=== PATIENT | female | born 1965 | race Caucasian/White ===

== ENCOUNTER 2018-11-26 12:45 | Emergency (ER) | payer OTHER, SELFPAY ==
[2018-11-26 12:46] VITALS: BP 151/81; PULSE 86; RESP 16; TEMP 36.6; O2SAT 98; BMI 43.4
--- NOTE | 2018-11-26 13:05 | ED.VISSUMM ---
- ER Visit Summary Date of Service: 11/26/18 Chief Complaint: Left breast redness and discomfort History of Present Illness: The patient is a 53 F history of prior left breast CA with a lumpectomy and underwent radiation and chemo 4 years ago. She is done well. The last 2 days she has had redness and pain in her left breast. Last 2 days since resolved. Not have a thermometer temperature. She denies chills. She denies nausea, vomiting or diarrhea. She is never had cellulitis or an abscess in the left breast before. Her recently was hospitalized for cellulitis. Physical Examination: Middle-aged female. No acute distress. Vital signs are stable afebrile. Initial blood pressure 151/81. Temperature 98 degrees orally. HEENT exam unremarkable. Neck nontender. Lungs bilateral. Heart regular rhythm no murmur rate about 85. Left breast has a prior lumpectomy healed scar. Both in the medial superior aspect of the left breast. The breast is red warm tender and minimally swollen consistent with cellulitis. She also has some tender enlarged left axillary lymphadenopathy. I do not pay or see any obvious abscess. Currently there is no discharge, drainage or pus. Right breast is unremarkable. Abdomen is soft and nontender. She is moving all 4 extremities. Calves are nontender without edema. Neurologically she is awake alert with no focal motor deficits. Test Results: CBC shows white count of 4. Hemoglobin 14. No bands. Electrolytes unremarkable normal creatinine and gap. Emergency Department Course and Treatment: Patient has an obvious left breast cellulitis. She will be treated with IV Ancef and p.o. Bactrim. She has a reported penicillin allergy. Repeat exam at 1340 1 PM patient is doing well. She and her are comfortable with her being discharged home with outpatient therapy. She knows to return if worse. Treatment Plan: Keflex 4 times a day for 10 days. Bactrim twice a day for 10 days. Tylenol Motrin for pain. Return if feeling worse. Follow-up with your doctor this week. Disposition: Discharge Impression: Acute left breast cellulitis History of prior breast CA with lumpectomy This note was generated with [employer] software. It may contain incorrect words, spelling, and punctuation that were not noted in review of the chart prior to signing ED Disposition - Plan for ED Patient: Disposition: Home or Assisted Living Instructions: Cellulitis Prescriptions: Smz/Tmp Ds [Bactrim Ds] 1 tab PO BID #20 tab Prescription Printed Cephalexin [Keflex] 500 mg PO Q6 #40 cap Prescription Printed Referrals: Palmer Wells MD [Primary Care Provider] - 3-5 Days Additional Instructions: Motrin for pain and fever. Bactrim 1 pill twice a day. Keflex 1 pill 4 times a day both for 10 days. Return if you are feeling worse continued fever, chills or spreading of the infection. Call and follow-up with your doctor in the next 3 to 5 days.
--- NOTE | 2018-11-26 13:17 | ED.DEP ---
ED Disposition - Plan for ED Patient: Disposition: Home or Assisted Living Instructions: Cellulitis Prescriptions: Smz/Tmp Ds [Bactrim Ds] 1 tab PO BID #20 tab Prescription Printed Cephalexin [Keflex] 500 mg PO Q6 #40 cap Prescription Printed Referrals: Palmer Wells MD [Primary Care Provider] - 3-5 Days Additional Instructions: Motrin for pain and fever. Bactrim 1 pill twice a day. Keflex 1 pill 4 times a day both for 10 days. Return if you are feeling worse continued fever, chills or spreading of the infection. Call and follow-up with your doctor in the next 3 to 5 days.
[2018-11-26 13:23] LABS: Absolute Lymphocyte Count 1.46 X10^3/uL (0.83-4.51); Basophil# 0.02 X10^3/uL; Basophil% 0.4 % (0-1); Eosinophil# 0.05 X10^3/uL; Hematocrit 46.3 % (37-47); Hemoglobin 14.9 g/dL (12.0-15.0); Lymphocyte # 1.46 X10^3/ul (4.0); Lymphocyte % 29.7 % (19-41); Mean Corp Hgb Conc 32.2 g/dL (32-36); Mean Corpuscular Hgb 30.1 pg (27.0-32.0); Mean Corpuscular Volume 93.5 fL (81-99); Mean Platelet Vol. 11.4 fl (6.2-12.0); Monocyte# 0.33 X10^3/uL; Monocyte% 6.7 % (0-10); NRBC Flagged by Analyzer 0 % (0-5); Neutrophil # 3.04 X10^3/uL (2.7-7.7); Platelet Count 186 K/mm3 (150-450); RBC Distribution Width CV 12.4 % (11.6-14.6); RBC Distribution Width SD 42.7 fl (35.1-43.9); Red Blood Count 4.95 M/mm3 (4.2-5.4); White Blood Count 4.9 K/mm3 (4.4-11.0)
[2018-11-26] MEDS: Cefazolin 1 GM/50 ML BAG IV (13:24)
[2018-11-26] MEDS: Smz/Tmp Ds Tablet 1 TABLET PO (13:30)
[2018-11-26 13:36] LABS: Anion Gap 6 (5-15); BUN 11 mg/dL (7-18); BUN/Creat Ratio 13.1 RATIO (10-20); Calcium,Total 8.8 mg/dL (8.5-10.1); Chloride 107 mmol/L (98-107); Creatinine, Serum 0.84 mg/dL (0.55-1.02); EST Glomerular Filtration Rate 75 mL/min (>60); Est Glom Filt Rate - Afr Amer 91 mL/min (>60); Estimated Creatinine Clearance 70.84 ml/min; Glucose 152 mg/dL (74-106); Potassium 3.4 mmol/L (3.5-5.1); Sodium Level 141 mmol/L (136-145)
== END 2018-11-26 14:34 | disposition home or self-care (01) ==
PROVIDERS: Emergency Provider Emergency Medicine; Family Provider Family Medicine; PCP Family Medicine
DX: N61.0 Mastitis without abscess (principal); Z72.0 Tobacco use; Z88.0 Allergy status to penicillin; Z85.3 Personal history of malignant neoplasm of breast; Z92.21 Personal history of antineoplastic chemotherapy; Z92.3 Personal history of irradiation
CPT/HCPCS: 80048; 85025; 96365; 99284; J7040; A4216

== ENCOUNTER → 2019-12-13 17:23 | Outpatient (CLI) | payer OTHER, SELFPAY | PROVIDERS: PCP Family Medicine; Referring Provider Nurse Practitioner Family; Visit Provider Nurse Practitioner Family | DX: Z20.828 Contact with and (suspected) exposure to other viral communicable diseases (principal); R11.0 Nausea; R19.7 Diarrhea, unspecified | CPT/HCPCS: 87635; C9803; U0003 ==

== ENCOUNTER 2020-05-02 12:43 | Day surgery (SDC) | payer OTHER, SELFPAY ==
--- NOTE | 2020-04-30 15:51 | EKG12_ITS ---
Test Reason : PREOP Blood Pressure : / mmHG Vent. Rate : 082 BPM Atrial Rate : 082 BPM P-R Int : 140 ms QRS Dur : 092 ms QT Int : 396 ms P-R-T Axes : 025 -07 040 degrees QTc Int : 462 ms Normal sinus rhythm Normal ECG Confirmed by NEERU GARCIAS, SARIKA ([id number]), field map editor ROHAN SINGLETON ([id number]) on 05/01/2020 12:40:45 PM Referred By: Nolberto Mcpherson Confirmed By:SARIKA SIDDIQI MD
--- NOTE | 2020-04-30 16:05 | RAD_ITS ---
STUDY: X-RAY CHEST REASON FOR EXAM: Female, 55 years old. PREOP TECHNIQUE: PA and lateral views of the chest. COMPARISON: Comparison is made with prior study 11/19/2016. FINDINGS: The lungs are clear and expanded. There is no demonstrated pleural abnormality. Normal size heart. Normal mediastinum and roes. Normal visualized pulmonary arteries. Normal visualized aortic arch and descending thoracic aorta. There are mild degenerative changes of the visualized thoracic spine. Normal visualized ribs, clavicles, and shoulders. There is no demonstrated abnormality of the visualized soft tissue structures of the upper abdomen. RAD/Chest PA and Lateral IMPRESSION: No acute abnormality is seen. Electronically Signed: Rich Corbett MD at 11:24 EDT , Service support ,
[2020-04-30 17:23] LABS: Hematocrit 44.7 % (37-47); Hemoglobin 14.3 g/dL (12.0-15.0); Mean Corpuscular Hgb 29.7 pg (27.0-32.0); Mean Corpuscular Volume 92.7 fL (81-99); Mean Platelet Vol. 12.3 fl (6.2-12.0); Platelet Count 270 K/mm3 (150-450); RBC Distribution Width CV 12.3 % (11.6-14.6); RBC Distribution Width SD 42.5 fl (35.1-43.9); Red Blood Count 4.82 M/mm3 (4.2-5.4); White Blood Count 7.9 K/mm3 (4.4-11.0)
[2020-05-02] VITALS (9 sets, daily range): BP systolic 112–153; BP diastolic 62–81; PULSE 18–72; RESP 16–18; TEMP 36–37.1; O2SAT 92–100; BMI 41.8
[2020-05-02] MEDS: Lactated Ringers 1,000 ML 100 ML IV ×3 (13:35→17:40)
--- NOTE | 2020-05-02 15:15 | GALL_PTH ---
PATIENT: ERASMO EGAN [place] [facility] [id number] AGE/SX: 55/F ROOM: RE05/02/[address]: Dr. Nolberto Mcpherson MD : 1965 BED: DIS: 05/02/2020 SPEC #: [id number] RECD: 05/05/20 07:29 STATUS: SYLWIA RIBERAHaylee #: [id number] DANIEL: 05/02/20 15:[address]: Nolberto Mcpherson DEPT: SURGICAL PATHOLOGY RECD BY: Birdie Sanchez ENTERED: 05/05/20 07:58 SP TYPE: ARELIS SHIELDS DR: Dr. Palmer Wells MD Tissues: Gallbladder, NOS Procedures: Surgery Specimen Level IV HEADER OPERATION: Laparoscopic cholecystectomy PRE-OP DIAGNOSIS: Epigastric abdominal pain, cholelithiasis TISSUE SUBMITTED: Gallbladder MICROSCOPIC DIAGNOSIS Gallbladder, cholecystectomy: Chronic cholecystitis, cholelithiasis and focal cholesterolosis. Focal dysplastic changes. SJ:geeta 05/07/2020 COMMENT Case has been reviewed in consultation with Dr. Greenberg who concurs with the above diagnosis. IDC:AM MICROSCOPIC DESCRIPTION Slides are reviewed. GROSS DESCRIPTION Received is one container labeled with the patient's name and designated gallbladder. The specimen consists of a gallbladder measuring 5.5 x 4 x 3 cm. The external surface is smooth and glistening. Focally, it is granular, hemorrhagic and contains cautery artifact. The lumen of the gallbladder contains yellow-green mucoid bile and one crystalline green calculus measuring 2.5 cm in greatest dimension. The mucosa is bile-stained and without any mass lesions. The gallbladder wall averages 0.2 cm in thickness and is free of mass lesions. All Around Gear Machine Operator sections of the gallbladder and the cystic duct at margin of resection are submitted in one cassette. / AM:geeta 05/05/20 More sections are submitted in three more cassettes, 2-4. Cassette 2 contains the section close to the cystic duct area. / SJ:geeta 05/06/20 TC:3 [facility]: [id number] ADDENDUM ADDENDUM ADDENDUM ADDENDUM 05/14/2020 11:05 ADDENDUM 05/14/2020 11:05 ADDENDUM 05/14/2020 11:05 ADDENDUM 05/14/2020 11:05 ADDENDUM 05/14/2020 11:05 Cystic duct margin is negative for dysplastic changes. This case is discussed with Dr. Liza Borjas from Dr. Mcpherson's office on 05/14/2020.
[2020-05-02] MEDS: Bupivacaine Mpf 0.5% 30 ML VIAL (15:17)
--- NOTE | 2020-05-02 15:53 | PCM.OPRPT ---
Problem List (1) Calculus of gallbladder Status: Acute Qualifiers: Cholecystitis presence: with cholecystitis Cholecystitis acuity: chronic Biliary obstruction: without biliary obstruction Qualified Code(s): K80.10 - Calculus of gallbladder with chronic cholecystitis without obstruction (2) Epigastric pain Status: Acute Report of Operation Date of Procedure: 05/02/20 Pre-Operative Diagnosis: 1. Calculus of the gallbladder. 2. Epigastric pain Post-Operative Diagnosis: Same Surgery/Procedure Performed:: Laparoscopic cholecystectomy Type of Anesthesia:: General Anesthesiologist: Josh Trent Specimen's removed: Gallbladder Estimated Blood Loss (mL): < 25 cc Fluids Replaced: 500 cc LR Description of Procedure: Patient was brought into the operating room. Placed in the supine position. Under excellent general trach intubation the abdomen was sterilely prepped and draped in usual fashion. Local was injected infraumbilically. Dissection was carried down to the fascia. The fascia grasped with a [place]. Varies needle was placed inside the abdomen. The abdomen was insufflated to 15 torr. A 10/12 trocar was placed without difficulty. The patient was placed in the head up and rotated to the left position. Subxiphoid #5 trochars placed, inferior to this another #5 trocar was placed, laterally a #5 trocar was placed. All these under direct visualization without injury to underlying structures. Fundus of the gallbladder was grasped retracted in a cephalad direction. I dissected out the cystic duct placed hemoclips proximally and distally and ligated the duct I dissected out the cystic artery placed hemoclips proximally and distally and ligated the artery. The posterior branch of the cystic artery placed a Hemoclip on this as well. Deliver the gallbladder from the gallbladder bed had some spillage of bile but no spillage of stones. Placed a specimen in a specimen bag delivered through the umbilical port without difficulty. Reinflated the abdomen use electrocautery on the liver bed achieve good hemostasis. Remove the trochars under direct visualization good mistakes was noted. Closed the fascia the umbilical port with a [id number] stitch of 0 Vicryl. Skin incisions were closed with subcuticular stitches of 4-0 Monocryl. Steri-Strips were applied sterile dressings were applied and the patient tolerated the procedure well. - Admit VTE Documentation VTE Present on Admission: No VTE Mechan Device Prophylaxis: SCD's VTE Pharm Prophylaxis ordered?: No Reason prophylaxis not ordered:: Treatment Not Indicated [id number]: [id number] Laparoscopic cholecystectomy
--- NOTE | 2020-05-02 16:03 | PCM.DC.GB ---
Discharge Diet: Light diet - advance as tolerated Discharge Activity: May Not Drive - for 2-3 days or while taking narcotic pain medications., - - Do not drive, work heavy equipment or sign legal documents for 24 hours. May shower in (days): 1 - with the bandage in place. Additional Activity Instructions:: Pain medication may cause nausea. You should typically eat light foods as you take your pain medications. Pain medication may also cause constipation. If this is a problem for you, please discuss with your doctor. Call your doctor if your incision/area has: Continuous Slow Oozing, Sudden Increased Bleeding, Increased Pain/ Swelling, Increased Redness, Foul Smelling Discharge Call your doctor if you observe: Fever of 101 or Higher Suture Line Care: Avoid Pulling/Pushing, Avoid Pinching/Bending Additional Dressing/Incision Instructions:: Leave operative bandaids on for 2 days. When you remove dressing, leave Steri-Strips on until your follow-up appointment, or until the Steri-Strips fall off on their own. Allergies/Adverse Reactions: Allergies Penicillins [PCN] Allergy (Verified 05/02/20 13:11) Other Medications to take at Discharge Albuterol Inhaler [Ventolin Hfa (SP)] 2 puff INHALATION Q6H PRN PRN 05/30/15 Cholecalciferol (Vitamin D3) [Vitamin D3] 500 mcg PO DAILY 04/30/20 Oxycodone HCl/Acetaminophen [Percocet 5/325] 1 - 2 tablet PO Q4H PRN PRN 5 Days #30 tablet 05/02/20 The following prescriptions were given: Oxycodone HCl/Acetaminophen [Percocet 5/325] 1 - 2 tablet PO Q4H PRN PRN 5 Days #30 tablet PRN Reason: Pain Transmission Status: Sent to [id number] Primary Care Physician: Palmer Wells MD [Primary Care Provider] - Test Results: Test results from this visit will be discussed in further detail at your follow-up appointment, if applicable. Please Follow Up With: Liza Borjas PA-C When: 7 days after your surgery.
== END 2020-05-02 18:29 | disposition home or self-care (01) ==
LOC: SDC 12:43 → AC 12:44
PROVIDERS: Anesthesiology; PCP Family Medicine; Referring Provider Surgery; Visit Provider Surgery
PROC: (CPT 47562; principal; 2020-05-02 14:55)
DX: K80.10 Calculus of gallbladder with chronic cholecystitis without obstruction (principal); Z20.822 Contact with and (suspected) exposure to COVID-19; E04.1 Nontoxic single thyroid nodule; E66.9 Obesity, unspecified; F17.210 Nicotine dependence, cigarettes, uncomplicated; Z78.0 Asymptomatic menopausal state
CPT/HCPCS: 47562; 36415; 71046; 85027; 87426; 88304; 88305; 93005; C9803; J7120; J2405

== ENCOUNTER → 2020-05-27 | Outpatient (CLI) | payer OTHER, SELFPAY ==
[2020-05-02 13:12] VITALS: BMI 41.8
--- NOTE | 2020-05-26 08:40 | ASPS_PTH ---
PATIENT: ERASMO EGAN LOC: [facility] U#:[id number] AGE/SX: 55/F ROOM: RE05/27/[address]: Dr. Nolberto Mcpherson MD : 1965 BED: DIS: 05/27/2020 SPEC #: [id number] RECD: 05/27/20 11:48 STATUS: SYLWIA REHaylee #: [id number] DANIEL: 05/26/20 08:[address]: Nolberto Mcpherson DEPT: CYTOLOGY RECD BY: Birdie Sanchez ENTERED: 05/27/20 13:04 SP TYPE: ASPIRATION OTHR DR: Dr. Palmer Wells MD Tissues: A - Thyroid gland, NOS B - Thyroid gland, NOS Procedures: Special Stain Group II Cytology Other HEADER OPERATION: Ultrasound-guided fine needle aspiration left thyroid x2 PRE-OP DIAGNOSIS: Thyroid nodules TISSUE SUBMITTED: A - Left inferior thyroid FNA slides x12, B - Left middle FNA slides x12 DIAGNOSIS CYTOLOGY A. Fine needle aspiration, left inferior thyroid nodule (smears): Adequate for evaluation. Benign, consistent with follicular/colloid nodule. B. Fine needle aspiration, left middle thyroid nodule (smears): Adequate for evaluation. Rare follicular cell atypia of uncertain significance. See comment. AM:geeta 05/28/2020 COMMENT B. The majority of the specimen consists of cluster-shaped sheets of benign follicular cells. Clinical correlation is suggested. CYTOLOGY STUDY Slides are reviewed. CYTOLOGY GROSS A - Received are 12 smears labeled with the patient's name and designated per the requisition as left inferior thyroid. Submitted for staining. B - Received are 12 smears labeled with the patient's name and designated per the requisition as left middle thyroid. Submitted for staining. / geeta 05/27/2020 TC:? CPT: 65627 x2
== END | disposition home or self-care (01) ==
LOC: LABSPEC 12:19
PROVIDERS: PCP Family Medicine; Referring Provider Surgery; Visit Provider Surgery
DX: E04.2 Nontoxic multinodular goiter (principal)
CPT/HCPCS: 88161; 88313

== ENCOUNTER 2020-06-06 11:33 | Day surgery (SDC) | payer OTHER, SELFPAY ==
[2020-05-02 13:12] VITALS: BMI 41.8
--- NOTE | 2020-06-06 | THYROID_PTH ---
PATIENT: ERASMO EGAN LOC: [facility] – [place] U#:[id number] AGE/SX: 55/F ROOM: RE06/06/[address]: Dr. Nolberto Mcpherson MD : 1965 BED: DIS: 06/06/2020 SPEC #: [id number] RECD: 06/06/20 15:12 STATUS: SYLWIA DION #: [id number] DANIEL: 06/06/20 00:[address]: Nolberto Mcpherson DEPT: SURGICAL PATHOLOGY RECD BY: Rosangela Hemphill ENTERED: 06/06/20 15:32 SP TYPE: THYROID OTHR DR: Dr. Palmer Wells MD Tissues: Thyroid gland, NOS Procedures: Frozen Section (charge) Frozen Section Add'l ([facility]) Surgery Specimen Level V HEADER OPERATION: Thyroid lobectomy PRE-OP DIAGNOSIS: Multinodular goiter TISSUE SUBMITTED: Left thyroid lobe, frozen section FROZEN SECTION DIAGNOSIS Left thyroid lobe, lobectomy: Cellular follicular lesion. Multinodular goiter. SJ:geeta 06/06/2020 MICROSCOPIC DIAGNOSIS Left thyroid lobe, lobectomy: Multinodular goiter with adenomatoid nodules. See comment. SJ:geeta 06/09/2020 COMMENT Please make reference to previous specimen ([id number]) fine needle aspiration, left inferior thyroid nodule with diagnosis of benign, consistent with follicular/colloid nodule and fine needle aspiration, left middle thyroid nodule with diagnosis of rare follicular cell atypia of uncertain significance. MICROSCOPIC DESCRIPTION Slides are reviewed. GROSS DESCRIPTION Received fresh for frozen section diagnosis labeled with the patient's name is a specimen designated left thyroid lobe. The specimen consists of a thyroid lobectomy specimen weighing 13.1 gm and measuring 4.5 x 4 x 2 cm. No external parathyroid tissue is identified. The specimen is inked as follows: anterior - blue, posterior - black and isthmic margin - yellow. Serial sections reveal a nodule measuring 2 cm in greatest dimension in the middle to lower portion of the lobe. Multiple smaller nodules are also noted. Two sections are submitted for frozen section diagnosis. Credentialing Assistant sections are submitted in nine cassettes as follows: 1 - frozen section, largest nodule, 2 - frozen section, one smaller nodule, 3-9 - rest of the specimen (3 containing most superior portion and 9 containing most inferior portion. / BHAKTI:geeta 06/06/20 TC:5 CPT: 08653, 98842, 31454
[2020-06-06 12:10] VITALS: BP 141/86; PULSE 76; RESP 18; TEMP 36.4; O2SAT 99; BMI 41.7
[2020-06-06] MEDS: BUPIVACAINE LIPOSOME/PF 20 ML VIAL OPERA.SITE (14:29)
--- NOTE | 2020-06-06 14:37 | OP.PCM_ITS ---
Problem List (1) Multinodular goiter Status: Acute Report of Operation Date of Procedure: 06/06/20 Pre-Operative Diagnosis: Multinodular goiter Post-Operative Diagnosis: Same Surgery/Procedure Performed:: Left-sided thyroid lobectomy Type of Anesthesia:: General Anesthesiologist: Agustin Ngo Specimen's removed: Left thyroid Estimated Blood Loss (mL): <25 cc Description of Procedure: Patient was brought into the operating room. Placed in the supine position. Under excellent general endotracheal intubation towel roll was placed underneath the shoulder blades and neck was extended sterilely prepped and draped in usual fashion. Cervical incision was made. Dissection was carried down subplatysmal flaps were created with use electrocautery. Gelpi retractor was placed inside the wound midline strap muscles were opened with electrocautery and continued with harmonic dissector I dissected the strap muscles off of the left thyroid gland using harmonic dissector for good pneumostasis I went to the superior pole vessels took this down with harmonic dissector placed 1 medium vascular clip in the superior pole. Came down took the middle thyroidal vein down with harmonic dissector and finally took the inferior thyroid vessels down with a harmonic dissector I rotated the gland from lateral to medial standpoint using the harmonic dissector for good pneumostasis I clearly identified both the superior and inferior parathyroid glands. I stayed away from the recurrent laryngeal n erve. I finally took the gland off of Chaz's ligaments with the harmonic dissector and continued going across the trachea and transected it on the left side of the thyroid gland. I sent it to pathology for frozen section which came back there is no signs of papillary thyroid cancer. Fluffy Surgicel and FloSeal was placed inside the wound to have good pneumostasis. Exparel was injected throughout the entire wound. Strap muscles were brought together with 2-0 Vicryl subplatysmal flaps were brought together with 3-0 Vicryl in a running 4-0 Monocryl in the skin Dermabond was applied sterile dressings were applied and the patient tolerated the procedure well. Pathology report on the frozen section came back as a cellular follicular lesion essentially consistent with the preoperative fine-needle aspiration. Nothing was done to the right side. - Admit VTE Documentation VTE Present on Admission: No VTE Mechan Device Prophylaxis: SCD's VTE Pharm Prophylaxis ordered?: No Reason prophylaxis not ordered:: Treatment Not Indicated
[2020-06-06 14:45] VITALS: BP 129/76; BP 141/86; PULSE 80; RESP 16; TEMP 36.1; O2SAT 93
--- NOTE | 2020-06-06 15:40 | DCINST_ITS ---
Discharge Diet: Light diet - advance as tolerated - If you have questions about your diet instructions, please talk to your doctor. Discharge Activity: May Not Drive - for 1 week or while taking narcotic pain medicine. May shower in (days): 1 Lifting Restrictions: 10 pounds Call your doctor if your incision/area has: Continuous Slow Oozing, Sudden Increased Bleeding, Increased Pain/ Swelling, Increased Redness, Foul Smelling Discharge Call your doctor if you observe: Fever of 101 or Higher Suture Line Care: Avoid Pulling/Pushing, Avoid Pinching/Bending Additional Dressing/Incision Instructions:: Change or remove dressing in 4 days. Leave steri-strips in place for 1 week. Allergies/Adverse Reactions: Allergies Penicillins [PCN] Allergy (Verified 06/06/20 12:15) Other Medications to take at Discharge Albuterol Inhaler [Ventolin Hfa (SP)] 2 puff INHALATION Q6H PRN PRN 05/30/15 Cholecalciferol (Vitamin D3) [Vitamin D3] 500 mcg PO DAILY 04/30/20 Oxycodone HCl/Acetaminophen [Percocet 5/325] 1 - 2 tablet PO Q4H PRN PRN 5 Days #30 tablet 06/06/20 The following prescriptions were given: Oxycodone HCl/Acetaminophen [Percocet 5/325] 1 - 2 tablet PO Q4H PRN PRN 5 Days #30 tablet PRN Reason: Pain Transmission Status: Received by [id number] Primary Care Physician: Palmer Wells MD [Primary Care Provider] - Test Results: Test results from this visit will be discussed in further detail at your follow- up appointment, if applicable. Please Follow Up With: Nolberto Mcpherson MD When: Call to make an appointment to be seen in about 10 days.
[2020-06-06 16:00] VITALS: BP 129/77; BP 141/86; PULSE 69; RESP 18; O2SAT 91
[2020-06-06 16:15] VITALS: BP 132/80; BP 141/86; PULSE 71; RESP 18; O2SAT 92
[2020-06-06 16:23] VITALS: BP 130/81; BP 141/86; PULSE 69; RESP 18; TEMP 36.6; O2SAT 92
[2020-06-06 17:08] VITALS: BP 137/75; BP 141/86; PULSE 66; RESP 18; TEMP 36.2; O2SAT 96
== END 2020-06-06 17:15 | disposition home or self-care (01) ==
LOC: SDC 11:34 → AC 11:34
PROVIDERS: PCP Family Medicine; Referring Provider Surgery; Visit Provider Surgery
PROC: (CPT 60220; principal; 2020-06-06 13:50)
DX: E04.2 Nontoxic multinodular goiter (principal); Z20.822 Contact with and (suspected) exposure to COVID-19; J45.909 Unspecified asthma, uncomplicated; F17.210 Nicotine dependence, cigarettes, uncomplicated; Z78.0 Asymptomatic menopausal state; Z85.41 Personal history of malignant neoplasm of cervix uteri; Z85.3 Personal history of malignant neoplasm of breast
CPT/HCPCS: 00320; 60220; 87426; 88307; 88331; 88332; C9803; J7120

== ENCOUNTER 2021-05-13 11:15 | Emergency (ER) | payer OTHER, SELFPAY ==
[2021-05-13 11:16] VITALS: BP 171/84; PULSE 89; RESP 20; TEMP 36.4; O2SAT 97; BMI 40.8
--- NOTE | 2021-05-13 11:22 | EKG12_ITS ---
Test Reason : CP Blood Pressure : / mmHG Vent. Rate : 078 BPM Atrial Rate : 078 BPM P-R Int : 150 ms QRS Dur : 094 ms QT Int : 390 ms P-R-T Axes : 009 -09 057 degrees QTc Int : 444 ms Normal sinus rhythm Normal ECG Confirmed by ANDRÉS GARCIAS, BERNADINE ([id number]), video tape editor ROHAN SINGLETON ([id number]) on 05/15/2021 2:12:49 PM Referred By: THELMA Confirmed By:KIKO BOWEN MD
[2021-05-13 11:28] VITALS: O2SAT 97
--- NOTE | 2021-05-13 11:30 | RAD_ITS ---
STUDY: X-RAY CHEST REASON FOR EXAM: Female, 56 years old. Chest pain TECHNIQUE: Single AP portable view of the chest. COMPARISON: Comparison is made with prior study of 04/30/2020. FINDINGS: EKG electrodes are seen. The lungs are clear and expanded. There is no demonstrated pleural abnormality. Normal size heart. Normal mediastinum and rose. Normal visualized pulmonary arteries. Normal visualized aortic arch and descending thoracic aorta. There are mild degenerative changes of the visualized thoracic spine. Normal visualized ribs, clavicles, and shoulders. There is no demonstrated abnormality of the visualized soft tissue structures of the upper abdomen. RAD/Chest 1 View (Portable) IMPRESSION: Normal x-ray examination of the chest. Electronically Signed: Rich Corbett MD at 12:10 EDT ,
--- NOTE | 2021-05-13 11:31 | EDS_ITS ---
HPI History of Present Illness Chief Complaint: Chest Pain Detail of Chief Complaint: Numbness across her chest and down her left arm. 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 Is not treated for any cardiac history nor is she on any blood pressure medications. States her blood pressures been up today and she has noticed numbness across her chest and down her left arm. Denies any shor tness of breath. No nausea. No diaphoresis. No recent exertional chest pain or exertional dyspnea. Prior Similar Symptoms: No Recent Illness/Hospitalization: No CVD Risk Factors: Negative for Hypertension, Diabetes and Hypercholesterolemia PE Risk Factors: Negative for Recent Travel/Surgery, Recent Immobilization, Prior DVT or PE, Cancer and OCP + Smoking + >/=35 TAD Risk Factors: Negative for Marfan's Syndrome PFSH PFSH Home Medications lisinopril 10 mg PO DAILY 30 Days #30 tab 05/13/21 [Rx Last Taken Unknown] Allergy/AdvReac Type Severity Reaction Status Date / Time Penicillins [PCN] Allergy Other Verified 05/13/21 11:17 Social History Smoking Status: Current every day smoker tobacco type: cigarettes ROS ROS ED ROS Narrative Denies recent illness. Review of Systems ROS Unobtainable: Denies due to encephalopathy Constitutional Constitutional ED: Denies fever(s) ENT ENT ED: Denies ear pain Cardiovascular Cardiovascular: Reports as per HPI; Denies chest pain, palpitations or racing heartbeat Respiratory/Chest Respiratory/Chest: Denies dyspnea Gastrointestinal Gastrointestinal: Denies abdominal pain Genitourinary Genitourinary ED: Denies dysuria Musculoskeletal Musculoskeletal: Denies myalgias Integumentary Denies rash Neurologic Neurologic: Denies headache(s) Psychiatric Psychiatric: Denies depression Endocrine Endocrinology: Denies polyuria Hematologic/Lymphatic Hematologic/Lymphatic: Denies easy bruising Allergic/Immunologic Allergic/Immunologic ED: Denies urticaria EXAM Physical Exam Narrative Exam Narrative: Well-appearing middle-aged female. Initial blood pressure 171/84. No acute distress. H EENT exam unremarkable. Neck nontender. Lungs clear to auscultation bilaterally. Heart regular rate and rhythm no murmur rate about 80. Chest wall nontender. Abdomen soft nontender. Obese. Moving all 4 extremities. Calves nontender without edema or cords. Equal symmetrical radial pulses. Back exam unremarkable. Neurologically she is awake alert with no focal motor deficits. Const Vital Signs: 05/13/21 11:16 05/13/21 11:18 05/13/21 11:28 Temperature 97.6 F L Temperature Source Temporal Pulse Rate 89 Respiratory Rate 20 H Respiratory Effort Normal Non-Labored Blood Pressure 171/84 H Blood Pressure Mean 113 Pulse Ox 97 97 Oxygen Delivery Method Room Air Room Air 05/13/21 11:56 05/13/21 13:06 Temperature Temperature Source Pulse Rate 73 60 Respiratory Rate 17 Respiratory Effort Blood Pressure 161/77 H 169/88 H Blood Pressure Mean 105 115 Pulse Ox 98 Oxygen Delivery Method Room Air Positive well nourished, well developed and obese; Negative for cachectic, contractures or unkempt General Appearance ED: well developed, NAD and other; Negative for unkempt, cachectic, contractures or pallor Nutritional Appearance: obese; Negative for cachectic HEENT Reports moist mucous membranes normocephalic and atraumatic; Negative for trauma or tenderness Eyes PERRL and EOMs intact bilaterally Neck no lymphadenopathy, supple and no JVD General: Negative for tenderness Chest Wall inspection of chest normal and palpation of chest normal Chest: Negative for tenderness Resp normal respiratory effort and clear to auscultation bilaterally Effort and Inspection: respiratory distress Auscultation: Negative for rales, rhonchi or wheezes Cardio regular rate, regular rhythm, S1 normal heart sound, S2 normal heart sound and no murmurs Rate: Negative for tachycardic GI normal to inspection, nondistended, normoactive bowel sounds, soft to palpation, non-tender, non-distended and no masses Back/Spine no CVA tenderness and no thoracic nor lumbar tenderness General Back: Negative for CVA tenderness Cervical Spine: Negative for cervical spine tenderness Extremity normal to inspection General Extremety ED: Negative for edema, pulses abnormal or tenderness General Extremity: Negative for edema or pulses abnormal Neuro oriented x3 Sensorium / Orientation: awake, alert, oriented to person, oriented to place and oriented to time Motor Exam: strength 5/5 throughout Psych mental status grossly normal Appearance: Negative for unkempt Attitude: No agitated Mood & Affect: Negative for depressed or tearful Skin no rashes or lesions noted and no wounds General Skin Exam: Negative for jaundice or pallor MDM MDM MDM Narrative Medical decision making narrative: Patient with elevated blood pressure with chest and arm numbness. Denies any chest pain. She will undergo cardiac work- up. Repeat exam patient is doing well at 2 PM. Blood pressure is improving. She will be discharged home. Blood pressure is currently 118/58. She will be started on lisinopril 10 mg a day. Follow-up with her primary care physician. Lab Data Attestation: I reviewed the patient's lab results. Lab results narrative: CBC normal white count 7. H&H 14 and 45. Electrolytes unremarkable gap at 2 normal BUN and creatinine. Glucose 97. Troponin less than 3. Chest x-ray normal. Normal cardiac silhouette mediastinum. Interpreted by myself and the radiologist. CT of the chest is read the radiologist and reviewed by me shows no acute abnormality. No dissection. Repeat troponin is normal at 8. Labs: Laboratory Results - last 24 hr 05/13/21 05/13/21 05/13/21 11:25 11:25 13:38 WBC 7.2 RBC 4.86 Hgb 14.9 Hct 45.8 MCV 94.2 MCH 30.7 MCHC 32.5 RDW Std Deviation 43.1 RDW Coeff of Julito 12.4 Plt Count 272 MPV 11.5 Immature Gran % (Auto) 0.300 Neut % (Auto) 65.5 Lymph % (Auto) 26.0 Barnes % (Auto) 6.1 Eos % (Auto) 1.7 Baso % (Auto) 0.4 Absolute Neuts (auto) 4.7 Absolute Lymphs (auto) 1.87 Nucleated RBC % 0 Sodium 138 Potassium 3.9 Chloride 107 Carbon Dioxide 29.0 Anion Gap 2 L BUN 18 Creatinine 0.96 Estim Creat Clear Calc 64.44 Est GFR (MDRD) Af Amer 77 Est GFR (MDRD) Non-Af 63 BUN/Creatinine Ratio 18.7 Glucose 97 Calcium 9.1 Troponin I High Sens < 3 L 8 Radiography Chest X-Ray - ED: 1 View, Read by ED Physician, Heart, Lungs, Mediastinum, Bony Structures and No Acute Disease Diagnostic Testing: Clinical Impression(s) from Imaging Studies Chest X-Ray 05/13/21 11:30 IMPRESSION: Normal x-ray examination of the chest. Electronically Signed: Rich Corbett MD at 12:10 EDT , Chest CTA 05/13/21 12:31 IMPRESSION: Normal CTA chest examination, without a demonstrated pulmonary embolism or arterial dissection. Electronically Signed: Rich Corbett MD at 13:30 EDT , Chest x-ray, portable, single view interpreted by myself and radiologist shows no acute abnormality. Normal mediastinum and cardiac silhouette. Rhythm Strip Rhythm Strip: Sinus Rhythm Rate: 78 Ectopy: None EKG Initial EKG: Attestation: I personally reviewed and interpreted this EKG as follows: Interpretation: Sinus Rhythm and No Acute Injury Pattern Comments: Normal sinus rhythm rate of 78 no acute signs of IN nor ischemia. Discharge Plan Triage Chief Complaint: Chest Pain ED Provider: Hernan Clayton Dx/Rx/DC Orders Clinical Impression: Hypertension, History of breast cancer in female Instructions: ED High Blood Pressure Hypertension Prescriptions: New lisinopril 10 mg tablet 10 mg PO DAILY 30 Days Qty: 30 RF: 0 Primary Care Provider: Palmer Wells Referrals: Palmer Wells MD [Primary Care Provider] - 1 Week Activity Restrictions/Additional Instructions: Your test today were unremarkable. Your blood pressure responded well to the blood pressure medication we gave you. You will be started on a blood pressure medication called lisinopril. You will take it once a day. 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 Log your blood pressures twice daily. Follow-up with your doctor in a week and see how your blood pressures are running when she been started on the medication. Hold the medication if your blood pressure is 120 or below. Disposition Disposition: Home, Self Care
[2021-05-13 11:32] LABS: Absolute Lymphocyte Count 1.87 X10^3/uL (0.83-4.51); Absolute Neutrophil Count 4.7 X10^3/uL (2.0-7.7); Basophil# 0.03 X10^3/uL; Basophil% 0.4 % (0-1); Eosinophil# 0.12 X10^3/uL; Eosinophils% 1.7 % (0-5); Hematocrit 45.8 % (37-47); Hemoglobin 14.9 g/dL (12.0-15.0); Lymphocyte # 1.87 X10^3/ul (0.83-4.51); Mean Corp Hgb Conc 32.5 g/dL (32-36); Mean Corpuscular Hgb 30.7 pg (27.0-32.0); Mean Corpuscular Volume 94.2 fL (81-99); Mean Platelet Vol. 11.5 fl (6.2-12.0); Monocyte# 0.44 X10^3/uL; Monocyte% 6.1 % (0-10); NRBC Flagged by Analyzer 0 % (0-5); Neutrophil # 4.71 X10^3/uL (2.7-7.7); Neutrophil % 65.5 % (47-70); Platelet Count 272 K/mm3 (150-450); RBC Distribution Width CV 12.4 % (11.6-14.6); RBC Distribution Width SD 43.1 fl (35.1-43.9); Red Blood Count 4.86 M/mm3 (4.2-5.4); White Blood Count 7.2 K/mm3 (4.4-11.0)
[2021-05-13 11:49] LABS: Anion Gap 2 (5-15); BUN 18 mg/dL (7-18); BUN/Creat Ratio 18.7 RATIO (10-20); Calcium,Total 9.1 mg/dL (8.5-10.1); Chloride 107 mmol/L (98-107); Creatinine, Serum 0.96 mg/dL (0.55-1.02); EST Glomerular Filtration Rate 63 mL/min (>60); Est Glom Filt Rate - Afr Amer 77 mL/min (>60); Estimated Creatinine Clearance 64.44 ml/min; Glucose 97 mg/dL (74-106); Potassium 3.9 mmol/L (3.5-5.1); Sodium Level 138 mmol/L (136-145); Troponin-I HS < 3 pg/mL (3.0-54.0)
[2021-05-13 11:56] VITALS: BP 161/77; PULSE 73
--- NOTE | 2021-05-13 12:31 | CT_ITS ---
STUDY: CTA CHEST REASON FOR EXAM: Female, 56 years old. Chest pain between the scapula. History of breast cancer. aortic dissection RADIATION DOSAGE (If Supplied By Facility): CTDIvol = ( 20.97 ) mGy, DLP = ( 523.92 ) mGycm TECHNIQUE: The examination was performed with the intravenous administration of IV 100mL Isovue-370. Post-processing of the angiographic images was performed, with multiplanar reformation and 3D reconstruction. Individualized dose optimization techniques were used for this CT. COMPARISON: None. FINDINGS: Normal enhancement of the main pulmonary artery and right and left pulmonary arteries. Normal enhancement of the bilateral peripheral pulmonary arteries. There is no demonstrated pulmonary embolism. Normal thoracic aorta and visualized great vessels. There is no demonstrated aortic dissection. Normal heart and pericardium. Normal mediastinum. Normal hilar regions. Normal visualized trachea and bronchi. The lungs are well expanded. Normal pulmonary parenchyma. Normal pleura. Normal chest wall structures. Normal osseous structures. Normal visualized upper abdomen. CT/CTA Chest W/WO Contrast IMPRESSION: Normal CTA chest examination, without a demonstrated pulmonary embolism or arterial dissection. Electronically Signed: Rich Corbett MD at 13:30 EDT ,
[2021-05-13] MEDS: Metoprolol Tartrate 5 MG/5 ML Vial IV (12:34)
[2021-05-13 13:06] VITALS: BP 169/88; PULSE 60; RESP 17; O2SAT 98
[2021-05-13 14:03] LABS: Troponin-I HS 8 pg/mL (3.0-54.0)
[2021-05-13 14:19] VITALS: BP 118/98; PULSE 65; RESP 17; O2SAT 97
== END 2021-05-13 14:20 | disposition home or self-care (01) ==
PROVIDERS: Emergency Provider Emergency Medicine; PCP Family Medicine; Visit Provider Emergency Medicine
DX: I10 Essential (primary) hypertension (principal); R20.0 Anesthesia of skin; F17.210 Nicotine dependence, cigarettes, uncomplicated; Z85.3 Personal history of malignant neoplasm of breast
CPT/HCPCS: 71045; 71275; 80048; 84484; 85025; 93005; 96374; 99284; Q9967; A4216

== ENCOUNTER → 2021-06-29 | Outpatient (CLI) | payer OTHER, SELFPAY ==
--- NOTE | 2021-06-29 14:26 | STRESSREP ---
Stress Test Report Exercise stress test. 56-year-old lady with a history of chest pain. Resting EKG demonstrates normal sinus rhythm with a rate of 75 bpm normal intervals are noted. The patient exercised according to the regular [place] protocol for a total duration of 3 minutes. The maximum heart rate attained was 137 bpm which was 84% of max impact at heart rate the maximum workload was 4.6 metabolic equivalents. At rest there were no ST or T wave changes noted to suggest abnormal flow reserve. At peak exercise no ST changes were noted to suggest ischemia. The test was terminated due to dyspnea. The peak blood pressure was 184/78 mmHg. No arrhythmias were noted. Conclusion: Exercise stress test with no EKG criteria for ischemia at a low workload. The above may affect sensitivity for detection of ischemia.
== END | disposition home or self-care (01) ==
LOC: CVS 12:16
PROVIDERS: PCP Family Medicine; Visit Provider Family Medicine
DX: R07.89 Other chest pain (principal); I10 Essential (primary) hypertension
CPT/HCPCS: 93017

== ENCOUNTER 2024-07-19 10:57 | Observation (INO) | payer OTHER, SELFPAY ==
--- NOTE | 2024-07-11 20:27 | PAT.ANE_ITS ---
Pre-Assessment Diagnosis/Proposed Procedure Planned Operative Procedure(s): POSTERIOR REPAIR BILAT SSLF WITH DERMIS CYSTO BILAT URETERAL CATHETERIZATION Anesthesia History Anesthesia History - capacity management specialist: Anesthesia History - capacity management specialist Hx Hospitalization No 07/05/24 10:24 Any Problems With Anesthesia No 07/05/24 10:24 Cholinesterase deficiency No 07/05/24 10:24 You/Your Family Experience No 07/05/24 10:24 fever (hyperthermia) with Relationship Recent Exposure to Contagious No 06/06/20 12:10 Disease Does patient have nerve No 07/05/24 10:24 stimulator Patient instructed to have device shut off --Does patient have Pacemaker or ICD? When Was Last Pacemaker Check QUESTION #4 FULL TEXT: You/Your Family Experience fever (hyperthermia) with Anesthesia Last Oral Intake Last Oral intake: Last Oral Intake NPO since Meds taken in AM with sips of water? Meds patient instructed to take am of surgery PONV PONV - capacity management specialist: PONV - capacity management specialist Female Yes 07/05/24 10:24 HX of Motion Sickness No 07/05/24 10:24 HX of N/V After Surgery No 07/05/24 10:24 Non-Smoker No 07/05/24 10:24 Duration of Surgery greater Yes 07/05/24 10:24 than 60 minutes Number of Risk Factors 2 07/05/24 10:24 PONV Score Moderate Risk 07/05/24 10:24 Height & Weight Height & Weight: Anesthesia: Height & Weight Height 5 ft 8 in 05/13/21 11:16 Respiratory Assessment Respiratory Assessment - capacity management specialist: Respiratory Tract Infection Hx - capacity management specialist Hx Respiratory Tract Infection No 07/05/24 10:24 STOP Sleep Apnea STOP Sleep Apnea - capacity management specialist: STOP Sleep Apnea - capacity management specialist Hx Hypertension Yes: CONTROLLED WITH MEDS 07/05/24 10:24 Hx Sleep Apnea No 07/05/24 10:24 CPAP No 06/06/20 14:45 BIPAP Do you snore loudly (louder No 07/05/24 10:24 than talking or can be heard Do you often feel tired/ No 07/05/24 10:24 fatigued/ sleepy during daytime? Has anyone observed you stop No 07/05/24 10:24 breathing during sleep? STOP Results Negative 07/05/24 10:24 QUESTION #5 FULL TEXT : Do you snore loudly (louder than talking or can be heard through closed doors)? Tobacco Use History Tobacco Use History - capacity management specialist: Tobacco Use History - capacity management specialist Tobacco Use Smoking Status Current every day smoker 07/05/24 10:24 Hx Tobacco Use Yes 07/05/24 10:24 Years Smoking Packs Smoked per Day Smoking Cessation Date was within the last 15 years Hx Smoking Cessation Date Hx Smoking Cessation No 07/05/24 10:24 Counseling Hematologic Medial History Hematologic Hx - capacity management specialist: Hematologic Medical Hx - private watchman Hx of Blood Transfusion No 07/05/24 10:24 Hx of Transfusion in last 3 No 07/05/24 10:24 Months Date of Last Transfusion (if within last 3 months) Ever experience any problems No 07/05/24 10:24 with transfusion(s)? Specify any problems Hx of Preganancy in last 3 No 07/05/24 10:24 Months Nurse Filling Out Transfusion DSCHRIBER 07/05/24 10:24 & Questions: Date: 07/05/24 07/05/24 10:24 Time: 10:07/05/24 10:24 Patient unable to answer at this time (ie. confused, unrespo /Reproduction History /Reproductive History - capacity management specialist: /Reproductive Hx- capacity management specialist Hx Now No 07/05/24 10:24 Gestational Age (in weeks): EDC: Hx Hx Para Hx Section SAB PFSH Medical History (Updated 07/05/24 @ 10:31 by Leanne Claire) Wears glasses Wears dentures Post-menopausal Cancer Arthritis Restless legs Gastric reflux Bronchitis Smoker History of stress test Hypertension Home Medications ?Medication ?Instructions ?Recorded ?Last Taken ?Type lisinopril 10 mg tablet 10 mg PO DAILY 30 days #30 t abs 05/13/21 Unknown Rx albuterol sulfate 90 mcg/actuation 2 puff inhalation Q 6H PRN PRN 07/05/24 Unknown History aerosol inhaler wheezing ergocalciferol (vitamin D2) 1,250 1,250 mcg PO QWEEK 0 07/05/24 Unknown History mcg (50,000 unit) capsule famotidine 20 mg tablet 20 mg PO QHS 07/05/24 Unknow n History losartan 25 mg tablet 25 mg PO DAILY 07/05/24 Unkn own History losartan 50 mg tablet 50 mg PO DAILY 07/05/24 Unkn own History topiramate 25 mg tablet 25 mg PO BID 07/05/24 Unknow n History Allergy/AdvReac Type Severity Reaction Status Date / Time Penicillins (PCN) Allergy Other Verified 07/05/24 10:21 Surgical History (Updated 07/05/24 @ 10:31 by Leanne Claire) Hx laparoscopic cholecystectomy History of partial mastectomy Hx of thyroidectomy Social History Smoking Status: Current every day smoker tobacco type: cigarettes Audit: Pertinent Findings Pertinent Findings EKG Perinent findings: July 10, 2024. Normal sinus rhythm. Stress test pertinent findings: June 29, 2021. Exercise stress test with no EKG criteria for ischemia at a low workload. Recommendation Anesthesia Recommendation Anesthesia recommendation: OPTIMIZED for anesthesia
[2024-07-19] VITALS (16 sets, daily range): BP systolic 101–120; BP diastolic 54–74; PULSE 57–75; RESP 16–94; TEMP 36.3–37.1; O2SAT 69–100; BMI 36.4
--- OUTSIDE RECORDS SUMMARY | 2024-07-19 06:08 | XMS RPT_ITS | CCD ---
Author Organization [facility] Care Team Providers Care Psychopaedic Nurse Name Role Phone Palmer Mckinnon MD Primary Care Provider [phone] Kg GARCIAS MD, Daesung Unavailable Dr. Palmer Mckinnon Primary Care Provider Dr. Palmer Mckinnon Other Provider Dr. Magdy Comer Attending Provider Palmer Mckinnon MD Primary Care Provider [phone] Kg GARCIAS MD, Daesung Unavailable Palmer Mckinnon MD Primary Care Provider Palmer Mckinnon MD Primary Care Provider [phone] Kg GARCIAS MD, Daesung Unavailable Christopher MANUFACTURING PLANT CONTROLLER.Becky CARRILLO Unavailable PALMER MCKINNON Primary Care Unavailable FÉLIX DUKES Attending Unavailable FÉLIX DUKES Admitting Unavailable Kg GARCIAS, Lissa Unavailable Palmer Mckinnon MD Primary Care Provider Haagen MANUFA[employer]URING PLANT CONTROLLER.Ariela CARRILLO Unavailable Suppan MANUFACTURING PLANT CONTROLLER.DUCK BILL OPERATOR, Juanita A Unavailable [phone] TRINA MITCHELL Attending Unavailable SELF Referring Unavailable PALMER MCKINNON Primary Care Unavailable ARIELA TALBERT Referring Unavailable PALMER MCKINNON Primary Care Unavailable ARIELA TALBERT Attending Unavailable PALMER MCKINNON Primary Care Unavailable ARIELA TALBERT Referring Unavailable PALMER MCKINNON Primary Care Unavailable BETH SALES Attending Unavailable ARIELA TALBERT Referring Unavailable PALMER MCKINNON Primary Care Unavailable BECKY WHITE Referring Unavailable PALMER MCKINNON Primary Care Unavailable ARIELA TALBERT Attending Unavailable PALMER MCKINNON Primary Care Unavailable BECKY WHITE Attending Unavailable BECKY WHITE Referring Unavailable PALMER MCKINNON Primary Care Unavailable TRINA MITCHELL Attending Unavailable ARIELA TALBERT Referring Unavailable PALMER MCKINNON Primary Care Unavailable TRINA MITCHELL Referring Unavailable PALMER MCKINNON Primary Care Unavailable PALMER BLANCHARD Admitting Unavailable PALMER MCKINNON MD Referring Unavailable PALMER MCKINNON MD Consulting Unavailable PALMER BLANCHARD Attending Unavailable PALMER BLANCHARD Primary Care Unavailable PROVIDER, UNKNOWN Consulting Unavailable LUDA HAMMOND Attending Unavailable LUDA HAMMOND Primary Care Unavailable LUDA HAMMOND Admitting Unavailable PALMER MCKINNON MD Consulting Unavailable PROVIDER, UNKNOWN Consulting Unavailable Palmer Mckinnon Primary Care Unavailable Luda Hammond Referring Unavailable Luda Hammond Attending Unavailable Allergies Allergy Classification Reported Allergen(s) Allergy Type Date of Onset Reaction(s) Facility (20 sources) Penicillins; Translations: [PENICILLINS] Allergy to substance 3 Rash [facility] (20 sources) Lisinopril; Translations: [LISINOPRIL] Drug Allergy 2 Cough [facility] Work Phone: (1 source) Penicillin Drug Allergy [facility] (1 source) 01/03/18 (+) MRSA SCREEN; Translations: [01/03/18 (+) MRSA SCREEN] Propensity to adverse reactions (disorder) [facility] (1 source) 01/03/18 (+) MRSA WOUND; Translations: [01/03/18 (+) MRSA WOUND] Propensity to adverse reactions (disorder) [facility] Medications Current Medications Medication Drug Class(es) Dates Sig (Normalized) Sig (Original) acetaminophen 325 mg oral capsule (20 sources) acetaminophen 32 5 mg cap Take 650 mg by mouth as needed. Active Comment on above: Take 650 mg by mouth as needed. [id number] 200 actuat albuterol 0.09 mg/actuat metered dose inhaler (20 sources) beta2-Adrenergic Agonist Start: 10-31-2023 take 2 puff(s) by inhalation every six hours as needed for wheezing albuterol HFA (PROVENTIL HFA, VENTOLIN HFA) 90 mcg/actuation inhaler Indications: Wheeze Inhale 2 Puffs as instructed every 6 hours as needed for wheezing/shortness of breath. 1 Each 1 10/31/2023 Active Start: 10-08-2021 End: 06-08-2023 take 2 puff(s) by inhalation every six hours as needed for wheezing albuterol HFA (PROVENTIL HFA, VENTOLIN HFA) 90 mcg/actuation inhaler Inhale 2 Puffs as instructed every 6 hours as needed for wheezing/shortness of breath. 1 Each 0 05/12/2022 06/08/2023 Discontinued Start: 11-11-2020 End: 10-08-2021 take 2 puff(s) by inhalation every four hours as needed albuterol HFA (PROVENTIL HFA, VENTOLIN HFA) 90 mcg/actuation inhaler Inhale 2 Puffs as instructed every 4 hours as needed. 8.5 g 11/11/2020 10/08/2021 Discontinued Start: 03-27-2019 End: 10-08-2021 take 2 puff(s) by inhalation every four hours as needed albuterol HFA (PROAIR HFA) 90 mcg/actuation inhaler Inhale 2 Puffs as instructed every 4 hours as needed. 1 Inhaler 03/27/2019 10/08/2021 Discontinued Start: 11-18-2016 End: 11-11-2021 albuterol (PROVENTIL) 5 mg/m L nebu Indications: Wheezing Inhale 0.5 mL as instructed one time only for 1 dose. 1 DOSE NOW - BACK OFFICE. PLACE 0.5 ML PER DROPPER AND 2.5 ML OF NORMAL SALINE INTO RESERVOIR. 1 mL 11/18/2016 10/08/2021 Discontinued Comment on above: Inhale 0.5 mL as ins tructed one time only for 1 dose. 1 DOSE NOW - BACK OFFICE. PLACE 0.5 ML PER DROPPER AND 2.5 ML OF NORMAL SALINE INTO RESERVOIR. Inhale 2 Puffs as in structed every 4 hours as needed. Inhale 2 Puffs as in structed every 6 hours as needed for wheezing/shortness of breath. azithromycin 250 mg oral tablet (2 sources) Macrolide Antimicrobial Start: End: 04-03-2 023 take 2 tablets by mouth once daily, then take 1 tablet by mouth once daily azithromycin (ZITHROMAX) 250 mg tablet Take 2 tablets by mouth once daily for 1 day, THEN 1 tablet once daily for 4 days. 6 tablet 0 05/12/2022 05/17/2022 Active Comment on above: Take 2 tablets by mo uth once daily for 1 day, THEN 1 tablet once daily for 4 days. ergocalciferol 1.25 mg oral capsule (20 sources) Provitamin D2 Compound Start: 024 End: 025 take 1 capsule by mouth every week ergocalciferol 50,000 unit capsule (VITAMIN D2, DRISDOL) Indications: Vitamin D deficiency Take one capsule po weekly. 12 capsule 3 04/30/2024 Active Start: 11-14-2019 End: 01-13-2022 take 1 capsule by mouth every week ergocalciferol 50,000 unit capsule (VITAMIN D2, DRISDOL) Indications: Vitamin D deficiency Take one capsule po weekly. 12 capsule 3 11/14/2019 05/26/2021 Discontinued Comment on above: Take one capsule po weekly. famotidine 20 mg oral tablet (20 sources) Histamine-2 Receptor Antagonist Start: 03-16-2023 End: 03-15-2024 take 1 tablet by mouth once daily at bedtime famotidine (PEPCID) 20 mg tablet Indications: Gastritis and duodenitis Take 1 tablet by mouth daily at bedtime. 30 tablet 11 03/16/2023 03/15/2024 Active Start: 01-13-2022 End: 01-13-2023 take 1 tablet by mouth once daily at bedtime famotidine (PEPCID) 20 mg tablet Indications: Gastritis and duodenitis Take 1 tablet by mouth daily at bedtime. 30 tablet 11 01/13/2022 01/13/2023 Active Comment on above: Take 1 tablet by lucas th daily at bedtime. ibuprofen 600 mg oral tablet (20 sources) Nonsteroidal Anti-inflammatory Drug Start: 01-13-20 take 1 tablet by mouth every six hours as needed for pain ibuprofen (MOTRIN) 600 mg tablet Indications: Referred otalgia of left ear Take 1 tablet by mouth every 6 hours as needed for pain. 30 tablet 01/12/2021 Active Comment on above: Take 1 tablet by lucas th every 6 hours as needed for pain. Inhalational Spacing Device (1 source) Start: 10-09-19 End: 10-09-19 Inhalational Spacing Device 1 Device one time only for 1 dose. 1 Each 0 10/08/2021 10/08/2021 Active Comment on above: 1 Device one time on ly for 1 dose. iv contrast (will be provided with radiology test) (1 source) Start: 04-07-19 End: 04-08-19 iv contrast (will be provided with radiology test) Indications: Parotid mass MRI Face Inject, intravenously, once for 1 dose. No IV access, insert saline lock prior to the beginning of sedation, infusion, injection of imaging exam. Discontinue saline lock post exam. If Pt. has a central line or IVAD, may access for administration according to line specific nursing protocol. Once exam is complete flush line and de-access according to line specific nursing protocol in the MR contrast administration guidelines link. 1 Each 0 04/07/2022 04/08/2022 Active Comment on above: MRI Face Inject, int ravenously, once for 1 dose. No IV access, insert saline lock prior to the beginning of sedation, infusion, injection of imaging exam. Discontinue saline lock post exam. If Pt. has a central line or IVAD, may access for administration according to line specific nursing protocol. Once exam is complete flush line and de-access according to line specific nursing protocol in the MR contrast administration guidelines link. losartan potassium 50 mg oral tablet (20 sources) Angiotensin 2 Receptor Ana Start: 03-16-19 End: 05-01-19 take 1 tablet by mouth once daily losartan (COZAAR) 25 mg tablet Indications: Primary hypertension Take 1 tablet by mouth once daily. Take with 50 mg for total daily dose of 75 mg daily. 90 tablet 2 04/30/2024 Active Start: 03-16-2023 End: 04-30-2024 take 1 tablet by mouth once daily losartan (COZAAR) 50 mg tablet Indications: Primary hypertension Take 1 tablet by mouth once daily. Take w/ 25 mg for total daily dose of 75 mg. 90 tablet 2 04/30/2024 Active Start: 08-16-2022 take 1 tablet by lucas th once daily losartan (COZAAR) 50 mg tablet Indications: Primary hypertension Take 1 tablet by mouth once daily. 30 tablet 5 08/16/2022 Active Start: 07-22-2021 End: 01-12-2023 take 1 tablet by mouth once daily losartan (COZAAR) 25 mg tablet Indications: Primary hypertension Take 1 tablet by mouth once daily. 30 tablet 2 07/22/2021 01/13/2022 Discontinued Comment on above: Take 1 tablet by lucas th once daily. Take 1 tablet by lucas th once daily. Take w/ 25 mg for total daily dose of 75 mg. Take 1 tablet by lucas th once daily. Take with 50 mg for total daily dose of 75 mg daily. 24 hr metFORMIN hydrochloride 500 mg extended release oral tablet (7 sources) Biguanide Start: 5 End: 5 take 40-44.9 tablets by mouth twice daily metFORMIN ER (GLUCOPHAGE XR) 500 mg 24 hr tablet Indications: Metabolic syndrome , Class 3 severe obesity with serious comorbidity and body mass index (BMI) of 40.0 to 44.9 in adult, unspecified obesity type Take 1 tablet by mouth two times a day. 180 tablet 1 03/13/2024 06/15/2024 Discontinued (Patient chooses alternative therapy) predniSONE 20 mg oral tablet (2 sources) Start: 3 End: 3 take 2 tablets by mouth once daily predniSONE (DELTASONE) 20 mg tablet Indications: Warthin's tumor Take 2 tablets by mouth once daily for 5 days. 10 tablet 0 08/16/2022 08/21/2022 Active Start: 10-08-2021 End: 10-13-2021 take 2 tablets by mouth once daily predniSONE (DELTASONE) 20 mg tablet Take 2 tablets by mouth once daily for 5 days. 10 tablet 0 10/08/2021 10/13/2021 Active Comment on above: Take 2 tablets by mo ut once daily for 5 days. topiramate 25 mg oral tablet (10 sources) Start: 4 End: 5 take 40-44.9 tablets by mouth twice daily topiramate (TOPAMAX) 25 mg tablet Indications: Primary hypertension , Low HDL (under 40) , Gastroesophageal reflux disease, unspecified whether esophagitis present , Persistent circadian rhythm sleep disorder, shift work type , Class 3 severe obesity with serious comorbidity and body mass index (BMI) of 40.0 to 44.9 in adult, unspecified obesity type Take 1 tablet by mouth two times a day. Patient should start on May 08, 2024. 180 tablet 1 05/08/2024 11/04/2024 Active Completed/Discontinued Medications Medication Drug Class(es) Dates Sig (Normalized) Sig (Original) acetaminophen 325 mg / oxyCODONE hydrochloride 5 mg oral tablet (5 sources) Opioid Agonist Start: 06-06-2020 End: 06-11-2020 take 1 tablet by mouth every four hours as needed Oxycodone-Acetamino phen Discontinued 1 - 2 TABLET PO EVERY 4 HOURS NEEDED 13 07June 06, 2020 2:39pm June 11, 2020 12:03am Start: 05-02-2020 End: 05-07-2020 take 1 tablet by mouth every four hours as needed Oxycodone-Acetaminophen Discontinued 1 - 2 TABLET PO EVERY 4 HOURS NEEDED 13 07May 02, 2020 4:02pm May 07, 2020 12:03am Start: 05-02-2020 End: 12-08-2020 take 1 tablet by mouth every six hours as needed oxyCODONE-acetaminophen (PERCOCET) 5-325 mg tablet Take 1 tablet by mouth every 6 hours as needed for Pain. 05/02/2020 12/08/2020 Discontinued benzonatate 100 mg oral capsule (14 sources) Non-narcotic Antitussive Start: 11-11-2020 End: 01-13-2022 take 1 capsule by mouth every eight hours as needed benzonatate (TESSALON PERLES) 100 mg capsule Take 1 capsule by mouth three times daily as needed for cough. 20 capsule 11/11/2020 01/13/2022 Discontinued (Other) Comment on above: Take 1 capsule by [facility] three times daily as needed for cough. cyclobenzaprine hydrochloride 10 mg oral tablet (14 sources) Muscle Relaxant Start: 01-12-2021 End: 01-13-2022 take 1 tablet by mouth at bedtime as needed for muscle spasms cyclobenzaprine (FLEXERIL) 10 mg tablet Indications: Referred otalgia of left ear Take 1 tablet by mouth at bedtime as needed for muscle spasm. 30 tablet 01/12/2021 01/13/2022 Discontinued (Other) Comment on above: Take 1 tablet by lucas at bedtime as needed for muscle spasm. fluticasone propionate 0.05 mg/actuat metered dose nasal spray (14 sources) Corticosteroid Start: 11-11-2020 End: 01-13-2022 take 2 spray(s) by mouth once daily fluticasone (FLONASE) 50 mcg/actuation nasal spray Use 2 Sprays in each nostril once daily. Rinse mouth after use. 1 Each 11/11/2020 01/13/2022 Discontinued (Other) Comment on above: Use 2 Sprays in each nostril once daily. Rinse mouth after use. hydroCHLOROthiazide 12.5 mg oral capsule (2 sources) Thiazide Diuretic Start: 07-15-2021 End: 07-22-2021 take 1 capsule by mouth once daily hydroCHLOROthiazide (HYDRODIURIL, ESIDRIX) 12.5 mg capsule Indications: Primary hypertension Take 1 capsule by mouth once daily. 30 capsule 12 07/15/2021 07/22/2021 Discontinued (Other) Comment on above: Take 1 capsule by [facility] once daily. lisinopril 20 mg oral tablet (6 sources) Angiotensin Converting Enzyme Inhibitor Start: 05-18-2021 End: 11-14-2021 take 1 tablet by mouth once daily lisinopril (ZESTRIL, PRINIVIL) 20 mg tablet Indications: Primary hypertension Take 1 tablet by mouth once daily. 30 tablet 5 05/18/2021 07/15/2021 Discontinued Start: 05-13-2021 take 10 mg by mouth once daily Lisinopril Active 10 MG PO DAILY May 13, 2021 2:11pm Comment on above: Take 1 tablet by [facility] once daily. Problems Active Problems Problem Classification Problem Date Documented Date Episodic/Chronic Anal and rectal conditions (1 source) Disorder of rectum 05-14-2024 Episodic Biliary tract disease (2 sources) Gallstone; Translations: [Calculus of gallbladder without cholecystitis without obstruction] Episodic Cancer of breast (20 sources) Infiltrating duct carcinoma of breast; Translations: [Malignant neoplasm of unspecified site of left female breast] Onset: 06-25-2015 Chronic Cancer of breast (9 sources) History of malignant neoplasm of breast; Translations: [Personal history of malignant neoplasm of breast] Onset: 06-08-2024 Episodic Diabetes mellitus without complication (2 sources) Prediabetes; Translations: [Prediabetes] Onset: 04-30-2024 04-30-2024 Episodic Esophageal disorders (12 sources) Gastroesophageal reflux disease; Translations: [Gastro-esophageal reflux disease without esophagitis] Onset: 11-11-2023 11-10-2023 Chronic Essential hypertension (20 sources) Hypertensive disorder; Translations: [Essential (primary) hypertension] Onset: 01-13-2022 Chronic Fluid and electrolyte disorders (2 sources) Hypokalemia; Translations: [Hypokalemia] Onset: 04-30-2024 03-16-2024 Episodic Headache; including migraine (1 source) Headache; Translations: [Headache, unspecified headache type] Episodic Nonspecific chest pain (1 source) Chest pain; Translations: [Chest pain, unspecified] Episodic Nutritional deficiencies (20 sources) Vitamin D deficiency; Translations: [Vitamin D deficiency, unspecified] Onset: 01-13-2022 Chronic Other aftercare (1 source) Encounter for follow-up examination after completed treatment for malignant neoplasm; Translations: [Encounter for follow-up surveillance of breast cancer] Onset: 06-15-2024 Episodic Other endocrine disorders (9 sources) Hyperinsulinism; Translations: [Other hypoglycemia] Onset: 11-11-2023 11-11-2023 Chronic Other lower respiratory disease (4 sources) Cough; Translations: [Cough] Episodic Other lower respiratory disease (1 source) Wheezing; Translations: [Wheezing] 10-31-2023 Episodic Other lower respiratory disease (1 source) Cough; Translations: [Acute cough] 10-08-2021 Episodic Other nervous system disorders (11 sources) Circadian rhythm sleep disorder of shift work type; Translations: [Circadian rhythm sleep disorder, shift work type] Onset: 11-11-2023 11-10-2023 Chronic Other nervous system disorders (1 source) Circadian rhythm sleep disorder, shift work type; Translations: [Persistent circadian rhythm sleep disorder, shift work type] Onset: 11-11-2023 Chronic Other nutritional; endocrine; and metabolic disorders (20 sources) Body mass index 40+ - severely obese; Translations: [Morbid (severe) obesity due to excess calories] 06-21-2017 Chronic Other nutritional; endocrine; and metabolic disorders (13 sources) Severe obesity; Translations: [Morbid (severe) obesity due to excess calories] 10-31-2023 Chronic Other nutritional; endocrine; and metabolic disorders (11 sources) Cholesterol level - finding; Translations: [Lipoprotein deficiency] Onset: 11-11-2023 11-09-2023 Chronic Other nutritional; endocrine; and metabolic disorders (9 sources) Metabolic syndrome X; Translations: [Metabolic syndrome] Onset: 03-13-2024 03-12-2024 Chronic Other nutritional; endocrine; and metabolic disorders (1 source) Metabolic syndrome; Translations: [Metabolic syndrome] Onset: 03-13-2024 Chronic Other nutritional; endocrine; and metabolic disorders (1 source) Lipoprotein deficiency; Translations: [Low HDL (under 40)] Onset: 11-11-2023 Chronic Other nutritional; endocrine; and metabolic disorders (2 sources) Morbid (severe) obesity due to excess calories; Translations: [Class 3 severe obesity with serious comorbidity and body mass index (BMI) of 40.0 to 44.9 in adult, unspecified obesity type (HCC)] Onset: 10-31-2023 Chronic Other nutritional; endocrine; and metabolic disorders (2 sources) Body mass index (BMI) 40.0-44.9, adult; Translations: [Class 3 severe obesity with serious comorbidity and body mass index (BMI) of 40.0 to 44.9 in adult, unspecified obesity type (HCC)] Onset: 10-31-2023 Chronic Other screening for suspected conditions (not mental disorders or infectious disease) (10 sources) Patient encounter status; Translations: [Encounter for screening mammogram for malignant neoplasm of breast] Onset: 06-08-2024 Episodic Pneumonia (except that caused by tuberculosis or sexually transmitted disease) (1 source) Infective pneumonia; Translations: [Pneumonia, unspecified organism] Episodic Prolapse of female genital organs (10 sources) Prolapse of female genital organs; Translations: [Female genital prolapse, unspecified] Onset: 04-30-2024 04-30-2024 Chronic Residual codes; unclassified (1 source) Other specified personal risk factors, not elsewhere classified; Translations: [Other specified personal history presenting hazards to health] Episodic Residual codes; unclassified (1 source) Tobacco user; Translations: [Tobacco use] 10-31-2023 Episodic Spondylosis; intervertebral disc disorders; other back problems (20 sources) Backache; Translations: [Dorsalgia, unspecified] 08-13-2013 Episodic Thyroid disorders (2 sources) Multinodular goiter; Translations: [Nontoxic multinodular goiter] Chronic Unclassified (1 source) Class 3 severe obesity with serious comorbidity and body mass index (BMI) of 40.0 to 44.9 in adult, unspecified obesity type (HCC); Translations: [Class 3 severe obesity with serious comorbidity and body mass index (BMI) of 40.0 to 44.9 in adult, unspecified obesity type (HCC)] Onset: 11-11-2023 Past or Other Problems Problem Classification Problem Date Documented Da te Episodic/Chronic Abdominal pain (16 sources) Epigastric pain; Translations: [Epigastric pain] Onset: 04-22-2020 Resolved: 04-22-2020 04-22-2020 Episodic Diseases of mouth; excluding dental (5 sources) Mass of parotid gland; Translations: [Other diseases of salivary glands] Onset: 06-24-2022 Episodic Gastritis and duodenitis (20 sources) Gastroduodenitis; Translations: [Gastroduodenitis, unspecified, without bleeding] Onset: 09-17-2013 09-17-2013 Episodic Immunizations and screening for infectious disease (1 source) Encounter for immunization; Translations: [Encounter for immunization] Onset: 10-31-2023 Episodic Other and unspecified benign neoplasm (20 sources) Hyperplastic polyp of large intestine; Translations: [Polyp of colon] Onset: 09-17-2013 09-17-2013 Episodic Other and unspecified benign neoplasm (20 sources) Adenolymphoma; 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, unspecified] Onset: 07-16-2022 Episodic Other ear and sense organ disorders (20 sources) Otalgia, left ear; Translations: [Otalgia, unspecified] Onset: 07-16-2022 Episodic Other lower respiratory disease (1 source) Wheezing; Translations: [Wheeze] Onset: 10-31-2023 Episodic Residual codes; unclassified (1 source) Tobacco use; Translations: [Tobacco abuse] Onset: 10-31-2023 Episodic Unclassified (1 source) Patient encounter status 06-15-2024 Results Test Name Value Interpretation Reference Range Facility /Alia 07-11-2024 /[facility] Medical Records Department [address] [place] [address] PAT - Anesthesia 07/11/242026 MR#: [id number] Acct: [id number] Name: CARRIE TAVERAS Rep #: [id number] : 1965 59 From: Josh Trent MD PCP: Dr. Palmer Mckinnon MD [place] [facility] [place]: C [place] [facility]Assessment Diagnosis/Proposed Procedure Planned Operative Procedure(s): POSTERIOR REPAIR BILAT SSLF WITH DERMIS CYSTO BILAT URETERAL CATHETERIZATION Anesthesia History Anesthesia History - hospice manager: Anesthesia History - hospice manager Hx Hospitalization No 07/05/24 10:24 Any Problems With Anesthesia No 07/05/24 10:24 Cholinesterase deficiency No 07/05/24 10:24 You/Your Family Experience No 07/05/24 10:24 fever (hyperthermia) with Relationship Recent Exposure to Contagious No 06/06/20 12:10 Disease Does patient have nerve No 07/05/24 10:24 stimulator Patient instructed to have device shut off --Does patient have Pacemaker or ICD? When Was Last Pacemaker Check QUESTION #4 FULL TEXT: You/Your Family Experience fever (hyperthermia) with Anesthesia Last Oral Intake Last Oral intake: Last Oral Intake NPO since Meds taken in AM with sips of water? Meds patient instructed to take am of surgery PONV PONV - hospice manager: PONV - hospice manager Female Yes 07/05/24 10:24 HX of Motion Sickness No 07/05/24 10:24 HX of N/V After Surgery No 07/05/24 10:24 Non-Smoker No 07/05/24 10:24 Duration of Surgery greater Yes 07/05/24 10:24 than 60 minutes Number of Risk Factors 2 07/05/24 10:24 PONV Score Moderate Risk 07/05/24 10:24 Height Weight Height Weight: Anesthesia: Height Weight Height 5 ft 8 in 05/13/21 11:16 Respiratory Assessment Respiratory Assessment - hospice manager: Respiratory Tract Infection Hx - hospice manager Hx Respiratory Tract Infection No 07/05/24 10:24 STOP Sleep Apnea STOP Sleep Apnea - hospice manager: STOP Sleep Apnea - hospice manager Hx Hypertension Yes: CONTROLLED WITH MEDS 07/05/24 10:24 Hx Sleep Apnea No 07/05/24 10:24 CPAP No 06/06/20 14:45 BIPAP Do you snore loudly (louder No 07/05/24 10:24 than talking or can be heard Do you often feel tired/ No 07/05/24 10:24 fatigued/ sleepy during daytime? Has anyone observed you stop No 07/05/24 10:24 breathing during sleep? STOP Results Negative 07/05/24 10:24 QUESTION #5 FULL TEXT : Do you snore loudly (louder than talking or can be heard through closed doors)? Tobacco Use History Tobacco Use History - hospice manager: Tobacco Use History - hospice manager Tobacco Use Smoking Status Current every day smoker 07/05/24 10:24 Hx Tobacco Use Yes 07/05/24 10:24 Years Smoking Packs Smoked per Day Smoking Cessation Date was within the last 15 years Hx Smoking Cessation Date Hx Smoking Cessation No 07/05/24 10:24 Counseling Hematologic Medial History Hematologic Hx - hospice manager: Hematologic Medical Hx - retail service representative Hx of Blood Transfusion No 07/05/24 10:24 Hx of Transfusion in last 3 No 07/05/24 10:24 Months Date of Last Transfusion (if within last 3 months) Ever experience any problems No 07/05/24 10:24 with transfusion(s)? Specify any problems Hx of Preganancy in last 3 No 07/05/24 10:24 Months Nurse Filling Out Transfusion DSCHRIBER 07/05/24 10:24 Questions: Date: 07/05/24 07/05/24 10:24 Time: 10:25 07/05/24 10:24 Patient unable to answer at this time (ie. confused, unrespo /Reproduction History /Reproductive History - hospice manager: /Reproductive Hx- hospice manager Hx Now No 07/05/24 10:24 Gestational Age (in weeks): EDC: Hx Hx Para Hx Section SAB PFSH Medical History (Updated 07/05/24 @ 10:31 by Leanne Claire) Wears glasses Wears dentures Post-menopausal Cancer Arthritis Restless legs Gastric reflux Bronchitis Smoker History of stress test Hypertension Home Medications ???Medication ???Instructions ???Recorded ???Last Taken ???Type lisinopril 10 mg tablet 10 mg PO DAILY 30 days #30 tabs Unknown Rx albuterol sulfate 90 mcg/actuation 2 puff inhalation Q6H PRN PRN Unknown History aerosol inhaler wheezing ergocalciferol (vitamin D2) 1,250 1,250 mcg PO QWEEK 07/05/24 Unkno wn History mcg (50,000 unit) capsule famotidine 20 mg tablet 20 mg PO QHS 07/05/24 Unknown Hist ory losartan 25 mg tablet 25 mg PO DAILY 07/05/24 Unknown Hi story losartan 50 mg tablet 50 mg PO DAILY 07/05/24 Unknown Hi story topiramate 25 mg tablet 25 mg PO BID 06/15 (more content not included)... Normal [facility] CBC + DIFFon 07-10-2024 Baso # 0.02 x10EE3/UL Normal 0.00 - 0.10 [facility] Comment on above: Performed By: #### 2 24737 #### [facility],[address] [place] [address] 76614 Basophils/100 WBC (Bld) 0.4 % Normal 0.0 - 2.0 [facility] Comment on above: Performed By: #### 2 04158 #### [facility],[address] [place] [address] 07811 CBC + DIFF Normal [facility] Comment on above: Result Comment: CBC- COMPLETE BLOOD COUNT Performed By: #### 2 25114 #### [facility],[address] [place] [address] 86440 EO # 0.13 x10EE3/UL Normal 0.00 - 0.50 [facility] Comment on above: Performed By: #### 2 23396 #### [facility],[address] [place] [address] 32546 Eosinophils/100 WBC (Bld) 2.1 % Normal 0.0 - 7.0 [facility] Comment on above: Performed By: #### 2 05753 #### [facility],[address] [place] [address] 97016 Erythrocyte distribution width (RBC) [Ratio] 12.5 % Normal 12.0 - 15.6 [facility] Comment on above: Performed By: #### 2 97521 #### [facility],[address] [place] [address] 48419 Hematocrit (Bld) [Volume fraction] 41.8 % Normal 34.0 - 46.0 [facility] Comment on above: Performed By: #### 2 32300 #### [facility],[address] [place], [place] [id number] Hemoglobin (Bld) [Mass/Vol] 14.5 g/dL Normal 12.0 - 16.0 [facility] Comment on above: Performed By: #### 2 30711 #### [facility],[address] [place] [address] Lymph # 1.72 x10EE3/UL Normal 0.80 - 2.80 [facility] Comment on above: Performed By: #### 2 25595 #### [facility],[address] [place] [address] Lymphocytes/100 WBC (Bld) 28.4 % Normal 20.0 - 45.0 [facility] Comment on above: Performed By: #### 2 23631 #### [facility],[address] [place], [place] [id number] MANUAL DIFF N/A Normal [facility] Comment on above: Performed By: #### 2 08538 #### [facility],[address] [place], [place] [id number] MCH (RBC) [Entitic mass] 32 pg Normal 27 - 33 [facility] Comment on above: Performed By: #### 2 79276 #### [facility],[address] [place], [place] [id number] MCHC 35 X10 3 Normal 32 - 36 [facility] Comment on above: Performed By: #### 2 54791 #### [facility],[address] [place] [address] 25585 MCV (RBC) [Entitic vol] 92 fL Normal 80 - 99 [facility] Comment on above: Performed By: #### 2 70816 #### [facility],[address] [place] [address] 64381 Alfalfa # 0.40 x10EE3/UL Normal 0.20 - 1.00 [facility] Comment on above: Performed By: #### 2 02637 #### [facility],[address] [place] [address] 31301 MONOS % 6.7 % Normal 0.0 - 10.0 [facility] Comment on above: Performed By: #### 2 84054 #### [facility],[address] [place] [address] 24253 Morphology Mynor (Bld) [Interp] N/A Normal [facility] Comment on above: Performed By: #### 2 93601 #### [facility],[address] [place] [address] 50876 Neut # 3.79 x10EE3/UL Normal 1.50 - 7.10 [facility] Comment on above: Performed By: #### 2 19691 #### [facility],[address] [place] [address] 80285 Neutrophils/100 WBC (Bld) 62.5 % Normal 46.0 - 76.0 [facility] Comment on above: Performed By: #### 2 09364 #### [facility],[address] [place] [address] 44306 PLATELET 238 x10EE3/UL Normal 150 - 450 [facility] Comment on above: Performed By: #### 2 20728 #### [facility],[address] [place] [address] 67002 Platelet mean volume (Bld) [Entitic vol] 10.2 fL Normal 6.6 - 10.[address] [facility] Comment on above: Result Comment: AUTO MATED DIFFERENTIAL Performed By: #### 2 36240 #### [facility],[address] [place] [address] 55538 RBC 4.54 x 10EE6/UL Normal 4.10 - 5.30 [facility] Comment on above: Performed By: #### 2 38095 #### [facility],[address] [place] [address] 54236 WBC 6.1 x 10EE3/UL Normal 4.5 - 10.8 [facility] Comment on above: Performed By: #### 2 46673 #### [facility],[address] [place] [address] 85707 CNOVSPon 06-15-2024 CNOVSP Visit (SP) Office (HEMAWS) CALEBHERMINIOCARRIE Resendiz ([id number]) 1965 F T Date Time Provider Department 06/15/24 9:00 AM BECKY WHITE During your visit today, we recorded the following information about you: Temperature Pulse Blood pressure Weight 98.5 degrees 64/minute 119/79 103.4 kg Becky White APRN.DUCK BILL OPERATOR 06/15/2024 9:16 AM Signed Chief Complaint Patient presents with: Established Patient HPI: Carrie Taveras is a 59 year old female who presents here today for follow up breast cancer. Per Dr. Quarles's previous note: H/o (post-menopausal; cervix cancer, s/p radical hysterectomy 2003) who was found to have an abnormality of the left breast on screening mammogram. She underwent an ultrasound-guided core needle biopsy on 05/13/2015. The pathology demonstrated invasive ductal carcinoma, nuclear grade 3. Estrogen receptors were quantified at greater than 95%, strong. Progesterone receptors 0%. HER-2/ngoc 2+. Nonamplified by FISH testing. The patient socially underwent a left breast lumpectomy and sentinel lymph node biopsy on 06/03/2015. The final pathology demonstrated a 7 mm invasive carcinoma single focus. Histologic grade was 3. Margins were negative. Closest margin was anteriorly 1.5 cm. Lymphovascular invasion was not identified. A total of 6 lymph nodes were retrieved. All were negative for disease. Oncotype Dx-Recurrence score 41 (28% risk). Previous therapy:TC/Neulasta First cycle 07/24/15. Last cycle 09/25/15. Radiation: DATES OF TREATMENT: 10/28/15 to 12/10/15. Began arimidex after radiation. Stopped arimidex due to leg pain/aches. Started femara. Pt. stopped femara due to ankle swelling. Once she stopped the femara the ankle swelling resolved. She re-started femara and ankle swelling returned-so she stopped it again. Then started aromasin. Stopped aromasin d/t leg pain and started tamoxifen June 2017. Stopped tamoxifen 2018 d/t leg aches. S/p lap. castillo on 05/02/[address] Mcpherson and S/p L thyroidectomy on 06/06/[address] Mcpherson. Pt. had MRI face done 05/05/22-ordered by PCP. Impression: IMPRESSION: Well-circumscribed mildly enhancing left parotid lesion which is nonspecific but may represent a small lymph node or intraventricular parotid neoplasm such as pleomorphic adenoma or Jone's tumor. No new concerns today. Pt. having surgery in July for rectocele. Appetite:Good, I've been seeing Trina. Wt. down 20# over past year. 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 Resp:denies cough or sob Cardiac:denies chest pain/palpitations GI:denies abd pain, n/v, moving bowels regularly-while on stool softeners :denies dysuria/hematuria Extrem:denies pain Endo:denies hot flashes Neuro:tingling to feet-resolved Skin:denies rashes/lesions Heme:denies bleeding The ROS is otherwise negative. Past medical history, appointments, medications, allergies reviewed. No changes. EXAM: BP 119/79 Pulse 64 Temp 36.9 ?C (98.5 ?F) (Temporal) Wt 103.4 kg (227 lb 15.3 oz) SpO2 98% BMI 40.06 kg/m? APPEARANCE Well appearing, alert, in no acute distress, well-hydrated, well nourished. HEART RRR with normal S1 and S2, no murmurs LUNG clear to auscultation BREAST FEMALE no mass/nodule b/l, L scar to inner/radiation changes LYMPH NODES No cervical lymphadenopathy, No supraclavicular lymphadenopathy, and No axillary lymphadenopathy. ABDOMEN bowel sounds normoactive, soft, non-tender EXTREMITIES No edema NEURO Awake, alert and oriented x 3, Normal gait, and No involuntary motions. SKIN Skin color, texture, turgor normal, no suspicious rashes or lesions RADIOLOGY: Mammogram 06/08/24: IMPRESSION: There is no mammographic evidence of malignancy. Routine screening mammogram is recommended. Annual mammogram will be due in 1 year. BI-RADS Category 2: Benign ASSESSMENT/PLAN: 1. Encounter for follow-up surveillance of breast cancer - ICD9: V67.9, V10.3, ICD10: Z08, Z85.3 (primary diagnosis) pT1b (7 mm; grade 3; no LVI) pN0(sln) MX ER positive, UT negative, HER2 non-amplified invasive ductal carcinoma the left breast. - No concerning findings on exam. - Pt. will be 9 years out from radiation 2024. - Pt. did not tolerate AI's/tamoxifen. Declined further therapy. - Reviewed mammogram with pt. - Follow up with ENT/PCP/BELL RINGER. - Mammogram due in one year. - Follow up after above. - Pt. aware to call office with any questions/concerns. The patient indicates understanding of these issues and agrees with the plan. All documentation from previous visit of 06/08/23-Dr. Quarles/myself was copied and pasted, documentation has been reviewed and edited as necessary for today's visit. Becky White APRN.DUCK BILL OPERATOR Referring Provider: BECKY WHITE [[id number]] Allergies As of Date: 06/15/2024 Noted Allergy Reaction LISINOPRI (more content not included)... Normal [facility] GERARDONon 06-13-2024 GERARDON Telephone (OBGYWM) CARRIE TAVERAS ([id number]) 1965 F CHT Date Time Provider Department 06/13/24 TRINA MITCHELL During your visit today, we recorded the following information about you: Beth Jimenez RN 06/13/2024 8:38 AM Signed Received records from Dr. Hammond's office. Please review. Scan on 06/13/2024 8:20 AM by Provider, External, RY: Miscellaneous Clinical Documents Allergies As of Date: 06/13/2024 Noted Allergy Reaction LISINOPRIL 07/15/2021 3 - Cough PENICILLINS 07/05/2012 2 - Rash Date Reviewed: 05/14/2024 Reviewed by: Osman Kiran MA - Fully Assessed Reason for Visit: Received Outside Medical Records [[id number]] Prescriptions as of 06/19/2024 - ergocalciferol 50,000 unit capsule (VITAMIN D2, DRISDOL) Take one capsule po weekly. - losartan (COZAAR) 25 mg tablet Take 1 tablet by mouth once daily. Take with 50 mg for total daily dose of 75 mg daily. - losartan (COZAAR) 50 mg tablet Take 1 tablet by mouth once daily. Take w/ 25 mg for total daily dose of 75 mg. - topiramate (TOPAMAX) 25 mg tablet Take 1 tablet by mouth two times a day. Patient should start on May 08, 2024. - albuterol HFA (PROVENTIL HFA, VENTOLIN HFA) 90 mcg/actuation inhaler Inhale 2 Puffs as instructed every 6 hours as needed for wheezing/shortness of breath. - ibuprofen (MOTRIN) 600 mg tablet Take 1 tablet by mouth every 6 hours as needed for pain. - acetaminophen 325 mg cap Take 650 mg by mouth as needed. 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] 07/16/2022 Left ear pain [H92.02] 07/16/2022 Persistent circadian rhythm sleep disorder, 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 Gastroesophageal reflux disease [K21.9] 11/11/2023 Low HDL (under 40) [E78.6] 11/11/2023 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 Patient is asymptomatic in both breasts. The patient has the following personal history of breast cancer: breast cancer in the left breast. COMPARISON STUDIES: The present examination has been compared to prior imaging studies dated 06/08/2019 (mammogram), 05/15/2020 (mammogram), 05/15/2021 (mammogram), 05/18/2021 (mammogram), 05/20/2022 (mammogram) and 06/01/2023 (mammogram). MAMMOGRAM TECHNIQUE: The study was acquired using full field digital technology and interpreted from soft copy. Digital Breast Tomosynthesis (DBT) images were obtained and used to assist in the interpretation of this examination. MAMMOGRAM FINDINGS: The breasts are almost entirely fatty. There are stable post-operative and post-radiation changes in the left breast. There are no significant interval changes. No suspicious masses, calcifications or other abnormalities are seen in either breast. IMPRESSION: There is no mammographic evidence of malignancy. Routine screening mammogram is recommended. Annual mammogram will be due in 1 year. BI-RADS Category 2: Benign RISK: Due to the reported patient's history, the patient's estimated lifetime risk of developing breast cancer cannot be assessed at this time. We encourage all patients to talk with their providers about their risk assessment, further recommendations for managing breast health, and appropriate supplemental screening options if the patient has dense breast tissue. Interpreting Radiologist: Curtis Germain M.D. Electronically signed on: 06/11/2024 Bed And Breakfast Cook: ATILIO Transcribe Date/Time: Jun 08 2024 8:05A Dictated by: CURTIS GERMAIN MD This examination was interpreted and the report reviewed and electronically signed by: CURTIS GERMAIN MD on Jun 11 2024 5:26PM EST [id number] Normal [facility] CNOVon 05-14-2024 CNOV Office Visit (OBGYWM ) CARRIE TAVERAS ([id number]) 1965 F T Date Time Provider Department 05/14/24 8:40 AM BETH SALES During your visit today, we recorded the following information about you: Blood pressure Weight 126/78 103 kg Beth Sales MD 05/14/2024 8:58 AM Signed Carrie Resendiz Nitin is a 59 year old female who presents for problem visit bulge for quite some time . HPI: Feels a bulge when wiping. Starting to cause pain. No bleeding. Does heavy lifting at work. No urinary symptoms. Does have issues with constipation. Hysterectomy 20 years ago for abnormal pap. Normal paps since. Discussed options for treatment and she would like to have surgical repair. 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 Obesity Tobacco abuse PAST SURGICAL HISTORY Procedure Laterality Date APPENDECTOMY COLONOSCOPY AND POLYPECTOMY 09/04/2013 hyperplastic polyp, repeat due 2023 EGD 09/04/2013 Duodenal reactive gastric foveolar metaplasia, repeat due 2016 EGD 04/22/2020 EGD TRANSORAL BIOPSY SINGLE/MULTIPLE 10/05/2016 gastritis, esophagitis HYSTERECTOMY HX 06/25/2003 EMMY/BSO-carcinoma insitu L'SCOPE CHOLECYSTECTOMY 05/02/2020 MASTECTOMY,PARTIAL, WITH AXILLARY LYMPHADENECTOMY 06/03/2015 Mastectomy, Partial, with Axillary Lymphadenectomy TOTAL THYROID LOBECTOMY UNI W/WO ISTHMUSECTOMY Left 06/06/2020 Dr Mcpherson VAGINAL HYSTERECTOMY FAMILY HISTORY Problem Relation Age of Onset Diabetes Mother Hypertension Mother Heart Failure Mother Obesity Mother Diabetes Father Hypertension Father Heart Father Pig valve, CHF No Known Problems Brother Social History Tobacco Use Smoking status: Every Day Current packs/day: 1.50 Average packs/day: 1.5 packs/day for 40.0 years (60.0 ttl pk-yrs) Types: Cigarettes Smokeless tobacco: Never Vaping Use Vaping status: Never Used Substance Use Topics Alcohol use: Yes Alcohol/week: 2.0 standard drinks of alcohol Types: 2 Glasses of Wine (5oz) per week Comment: Occasional Drug use: No Current Outpatient Medications Medication Sig ergocalciferol 50,000 unit capsule (VITAMIN D2, DRISDOL) Take one capsule po weekly. losartan (COZAAR) 25 mg tablet Take 1 tablet by mouth once daily. Take with 50 mg for total daily dose of 75 mg daily. losartan (COZAAR) 50 mg tablet Take 1 tablet by mouth once daily. Take w/ 25 mg for total daily dose of 75 mg. metFORMIN ER (GLUCOPHAGE XR) 500 mg 24 hr tablet Take 1 tablet by mouth two times a day. topiramate (TOPAMAX) 25 mg tablet Take 1 tablet by mouth two times a day. Patient should start on May 08, 2024. albuterol HFA (PROVENTIL HFA, VENTOLIN HFA) 90 mcg/actuation inhaler Inhale 2 Puffs as instructed every 6 hours as needed for wheezing/shortness of breath. ibuprofen (MOTRIN) 600 mg tablet Take 1 tablet by mouth every 6 hours as needed for pain. acetaminophen 325 mg cap Take 650 mg by mouth as needed. No current facility-administered medications for this visit. Allergies As of Date: 05/14/2024 Allergen Noted Reaction LISINOPRIL 07/15/2021 Cough PENICILLINS 07/05/2012 Rash Fully Assessed 05/14/2024 REVIEW OF SYSTEMS Abdomen: No bloating, early satiety, indigestion, or increased flatulence. No abdominal pain, nausea, vomiting, diarrhea Bladder: No dysuria, gross hematuria, urinary frequency, urinary urgency, or incontinence. Breast: No breast lumps, nipple d/c, overlying skin changes, redness or skin retraction. Expanded ROS: N/A Allergies and current medication updated:Yes SENSITIVE EXAM: The sensitive examination was discussed with the Patient or Patient's Authorized Knot Tier. As applicable, any other physician, advance practice provider, medical student, or other health professional student that will be observing or involved in the sensitive examination for educational or training purposes was discussed with the Patient or Authorized Knot Tier. The Patient or Authorized Knot Tier has agreed to proceed with the sensitive examination. (Sensitive examination includes inspection and/or palpation of the breasts, pelvis, prostate and anorectal regions). EXAM: BP 126/78 Wt 227 lb (103.0kg) GENERAL: pleasant, female in no apparent distress HEENT: Normocephalic, atraumatic, mucus membranes moist, and no lesions NECK: full range (more content not included)... Normal [facility] Basic metabolic 2000 panelon 04-30-2024 Anion gap [Moles/Vol] 8 mmol/L Normal 8-15 [facility] Comment on above: Order Comment: Speci men Type: BLOOD SPECIMENOrdering Facility: [facility] Address: [address] [place] [address] Performed By: #### 2 4321-2 ####[facility] LABCLIA [id number] [id number], [place] [address] [place] Calcium [Mass/Vol] 10.2 mg/dL Normal 8.5-10.2 [facility] Comment on above: Order Comment: Speci men Type: BLOOD SPECIMENOrdering Facility: [facility] Address: [address] [place] [address] Performed By: #### 2 4321-2 ####[facility] LABCLIA [id number] [place] [address] [place] Chloride [Moles/Vol] 106 mmol/L Normal 98-107 [facility] Comment on above: Order Comment: Speci men Type: BLOOD SPECIMENOrdering Facility: [facility] Address: [address] [place] [address] Performed By: #### 2 4321-2 ####[facility] LABCLIA [id number] [place] [address] [place] CO2 [Moles/Vol] 26 mmol/L Normal 22-30 [facility] Comment on above: Order Comment: Speci men Type: BLOOD SPECIMENOrdering Facility: [facility] Address: [address] [place] [address] Performed By: #### 2 4321-2 ####[facility] LABCLIA [id number] [place] [address] [place] Creatinine [Mass/Vol] 0.85 mg/dL Normal 0.58-0.96 [facility] Comment on above: Order Comment: Speci men Type: BLOOD SPECIMENOrdering Facility: [facility] Address: [address] [place] [address] Performed By: #### 2 4321-2 ####[facility] LABCLIA [id number] [place] [id number] [place] Creatinine and Glomerular filtration rate.predicted panel (S/P/Bld) 78 mL/min/1.73m??? Normal >=60 [facility] Comment on above: Order Comment: Speci men Type: BLOOD SPECIMENOrdering Facility: [facility] Address: [address] [place] [address] Result Comment: Jessica mated Glomerular Filtration Rate (eGFR) is calculated using the 2020 CKD-EPI creatinine equation. This equation utilizes serum creatinine, sex, and age as parameters. The creatinine assay has traceable calibration to isotope dilution-mass spectrometry. Refer to KDIGO guidelines for clinical interpretation. In patients with unstable renal function, e.g. those with acute kidney injury, the eGFR may not accurately reflect actual GFR. Performed By: #### 2 4321-2 ####[facility] LABCLIA [id number] [place] [address] [place] Glucose [Mass/Vol] 96 mg/dL Normal 74-99 [facility] Comment on above: Order Comment: Speci men Type: BLOOD SPECIMENOrdering Facility: [facility] Address: [address] [place] [address] Result Comment: The [place] [employer] (ADA) provides guidance for cutoff values for fasting glucose and random glucose. The ADA defines fasting as no caloric intake for at least 8 hours. Fasting plasma glucose results between 100 to 125 mg/dL indicate increased risk for diabetes (prediabetes). Fasting plasma glucose results greater than or equal to 126 mg/dL meet the criteria for diagnosis of diabetes. In the absence of unequivocal hyperglycemia, results should be confirmed by repeat testing. In a patient with classic symptoms of hyperglycemia or hyperglycemic crisis, random plasma glucose results greater than or equal to 200 mg/dL meet the criteria for diagnosis of diabetes. Reference: Standards of Medical Care in Diabetes 2016, [place] [employer]. Diabetes Care. 2016.39(Suppl 1). Performed By: #### 2 4321-2 ####[facility] LABCLIA [id number] [place] [address] [place] Potassium [Moles/Vol] 4.0 mmol/L Normal 3.7-5.1 [facility] Comment on above: Order Comment: Speci men Type: BLOOD SPECIMENOrdering Facility: [facility] [facility] Address: [address] [place] [address] Performed By: #### 2 4321-2 ####[facility] LABCLIA [id number] [place] [address] [place] Sodium [Moles/Vol] 140 mmol/L Normal 136-144 [facility] Comment on above: Order Comment: Speci men Type: BLOOD SPECIMENOrdering Facility: [facility] Address: [address] [place] [address] Performed By: #### 2 4321-2 ####[facility] LABCLIA [id number] [place] [address] [place] Urea nitrogen [Mass/Vol] 22 mg/dL High 7-21 [facility] Comment on above: Order Comment: Speci men Type: BLOOD SPECIMENOrdering Facility: [facility] Address: [address] [place] [address] Performed By: #### 2 4321-2 ####[facility] LABIA [id number] [place] [id number] [place] CNOVon 04-30-2024 [facility] CARRIE TAVERAS ([id number]) 1965 F T Date Time Provider Department 04/30/24 9:00 AM [facility] During your visit today, we recorded the following information about you: Pulse Respiration Blood pressure Weight 82/minute 16/minute 138/82 103 kg Ariela Talbert APRN.DUCK BILL OPERATOR 04/30/2024 7:40 PM Signed This is a 59 year old female who presents today with: Patient presents with: 6 Month Exam HISTORY OF PRESENT ILLNESS: Carrie Taveras is a 59 year old female. Patient presents with: 6 Month Exam HTN: Patient is compliant with meds Yes Monitors bp at home: Sometimes. Denies side effects: Yes. Chest pain: No. Dyspnea: No. Edema: No. Palpitations: No. Syncope: No. Headache: No. Dizziness: No. Prediabetes: Pt is not taking metformin Never started taking metformin Labs 02/2024 showed minimally low K+ of 3.6 Has been taking K+ vitamins OTC Has concerns for vaginal prolapse Says that she feels that things are dropping Is interested in scheduling an appointment with women's health REVIEW OF SYSTEMS GENERAL: No weight loss, malaise or fevers/chills HEENT: Negative for frequent or significant headaches, No changes in hearing or vision. NECK: Negative for lumps, goiter, pain and significant neck swelling RESPIRATORY: Negative for cough, hemoptysis, wheezing, dyspnea or shortness of breath CARDIOVASCULAR: Negative for chest pain, leg swelling, orthopnea, or palpitations GI: No nausea, vomiting, or diarrhea/constipation. No hematochezia/melena. No heartburn or reflux symptoms. : No history of dysuria, frequency or incontinence. MUSCULOSKELETAL: Negative for joint pain or swelling. 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 Obesity Tobacco abuse PAST SURGICAL HISTORY Procedure Laterality Date APPENDECTOMY COLONOSCOPY AND POLYPECTOMY 09/04/2013 hyperplastic polyp, repeat due 2023 EGD 09/04/2013 Duodenal reactive gastric foveolar metaplasia, repeat due 2016 EGD 04/22/2020 EGD TRANSORAL BIOPSY SINGLE/MULTIPLE 10/05/2016 gastritis, esophagitis HYSTERECTOMY HX 06/25/2003 EMMY/BSO-carcinoma insitu L'SCOPE CHOLECYSTECTOMY 05/02/2020 MASTECTOMY,PARTIAL, WITH AXILLARY LYMPHADENECTOMY 06/03/2015 Mastectomy, Partial, with Axillary Lymphadenectomy TOTAL THYROID LOBECTOMY UNI W/WO ISTHMUSECTOMY Left 06/06/2020 Dr Mcpherson VAGINAL HYSTERECTOMY ALLERGIES Lisinopril and Penicillins MEDICATIONS Current Outpatient Medications Medication Sig metFORMIN ER (GLUCOPHAGE XR) 500 mg 24 hr tablet Take 1 tablet by mouth two times a day. [START ON 05/08/2024] topiramate (TOPAMAX) 25 mg tablet Take 1 tablet by mouth two times a day. Patient should start on May 08, 2024. losartan (COZAAR) 25 mg tablet Take 1 tablet by mouth once daily. Take with 50 mg for total daily dose of 75 mg daily. losartan (COZAAR) 50 mg tablet Take 1 tablet by mouth once daily. Take w/ 25 mg for total daily dose of 75 mg. albuterol HFA (PROVENTIL HFA, VENTOLIN HFA) 90 mcg/actuation inhaler Inhale 2 Puffs as instructed every 6 hours as needed for wheezing/shortness of breath. ergocalciferol 50,000 unit capsule (VITAMIN D2, DRISDOL) Take one capsule po weekly. ibuprofen (MOTRIN) 600 mg tablet Take 1 tablet by mouth every 6 hours as needed for pain. acetaminophen 325 mg cap Take 650 mg by mouth as needed. No current facility-administered medications for this visit. FAMILY HISTORY Problem Relation Age of Onset Diabetes Mother Hypertension Mother Heart Failure Mother Obesity Mother Diabetes Father Hypertension Father Heart Father Pig valve, CHF No Known Problems Brother Social History Tobacco Use Smoking status: Every Day Current packs/day: 1.50 Average packs/day: 1.5 packs/day for 40.0 years (60.0 ttl pk-yrs) Types: Cigarettes Smokeless tobacco: Never Vaping Use Vaping status: Never Used Substance Use Topics Alcohol use: Yes Alcohol/week: 2.0 standard drinks of alcohol Types: 2 Glasses of Wine (5oz) per week Comment: Occasional Drug use: No EXAM: BP 138/82 Pulse 82 Resp 16 Wt 103 kg (227 lb) SpO2 97% BMI 39.89 kg/m? PHYSICAL EXAM: General Appearance: Well appearing, alert, in no acute distress, well-hydrated, well nourished.. Skin: Skin color, texture, turgor normal, no suspicious rashes or lesions. Head: Normocephalic, no masses, lesions, tenderness or abnormalities. Eyes: (more content not included)... Normal [facility] [place] 03-16-2024 [facility] Telephone ([facility]) CARRIE TAVERAS ([id number]) 1965 F T Date Time Provider Department 03/16/24 ARIELA TALBERT During your visit today, we recorded the following information about you: Ariela Talbert APRN.DUCK BILL OPERATOR 03/16/2024 5:19 PM Signed Can please let patient know that I received her labs. Everything looks within normal/stable. Her potassium was just minimally low. Please increase potassium-rich foods in the diet (ie. bananas, cantaloupe, beans, sweet potato, potato, spinach, orange juice). Recheck the lab in a 1-2 weeks. The order is in. Ariela Talbert APRN.Jazzy Whitney MA 03/19/2024 10:32 AM Signed Letter mailed to pt home of results. Jazzy Anguiano MA Allergies As of Date: 03/16/2024 Noted Allergy Reaction LISINOPRIL 07/15/2021 3 - Cough PENICILLINS 07/05/2012 2 - Rash Date Reviewed: 03/13/2024 Reviewed by: Rosalind Valerio MA - Fully Assessed Reason for Visit: Results [95] Primary Visit Diagnosis:Hypokalemia [E87.6] Order(s):BASIC METABOLIC PANEL [SQBMP] Order #: [id number] FUTURE Prescriptions as of 03/19/2024 - metFORMIN ER (GLUCOPHAGE XR) 500 mg 24 hr tablet Take 1 tablet by mouth two times a day. - topiramate (TOPAMAX) 25 mg tablet Take 1 tablet by mouth two times a day. Patient should start on May 08, 2024. - losartan (COZAAR) 25 mg tablet Take 1 tablet by mouth once daily. Take with 50 mg for total daily dose of 75 mg daily. - losartan (COZAAR) 50 mg tablet Take 1 tablet by mouth once daily. Take w/ 25 mg for total daily dose of 75 mg. - albuterol HFA (PROVENTIL HFA, VENTOLIN HFA) 90 mcg/actuation inhaler Inhale 2 Puffs as instructed every 6 hours as needed for wheezing/shortness of breath. - ergocalciferol 50,000 unit capsule (VITAMIN D2, DRISDOL) Take one capsule po weekly. - ibuprofen (MOTRIN) 600 mg tablet Take 1 tablet by mouth every 6 hours as needed for pain. - acetaminophen 325 mg cap Take 650 mg by mouth as needed. 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] 07/16/2022 Left ear pain [H92.02] 07/16/2022 Persistent circadian rhythm sleep disorder, 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 Gastroesophageal reflux disease [K21.9] 11/11/2023 Low HDL (under 40) [E78.6] 11/11/2023 Hyperinsulinemia [E16.1] 11/11/2023 Metabolic syndrome [E88.810] 03/13/2024 Letter Text Encounter Status:Closed by JAZZY ANGUIANO on 03/19/24 Normal [facility] 25(OH)D3 [facility] 2024 25-hydroxyvitamin D3 [Mass/Vol] 56.3 ng/mL Normal 31.0-80.0 [facility] Comment on above: Order Comment: Speci men Type: BLOOD SPECIMENOrdering Facility: [facility] Address: [address] [place] [address] Performed By: #### 1 989-3 ####[facility] LABCLIA [id number] [facility] [id number], [place] [address] [place] CBC W Auto Differential pane l (Bld)on 03-13-2024 Basophils (Bld) [#/Vol] 0.04 10*3/uL Normal <0.11 [facility] Comment on above: Order Comment: Speci men Type: BLOOD SPECIMENOrdering Facility: [facility] Address: [address] [place] [address] Performed By: #### 5 7021-8 ####[facility]WIDLIA [id number] [place] [address] [place] Basophils/100 WBC (Bld) 0.4 % Normal [facility] Comment on above: Order Comment: Speci men Type: BLOOD SPECIMENOrdering Facility: [facility] Address: [address] [place] [address] Performed By: #### 5 7021-8 ####[facility] [id number] [place] [address] [place] Differential cell count method Nom (Bld) Auto Normal [facility] Comment on above: Order Comment: Speci men Type: BLOOD SPECIMENOrdering Facility: [facility] Address: [address] [place] [address] Performed By: #### 5 7021-8 ####[facility] ERA [id number] [place] [address] [place] Eosinophils (Bld) [#/Vol] 0.11 10*3/uL Normal <0.46 [facility] Comment on above: Order Comment: Speci men Type: BLOOD SPECIMENOrdering Facility: [facility] Address: [address] [place] [address] Performed By: #### 5 7021-8 ####[facility] MEMORIALLIA [id number] [place] [address] [place] Eosinophils/100 WBC (Bld) 1.2 % Normal [facility] Comment on above: Order Comment: Speci men Type: BLOOD SPECIMENOrdering Facility: [facility] Address: [address] [place] [address] Performed By: #### 5 7021-8 ####[facility] BALA [id number] [place] [address] [place] Erythrocyte distribution width (RBC) [Ratio] 12.4 % Normal 11.5-15.0 [facility] Comment on above: Order Comment: Speci men Type: BLOOD SPECIMENOrdering Facility: [facility] Address: [address] [place] [address] Performed By: #### 5 7021-8 ####[facility] H[facility]PITALNCADE [id number] [place] [address] [place] Hematocrit (Bld) [Volume fraction] 45.8 % Normal 36.0-46.0 [facility] Comment on above: Order Comment: Speci men Type: BLOOD SPECIMENOrdering Facility: [facility] Address: [address] [place] [address] Performed By: #### 5 7021-8 ####[facility] HOSPITALLAVERNADE [id number] [place] [address] [place] Hemoglobin (Bld) [Mass/Vol] 14.8 g/dL Normal 11.5-15.5 [facility] Comment on above: Order Comment: Speci men Type: BLOOD SPECIMENOrdering Facility: [facility] Address: [address] [place] [address] Performed By: #### 5 7021-8 ####[facility] HOSPITALLAVERNLIA [id number] [place] [address] [place] Immature granulocytes (Bld) [#/Vol] 0.04 10*3/uL Normal <0.10 [facility] Comment on above: Order Comment: Speci men Type: BLOOD SPECIMENOrdering Facility: [facility] Address: [address] [place] [address] Performed By: #### 5 7021-8 ####[facility] MEMORIALLIA [id number] [place] [address] [place] Immature granulocytes/100 WBC (Bld) 0.4 % Normal [facility] Comment on above: Order Comment: Speci men Type: BLOOD SPECIMENOrdering Facility: [facility] Address: [address] [place] [address] Performed By: #### 5 7021-8 ####[facility] [id number] [place] [address] [place] Lymphocytes (Bld) [#/Vol] 2.00 10*3/uL Normal 1.00-4.00 [facility] Comment on above: Order Comment: Speci men Type: BLOOD SPECIMENOrdering Facility: [facility] Address: [address] [place] [address] Performed By: #### 5 7021-8 ####[facility] [id number] [place] [address] [place] Lymphocytes/100 WBC (Bld) 21.1 % Normal [facility] Comment on above: Order Comment: Speci men Type: BLOOD SPECIMENOrdering Facility: [facility] Address: [address] [place] [address] Performed By: #### 5 7021-8 ####[facility] [id number] [place] [address] [place] MCH (RBC) [Entitic mass] 30.1 pg Normal 26.0-34.0 [facility] Comment on above: Order Comment: Speci men Type: BLOOD SPECIMENOrdering Facility: [facility] Address: [address] [place] [address] Performed By: #### 5 7021-8 ####[facility]PITALNCUN[facility] [id number] [place] [address] [place] MCHC (RBC) [Mass/Vol] 32.3 g/dL Normal 30.5-36.0 [facility] Comment on above: Order Comment: Speci men Type: BLOOD SPECIMENOrdering Facility: [facility] Address: [address] [place] [address] Performed By: #### 5 7021-8 ####[facility] HOSPITALNCA [id number] [place] [address] [place] MCV (RBC) [Entitic vol] 93.3 fL Normal 80.0-100.0 [facility] Comment on above: Order Comment: Speci men Type: BLOOD SPECIMENOrdering Facility: [facility] Address: [address] [place] [address] Performed By: #### 5 7021-8 ####[facility]ITALNCUN[facility] [id number] [place] [address] [place] Monocytes (Bld) [#/Vol] 0.49 10*3/uL Normal <0.87 [facility] Comment on above: Order Comment: Speci men Type: BLOOD SPECIMENOrdering Facility: [facility] Address: [address] [place] [address] Performed By: #### 5 7021-8 ####[facility] [id number] [place] [address] [place] Monocytes/100 WBC (Bld) 5.2 % Normal [facility] Comment on above: Order Comment: Speci men Type: BLOOD SPECIMENOrdering Facility: [facility] Address: [address] [place] [address] Performed By: #### 5 7021-8 ####[facility] ERA [id number] [place] [address] [place] Neutrophils (Bld) [#/Vol] 6.78 10*3/uL Normal 1.45-7.50 [facility] Comment on above: Order Comment: Speci men Type: BLOOD SPECIMENOrdering Facility: [facility] Address: [address] [place] [address] Performed By: #### 5 7021-8 ####[facility] HOSPITALELIANE [id number] [place] [address] [place] Neutrophils/100 WBC (Bld) 71.7 % Normal [facility] Comment on above: Order Comment: Speci men Type: BLOOD SPECIMENOrdering Facility: [facility] Address: [address] [place] [address] Performed By: #### 5 7021-8 ####[facility]ITALNCUN[facility] [id number] [place] [address] [place] Nucleated RBC (Bld) [#/Vol] 10*3/uL Normal <0.01 [facility] Comment on above: Order Comment: Speci men Type: BLOOD SPECIMENOrdering Facility: [facility] Address: [address] [place] [address] Performed By: #### 5 7021-8 ####[facility] [id number] [place] [address] [place] Nucleated RBC/100 WBC (Bld) [Ratio] 0.0 /100 WBC Normal [facility] Comment on above: Order Comment: Speci men Type: BLOOD SPECIMENOrdering Facility: [facility] Address: [address] [place] [address] Performed By: #### 5 7021-8 ####[facility] MEMORIALLIA [id number] [place] [address] [place] Platelet mean volume (Bld) [Entitic vol] 11.9 fL Normal 9.0-12.7 [facility] Comment on above: Order Comment: Speci men Type: BLOOD SPECIMENOrdering Facility: [facility] Address: [address] [place] [address] Performed By: #### 5 7021-8 ####[facility] RIVERWNCLIA [id number] [place] [address] [place] Platelets (Bld) [#/Vol] 255 10*3/uL Normal 150-400 [facility] Comment on above: Order Comment: Speci men Type: BLOOD SPECIMENOrdering Facility: [facility] Address: [address] [place] [address] Performed By: #### 5 7021-8 ####[facility] HOSPITALNCLIA [id number] [place] [address] [place] RBC (Bld) [#/Vol] 4.91 10*6/uL Normal 3.90-5.20 [facility] Comment on above: Order Comment: Speci men Type: BLOOD SPECIMENOrdering Facility: [facility] Address: [address] [place] [address] Performed By: #### 5 7021-8 ####[facility] HOSPITALNCLIA [id number] [place] [address] [place] WBC (Bld) [#/Vol] 9.46 10*3/uL Normal 3.70-11.00 [facility] Comment on above: Order Comment: Speci men Type: BLOOD SPECIMENOrdering Facility: [facility] Address: [address] [place] [address] Performed By: #### 5 7021-8 ####[facility] H[facility]PITALNCLIA [id number] [place] [address] [place] CNOVon 03-13-2024 CNOV Office Visit (OBGYWM ) CARRIE TAVERAS ([id number]) 1965 F CHT Date Time Provider Department 03/13/24 7:30 AM TRINA MITCHELL During your visit today, we recorded the following information about you: Pulse Blood pressure Weight 78/minute 136/80 105.7 kg Trina Mitchell APRN.DUCK BILL OPERATOR 03/13/2024 9:22 AM Signed 7Some documentation from previous visit of 11/10/2023 was copied and pasted, documentation has been reviewed and edited as necessary for today's visit. Patient Summary: Carrie is a 58 year old Female who presents for follow-up evaluation of obesity/weight management to treat and prevent related co-morbidities. In our previous visits we have discussed lifestyle intervention including a nutrition recommendations and physical activity optimization. Her last office visit was 4 months ago. Assessment/plan from last visit: - Topiramate 25 mg tablet twice a day Interval History PT specifies the following items as new or significant updates since the last appointment: Sleeping better Less hungry, eating smaller portions of usual foods Has added some protein shakes, unsure of which one Weight loss since last vist: 12 lb Date: Weight: BMI: Medications: 03/13/2024 233 lb 40.95 Metformin ER 500 mg WC 45 in 11/10/2023 245 lb 43.06 topiramate 25 mg WC: 49.0 in, [place]: 15.25 in 5% weight loss = 233 lbs, 10% weight loss = 220 lbs Anti-obesity medications: Topiramate. 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 Does not pack other foods. Grazes at work - PB crackers with Mt Dew/Pepsi, chips, banana 0600 - OJ or chocolate milk Days off from work - Sleeps at night 2200-06. Grazes on apple, chips, PBJ, Yoplait yogurt, watermelon, OJ, chocolate milk, Pepsi Fluids: Pepsi 2 cans in 24 hours and water Alcohol every other WE if camping - wine coolers Bedtime - see below Quality of diet: 24hr recall suggests unhealthy diet. Characterization of diet:Unstructured, excessive cravings, evening snacking, increased consumption of sugar sweetened beverages, and skip meals. 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 Sometimes a PBJ if there is no food available that she likes. Grazes at work - PB crackers with Mt Dew/Pepsi, chips, banana (no change) 0600 - OJ or hot chocolate Days off from work - Sleeps at night 2200-06. Grazes on apple, chips, PBJ, Yoplait yogurt, watermelon, OJ, chocolate milk, Pepsi (no change) Fluids: Pepsi 2 cans in 24 hours and increased water intake Alcohol none due to no camping Current Barriers: grazing/irregular meal patterns and inadequate sleep duration Exercise: none but is active at work Regular exercise: no Strength/resistance exercise:no Barriers to regular exercise? no Work-related activity:Active. Gym Membership: no Activity Tracker: no average steps per day N/A Stress: stable Stress:yes , Cause:Work, Financial, and Personal Sleep: increased Duration: 4-5 hours at a time for total of 6-7 hours. MIGUELINA NO ; CPAP NO Home at 06. Sleeps from 0615-11 and 2/3 pm - 6 pm Works [id number] 5 nights a week. Has worked nights for past 12 years. CrCl cannot be calculated (Patient's most recent lab result is older than the maximum 180 days allowed.). PAST MEDICAL HISTORY Diagnosis Date Abnormal mammogram Back pain Breast cancer (HCC) left breast Cervical cancer (HCC) 2003 GINA III, s/p hysterectomy, no chemo/radiation Cholelithiasis with chronic cholecystitis 05/02/2020 Hyperinsulinemia 11/11/2023 Obesity Tobacco abuse Current Outpatient Medications Medication Sig Dispense Refill topiramate (TOPAMAX) 25 mg tablet Take 1 tablet by mouth two times a day. 180 tablet 1 losartan (COZAAR) 25 mg tablet Take 1 tablet by mouth once daily. Take with 50 mg for total daily dose of 75 mg daily. 90 tablet 2 losartan (COZAAR) 50 mg tablet Take 1 tablet by mouth once daily. Take w/ 25 mg for total daily dose of 75 mg. 90 tablet 2 albuterol HFA (PROVENTIL HFA, VENTOLIN HFA) 90 mcg/actuation inhaler Inhale 2 Puffs as instructed every 6 hours as needed for wheezing/shortness of breath. 1 Each 1 ergocalciferol 50,000 unit capsule (VITAMIN (more content not included)... Normal [facility] Comprehensive metabolic 2000 panelon 03-13-2024 Albumin [Mass/Vol] 4.3 g/dL Normal 3.9-4.9 [facility] Comment on above: Order Comment: Speci men Type: BLOOD SPECIMENOrdering Facility: [facility] Address: [address] [place] [address] Performed By: #### 2 4323-8 ####[facility] [id number] [place] [address] [place] ALP [Catalytic activity/Vol] 94 U/L Normal 34-123 [facility] Comment on above: Order Comment: Speci men Type: BLOOD SPECIMENOrdering Facility: [facility] Address: [address] [place] [address] Performed By: #### 2 4323-8 ####[facility] [id number] [place] [address] [place] ALT [Catalytic activity/Vol] 16 U/L Normal 7-38 [facility] Comment on above: Order Comment: Speci men Type: BLOOD SPECIMENOrdering Facility: [facility] Address: [address] [place] [address] Performed By: #### 2 4323-8 ####[facility] [id number] [place] [address] [place] Anion gap [Moles/Vol] 10 mmol/L Normal 8-15 [facility] Comment on above: Order Comment: Speci men Type: BLOOD SPECIMENOrdering Facility: [facility] Address: [address] [place] [address] Performed By: #### 2 4323-8 ####[facility] HOSPITALNCLIA [id number] [place] [address] [place] AST [Catalytic activity/Vol] 14 U/L Normal 13-35 [facility] Comment on above: Order Comment: Speci men Type: BLOOD SPECIMENOrdering Facility: [facility] Address: [address] [place] [address] Performed By: #### 2 4323-8 ####[facility]ITAL[facility]CLIA [id number] [place] [address] [place] Bilirubin [Mass/Vol] 0.3 mg/dL Normal 0.2-1.3 [facility] Comment on above: Order Comment: Speci men Type: BLOOD SPECIMENOrdering Facility: [facility] Address: [address] [place] [address] Performed By: #### 2 4323-8 ####[facility]ITALNCLIA [id number] [place] [address] [place] Calcium [Mass/Vol] 9.7 mg/dL Normal 8.5-10.2 [facility] Comment on above: Order Comment: Speci men Type: BLOOD SPECIMENOrdering Facility: [facility] Address: [address] [place] [address] Performed By: #### 2 4323-8 ####[facility]ITALNCLIA [id number] [place] [address] [place] Chloride [Moles/Vol] 107 mmol/L Normal 98-107 [facility] Comment on above: Order Comment: Speci men Type: BLOOD SPECIMENOrdering Facility: [facility] Address: [address] [place] [address] Performed By: #### 2 4323-8 ####[facility] [id number] [place] [address] [place] CO2 [Moles/Vol] 24 mmol/L Normal 22-30 [facility] Comment on above: Order Comment: Speci men Type: BLOOD SPECIMENOrdering Facility: [facility] Address: [address] [place] [address] Performed By: #### 2 4323-8 ####[facility] [id number] [address] [place] Creatinine [Mass/Vol] 0.82 mg/dL Normal 0.58-0.96 [facility] Comment on above: Order Comment: Speci men Type: BLOOD SPECIMENOrdering Facility: [facility] Address: [address] [place] [address] Performed By: #### 2 4323-8 ####[facility]ITALNCLIA [id number] [address] Creatinine and Glomerular filtration rate.predicted panel (S/P/Bld) 82 mL/min/1.73m??? Normal >=60 [facility] Comment on above: Order Comment: Speci men Type: BLOOD SPECIMENOrdering Facility: [facility] Address: [address] [place] [address] Result Comment: Jessica mated Glomerular Filtration Rate (eGFR) is calculated using the 2020 CKD-EPI creatinine equation. This equation utilizes serum creatinine, sex, and age as parameters. The creatinine assay has traceable calibration to isotope dilution-mass spectrometry. Refer to KDIGO guidelines for clinical interpretation. In patients with unstable renal function, e.g. those with acute kidney injury, the eGFR may not accurately reflect actual GFR. Performed By: #### 2 4323-8 ####[facility] [id number] [place] [address] [place] Glucose [Mass/Vol] 122 mg/dL High 74-99 [facility] Comment on above: Order Comment: Speci men Type: BLOOD SPECIMENOrdering Facility: [facility] Address: [address] [place] [address] Result Comment: The [place] Diabetes Association (ADA) provides guidance for cutoff values for fasting glucose and random glucose. The ADA defines fasting as no caloric intake for at least 8 hours. Fasting plasma glucose results between 100 to 125 mg/dL indicate increased risk for diabetes (prediabetes). Fasting plasma glucose results greater than or equal to 126 mg/dL meet the criteria for diagnosis of diabetes. In the absence of unequivocal hyperglycemia, results should be confirmed by repeat testing. In a patient with classic symptoms of hyperglycemia or hyperglycemic crisis, random plasma glucose results greater than or equal to 200 mg/dL meet the criteria for diagnosis of diabetes. Reference: Standards of Medical Care in Diabetes 2016, [place] Diabetes Association. Diabetes Care. 2016.39(Suppl 1). Performed By: #### 2 4323-8 ####[facility]WIDLIA [id number] [place] [address] [place] Potassium [Moles/Vol] 3.6 mmol/L Low 3.7-5.1 [facility] Comment on above: Order Comment: Speci men Type: BLOOD SPECIMENOrdering Facility: [facility] Address: [address] [place] [address] Performed By: #### 2 4323-8 ####[facility]WNCL[facility] [id number] [place] [address] [place] Protein [Mass/Vol] 7.4 g/dL Normal 6.3-8.0 [facility] Comment on above: Order Comment: Speci men Type: BLOOD SPECIMENOrdering Facility: [facility] Address: [address] [place] [address] Performed By: #### 2 4323-8 ####[facility]ITALNCLIA [id number] [place] [address] [place] Sodium [Moles/Vol] 141 mmol/L Normal 136-144 [facility] Comment on above: Order Comment: Speci men Type: BLOOD SPECIMENOrdering Facility: [facility] Address: [address] [place] [address] Performed By: #### 2 4323-8 ####[facility] [id number] [place] [address] [place] Urea nitrogen [Mass/Vol] 18 mg/dL Normal 7-21 [facility] Comment on above: Order Comment: Speci men Type: BLOOD SPECIMENOrdering Facility: [facility] Address: [address] [place] [address] Performed By: #### 2 4323-8 ####[facility] [id number] [place] [address] [place] Lipid 1996 panelon 5 Cholesterol [Mass/Vol] 144 mg/dL Normal <200 [facility] Comment on above: Order Comment: Speci men Type: BLOOD SPECIMENOrdering Facility: [facility] Address: [address] [place] [address] Result Comment: <200 mg/dL, Desirable 200-239 mg/dL, Borderline high >239 mg/dL, High Performed By: #### 2 4331-1 ####[facility] LABCLIA [id number] [address] STATES OF [facility] [id number] [place] [address] [place] Cholesterol in HDL [Mass/Vol] 42 mg/dL Normal >39 [facility] Comment on above: Order Comment: Speci men Type: BLOOD SPECIMENOrdering Facility: [facility] Address: [address] [place] [address] Result Comment: 40-5 9 mg/dL, Acceptable >59 mg/dL, High: Negative risk factor for coronary heart disease <40 mg/dL, Low: Positive risk factor for coronary heart disease Performed By: #### 2 4331-1 ####[facility] LABCLIA [id number] [address] [id number] [address] STATES [facility] Cholesterol in LDL [Mass/Vol] 84 mg/dL Normal <100 [facility] Comment on above: Order Comment: Speci men Type: BLOOD SPECIMENOrdering Facility: [facility] Address: [address] [place] [address] Result Comment: <100 mg/dL, Optimal 100-129 mg/dL, Near optimal/above optimal 130-159 mg/dL, Borderline high 160-189 mg/dL, High >189 mg/dL, Very high Secondary prevention optimal LDL Cholesterol levels are recommended to be < 70 mg/dL Performed By: #### 2 4331-1 ####[facility] LABCLIA [id number] [id number] [place] [address] STATES [facility] Cholesterol in LDL/Cholesterol in HDL [Mass ratio] 2.00 {ratio} Normal <2.54 [facility] Comment on above: Order Comment: Anai men Type: BLOOD SPECIMENOrdering Facility: [facility] Address: [address] [place] [address] Result Comment: Javy ag: 1. National Cholesterol Education Program ATP III Guideline At-A-Glance Quick Desk Reference: National Heart, Lung, and Blood Jackson. National Institutes of Health. 2001: NIH Publication No. 01-3305. 2. An International Atherosclerosis Society position paper: global recommendations for the management of dyslipidemia: executive summary, Atherosclerosis. 2014: 232(2):410-413. Performed By: #### 2 4331-1 ####[facility] LABCLIA [id number] [place] AVENUEDESK [id number] [place] [address] [id number] [place] [address] [place] Cholesterol in VLDL [Mass/Vol] 18 mg/dL Normal <30 [facility] Comment on above: Order Comment: Speci men Type: BLOOD SPECIMENOrdering Facility: [facility] Address: [address] [place] [address] Performed By: #### 2 4331-1 ####[facility] LABCLIA [id number] [address] [id number] [place] [address] [place] Cholesterol non HDL [Mass/Vol] 102 mg/dL Normal <130 [facility] Comment on above: Order Comment: Speci men Type: BLOOD SPECIMENOrdering Facility: [facility] Address: [address] [place] [address] Result Comment: <130 mg/dL, Optimal 130-159 mg/dL, Near optimal/above optimal 160-189 mg/dL, Borderline high 190-219 mg/dL, High >219 mg/dL, Very high Secondary prevention optimal non HDL Cholesterol levels are recommended to be <100 mg/dL Performed By: #### 2 4331-1 ####[facility] LABCLIA [id number] [address] [id number] [address] [place] Cholesterol.total/Ch olesterol in HDL [Mass ratio] 3.43 {ratio} Normal <5.10 [facility] Comment on above: Order Comment: Speci men Type: BLOOD SPECIMENOrdering Facility: [facility] Address: [address] [place] [address] Performed By: #### 2 4331-1 ####[facility] LABCLIA [id number] [address] [id number] [place] [address] [place] FASTING TIME 12 hrs Normal [facility] Comment on above: Order Comment: Speci men Type: BLOOD SPECIMENOrdering Facility: [facility] Address: [address] [place] [address] Performed By: #### 2 4331-1 ####[facility] LABCLIA [id number] [address] [id number] [place] [address] [place] Triglyceride [Mass/Vol] 90 mg/dL Normal <150 [facility] Comment on above: Order Comment: Speci men Type: BLOOD SPECIMENOrdering Facility: [facility] Address: [address] [place] [address] Result Comment: <150 mg/dL, Normal 150-199 mg/dL, Borderline high 200-499 mg/dL, High >499 mg/dL, Very high Performed By: #### 2 4331-1 ####[facility] LABCLIA [id number] [address] [id number] [place] [address] [place] CNOVon 11-10-2023 CNOV Office Visit ([facility] ) CARRIE TAVERAS ([id number]) 1965 F T Date Time Provider Department 11/10/23 8:00 AM TRINA MITCHELL During your visit today, we recorded the following information about you: Pulse Blood pressure Weight Height 81/minute 136/84 111.1 kg 1.607 m Trina Mitchell APRN.CNP 11/11/2023 9:36 PM Signed Patient Summary: Carrie Taveras is a 58 year old female with obesity who presents for an initial evaluation of overweight/obesity to treat and prevent co-morbidities and is interested in combination of behavioral and pharmacological. Motivation for seeking treatment for the disease of overweight/obesity :More comfortable Goal weight: 180 lb felt good at this weight Lowest recall weight: 150 lb Highest non- recall weight: 280 lb Patient identified barriers to weight loss: She drinks to much pepsi and she doesn't have the best eating pattern. Weight History: She reports a family history of obesity and early adulthood weight gain. She states her weight gain is related to the following factors, including weight retention , onset of menopause, consumption of unhealthy foods, not enough exercise and inadequate sleep duration, shift work Difficulty losing weight? She weighted 279 lb and is down to 245lb and now she has not been able to lose anymore. Her this past year and she has not been eating. History of weight loss with regain? Yes - Last Wt 11/10/23 : 111.1 kg (245 lb) 5% weight loss = 233 lbs, 10% weight loss = 220 lbs WEIGHT GRAPH: Diet/Nutrition overview: Awake - 11 am - sometimes eats PBJ sandwich/toast if hungry or apple 1 am at work - whatever kitchen has for meal - meat and sides but does not always eat it and there are no other options. Does not pack other foods. Grazes at work - PB crackers with Mt Dew/Pepsi, chips, banana 0600 - OJ or chocolate milk Days off from work - Sleeps at night 2200-06. Grazes on apple, chips, PBJ, Yoplait yogurt, watermelon, OJ, chocolate milk, Pepsi Fluids: Pepsi 2 cans in 24 hours and water Alcohol every other WE if camping - wine coolers Bedtime - see below Quality of diet: 24hr recall suggests unhealthy diet. Characterization of diet:Unstructured, excessive cravings, evening snacking, increased consumption of sugar sweetened beverages, and skip meals. 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 MIGUELINA NO ; CPAP NO Home at 06. Sleeps from 0615-11 and 2/3 pm - 6 pm Works [id number] 5 nights a week and sometimes works 12 hr shift . Has worked nights for past 12 years. Stress Stress:yes , Cause:Work, Financial, and Personal Obesity Related Comorbidities: Prior Weight Loss Surgery:No PAST MEDICAL HISTORY Diagnosis Date Abnormal mammogram Back pain Cervical cancer (HCC) 2003 GINA III, s/p hysterectomy, no chemo/radiation Cholelithiasis with chronic cholecystitis 05/02/2020 Obesity Tobacco abuse PAST SURGICAL HISTORY Procedure Laterality Date APPENDECTOMY COLONOSCOPY AND POLYPECTOMY 09/04/2013 hyperplastic polyp, repeat due 2023 EGD 09/04/2013 Duodenal reactive gastric foveolar metaplasia, repeat due 2016 EGD 04/22/2020 EGD TRANSORAL BIOPSY SINGLE/MULTIPLE 10/05/2016 gastritis, esophagitis HYSTERECTOMY HX 06/25/2003 EMMY/BSO-carcinoma insitu L'SCOPE CHOLECYSTECTOMY 05/02/2020 MASTECTOMY,PARTIAL, WITH AXILLARY LYMPHADENECTOMY 06/03/2015 Mastectomy, Partial, with Axillary Lymphadenectomy TOTAL THYROID LOBECTOMY UNI W/WO ISTHMUSECTOMY Left 06/06/2020 Dr Mcpherson VAGINAL HYSTERECTOMY FAMILY HISTORY Problem Relation Age of Onset Diabetes Mother Hypertension Mother Heart Failure Mother Obesity Mother Diabetes Father Hypertension Father Heart Father Pig valve, CHF No Known Problems Brother Social History Tobacco Use Smoking status: Every Day Current packs/day: 1.50 Average packs/day: 1.5 packs/day for 40.0 years (60.0 ttl pk-yrs) Types: Cigarettes Smokeless tobacco: Never Vaping Use Vaping status: Never Used Substance Use Topics Alcohol use: Yes Alcohol/week: 2.0 standard drinks of alcohol Types: 2 Glasses of Wine (5oz) per week Comment: Occasional Drug use: No AOM Medications: none Weight Promoting Medications: none Diet/weight loss History: Past weight loss attempts? anti-obesity medications Phentermine( lost 50 lbs). - 3 years ago, she doesn't remember the dr who prescribed the medication. Not through the [facility] Exercise: Regular exercise: no Strength/resistance exercise:no Barriers to regular exercise? no Work-related activity:Active. [employer] Members[employer] (more content not included)... Normal [facility] HbA1c (Bld)on 11-10-2023 Average glucose Estimated from glycated hemoglobin (Bld) [Mass/Vol] 111 mg/dL [facility] Comment on above: eAG: (Estimated aver age glucose) is a calculated value from HgbA1c and is in store representative of the average blood glucose level in the last 2-3 month period. HbA1c (Bld) [Mass fraction] 5.5 % 4.3 - 5.6 % [facility] Comment on above: [place] Diabetes As sociation guidelines indicate that patients with HgbA1c in the range 5.7-6.4% are at increased risk for development of diabetes, and intervention by lifestyle modification may be beneficial. HgbA1c greater or equal to 6.5% is considered diagnostic of diabetes. [facility] Average glucose Estimated from glycated hemoglobin (Bld) [Mass/Vol] 111 mg/dL Normal [facility] Comment on above: Order Comment: Anay calixto Type: BLOOD SPECIMENOrdering Facility: [facility] Address: [address] [place] [address] Result Comment: eAG: (Estimated average glucose) is a calculated value from HgbA1c and is in store representative of the average blood glucose level in the last 2-3 month period. Performed By: #### 5 5454-3 ####[facility] LABCLIA [id number] [place] [address] [place] HbA1c (Bld) [Mass fraction] 5.5 % Normal 4.3-5.6 [facility] Comment on above: Order Comment: Anay [facility] Type: BLOOD SPECIMENOrdering Facility: [facility] Address: [address] [place] [address] Result Comment: [place] Diabetes Association guidelines indicate that patients with HgbA1c in the range 5.7-6.4% are at increased risk for development of diabetes, and intervention by lifestyle modification may be beneficial. HgbA1c greater or equal to 6.5% is considered diagnostic of diabetes. Performed By: #### 5 5454-3 ####[facility] LABCLIA [id number] [place] [id number] [place] INSULIN ASSAY BLOODon 2023 Insulin Qn 25.5 u[IU]/mL High 3.0 - 25.0 mU/L [facility] Insulin Qnon 11-10-2023 Interpretation and review of laboratory results Abnormal [facility] Insulin SerPl-aCncon 024 Insulin Qn 25.5 u[IU]/mL High 3.0-25.0 [facility] Comment on above: Order Comment: Speci men Type: BLOOD SPECIMENOrdering Facility: [facility] Address: [address] [place] [address] Performed By: #### 2 0448-7 ####[facility] LABCLIA [id number] [place] [id number] [place] CNOVon 10-31-2023 CNOV Office Visit ([facility] ) CARRIE TAVERAS ([id number]) 1965 F T Date Time Provider Department 10/31/23 9:40 AM [facility] your visit today, we recorded the following information about you: Pulse Respiration Blood pressure Weight 80/minute 16/minute 124/82 110.7 kg Ariela Talbert APRN.DUCK BILL OPERATOR 10/31/2023 12:42 PM Signed This is a 58 year old female who presents today with: Patient presents with: Recheck: 6 month follow up HISTORY OF PRESENT ILLNESS: Carrie Taveras is a 58 year old female. Patient presents with: Recheck: 6 month follow up Pt presents today for 6 month follow-up. HTN: Patient is compliant with meds Yes Monitors bp at home: Yes. 142/82 yesterday. Denies side effects: No. Chest pain: No. Dyspnea: No. Edema: No. Palpitations: No. Syncope: No. Headache: No. Dizziness: No. Obesity: She is interested in weight loss medication. Agreeable to referral to women's health. Tobacco abuse. Requests refill of albuterol for occ wheeze. Discussed lung ca screening. Would like pneumonia and flu vaccines. PAST MEDICAL HISTORY: PAST MEDICAL HISTORY Diagnosis Date Abnormal mammogram Back pain Cervical cancer (HCC) 2003 GINA III, s/p hysterectomy, no chemo/radiation Cholelithiasis with chronic cholecystitis 05/02/2020 Obesity Tobacco abuse PAST SURGICAL HISTORY Procedure Laterality Date APPENDECTOMY COLONOSCOPY AND POLYPECTOMY 09/04/2013 hyperplastic polyp, repeat due 2023 EGD 09/04/2013 Duodenal reactive gastric foveolar metaplasia, repeat due 2016 EGD 04/22/2020 EGD TRANSORAL BIOPSY SINGLE/MULTIPLE 10/05/2016 gastritis, esophagitis HYSTERECTOMY HX 06/25/2003 EMMY/BSO-carcinoma insitu L'SCOPE CHOLECYSTECTOMY 05/02/2020 MASTECTOMY,PARTIAL, WITH AXILLARY LYMPHADENECTOMY 06/03/2015 Mastectomy, Partial, with Axillary Lymphadenectomy TOTAL THYROID LOBECTOMY UNI W/WO ISTHMUSECTOMY Left 06/06/2020 Dr Mcpherson VAGINAL HYSTERECTOMY ALLERGIES Lisinopril and Penicillins MEDICATIONS Current Outpatient Medications Medication Sig losartan (COZAAR) 50 mg tablet Take 1 tablet by mouth once daily. Take w/ 25 mg for total daily dose of 75 mg. ergocalciferol 50,000 unit capsule (VITAMIN D2, DRISDOL) Take one capsule po weekly. famotidine (PEPCID) 20 mg tablet Take 1 tablet by mouth daily at bedtime. losartan (COZAAR) 25 mg tablet Take 1 tablet by mouth once daily. Take with 50 mg for total daily dose of 75 mg daily. ibuprofen (MOTRIN) 600 mg tablet Take 1 tablet by mouth every 6 hours as needed for pain. acetaminophen 325 mg cap Take 650 mg by mouth as needed. No current facility-administered medications for this visit. FAMILY HISTORY Problem Relation Age of Onset Diabetes Mother Hypertension Mother Heart Failure Mother Diabetes Father Hypertension Father Heart Father Pig valve, CHF No Known Problems Brother Social History Tobacco Use Smoking status: Every Day Current packs/day: 1.50 Average packs/day: 1.5 packs/day for 40.0 years (60.0 ttl pk-yrs) Types: Cigarettes Smokeless tobacco: Never Vaping Use Vaping status: Never Used Substance Use Topics Alcohol use: Yes Alcohol/week: 2.0 standard drinks of alcohol Types: 2 Glasses of Wine (5oz) per week Comment: Occasional Drug use: No EXAM: BP 124/82 Pulse 80 Resp 16 Wt 110.7 kg (244 lb) SpO2 95% BMI 41.88 kg/m? PHYSICAL EXAM: General Appearance: Well appearing, alert, in no acute distress, well-hydrated, well nourished.. Skin: Skin color, texture, turgor normal, no suspicious rashes or lesions. Head: Normocephalic, no masses, lesions, tenderness or abnormalities. Eyes: Anicteric sclera. Extraocular movements are intact. . Neck: Supple, no adenopathy; thyroid symmetric, normal size, no bruits. Lungs: Lungs clear to auscultation. No wheezing, rhonchi, rales.. Heart: RRR without murmur, gallop, or rubs. No ectopy. Extremities: No deformities, edema, skin discoloration, clubbing or cyanosis. Good capillary refill. . Neurologic: Gait normal. ASSESSMENT/PLAN: 1. Primary hypertension - ICD9: 401.9, ICD10: I10 (primary diagnosis) - Controlled - Continue current medications - Recommend home blood pressure monitoring, to bring results to next visit - Encouraged sodium restriction, DASH or Mediterranean diet - Recommend regular aerobic exercise - LOSARTAN 25 MG TABLET - LOSARTAN 50 MG TABLET 2. Wheeze - ICD9: 786.07, ICD10: R06.2 Refill: - ALBUTEROL SULFATE HFA 90 MCG/ACTUATION AEROSOL INHALER 3. Class 3 severe obesity with body mass index (BMI) of 40.0 to 44.9 in adult, unspecified obesity type, unspecified whether serious comorbidity present (HCC) - ICD9: 278.01, V85.41, ICD10: E66.01, Z68.41 - CONSULT TO [facility] WEIGHT MANAGEMENT PROGRAM 4. Encounter for immunization - ICD9: V03.89, ICD10: Z23 - PNEUMOCOCCAL VACCINE, 20 VALENT (PREVN (more content not included)... Normal [facility] FLOW CYTOMETRY LYMPHOMA WORK UP AT [facility] ([facility])on 06-24-2022 FLOW CYTOMETRY ORDER STATUS See Results in chart under F case ID Normal [facility] Comment on above: Order Comment: Speci men Type: TISSUE SPECIMEN [facility] Address: [address] [place] [address] Performed By: #### F CLYMPHRFLX, FCLYMPH #### [facility] CLIA [id number] [place] FLOW CYTOMETRY LYMPHOMA WORK UP AT [facility] ([facility]) REFLEXon 06-24-2022 CASE REPORT Normal [facility] Comment on above: Order Comment: Speci men Type: TISSUE SPECIMEN [facility] Address: [address] [place] [address] Result Comment: Flow Cytometry Case: [id number] Authorizing Provider: Félix Dukes MD Collected: 06/24/2022 10:41 AM Ordering Location: [facility] Radiology Received: 06/25/2022 10:15 AM Pathologist: Shahrzad Chapa MD, PhD Specimen: PAROTID BIOPSY LEFT Performed By: #### F CLYMPHRFLX, JOYLYMPH #### [facility] CLIA [id number] [facility] [address] DIAGNOSIS COMMENT Normal [facility] Comment on above: Order Comment: Speci men Type: TISSUE SPECIMEN [facility] Address: [address] [place] [address] Result Comment: This test was developed and its performance characteristics determined by [facility]'s [facility] ([facility]). It has not been cleared or approved by the FDA. [facility] is regulated under CLIA as qualified to perform high-complexity testing. This test is used for clinical purposes. It should not be regarded as investigational or for research. Performed By: #### F CLYMPHRFLX, FCLYMPH #### [facility] CLIA [id number] OF [place] FINAL PERFORMING LAB Normal [facility] Comment on above: Order Comment: Speci men Type: TISSUE SPECIMEN Ordering Facility: [facility] Address: [address] [place] [address] Result Comment: Diag nostic interpretation performed at [facility], [address] [place] [address] CLIA# [id number] Vp Cardiovascular: Jareth Gillespie M.D. Performed By: #### F CLYMPHRFLX, FCLYMPH #### [facility] CLIA [id number] [address] [place] [address] STATES [place] FLOW CYTOMETRY RESULTS Normal [facility] Comment on above: Order Comment: Speci men Type: TISSUE SPECIMEN Ordering Facility: [facility] Address: [address] [place] [address] Result Comment: Spec imen type: Parotid biopsy Morphology comments: See surgical pathology report [id number] Viability: 89% Results: % total events Lymphocyte gate: 51 High FSC gate: 3 A limited flow cytometric analysis was performed on the parotid biposy due to low cell yield. Antibodies to CD5, CD10, CD19, CD20, CD23, CD45, CD123, CD200, and kappa and lambda light chains were used. This shows that 51% of total events have the CD45 and side scatter properties of lymphocytes. The lymphocytes are composed of T-cells (71%) and polytypic B-cells (29%). Performed By: #### F CLYMPHRFLX, FCLYMPH #### [facility] CLIA [id number] [address] [place] [address] [place] GROSS DESCRIPTION Normal [facility] Comment on above: Order Comment: Speci men Type: TISSUE SPECIMEN Ordering Facility: [facility] Address: [address] [place], [place] [id number] Result Comment: A. P AROTID BIOPSY LEFT RECEIVED A FEW SPECS OF TISSUE IN RPMI Performed By: #### F CLYMPHRFLX, FCLYMPH #### [facility] CLIA [id number] [address] [place] [address] [place] INTERPRETATION Normal [facility] Comment on above: Order Comment: Speci men Type: TISSUE SPECIMEN Ordering Facility: [facility] Address: [address] [place], [place] [id number] Result Comment: Ther e is no immunophenotypic evidence of involvement by a B-cell lymphoma. The limited antibody panel is insufficient to adequately evaluate for T-cell clonality or aberrant marker expression. Correlation with the clinical and histopathologic findings is suggested for final diagnosis. ABO 06/25/2022 Performed By: #### F CLYMPHRFLX, FCLYMPH #### [facility] CLIA [id number] [address] [place] [address] SURGICAL PATHOLOGYon 023 CASE REPORT Normal [facility] Comment on above: Order Comment: Speci men Type: TISSUE SPECIMEN Ordering Facility: [facility] Address: [address] [place] [address] Result Comment: Surg ical Pathology Report Case: [id number] Authorizing Provider: Félix Dukes MD Collected: 06/24/2022 10:41 AM Ordering Location: [facility] Radiology Received: 06/24/2022 10:59 AM Pathologist: Emerita Siegle MD Specimen: PAROTID BIOPSY LEFT Performed By: #### S #### [facility] CLIA [id number] [address] [place] [address] CLINICAL HISTORY Incidental note of Left Parotid Nodule. On US appearance suggests possible Lymphoma Normal [facility] Comment on above: Order Comment: Speci men Type: TISSUE SPECIMEN Ordering Facility: [facility] Address: [address] [place], [place] [id number] Performed By: #### S #### [facility] CLIA [id number] [address] [place] [address] FINAL DIAGNOSIS Normal [facility] Comment on above: Order Comment: Speci men Type: TISSUE SPECIMEN Ordering Facility: [facility] Address: [address] [place], [place] [id number] Result Comment: Paro tid, left, biopsy - Warthin tumor. Performed By: #### S #### [facility] CLIA [id number] [address] [place] [address] OF [facility] FINAL PERFORMING LAB Normal [facility] Comment on above: Order Comment: Speci men Type: TISSUE SPECIMEN Ordering Facility: [facility] Address: [address] [place] [address] Result Comment: Diag nostic interpretation performed at [facility], [address] [place] [address] CLIA# [id number] Vp Cardiovascular: Jareth Gillespie M.D. Performed By: #### S #### [facility] CLIA [id number] [address] [place] [address] GROSS DESCRIPTION Normal [facility] Comment on above: Order Comment: Speci men Type: TISSUE SPECIMEN Ordering Facility: [facility] Address: [address] [place] [address] Result Comment: A. P AROTID BIOPSY LEFT Received in RPMI are multiple fragments of cylindrical tissue aggregating to 0.5 x 0.2 x 0.1 cm, rocha-red and of a soft consistency. A portion of the specimen is submitted for flow cytometry. The remainder is submitted in formalin in one cassette. EJL June 24, 2022 1:47 PM Gross examination performed at [facility], [address] [place] [address] Performed By: #### S #### [facility] CLIA [id number] [address] [place] [address] [place] US BIOPSY SALIVARY GLANDon 0 06-24-2022 US BIOPSY SALIVARY GLAND * * *Final Report* * * DATE OF EXAM: Jun 24 2022 11:02AM MDAshish 2050 - US BIOPSY SALIVARY GLAND / PROCEDURE REASON: New Patient * * * * Physician Interpretation * * * * HISTORY: Parotid mass Left parotid mass. Need image guided biopsy TECHNIQUE: Pre-procedure Sign-in: Safety Checklist Performed: Yes. The team confirmed the correct patient, correct site, site marking, correct procedure, and correct position. Timeout Time: 1000 Sign-out: Communication performed: Yes. 5 mL 2% lidocaine was used for local anesthesia. COMPARISON: 05/05/2022 MRI RESULT: On ultrasound scanning an echolucent solid sharply defined nodule within the left parotid gland measuring 1.5 x 1.2 x 0.8 cm is noted and is thought to correspond with the area of concern on the MRI. This area was biopsied with 3 needle passes of an 18-gauge spring-loaded device under direct real-time ultrasound guidance. Permanent ultrasound images were recorded documenting needle position within the lesion. IMPRESSION: Ultrasound-guided left parotid gland nodule biopsy. Bed [facility] Transcribe Date/Time: Jun 24 2022 1:52P Dictated by : FÉLIX DUKES MD This examination was interpreted and the report reviewed and electronically signed by: FÉLIX DUKES MD on Jun 24 2022 1:54PM EST [id number] [facility] 06-10-2022 [facility] Telephone ([place]) CARRIE TAVERAS ([id number]) 1965 F CHT Date Time Provider Department 06/10/22 CAMACHO DOWNS ([facility]) [place] During your visit today, we recorded the following information about you: Camacho Downs 06/10/2022 9:50 AM Signed Left VM for pt to get her scheduled for biopsy of parotid mass. Gave my direct number for her to call back, . Allergies As of Date: 06/10/2022 Noted Allergy Reaction LISINOPRIL 07/15/2021 3 - Cough PENICILLINS 07/05/2012 2 - Rash Date Reviewed: 06/09/2022 Reviewed by: Christy Ambriz - Fully Assessed Reason for Visit: Scheduling [3921] Cmt: Biopsy Prescriptions as of 12/31/2022 - losartan (COZAAR) 50 mg tablet Take 1 tablet by mouth once daily. - albuterol HFA (PROVENTIL HFA, VENTOLIN HFA) 90 mcg/actuation inhaler Inhale 2 Puffs as instructed every 6 hours as needed for wheezing/shortness of breath. - ergocalciferol 50,000 unit capsule (VITAMIN D2, DRISDOL) Take one capsule po weekly. - famotidine (PEPCID) 20 mg tablet Take 1 tablet by mouth daily at bedtime. - ibuprofen (MOTRIN) 600 mg tablet Take 1 tablet by mouth every 6 hours as needed for pain. - acetaminophen 325 mg cap Take 650 mg by mouth as needed. Problem List As Of Date 06/10/2022 Noted Resolved Obesity, Class III, BMI 40-49.9 (morbid obesity* Back pain [M54.9] Hyperplastic colon polyp [K63.5] 09/17/2013 Gastritis and duodenitis [K29.90] 09/17/2013 Breast cancer of upper-outer quadrant of left f*06/25/2015 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) *05/24/2016 Malignant neoplasm of upper-outer quadrant of l*08/24/2016 Abdominal pain, epigastric [R10.13] 04/22/2020 04/22/2020 Primary hypertension [I10] 01/13/2022 Vitamin D deficiency [E55.9] 01/13/2022 Encounter Status:Closed by CAMACHO DOWNS on 12/31/22 [facility] SCREENINGon 05-20-2022 [facility] MRI FACE WO/W IVCONon 2022 [facility] XR CHEST 2V FRONTAL/LATon [facility] XR Chest PA and Lateralon IMPRESSION: Stable chest. No acute cardiopulmonary process. Bed And Breakfast Cook: P[facility] Transcribe Date/Time: Oct 08 2021 11:32A Dictated by : PHOENIX UGARTE MD This examination was interpreted and the report reviewed and electronically signed by: PHOENIX UGARTE MD on Oct 08 2021 11:33AM [facility] DIVISION OF RADIOLOGY * * *Final Report* * * DATE OF EXAM: Oct 08 2021 11:28AM WOX 5291 - XR CHEST 2V FRONTAL/LAT / PROCEDURE REASON: Acute cough * * * * Physician Interpretation * * * * EXAMINATION: CHEST RADIOGRAPH (2 VIEW FRONTAL & LATERAL) CLINICAL HISTORY: Acute cough MQ: XC2_6 EXAM DATE/TIME: 10/08/2021 11:28 AM COMPARISON: Comparison is made to prior chest radiograph dated 11 November 2020 RESULT: Lines, tubes, and devices: None. Lungs and pleura: There is no focal consolidation or acute pleural process/fluid. There is no vascular redistribution to suggest pulmonary edema. Cardiomediastinal silhouette: The cardiac, mediastinal and hilar shadows are unchanged and remain within normal limits. Bones/soft tissues: The bony structures are intact with mild degenerative change. No bony destructive process noted. DIVISION OF RADIOLOGY Provider, Benita Workman - 10/08/2021 * * *Final Report* * * DATE OF EXAM: Oct 08 2021 11:28AM WOX 5291 - XR CHEST 2V FRONTAL/LAT / PROCEDURE REASON: Acute cough * * * * Physician Interpretation * * * * EXAMINATION: CHEST RADIOGRAPH (2 VIEW FRONTAL & LATERAL) CLINICAL HISTORY: Acute cough MQ: XC2_6 EXAM DATE/TIME: 10/08/2021 11:28 AM COMPARISON: Comparison is made to prior chest radiograph dated 11 November 2020 RESULT: Lines, tubes, and devices: None. Lungs and pleura: There is no focal consolidation or acute pleural process/fluid. There is no vascular redistribution to suggest pulmonary edema. Cardiomediastinal silhouette: The cardiac, mediastinal and hilar shadows are unchanged and remain within normal limits. Bones/soft tissues: The bony structures are intact with mild degenerative change. No bony destructive process noted. IMPRESSION IMPRESSION: Stable chest. No acute cardiopulmonary process. Bed And Breakfast Cook: PSC[facility] Transcribe Date/Time: Oct 08 2021 11:32A Dictated by : PHOENIX UGARTE MD This examination was interpreted and the report reviewed and electronically signed by: PHOENIX UGARTE MD on Oct 08 2021 11:33AM EST [facility] Radiology Study observation (narrative) [facility] XR Chest PA and LateralOrder ed By: Ccf Provider on 10-08-2021 [facility] JULISA SCREENINGon 05-18-2021 [facility] JULISA SCREENINGon 05-15-2021 [facility] Absolute lymphocyte counton 05-13-2021 Lymphocytes Auto (Unsp spec) [#/Vol] 1.87 10*3/uL 0.83-4.51 [facility] Work Phone: Basophil percentageon 2021 Basophils/100 WBC (Bld) 0.4 % 0-1 [facility] Work Phone: Chloride [Moles/Vol] 107 mmol/L 98-107 [facility] Work Phone: Eosinophils/100 WBC (Bld) 1.7 % 0-5 [facility] Work Phone: Glucose [Mass/Vol] 97 mg/dL 74-106 [facility] Work Phone: Neutrophils (Bld) [#/Vol] 4.7 10*3/uL 2.0-7.7 [facility] Work Phone: Neutrophils/100 WBC (Bld) 65.5 % 47-70 [facility] Work Phone: Potassium [Moles/Vol] 3.9 mmol/L 3.5-5.1 [facility] Work Phone: Sodium [Moles/Vol] 138 mmol/L 136-145 [facility] Work Phone: WBC (Bld) [#/Vol] 7.2 10*3/uL 4.4-11.0 [facility] Work Phone: Blood erythrocytes count (nu mber/volume)on 05-13-2021 RBC (Bld) [#/Vol] 4.86 10*6/uL 4.2-5.4 [facility] Work Phone: Blood hemoglobin measurement (mass/volume)on 05-13-2021 Hemoglobin (Bld) [Mass/Vol] 14.9 g/dL 12.0-15.0 [facility] Work Phone: Blood lymphocytes/100 leukoc yteson 05-13-2021 Lymphocytes/100 WBC (Bld) 26.0 % 19-41 [facility] Work Phone: Blood monocytes/100 leukocyt eson 05-13-2021 Monocytes/100 WBC (Bld) 6.1 % 0-10 [facility] Work Phone: Blood platelet mean volumeon 05-13-2021 Platelet mean volume (Bld) [Entitic vol] 11.5 fL 6.2-12.0 [facility] Work Phone: Determination of erythrocyte mean corpuscular volume (MCV)on 05-13-2021 MCV (RBC) [Entitic vol] 94.2 fL 81-99 [facility] Work Phone: Hematocrit Auto (Bld) [Volum e fraction]on 05-13-2021 Hematocrit (Bld) [Volume fraction] 45.8 % 37-47 [facility] Work Phone: Laboratory - Chemistry and C hemistry - challengeon 05-13-2021 CO2 [Moles/Vol] 29.0 mmol/L 21.0-32.0 [facility] Work Phone: Urea nitrogen/Creatinine [Mass ratio] 18.7 mg/mg 10-20 [facility] Work Phone: Laboratory - Hematology and Cell countson 05-13-2021 Erythrocyte distribution width (RBC) [Entitic vol] 43.1 fL 35.1-43.9 [facility] Work Phone: Erythrocyte distribution width (RBC) [Ratio] 12.4 % 11.6-14.6 [facility] Work Phone: Immature granulocytes/100 WBC (Bld) 0.300 % 0.0-0.9 [facility] Work Phone: Comment on above: IG% - Immature Granu locytes (promyelocytes, myelocytes and metamyelocytes) > 1% indicates that a LEFT SHIFT is Present. MCH (RBC) [Entitic mass] 30.7 pg 27.0-32.0 [facility] Work Phone: Nucleated RBC/100 WBC (Bld) [Ratio] 0 % 0-5 [facility] Work Phone: MCHC Auto (RBC) [Mass/Vol]on 05-13-2021 MCHC (RBC) [Mass/Vol] 32.5 g/dL 32-36 [facility] Work Phone: No Panel Informationon 05-13 Troponin I High Sensitivity 8 pg/mL 3.0-54.0 [facility] Work Phone: Comment on above: Please Note: New [place] t Units and Gender Specific Reference Ranges. For more information see Policy Stat Procedure [place] High Sensitivity Troponin (TNIH) and attachments. Estimated Creatinine Clearance Calc 64.44 ml/min [facility] Work Phone: Estimated GFR (MDRD) Amer 77 mL/min >60 [facility] Work Phone: Comment on above: GFR Calc Estimated GFR (MDRD) Non-Af Amer 63 mL/min >60 [facility] Work Phone: Comment on above: Non- GFR Calc Platelets bldon 05-13-2021 Platelets (Bld) [#/Vol] 272 10*3/uL 150-450 [facility] Work Phone: Serum or plasma calcium sophia urement (mass/volume)on 05-13-2021 Calcium [Mass/Vol] 9.1 mg/dL 8.5-10.1 [facility] Work Phone: Serum or plasma creatinine m easurement (mass/volume)on 05-13-2021 Creatinine [Mass/Vol] 0.96 mg/dL 0.55-1.02 [facility] Work Phone: Comment on above: The validity of the calculated GFR & GFRAA in patients over 70 years has not been determined. Clinical correlation is essential. Serum or plasma urea nitroge n measurement (mass/volume)on 05-13-2021 Urea nitrogen [Mass/Vol] 18 mg/dL 7-18 [facility] Work Phone: Thin prep Papanicolaou smear with manual screeningon 05-13-2021 Thin prep Papanicolaou smear with manual screening 2 5-15 [facility] Work Phone: XR Chest PA and Lateralon IMPRESSION: No acute radiographic abnormality. Bed And Breakfast Cook: CAM Transcribe Date/Time: Nov 11 2020 1:16P Dictated by : SHAHANA WHEELER MD This examination was interpreted and the report reviewed and electronically signed by: SHAHANA WHEELER MD on Nov 11 2020 1:16PM [facility] DIVISION OF RADIOLOGY * * *Final Report* * * DATE OF EXAM: Nov 11 2020 1:13PM WOX 5291 - XR CHEST 2V FRONTAL/LAT / PROCEDURE REASON: Cough * * * * Physician Interpretation * * * * EXAMINATION: CHEST RADIOGRAPH (2 VIEW FRONTAL & LATERAL) CLINICAL HISTORY: Cough MQ: XC2_6 EXAM DATE/TIME: 11/11/2020 1:13 PM COMPARISON: Chest x-ray on 07/28/2017. RESULT: Lines, tubes, and devices: None. Lungs and pleura: No consolidation. No lung mass. No pleural effusion. No pneumothorax. Cardiomediastinal silhouette: Normal cardiomediastinal silhouette. Bones and soft tissues: The spine shows degenerative changes. DIVISION OF RADIOLOGY Provider, [facility] - 11/11/2020 * * *Final Report* * * DATE OF EXAM: Nov 11 2020 1:13PM WOX 5291 - XR CHEST 2V FRONTAL/LAT / PROCEDURE REASON: Cough * * * * Physician Interpretation * * * * EXAMINATION: CHEST RADIOGRAPH (2 VIEW FRONTAL & LATERAL) CLINICAL HISTORY: Cough MQ: XC2_6 EXAM DATE/TIME: 11/11/2020 1:13 PM COMPARISON: Chest x-ray on 07/28/2017. RESULT: Lines, tubes, and devices: None. Lungs and pleura: No consolidation. No lung mass. No pleural effusion. No pneumothorax. Cardiomediastinal silhouette: Normal cardiomediastinal silhouette. Bones and soft tissues: The spine shows degenerative changes. IMPRESSION IMPRESSION: No acute radiographic abnormality. Bed And Breakfast Cook: CAM Transcribe Date/Time: Nov 11 2020 1:16P Dictated by : SHAHANA WHEELER MD This examination was interpreted and the report reviewed and electronically signed by: SHAHANA WHEELER MD on Nov 11 2020 1:16PM EST [facility] Radiology Study observation (narrative) [facility] XR Chest PA and LateralOrder ed By: Ccf Provider on 11-11-2020 [facility] Vital Signs Date Time Vital Sign Value Performing Clinician Facility 06-15-2024 08:54-0400 Body mass index (BMI) [Ratio] 40.06 kg/m2 Becky White [employer]ING [employer] OPERATOR Work Phone: [facility] 06-15-2024 08:54-0400 Body temperature 98.49 [degF] Becky White [employer]UFA[employer]ING [employer] CONTRO[employer]ER.[employer] BILL OPERATOR Work Phone: [facility] 06-15-2024 08:54-0400 Body weight 103.4 kg Becky White MANUFA[employer]URING [employer]ANT CONTROLLER.DUCK BILL OPERATOR Work Phone: [facility] 06-15-2024 08:54-0400 Diastolic blood pressure 79 mm[Hg] Becky White [employer]UFA[employer]URING [employer]ANT CONTRO[employer]ER.DUCK BILL OPERATOR Work Phone: [facility] 06-15-2024 08:54-0400 Heart rate 64 /min Becky White [employer]UFA[employer]ING [employer]ANT CONTRO[employer]ER.DUCK BILL OPERATOR Work Phone: [facility] 06-15-2024 08:54-0400 SaO2% (BldA) [Mass fraction] 98 % Becky White [employer]UFA[employer]ING [employer]ANT CONTRO[employer]ER.DUCK BILL OPERATOR Work Phone: [facility] 06-15-2024 08:54-0400 Systolic blood pressure 119 mm[Hg] Becky White [employer]UFA[employer]URING [employer] CONTRO[employer]ER.DUCK BILL OPERATOR Work Phone: [facility] 05-14-2024 08:36-0400 Body mass index (BMI) [Ratio] 39.89 kg/m2 Beth Sales MD Work Phone: [facility] 05-14-2024 08:36-0400 Body weight 102.97 kg Beth Sales MD Work Phone: [facility] 05-14-2024 08:36-0400 Diastolic blood pressure 78 mm[Hg] Beth Sales MD Work Phone: [facility] 05-14-2024 08:36-0400 Systolic blood pressure 126 mm[Hg] Beth Sales MD Work Phone: [facility] 04-30-2024 09:01-0400 Body mass index (BMI) [Ratio] 39.89 kg/m2 Ariela Talbert APRN.DUCK BILL OPERATOR Work Phone: [facility] 04-30-2024 09:01-0400 Body weight 102.97 kg Ariela Talbert APRN.DUCK BILL OPERATOR Work Phone: [facility] 04-30-2024 09:01-0400 Diastolic blood pressure 82 mm[Hg] Ariela Talbert APRN.DUCK BILL OPERATOR Work Phone: [facility] 04-30-2024 09:01-0400 Heart rate 82 /min Ariela Talbert APRN.DUCK BILL OPERATOR Work Phone: [facility] 04-30-2024 09:01-0400 Respiratory rate 16 /min Ariela Talbert APRN.DUCK BILL OPERATOR Work Phone: [facility] 04-30-2024 09:01-0400 SaO2% (BldA) [Mass fraction] 97 % Ariela Talbert APRN.DUCK BILL OPERATOR Work Phone: [facility] 04-30-2024 09:01-0400 Systolic blood pressure 138 mm[Hg] Ariela Talbert APRN.DUCK BILL OPERATOR Work Phone: [facility] 03-13-2024 07:28-0500 Body mass index (BMI) [Ratio] 40.95 kg/m2 Trina Mitchell APRN.DUCK BILL OPERATOR Work Phone: [facility] 03-13-2024 07:28-0500 Body weight 105.69 kg Trina Mitchell APRN.DUCK BILL OPERATOR Work Phone: [facility] 03-13-2024 07:28-0500 Diastolic blood pressure 80 mm[Hg] Trina Mitchell APRN.DUCK BILL OPERATOR Work Phone: [facility] 03-13-2024 07:28-0500 Heart rate 78 /min Trina Mitchell APRN.DUCK BILL OPERATOR Work Phone: [facility] 03-13-2024 07:28-0500 SaO2% (BldA) [Mass fraction] 97 % Trina Mitchell APRN.DUCK BILL OPERATOR Work Phone: [facility] 03-13-2024 07:28-0500 Systolic blood pressure 136 mm[Hg] Trina Mitchell APRN.DUCK BILL OPERATOR Work Phone: [facility] 11-10-2023 07:43-0400 Body height 160.7 cm Trina Mitchell APRN.DUCK BILL OPERATOR Work Phone: [facility] 11-10-2023 07:43-0400 Body mass index (BMI) [Ratio] 43.06 kg/m2 Trina Mitchell APRN.DUCK BILL OPERATOR Work Phone: [facility] 11-10-2023 07:43-0400 Body weight 111.13 kg Trina Mitchell APRN.DUCK BILL OPERATOR Work Phone: [facility] 11-10-2023 07:43-0400 Diastolic blood pressure 84 mm[Hg] Trina Mitchell APRN.DUCK BILL OPERATOR Work Phone: [facility] 11-10-2023 07:43-0400 Heart rate 81 /min Trina Mitchell APRN.DUCK BILL OPERATOR Work Phone: [facility] 11-10-2023 07:43-0400 SaO2% (BldA) [Mass fraction] 98 % Trina Mitchell APRN.DUCK BILL OPERATOR Work Phone: [facility] 11-10-2023 07:43-0400 Systolic blood pressure 136 mm[Hg] Trina Mitchell APRN.DUCK BILL OPERATOR Work Phone: [facility] 10-31-2023 09:51-0400 Body mass index (BMI) [Ratio] 41.88 kg/m2 Ariela Talbert APRN.DUCK BILL OPERATOR Work Phone: [facility] 10-31-2023 09:51-0400 Body weight 110.68 kg Ariela Talbert APRN.DUCK BILL OPERATOR Work Phone: [facility] 10-31-2023 09:51-0400 Diastolic blood pressure 82 mm[Hg] Ariela Haagen MANUFACTURING PLANT CONTROLLER.DUCK BILL OPERATOR Work Phone: [facility] 10-31-2023 09:51-0400 Heart rate 80 /min Ariela Haagen MANUFACTURING [employer]ANT CONTROLLER.DUCK BILL OPERATOR Work Phone: [facility] 10-31-2023 09:51-0400 Respiratory rate 16 /min Ariela Xiaoagen MANUFA[employer]URING PLANT CONTROLLER.DUCK BILL OPERATOR Work Phone: [facility] 10-31-2023 09:51-0400 SaO2% (BldA) [Mass fraction] 95 % Ariela Xiaoagen MANUFACTURING PLANT CONTROLLER.DUCK BILL OPERATOR Work Phone: [facility] 10-31-2023 09:51-0400 Systolic blood pressure 124 mm[Hg] Ariela Haagen MANUFACTURING PLANT CONTROLLER.DUCK BILL OPERATOR Work Phone: [facility] 06-08-2023 11:32-0400 Body mass index (BMI) [Ratio] 42.4 kg/m2 Becky White MANUFACTURING PLANT CONTROLLER.DUCK BILL OPERATOR Work Phone: [facility] 06-08-2023 11:32-0400 Body temperature 98.2 [degF] Becky White MANUFACTURING PLANT CONTROLLER.DUCK BILL OPERATOR Work Phone: [facility] 06-08-2023 11:32-0400 Body weight 112.04 kg Becky White MANUFACTURING PLANT CONTROLLER.DUCK BILL OPERATOR Work Phone: [facility] 06-08-2023 11:32-0400 Diastolic blood pressure 86 mm[Hg] Becky White MANUFACTURING PLANT CONTROLLER.DUCK BILL OPERATOR Work Phone: [facility] 06-08-2023 11:32-0400 Heart rate 81 /min Becky White MANUFACTURING PLANT CONTROLLER.DUCK BILL OPERATOR Work Phone: [facility] 06-08-2023 11:32-0400 SaO2% (BldA) [Mass fraction] 98 % Becky White MANUFACTURING PLANT CONTROLLER.DUCK BILL OPERATOR Work Phone: [facility] 06-08-2023 11:32-0400 Systolic blood pressure 136 mm[Hg] Rye White MANUFACTURING PLANT CONTROLLER.DUCK BILL OPERATOR Work Phone: [facility] 04-29-2023 09:03-0400 Diastolic blood pressure 81 mm[Hg] Ariela Haagen MANUFACTURING PLANT CONTROLLER.DUCK BILL OPERATOR Work Phone: [facility] 04-29-2023 09:03-0400 Heart rate 82 /min Ariela Haagen MANUFACTURING PLANT CONTROLLER.DUCK BILL OPERATOR Work Phone: [facility] 04-29-2023 09:03-0400 Systolic blood pressure 126 mm[Hg] Ariela Haagen MANUFACTURING PLANT CONTROLLER.DUCK BILL OPERATOR Work Phone: [facility] 04-29-2023 08:53-0400 Body weight 112.95 kg Ariela Haagen MANUFACTURING PLANT CONTROLLER.DUCK BILL OPERATOR Work Phone: [facility] 04-29-2023 08:53-0400 Respiratory rate 16 /min Ariela Haagen MANUFACTURING PLANT CONTROLLER.DUCK BILL OPERATOR Work Phone: [facility] 04-29-2023 08:53-0400 SaO2% (BldA) [Mass fraction] 94 % Ariela Haagen MANUFACTURING PLANT CONTROLLER.DUCK BILL OPERATOR Work Phone: [facility] 08-16-2022 15:24-0400 Diastolic blood pressure 80 mm[Hg] Ariela Haagen MANUFACTURING PLANT CONTROLLER.DUCK BILL OPERATOR Work Phone: [facility] 08-16-2022 15:24-0400 Heart rate 67 /min Ariela Haagen MANUFACTURING PLANT CONTROLLER.DUCK BILL OPERATOR Work Phone: [facility] 08-16-2022 15:24-0400 Respiratory rate 16 /min Ariela Haagen MANUFACTURING PLANT CONTROLLER.DUCK BILL OPERATOR Work Phone: [facility] 08-16-2022 15:24-0400 SaO2% (BldA) [Mass fraction] 95 % Ariela Haagen MANUFACTURING PLANT CONTROLLER.DUCK BILL OPERATOR Work Phone: [facility] 08-16-2022 15:24-0400 Systolic blood pressure 164 mm[Hg] Ariela Haagen MANUFACTURING PLANT CONTROLLER.DUCK BILL OPERATOR Work Phone: [facility] 07-16-2022 10:04-0400 Body weight 123.38 kg Palmer Mckinnon MD Work Phone: [facility] 07-16-2022 10:04-0400 Diastolic blood pressure 78 mm[Hg] Palmer Mckinnon MD Work Phone: [facility] 07-16-2022 10:04-0400 Heart rate 68 /min Palmer Mckinnon MD Work Phone: [facility] 07-16-2022 10:04-0400 SaO2% (BldA) [Mass fraction] 95 % Palmer Mckinnon MD Work Phone: [facility] 07-16-2022 10:04-0400 Systolic blood pressure 150 mm[Hg] Palmer Mckinnon MD Work Phone: [facility] 05-26-2022 09:46-0400 Body height 162.6 cm Rye White MANUFACTURING PLANT CONTROLLER.DUCK BILL OPERATOR Work Phone: [facility] 05-26-2022 09:46-0400 Body temperature 98.01 [degF] Rye White MANUFACTURING PLANT CONTROLLER.DUCK BILL OPERATOR Work Phone: [facility] 05-26-2022 09:46-0400 Body weight 124.74 kg Rye White MANUFACTURING PLANT CONTROLLER.DUCK BILL OPERATOR Work Phone: [facility] 05-26-2022 09:46-0400 Diastolic blood pressure 81 mm[Hg] Becky White MANUFACTURING PLANT CONTROLLER.DUCK BILL OPERATOR Work Phone: [facility] 05-26-2022 09:46-0400 Heart rate 67 /min Rye White MANUFACTURING PLANT CONTROLLER.DUCK BILL OPERATOR Work Phone: [facility] 05-26-2022 09:46-0400 Systolic blood pressure 144 mm[Hg] Rye White MANUFACTURING PLANT CONTROLLER.DUCK BILL OPERATOR Work Phone: [facility] 05-12-2022 07:15-0400 Body temperature 98.91 [degF] Lizette Foley MANUFACTURING PLANT CONTROLLER.DUCK BILL OPERATOR Work Phone: [facility] 05-12-2022 07:15-0400 Body weight 121.56 kg Lizette Foley MANUFACTURING PLANT CONTROLLER.DUCK BILL OPERATOR Work Phone: [facility] 05-12-2022 07:15-0400 Diastolic blood pressure 72 mm[Hg] Lizette Foley MANUFACTURING PLANT CONTROLLER.DUCK BILL OPERATOR Work Phone: [facility] 05-12-2022 07:15-0400 Heart rate 102 /min Lizette Foley MANUFACTURING PLANT CONTROLLER.DUCK BILL OPERATOR Work Phone: [facility] 05-12-2022 07:15-0400 Respiratory rate 16 /min Lizette Foley MANUFACTURING PLANT CONTROLLER.DUCK BILL OPERATOR Work Phone: [facility] 05-12-2022 07:15-0400 SaO2% (BldA) [Mass fraction] 94 % Lizette Foley MANUFACTURING PLANT CONTROLLER.DUCK BILL OPERATOR Work Phone: [facility] 05-12-2022 07:15-0400 Systolic blood pressure 124 mm[Hg] Lizette Foley MANUFACTURING PLANT CONTROLLER.DUCK BILL OPERATOR Work Phone: [facility] 04-07-2022 08:58-0500 Body height 162.6 cm Palmer Mckinnon MD Work Phone: [facility] 04-07-2022 08:58-0500 Body weight 126.01 kg Palmer Mckinnon MD Work Phone: [facility] 04-07-2022 08:58-0500 Diastolic blood pressure 96 mm[Hg] Palmer Mckinnon MD Work Phone: [facility] 04-07-2022 08:58-0500 Heart rate 86 /min Palmer Mckinnon MD Work Phone: [facility] 04-07-2022 08:58-0500 SaO2% (BldA) [Mass fraction] 98 % Palmer Mckinnon MD Work Phone: [facility] 04-07-2022 08:58-0500 Systolic blood pressure 158 mm[Hg] Palmer Mckinnon MD Work Phone: [facility] 01-13-2022 13:34-0500 Body height 162.6 cm Palmer Mckinnon MD Work Phone: [facility] 01-13-2022 13:34-0500 Body weight 127.01 kg Palmer Mckinnon MD Work Phone: [facility] 01-13-2022 13:34-0500 Diastolic blood pressure 82 mm[Hg] Palmer Mckinnon MD Work Phone: [facility] 01-13-2022 13:34-0500 Heart rate 87 /min Palmer Mckinnon MD Work Phone: [facility] 01-13-2022 13:34-0500 SaO2% (BldA) [Mass fraction] 96 % Palmer Mckinnon MD Work Phone: [facility] 01-13-2022 13:34-0500 Systolic blood pressure 138 mm[Hg] Palmer Mckinnon MD Work Phone: [facility] 10-08-2021 10:47-0400 Body temperature 98.8 [degF] Joann Hu APRN.DUCK BILL OPERATOR Work Phone: [facility] 10-08-2021 10:47-0400 Body weight 123.38 kg Joann Hu APRN.DUCK BILL OPERATOR Work Phone: [facility] 10-08-2021 10:47-0400 Diastolic blood pressure 74 mm[Hg] Joann Hu APRN.DUCK BILL OPERATOR Work Phone: [facility] 10-08-2021 10:47-0400 Heart rate 89 /min Joann Hu APRN.DUCK BILL OPERATOR Work Phone: [facility] 10-08-2021 10:47-0400 Respiratory rate 18 /min Joann Hu APRN.DUCK BILL OPERATOR Work Phone: [facility] 10-08-2021 10:47-0400 SaO2% (BldA) [Mass fraction] 96 % Joann Hu APRN.DUCK BILL OPERATOR Work Phone: [facility] 10-08-2021 10:47-0400 Systolic blood pressure 134 mm[Hg] Joann Hu APRN.DUCK BILL OPERATOR Work Phone: [facility] 08-14-2021 09:39-0400 Diastolic blood pressure 79 mm[Hg] Mi Nurse Work Phone: [facility] 08-14-2021 09:39-0400 Heart rate 85 /min Mi Nurse Work Phone: [facility] 07-01-2022 09:39-0400 Systolic blood pressure 134 mm[Hg] Mi Nurse Work Phone: [facility] 07-15-2021 13:57-0400 Diastolic blood pressure 82 mm[Hg] Palmer Mckinnon MD Work Phone: [facility] 07-15-2021 13:57-0400 Systolic blood pressure 140 mm[Hg] Palmer Mckinnon MD Work Phone: [facility] 07-15-2021 13:31-0400 Body weight 123.38 kg Palmer Mckinnon MD Work Phone: [facility] 07-15-2021 13:31-0400 Heart rate 68 /min Palmer Mckinnon MD Work Phone: [facility] 05-26-2021 08:42-0400 Body height 163 cm Becky White MANUFACTURING PLANT CONTROLLER.DUCK BILL OPERATOR Work Phone: [facility] 05-26-2021 08:42-0400 Body temperature 98.8 [degF] Becky White MANUFACTURING PLANT CONTROLLER.DUCK BILL OPERATOR Work Phone: [facility] 05-26-2021 08:42-0400 Body weight 122.02 kg Becky White MANUFACTURING PLANT CONTROLLER.DUCK BILL OPERATOR Work Phone: [facility] 05-26-2021 08:42-0400 Diastolic blood pressure 75 mm[Hg] Becky White MANUFACTURING PLANT CONTROLLER.DUCK BILL OPERATOR Work Phone: [facility] 05-26-2021 08:42-0400 Heart rate 72 /min Becky White MANUFACTURING PLANT CONTROLLER.DUCK BILL OPERATOR Work Phone: [facility] 05-26-2021 08:42-0400 SaO2% (BldA) [Mass fraction] 96 % Becky White MANUFACTURING PLANT CONTROLLER.DUCK BILL OPERATOR Work Phone: [facility] 05-26-2021 08:42-0400 Systolic blood pressure 120 mm[Hg] Becky White MANUFACTURING PLANT CONTROLLER.DUCK BILL OPERATOR Work Phone: [facility] 05-13-2021 14:19-0400 Diastolic blood pressure 98 mm[Hg] [facility] Work Phone: 05-13-2021 14:19-0400 Heart rate 65 /min [facility] Work Phone: 05-13-2021 14:19-0400 Respiratory rate 17 /min [facility] Work Phone: 05-13-2021 14:19-0400 SaO2% (BldA) [Mass fraction] 97 % [facility] Work Phone: 05-13-2021 14:19-0400 Systolic blood pressure 118 mm[Hg] [facility] Work Phone: 05-13-2021 11:16-0400 Body height 172.72 cm [facility] Work Phone: 05-13-2021 11:16-0400 Body mass index (BMI) [Ratio] 40.8 kg/m2 [facility] Work Phone: 05-13-2021 11:16-0400 Body temperature 97.6 [degF] [facility] Work Phone: 05-13-2021 11:16-0400 Body weight 121.7 kg [facility] Work Phone: Encounters Encounter Date Encounter Type Care Provider Facility Start: 07-19-2024 ambulatory [facility] Facility:[facility] Start: 07-18-2024 Encounter for other preprocedural examination Luda Hammond [facility] Start: 07-10-2024 End: 07-10-2024 ambulatory LUDA HAMMOND [facility] Start: 06-15-2024 End: 06-15-2024 Follow-up encounter Becky White APRN.DUCK BILL OPERATOR Work Phone: Hematology/Oncology Comment on above: Encounter for follow -up surveillance of breast cancer (Primary Dx); Encounter for screening mammogram for high-risk patient Start: 06-15-2024 End: 06-15-2024 Patient encounter procedure Becky White APRN.CNP Work Phone: Hematology/Oncology Start: 06-15-2024 End: 06-15-2024 ambulatory [facility] Facility:[facility] Start: 06-13-2024 End: 06-19-2024 Telephone encounter Trina Mitchell APRN.CNP Work Phone: OB/Gynecology Comment on above: Received Outside [facility] Records Start: 06-12-2024 End: 06-12-2024 Follow-up encounter Becky White APRN.CNP Work Phone: Hematology/Oncology Start: 06-08-2024 ambulatory [facility] Facilit y:[facility] Start: 05-14-2024 End: 05-14-2024 ambulatory BETH SALES Facility:[facility] Start: 05-14-2024 End: 05-14-2024 Office outpatient visit 15 minutes Beth Sales MD Work Phone: OB/Gynecology Comment on above: Rectocele (Primary D x); Female genital prolapse, unspecified type Start: 04-30-2024 End: 2024 Follow-up encounter Ariela Talbert APRN.CNP Work Phone: [facility] [place] Comment on above: Results Start: 04-30-2024 End: 04-30-2024 [facility] Start: 04-30-2024 End: 04-30-2024 Office outpatient visit 25 minutes Ariela Talbert APRN.CNP Work Phone: [facility] [place] Comment on above: Primary hypertension (Primary Dx); Vitamin D deficiency; Female genital prolapse, unspecified type; Prediabetes Start: 04-30-2024 End: 04-30-2024 [facility] Facility:[facility] Start: 03-16-2024 End: 03-19-2024 Telephone encounter Ariela Talbert APRN.CNP Work Phone: [facility] [place] Comment on above: Results Start: 03-13-2024 End: 03-13-2024 ambulatory [facility] Facility:[facility] Start: 03-13-2024 End: 03-13-2024 Patient encounter procedure Trina Mitchell APRN.CNP Work Phone: OB/Gynecology Comment on above: Primary hypertension (Primary Dx); Metabolic syndrome; Low HDL (under 40); Gastroesophageal reflux disease, unspecified whether esophagitis present; Vitamin D deficiency; Persistent circadian rhythm sleep disorder, shift work type; Class 3 severe obesity with serious comorbidity and body mass index (BMI) of 40.0 to 44.9 in adult, unspecified obesity type (HCC) Start: 11-10-2023 End: 11-10-2023 ambulatory TRINA MITCHELL Facility:[facility] Start: 11-10-2023 End: 11-10-2023 Patient encounter procedure Trina Mitchell APRN.DUCK BILL OPERATOR Work Phone: OB/Gynecology Comment on above: Primary hypertension (Primary Dx); Low HDL (under 40); Gastroesophageal reflux disease, unspecified whether esophagitis present; Vitamin D deficiency; Persistent circadian rhythm sleep disorder, shift work type; Encounter for screening for diabetes mellitus; Class 3 severe obesity with serious comorbidity and body mass index (BMI) of 40.0 to 44.9 in adult, unspecified obesity type (HCC) Start: 11-07-2023 End: 11-07-2023 ambulatory Trina Mitchell APRN.CNP Work Phone: OB/Gynecology Start: 11-07-2023 End: 11-07-2023 E-mail encounter from caregiver Trina Mitchell APRN.CNP Work Phone: OB/Gynecology Start: 10-31-2023 End: 10-31-2023 Office outpatient visit 25 minutes Ariela Talbert APRN.DUCK BILL OPERATOR Work Phone: [facility] Comment on above: Primary hypertension (Primary Dx); Wheeze; Class 3 severe obesity with body mass index (BMI) of 40.0 to 44.9 in adult, unspecified obesity type, unspecified whether serious comorbidity present (HCC); Encounter for immunization; Tobacco abuse; Vitamin D deficiency Start: 10-31-2023 End: 10-31-2023 ambulatory ARIELA TALBERT Facility:[facility] Start: 08-31-2023 End: 08-31-2023 Emergency department patient visit PALMER BLANCHARD [facility] Start: 06-08-2023 End: 06-08-2023 ambulatory Becky White APRN.CNP Work Phone: Hematology/Oncology Comment on above: Personal history of malignant neoplasm of breast (Primary Dx); Encounter for screening mammogram for high-risk patient Start: 06-08-2023 End: 06-08-2023 Patient encounter procedure Becky White APRN.GERARDO Work Phone: Hematology/Oncology Start: 06-02-2023 Documentation procedure Mammog deward Coordinator [facility] Start: 06-02-2023 Letter encounter Mammography Coordinator [facility] Department Start: 06-02-2023 Telephone encounter Becky oh APRN.GERARDO Work Phone: Hematology/Oncology Start: 06-01-2023 End: 06-01-2023 Subsequent hospital visit by physician Screen Mammo [facility] Mammogram Comment on above: Personal history of malignant neoplasm of breast [Z85.3] Start: 04-29-2023 End: 04-29-2023 Office outpatient visit 15 minutes Ariela Talbert APRN.CNP Work Phone: [facility] [place] Comment on above: Primary hypertension (Primary Dx) Start: 08-16-2022 End: 08-16-2022 Patient encounter procedure Ariela Talbert APRN.GERARDO Work Phone: [facility] [place] Comment on above: Warthin's tumor (Emilia nesha Dx); Primary hypertension Start: 07-19-2022 Telephone encounter Palmer Mckinnon MD Work Phone: [facility] [place] Comment on above: Results Start: 07-16-2022 End: 07-16-2022 Patient encounter procedure Palmer Mckinnon MD Work Phone: [facility] [place] Comment on above: Left ear pain (Prima ry Dx); Primary hypertension; Malignant neoplasm of upper-outer quadrant of left breast in female, estrogen receptor positive (HCC); Vitamin D deficiency; Obesity, Class III, BMI 40-49.9 (morbid obesity) (HCC); Warthin's tumor; Gastritis and duodenitis; 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) Start: 06-25-2022 Telephone encounter Elvira Manrique MD Work Phone: Otolaryngology Comment on above: Results Start: 06-24-2022 End: 06-24-2022 ambulatory PALMER MCKINNON Facility:[facility] Start: 06-09-2022 Telephone encounter Elvira Manrique MD Work Phone: Radiology Comment on above: Biopsy Request Start: 06-09-2022 End: 06-09-2022 Patient encounter procedure Elvira Manrique MD Work Phone: Otolaryngology Comment on above: Parotid mass Start: 05-26-2022 End: 05-26-2022 ambulatory Becky White MANUFACTURING PLANT CONTROLLER.DUCK BILL OPERATOR Work Phone: Hematology/Oncology Comment on above: Personal history of malignant neoplasm of breast (Primary Dx); Encounter for screening mammogram for high-risk patient Start: 05-26-2022 End: 05-26-2022 Patient encounter procedure Becky White MANUFACTURING PLANT CONTROLLER.DUCK BILL OPERATOR Work Phone: [facility] Start: 05-24-2022 Telephone encounter Becky oh MANUFACTURING PLANT CONTROLLER.DUCK BILL OPERATOR Work Phone: Hematology/Oncology Comment on above: Results Start: 05-20-2022 End: 05-20-2022 Subsequent hospital visit by [facility] Comment on above: Invasive ductal carc inoma of left breast (HCC) [C50.912] Start: 05-13-2022 Telephone encounter Danielle Simon MANUFACTURING PLANT CONTROLLER.DUCK BILL OPERATOR Work Phone: [facility] Comment on above: Results Start: 05-12-2022 End: 05-12-2022 Patient encounter procedure Lizette Berrios MANUFACTURING PLANT CONTROLLER.DUCK BILL OPERATOR Work Phone: [facility] Comment on above: Pneumonia of both mohan ngs due to infectious organism, unspecified part of lung (Primary Dx); Acute cough Start: 05-05-2022 Telephone encounter Palmer Mckinnon MD Work Phone: [facility] [place] Comment on above: Results (MRI) Start: 05-05-2022 End: 05-05-2022 Subsequent hospital visit by physician Mri Radio [facility] (I-Stat/1.5t) Work Phone: Radiology Comment on above: Parotid mass [K11.8] Start: 04-07-2022 End: 04-07-2022 Patient encounter procedure Palmer Mckinnon MD Work Phone: [facility] [place] Comment on above: Parotid mass (Primar y Dx); Primary hypertension; Headache, unspecified headache type Start: 03-23-2022 ambulatory Palmer Mckinnon MD Work Phone: [facility] [place] Comment on above: Hypertension; Headac he Start: 03-11-2022 Telephone encounter Becky oh APRN.DUCK BILL OPERATOR Work Phone: Hematology/Oncology Comment on above: Appointment Start: 01-13-2022 End: 01-13-2022 Patient encounter procedure Palmer Mckinnon MD Work Phone: [facility] [place] Comment on above: Primary hypertension (Primary Dx); Vitamin D deficiency; Malignant neoplasm of upper-outer quadrant of left breast in female, estrogen receptor positive (HCC); Gastritis and duodenitis; History of thyroidectomy Start: 10-08-2021 Telephone encounter Palmer Mckinnon MD Work Phone: [facility] Comment on above: Results Start: 10-08-2021 End: 10-08-2021 Subsequent hospital visit by physician Mini [facility] [place] Work Phone: Radiology Comment on above: Acute cough [R05.1] Start: 10-08-2021 End: 10-08-2021 Patient encounter procedure Joann Hu APRN.DUCK BILL OPERATOR Work Phone: [facility] Comment on above: Acute cough (Primary Dx); At increased risk of exposure to COVID-19 virus Start: 08-14-2021 Telephone encounter Palmer Mckinnon MD Work Phone: [facility] [place] Comment on above: Blood Pressure Check Start: 08-14-2021 End: 08-14-2021 Nursing evaluation of patient and report Mi Nurse Work Phone: Family [facility] [place] Comment on above: Primary hypertension (Primary Dx) Start: 07-22-2021 Telephone encounter Palmer Mckinnon MD Work Phone: [facility] Comment on above: Patient Update Start: 07-15-2021 End: 07-15-2021 Patient encounter procedure Palmer Mckinnon MD Work Phone: [facility] Comment on above: Primary hypertension (Primary Dx); Chest pain, unspecified type; Cough Start: 06-29-2021 Non-patient / Non-visit Dr. Josiah Mckinnon Work Phone: [facility] Start: 06-29-2021 End: 06-29-[address] Palmer Mckinnon Work Phone: [facility] Start: 06-09-2021 Telephone encounter Palmer Mckinnon MD Work Phone: [facility] Comment on above: Orders Start: 05-26-2021 End: 05-26-2021 ambulatory Becky White APRN.CNP Work Phone: Hematology/Oncology Comment on above: Invasive ductal carc inoma of left breast (HCC) (Primary Dx); Vitamin D deficiency; Encounter for screening mammogram for high-risk patient Start: 05-26-2021 End: 05-26-2021 Patient encounter procedure Becky White APRN.CNP Work Phone: [facility] Start: 05-18-2021 End: 05-18-2021 Subsequent hospital visit by physician Screen [facility] Mammogram Comment on above: Invasive ductal carc inoma of left breast (HCC) [C50.912] Start: 05-15-2021 Documentation procedure Mammog edward Coordinator [facility] Start: 05-15-2021 Letter encounter Mammography Coordinator [facility] Department Start: 05-15-2021 End: 05-15-2021 Subsequent hospital visit by physician Screen Mammo [facility] Mammogram Comment on above: Invasive ductal carc inoma of left breast (HCC) [C50.912] Start: 05-13-2021 ambulatory Palmer Mckinnon MD Work Phone: [facility] Comment on above: Blood Pressure Start: 05-13-2021 End: 05-13-2021 Emergency department patient visit [facility] Start: 11-11-2020 End: 11-11-2020 Subsequent hospital visit by physician Xr [facility] Work Phone: Radiology Comment on above: Cough [R05] Procedures Date Procedure Procedure Detail Performing Clinician Start: 03-13-2024 Lipid 1995 panel - Serum or Plasma Ariela Talbert MANUFACTURING PLANT CONTROLLER.DUCK BILL OPERATOR Work Phone: Start: 04-27-2023 Lipid 1996 panel - Serum or Plasma Ariela Talbert MANUFACTURING PLANT CONTROLLER.DUCK BILL OPERATOR Work Phone: Start: 07-16-2022 Lipid 1996 panel - Serum or Plasma Mri (I-Stat/1.5t) Work Phone: Start: 05-20-2022 End: 05-20-2022 Mammography Becky White MANUFACTURING PLANT CONTROLLER.DUCK BILL OPERATOR Work Phone: Start: 05-05-2022 Mri orbit face & neck w/o & w/contrast matrl Palmer Mckinnon MD Work Phone: Start: 10-08-2021 Radiologic exam chest 2 views Joann Hu MANUFACTURING PLANT CONTROLLER.DUCK BILL OPERATOR Work Phone: Start: 05-26-2021 Adult depression screening assessment Becky White APRN.DUCK BILL OPERATOR Work Phone: Start: 05-18-2021 End: 05-18-2021 Mammography Becky White MANUFACTURING PLANT CONTROLLER.DUCK BILL OPERATOR Work Phone: Start: 05-15-2021 End: 05-15-2021 Screening mammography bi 2-view breast inc cad Becky White MANUFACTURING PLANT CONTROLLER.DUCK BILL OPERATOR Work Phone: Start: 05-13-2021 CT angiography of chest with contrast Start: 05-13-2021 Plain chest X-ray Start: 12-08-2020 Adult depression screening assessment Screen [facility] Start: 11-11-2020 Radiologic exam chest 2 views Sandro Martinez MANUFACTURING PLANT CONTROLLER.DUCK BILL OPERATOR Work Phone: Start: 09-04-2013 Colonoscopy Screen [facility] History of thyroidectomy History of thyro idectomy Palmer Mckinnon MD Work Phone: Plan of Treatment Date Care Activity Detail Author Start: 03-13-2029 Lipid panel Lipid Screening [facility] Start: 04-26-2028 Lipid panel Lipid Screening [facility] Start: 07-17-2027 Lipid 1996 panel - Serum or Plasma Lipid Screening [facility] Start: 07-17-2027 LIPID SCREEN LIPID SCREEN [facility] Start: 2027 Diabetes Screening Diabetes Screenin g [facility] Start: 03-13-2027 Diabetes Screening Diabetes Screenin g [facility] Start: 11-09-2026 Diabetes Screening Diabetes Screenin g [facility] Start: 08-14-2026 LIPID SCREEN LIPID SCREEN [facility] Start: 04-26-2026 Diabetes Screening Diabetes Screenms g [facility] Start: 07-16-2025 DIABETES SCREEN DIABETES SCREEN [facility] Start: 07-16-2025 Diabetes Screening Diabetes Screenms g [facility] Start: 06-17-2025 End: 06-17-2025 ambulatory Hematology/Oncology Comment on above: 1 YR OV* 1 YR OV/MAMM 06/10* Start: 06-15-2025 BP Controlled (<130/80) BP Controlle d (<130/80) [facility] Start: 06-10-2025 End: 06-10-2025 Patient encounter procedure 06/10/2025 8:10 AM EDT Appointment Mammogram [address] [place], [place] [id number] MAMMO W PATIENCE Mammogram Comment on above: MAMMO W PATIENCE Start: 06-08-2025 Screening for malign ant neoplasm of breast Mammogram Screening [facility] Start: 05-14-2025 BP Controlled (<130/80) BP Controlle d (<130/80) [facility] Start: 04-30-2025 Annual PCP Team Auto Service Mechanic stephon Disease Visit Annual PCP Team Chronic Disease Visit [facility] Start: 11-19-2024 HPV TESTING HPV TESTING [facility] Start: 11-19-2024 LIPID SCREEN LIPID SCREEN [facility] Start: 11-19-2024 PAP TESTING PAP TESTING [facility] Start: 11-19-2024 Screening for malign ant neoplasm of cervix [facility] Start: 10-31-2024 End: 10-31-2024 Patient encounter procedure 10/31/2024 8:00 AM EDT Office Visit [facility] [place] [address] [place] [address] Ariela Talbert, DAKSHA.DUCK BILL OPERATOR [address] [place], [place] [address] 6 month follow up [facility] [place] Comment on above: 6 month follow up Start: 10-30-2024 Annual PCP Team Auto Service Mechanic stephon Disease Visit Annual PCP Team Chronic Disease Visit [facility] Start: 10-30-2024 BP Controlled (<130/80) BP Controlle d (<130/80) [facility] Start: 10-30-2024 Covid-19 Vaccine () Covid-19 Vaccine () [facility] Comment on above: Postponed from 10/15 (Declined at this time) Start: 10-30-2024 Covid-19 Vaccine () Covid-19 Vaccine () [facility] Comment on above: Postponed from 10/15 (Declined at this time) Start: 08-20-2024 End: 08-20-2024 Patient encounter procedure 08/20/2024 2:00 PM EDT Office Visit Urogynecology [address] [place] [address] Trina Titus MD [address] [place] [address] Female genital prolapse, unspecified type [N81.9] Urogynecology Comment on above: Female genital prola pse, unspecified type [N81.9] Start: 08-14-2024 DIABETES SCREEN DIABETES SCREEN [facility] Start: 06-15-2024 End: 06-15-2024 ambulatory 06/15/2024 9:00 AM EDT Visit (SP) Office Hematology/Oncology [address] [place], [place] [id number] Becky White, DAKSHA.DUCK BILL OPERATOR [address] [place], [place] [id number] 1YR ov* Hematology/Oncology Comment on above: 1YR ov* Start: 06-13-2024 End: 06-13-2024 Patient encounter procedure 06/13/2024 7:30 AM EDT Office Visit OB/Gynecology [address] [place] [address] Trina Mitchell APRN.DUCK BILL OPERATOR [address] [place] [address] wt mgt f/up OB/Gynecology Comment on above: wt mgt f/up Start: 06-08-2024 End: 06-08-2024 Patient encounter procedure 06/08/2024 8:10 AM EDT Appointment Mammogram [address] [place] [address] Personal history of malignant neoplasm of breast [Z85.3] Mammogram Comment on above: Personal history of malignant neoplasm of breast [Z85.3] Start: 05-31-2024 Screening for malign ant neoplasm of breast Mammogram Screening [facility] Start: 05-14-2024 End: 05-14-2024 Patient encounter procedure 05/14/2024 8:40 AM EDT Office Visit OB/Gynecology [address] [place] [address] Beth Sales MD [address] [place] [address] Female genital prolapse, unspecified type [N81.9] OB/Gynecology Comment on above: Female genital prola pse, unspecified type [N81.9] Start: 04-30-2024 End: 04-30-2024 Patient encounter procedure [facility] [place] Comment on above: 6 month follow up Start: 04-28-2024 Annual PCP Team Auto Service Mechanic stephon Disease Visit Annual PCP Team Chronic Disease Visit [facility] Start: 04-01-2024 End: 10-30-2024 25-hydroxyvitamin D3 [Mass/volume] in Serum or Plasma VITAMIN D 25 HYDROXY Lab Routine Vitamin D deficiency Expected: 04/01/2024, Expires: 10/30/2024 [facility] Comment on above: Expected: 04/01/2024 , Expires: 10/30/2024 Start: 04-01-2024 End: 10-30-2024 CBC W Auto Differential panel - Blood COMPLETE BLOOD COUNT AND DIFFERENTIAL Lab Routine Primary hypertension Expected: 04/01/2024, Expires: 10/30/2024 [facility] Work Phone: Comment on above: Expected: 04/01/2024 , Expires: 10/30/2024 Start: 04-01-2024 End: 10-30-2024 Comprehensive metabolic 2000 panel - Serum or Plasma COMPREHENSIVE METABOLIC PANEL Lab Routine Primary hypertension Expected: 04/01/2024, Expires: 10/30/2024 [facility] Comment on above: Expected: 04/01/2024 , Expires: 10/30/2024 Start: 04-01-2024 End: 10-30-2024 Lipid 1996 panel - Serum or Plasma LIPID PANEL BASIC Lab Routine Primary hypertension Expected: 04/01/2024, Expires: 10/30/2024 [facility] Comment on above: Expected: 04/01/2024 , Expires: 10/30/2024 Start: 03-16-2024 End: 06-15-2024 Basic metabolic 2000 panel - Serum or Plasma BASIC METABOLIC PANEL Lab Routine Hypokalemia Expected: 03/16/2024, Expires: 06/15/2024 [facility] Work Phone: Comment on above: Expected: 03/16/2024 , Expires: 06/15/2024 Start: 03-16-2024 Covid-19 Vaccine () Covid-19 Vaccine () [facility] Comment on above: Postponed from 10/15 (Declined at this time) Start: 03-13-2024 End: 03-13-2024 Patient encounter procedure 03/13/2024 7:30 AM EST Office Visit OB/Gynecology [address] [place], [place] [id number] Trina Mitchell APRN.DUCK BILL OPERATOR [address] [place], [place] [address] wt mgmt f/up OB/Gynecology Comment on above: wt mgmt f/up Start: 02-14-2024 Behavioral Health Screening Behavioral Health Screening [facility] Comment on above: Postponed from 02/14 (Declined at this time) Start: 02-14-2024 Depression Assessment Depression Ass essment [facility] Comment on above: Postponed from 02/14 (Declined at this time) Start: 11-10-2023 End: 11-10-2023 Patient encounter procedure OB/Gynecology Comment on above: Class 3 severe obesi ty with body mass index (BMI) of 40.0 to 44.9 in adult, unspecified obesity type, unspecified whether serious comorbidity present (HCC) [E66.01, Z68.41] Start: 10-31-2023 End: 10-31-2023 Patient encounter procedure 10/31/2023 9:40 AM EDT Office Visit [facility] [place] [address] [place], [place] [phone] Ariela Talbert APRN.DUCK BILL OPERATOR [address] [place] [address] 6 month follow up [facility] [place] Comment on above: 6 month follow up Start: 09-16-2023 Annual PCP Team Auto Service Mechanic stephon Disease Visit Annual PCP Team Chronic Disease Visit [facility] Start: 09-05-2023 Colonoscopy COLONOSCOPY [facility] Start: 09-05-2023 COLORECTAL CANCER SCREENING COLORECTAL CANCER SCREENING [facility] Start: 09-05-2023 Screening for malign ant neoplasm of colon [facility] Start: 08-17-2023 ANNUAL PCP TEAM NETWORK SOLUTIONS ARCHITECT STEPHON DISEASE VISIT ANNUAL PCP TEAM CHRONIC DISEASE VISIT [facility] Start: 07-17-2023 ANNUAL PCP TEAM NETWORK SOLUTIONS ARCHITECT TSEPHON DISEASE VISIT ANNUAL PCP TEAM CHRONIC DISEASE VISIT [facility] Start: 07-17-2023 COVID-19 VACCINE (4 - Booster for Pfizer series) COVID-19 VACCINE (4 - Booster for Pfizer series) [facility] Comment on above: Postponed from 04/02 (Declined at this time) Start: 07-17-2023 Influenza vaccination LUNG CANCER SC REENING [facility] Comment on above: Postponed from 05/13 (Declined at this time) Start: 07-17-2023 PNEUMOCOCCAL (2 - PCV) PNEUMOCOCCAL (2 - PCV) [facility] Comment on above: Postponed from 12/01 (Declined at this time) Start: 07-17-2023 Pneumococcal vaccination [facility] Comment on above: Postponed from 12/01 (Declined at this time) Start: 07-17-2023 Screening for malign ant neoplasm of lung Lung Cancer Screening [facility] Comment on above: Postponed from 05/13 (Declined at this time) Start: 07-17-2023 SHINGRIX VACCINE (1 of 2) SHINGRIX VACCINE (1 of 2) [facility] Comment on above: Postponed from 04/30 (Declined at this time) Start: 07-17-2023 Urine microalbumin profile [facility] Comment on above: Postponed from 04/30 (Declined at this time) Start: 05-21-2023 Mammography [facility] Start: 05-21-2023 Screening for malign ant neoplasm of breast Mammogram Screening [facility] Start: 05-13-2023 BP CONTROLLED (<130/80) BP CONTROLLE D (<130/80) [facility] Start: 2023 RSV Vaccine (1 - 1-d ose 60+ series) RSV Vaccine (1 - 1-dose 60+ series) [facility] Start: 2023 RSV Vaccine (1 - Ris k 60-74 years 1-dose series) RSV Vaccine (1 - Risk 60-74 years 1-dose series) [facility] Start: 04-07-2023 ANNUAL PCP TEAM NETWORK SOLUTIONS ARCHITECT STEPHON DISEASE VISIT ANNUAL PCP TEAM CHRONIC DISEASE VISIT [facility] Start: 01-13-2023 ANNUAL PCP TEAM NETWORK SOLUTIONS ARCHITECT STEPHON DISEASE VISIT ANNUAL PCP TEAM CHRONIC DISEASE VISIT [facility] Start: 01-13-2023 BP CONTROLLED (<130/80) BP CONTROLLE D (<130/80) [facility] Start: 11-19-2022 DIABETES SCREEN DIABETES SCREEN [facility] Start: 10-15-2022 Covid-19 Vaccine ( season) Covid-19 Vaccine ( season) [facility] Start: 10-15-2022 Influenza vaccination C [facility] Start: 07-15-2022 ANNUAL PCP TEAM NETWORK SOLUTIONS ARCHITECT STEPHON DISEASE VISIT ANNUAL PCP TEAM CHRONIC DISEASE VISIT [facility] Start: 07-13-2022 End: 09-12-2022 25-hydroxyvitamin D3 [Mass/volume] in Serum or Plasma VITAMIN D 25 HYDROXY Lab Routine Vitamin D deficiency Expected: 07/13/2022, Expires: 09/12/2022 [facility] Work Phone: Comment on above: Expected: 07/13/2022 , Expires: 09/12/2022 Start: 07-13-2022 End: 09-12-2022 CBC W Auto Differential panel - Blood CBC + DIFF Lab Routine Primary hypertension Expected: 07/13/2022, Expires: 09/12/2022 [facility] Work Phone: Comment on above: Expected: 07/13/2022 , Expires: 09/12/2022 Start: 07-13-2022 End: 09-12-2022 Comprehensive metabolic 2000 panel - Serum or Plasma COMP METABOLIC PANEL Lab Routine Primary hypertension Expected: 07/13/2022, Expires: 09/12/2022 [facility] Work Phone: Comment on above: Expected: 07/13/2022 , Expires: 09/12/2022 Start: 07-13-2022 End: 09-12-2022 Lipid 1996 panel - Serum or Plasma LIPID PANEL BASIC Lab Routine Primary hypertension Expected: 07/13/2022, Expires: 09/12/2022 [facility] Work Phone: Comment on above: Expected: 07/13/2022 , Expires: 09/12/2022 Start: 07-13-2022 End: 09-12-2022 Thyrotropin [Units/volume] in Serum or Plasma TSH BLD Lab Routine History of thyroidectomy Expected: 07/13/2022, Expires: 09/12/2022 [facility] Work Phone: Comment on above: Expected: 07/13/2022 , Expires: 09/12/2022 Start: 05-26-2022 Adult depression screening assessment DEPRESSION SCREENING [facility] Start: 05-18-2022 Mammography MAMMOGRAM [facility] Start: 05-15-2022 Mammography MAMMOGRAM [facility] Start: 05-13-2022 Influenza vaccination LUNG CANCER SC REENING [facility] Start: 05-13-2022 Screening for malign ant neoplasm of lung Lung Cancer Screening [facility] Start: 02-14-2022 DEPRESSION ASSESSMENT DEPRESSION ASS ESSMENT [facility] Start: 12-08-2021 Adult depression screening assessment DEPRESSION SCREENING [facility] Start: 10-15-2021 Influenza vaccination C [facility] Start: 10-08-2021 End: 10-22-2021 Influenza virus A and B RNA and SARS-CoV-2 (COVID-19) N gene panel - Respiratory specimen by HALEY with probe detection [facility] Work Phone: Comment on above: Expected: 10/08/2021 , Expires: 10/22/2021 Start: 07-15-2021 End: 09-14-2021 Basic metabolic 2000 panel - Serum or Plasma BASIC METABOLIC PNL Lab Routine Primary hypertension Expected: 07/15/2021, Expires: 09/14/2021 [facility] Work Phone: Comment on above: Expected: 07/15/2021 , Expires: 09/14/2021 Start: 07-15-2021 End: 09-14-2021 LIPID PANEL BASIC LIPID PANEL BASIC Lab Routine Primary hypertension Expected: 07/15/2021, Expires: 09/14/2021 [facility] Work Phone: Comment on above: Expected: 07/15/2021 , Expires: 09/14/2021 Start: 07-15-2021 End: 09-14-2021 Thyrotropin [Units/volume] in Serum or Plasma TSH BLD Lab Routine Primary hypertension Expected: 07/15/2021, Expires: 09/14/2021 [facility] Work Phone: Comment on above: Expected: 07/15/2021 , Expires: 09/14/2021 Start: 04-02-2021 COVID-19 VACCINE (4 - Booster for Pfizer series) COVID-19 VACCINE (4 - Booster for Pfizer series) [facility] Start: 03-17-2021 COVID-19 VACCINE (3 - Booster for Pfizer series) COVID-19 VACCINE (3 - Booster for Pfizer series) [facility] Start: 12-10-2020 COVID-19 VACCINE (3 - Booster for Pfizer series) COVID-19 VACCINE (3 - Booster for Pfizer series) [facility] Start: 12-02-2019 PNEUMOCOCCAL (2 - PCV) PNEUMOCOCCAL (2 - PCV) [facility] Start: 04-30-2018 Influenza vaccination LUNG CANCER SC REENING [facility] Start: 04-30-2013 SHINGRIX VACCINE (1 of 2) SHINGRIX VACCINE (1 of 2) [facility] Start: 04-30-2008 COLOGUARD (FIT-DNA) COLOGUARD (FIT-D NA) [facility] Start: 04-30-[address] COLONOGRAPHY [facility] Start: 04-30-2008 FECAL OCCULT BLOOD FECAL OCCULT BLOO D [facility] Start: 04-30-2008 Screening for malign ant neoplasm of colon [facility] Start: 04-30-2008 SIGMOIDOSCOPY SIGMOIDOSCOPY [facility] Start: 04-30-1982 SHINGRIX VACCINE (1 of 2) SHINGRIX VACCINE (1 of 2) [facility] Start: 04-30-1982 Urine microalbumin profile [facility] Start: 04-30-1981 Anxiety Screening Anxiety Screening [facility] Start: 04-30-1981 BP CONTROLLED (<130/80) BP CONTROLLE D (<130/80) [facility] Start: 04-30-1981 Depression Screening Depression Scre ening [facility] Start: 1965 HEPATITIS B (1 of 3 - 3-dose series) HEPATITIS B (1 of 3 - 3-dose series) [facility] Biopsy salivary glan d needle IMAGING GUIDED BIOPSY SALIVARY GLAND Radiology Routine Parotid mass Ordered: 06/09/2022 [facility] Work Phone: Comment on above: Ordered: 06/09/2022 End: 07-07-2024 DBT Breast - bilateral screening JULISA SCREENING W PATIENCE Radiology Routine Personal history of malignant neoplasm of breast Encounter for screening mammogram for high-risk patient 1 Occurrences starting 06/08/2023 until 07/07/2024 [facility] Work Phone: Comment on above: 1 Occurrences starti ng 06/08/2023 until 07/07/2024 End: 07-15-2025 DBT Breast - bilateral screening JULISA SCREENING W PATIENCE Radiology Routine Encounter for follow-up surveillance of breast cancer Encounter for screening mammogram for high-risk patient 1 Occurrences starting 06/15/2024 until 07/15/2025 [facility] Work Phone: Comment on above: 1 Occurrences starti ng 06/15/2024 until 07/15/2025 Influenza virus A an d B RNA and SARS-CoV-2 (COVID-19) N gene panel - Respiratory specimen by HALEY with probe detection COVID WITH FLUA+B, ROUTINE Microbiology Routine Acute cough Ordered: 05/12/2022 [facility] Work Phone: Comment on above: Ordered: 05/12/2022 End: 06-25-2023 JULISA SCREENING JULISA SCREENING Radiology Routine Personal history of malignant neoplasm of breast Encounter for screening mammogram for high-risk patient 1 Occurrences starting 05/26/2022 until 06/25/2023 [facility] Work Phone: Comment on above: 1 Occurrences starti ng 05/26/2022 until 06/25/2023 MG Breast Screening JULISA SCREENIN G Radiology Routine Personal history of malignant neoplasm of breast Encounter for screening mammogram for high-risk patient 06/01/2023 9:24 AM EDT [facility] Work Phone: End: 05-07-2023 Mri orbit face & neck w/o & w/contrast matrl MRI FACE WO/W IVCON Radiology Routine Parotid mass 1 Occurrences starting 04/07/2022 until 05/07/2023 [facility] Work Phone: Comment on above: 1 Occurrences starti ng 04/07/2022 until 05/07/2023 Patient Education ED High Blood Pressure Hypertension [facility] Work Phone: Patient referral [facility] Work Phone: End: 06-25-2022 Screening mammography bi 2-view breast inc cad JULISA SCREENING Radiology Routine 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) Encounter for screening mammogram for high-risk patient 1 Occurrences starting 05/26/2021 until 06/25/2022 [facility] Work Phone: Comment on above: 1 Occurrences starti ng 05/26/2021 until 06/25/[facility] Immunizations Immunization Date Immunization Notes Care Provider nOesimo oconnor 10-31-2023 influenza, seasonal, injectable Ariela Haagen MANUFACTURING PLANT CONTROLLER.DUCK BILL OPERATOR Work Phone: [facility] 10-31-2023 pneumococcal conjuga te (PCV20) vaccine, 20 valent (PREVNAR 20) Ariela Haagen MANUFACTURING PLANT CONTROLLER.DUCK BILL OPERATOR Work Phone: [facility] 10-31-2023 pneumococcal Conjuga te, unspecified formulation Ariela Haagen MANUFACTURING PLANT CONTROLLER.DUCK BILL OPERATOR Work Phone: [facility] 03-16-2023 influenza, injectabl e, quadrivalent, contains preservative Ariela Haagen MANUFACTURING PLANT CONTROLLER.DUCK BILL OPERATOR Work Phone: [facility] 12-10-2021 influenza, seasonal, injectable, preservative free Palmer Mckinnon MD Work Phone: [facility] 12-10-2021 influenza virus vacc ine, unspecified formulation Mri (I-Stat/1.5t) Work Phone: [facility] 02-05-2021 COVID-19 original vaccine, full dose, monovalent (MODERNA) Palmer Mckinnon MD Work Phone: [facility] 11-14-2019 influenza, injectabl e, quadrivalent, contains preservative Screen [facility] 12-01-2018 influenza, injectabl e, quadrivalent, contains preservative Screen [facility] 12-01-2018 pneumococcal polysaccharide vaccine, 23 valent Screen [facility] 12-06-2017 influenza, injectabl e, quadrivalent, preservative free Screen [facility] Payers Date Payer Category Payer Self-pay [id number] 2021 Private Health Insurance [employer] [id number] 2021 Unknown [employer] PPO [id number] 2021- [phone] [address] [place] [address] PPO [id number] 2018 Unknown [id number] 2015 Unknown [id number] 1965 Unknown [id number] 1965 Unknown [id number] Unknown SELF PAY INSURANCE [id number] Unknown [id number] Social History Date Type Detail Facility Start: 05-13-2021 Tobacco smoking stat [facility] Unknown if ever smoked [facility] Work Phone: Start: 06-04-2020 Cigarettes [facility] Work Phone: Start: 1965 Sex Assigned At Female W [facility] Work Phone: Start: 07-05-2012 End: 10-31-2023 Tobacco smoking status NHIS Smokes tobacco daily [facility] History of tobacco use Cigarette Smoker [facility] Start: 07-05-2012 End: 07-16-2022 Cigarettes smoked current (pack per day) - Reported 1.5 [facility] Start: 07-05-2012 End: 10-31-2023 Tobacco use and exposure Smokeless tobacco non-user [facility] Start: 01-12-2021 End: 05-14-2024 Alcohol intake Current drinker of alcohol (finding) [facility] Start: 11-20-2019 End: 12-13-2019 History SDOH Alcohol Frequency 2 [facility] Start: 11-20-2019 End: 12-13-2019 History SDOH Alcohol Std Drinks 1 [facility] Start: 06-25-2015 History SDOH Alcohol Comment Occasional [facility] Start: 11-20-2019 History SDOH Social Connections Get Together 3 [facility] Start: 11-20-2019 History SDOH Physica l Activity DPW 0 [facility] Start: 12-13-2019 History SDOH Financial 5 [facility] Start: 1965 Sex Assigned At Not on file C [facility] Start: 05-05-2021 End: 01-13-2022 Exposure to SARS-CoV-2 (event) Not sure [facility] Start: 11-20-2019 End: 07-16-2022 Social connection and isolation panel [facility] Do you belong to any clubs or organizations such as mandaeism groups, unions, fraternal or athletic groups, or school groups? No [facility] Are you now , , , , never or living with a partner? [facility] How often to you hav e a drink containing alcohol? Monthly or less [facility] How many standard dr inks containing alcohol do you have on a typical day? 1 or 2 [facility] Frequency of Binge Drinking Not on file [facility] Work Phone: Do you feel stress - tense, restless, nervous, or anxious, or unable to sleep at night because your mind is troubled all the time - these days [OSQ] Not at all [facility] (I/We) worried wheelizabeth er (my/our) food would run out before (I/we) got money to buy more. Never true [facility] Work Phone: Medical Equipment Procedure Code Equipment Code Equipment Origin al Text Equipment Identifier Dates Thyroidectomy DRESSING,FIBRILL AR 1X2 1961 FDA Start: 06-06-2020 Thyroidectomy SEALANT,FLOSEAL HEMOSTATIC 5ML FDA Start: 06-06-2020 Thyroidectomy SUTURE,LIGA CLIP MED [id number] FDA Start: 06-06-2020 Thyroidectomy SUTURE,LIGA CLIP SM [id number] FDA Start: 06-06-2020 Thyroidectomy DRESSING,FIBRILL AR 1X2 1 FDA Start: 06-06-2020 Thyroidectomy SEALANT,FLOSEAL HEMOSTATIC 5ML FDA Start: 06-06-2020 Thyroidectomy SUTURE,LIGA CLIP MED [id number] FDA Start: 06-06-2020 Thyroidectomy SUTURE,LIGA CLIP SM [id number] FDA Start: 06-06-2020 Cholecystocolostomy CLIP,HEMOLOC K MED WECK FDA Start: 05-02-2020 Cholecystocolostomy CLIP,HEMOLOC K MED WECK FDA Start: 05-02-2020 Cholecystocolostomy CLIP,HEMOLOC K MED WECK FDA Start: 05-02-2020 Cholecystocolostomy CLIP,HEMOLOC K MED WECK FDA Start: 05-02-2020 Functional Status Date Assessment Result Facility 06-06-2014 Are you deaf, or do you have serious difficulty hearing No 06/06/2014 10:22 AM Jaylene Cardona LPN No [facility] 06-06-2014 Are you blind, or do you have serious difficulty seeing, even when wearing glasses No 06/06/2014 10:22 AM Jaylene Cardona LPN No [facility] 06-06-2014 Do you have serious difficulty walking or climbing stairs Yes 06/06/2014 10:22 AM Jaylene Cardona LPN Yes [facility] 06-06-2014 Do you have difficul ty dressing or bathing No 06/06/2014 10:22 AM Jaylene Cardona LPN No [facility] 06-06-2014 Because of a physica l, mental, or emotional condition, do you have difficulty doing errands alone such as visiting a physician's office or shopping No 06/06/2014 10:22 AM Jaylene Cardona LPN No [facility] Mental Status Date Assessment Result Facility 05-13-2021 Cognitive function Level Of Cons ciousness Awake;Alert;Appropriate;Fol lows Commands [facility] Work Phone: 06-06-2014 Because of a physica l, mental, or emotional condition, do you have serious difficulty concentrating, remembering, or making decisions No 06/06/2014 10:22 AM EDT Jaylene Herrera LPN No [facility] Clinical Notes 04-22-2020 to 06-15-2024 Becky White APRN.DUCK BILL OPERATOR - 06/15/2024 8:55 AM EDTTelephone Encounter - Beth Jimenez RN - 06/13/2024 8:37 AM EDTTelephone Encounter - Beth Jimenez RN - 06/13/2024 8:37 AM EDT Note Date & Type Note Facility 06-15-2024 Note HNO ID: [id number] Author: BECKY WHITE APRN.DUCK BILL OPERATOR Service: ? Author Type: Nurse Practitioner Type: Progress Notes Filed: 06/15/2024 09:16 Note Text: Chief Complaint Patient presents with: Established Patient HPI: Carrie Taveras is a 59 year old female who presents here today for follow up breast cancer. Per Dr. Quarles's previous note: H/o (post-menopausal; cervix cancer, s/p radical hysterectomy 2003) who was found to have an abnormality of the left breast on screening mammogram. She underwent an ultrasound-guided core needle biopsy on 05/13/2015. The pathology demonstrated invasive ductal carcinoma, nuclear grade 3. Estrogen receptors were quantified at greater than 95%, strong. Progesterone receptors 0%. HER-2/ngoc 2+. Nonamplified by FISH testing. The patient socially underwent a left breast lumpectomy and sentinel lymph node biopsy on 06/03/2015. The final pathology demonstrated a 7 mm invasive carcinoma single focus. Histologic grade was 3. Margins were negative. Closest margin was anteriorly 1.5 cm. Lymphovascular invasion was not identified. A total of 6 lymph nodes were retrieved. All were negative for disease. Oncotype Dx-Recurrence score 41 (28% risk). Previous therapy:TC/Neulasta First cycle 07/24/15. Last cycle 09/25/15. Radiation: DATES OF TREATMENT: 10/28/15 to 12/10/15. Began arimidex after radiation. Stopped arimidex due to leg pain/aches. Started femara. Pt. stopped femara due to ankle swelling. Once she stopped the femara the ankle swelling resolved. She re-started femara and ankle swelling returned-so she stopped it again. Then started aromasin. Stopped aromasin d/t leg pain and started tamoxifen June 2017. Stopped tamoxifen 2018 d/t leg aches. S/p lap. castillo on 05/02/[address] Mcpherson and S/p L thyroidectomy on 06/06/[address] Mcpherson. Pt. had MRI face done 05/05/22-ordered by PCP. Impression: IMPRESSION: Well-circumscribed mildly enhancing left parotid lesion which is nonspecific but may represent a small lymph node or intraventricular parotid neoplasm such as pleomorphic adenoma or Jone's tumor. No new concerns today. Pt. having surgery in July for rectocele. Appetite:Good, I've been seeing Trina. Wt. down 20# over past year. 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 Resp:denies cough or sob Cardiac:denies chest pain/palpitations GI:denies abd pain, n/v, moving bowels regularly-while on stool softeners :denies dysuria/hematuria Extrem:denies pain Endo:denies hot flashes Neuro:tingling to feet-resolved Skin:denies rashes/lesions Heme:denies bleeding The ROS is otherwise negative. Past medical history, appointments, medications, allergies reviewed. No changes. EXAM: BP 119/79 Pulse 64 Temp 36.9 ?C (98.5 ?F) (Temporal) Wt 103.4 kg (227 lb 15.3 oz) SpO2 98% BMI 40.06 kg/m? APPEARANCE Well appearing, alert, in no acute distress, well-hydrated, well nourished. HEART RRR with normal S1 and S2, no murmurs LUNG clear to auscultation BREAST FEMALE no mass/nodule b/l, L scar to inner/radiation changes LYMPH NODES No cervical lymphadenopathy, No supraclavicular lymphadenopathy, and No axillary lymphadenopathy. ABDOMEN bowel sounds normoactive, soft, non-tender EXTREMITIES No edema NEURO Awake, alert and oriented x 3, Normal gait, and No involuntary motions. SKIN Skin color, texture, turgor normal, no suspicious rashes or lesions RADIOLOGY: Mammogram 06/08/24: IMPRESSION: There is no mammographic evidence of malignancy. Routine screening mammogram is recommended. Annual mammogram will be due in 1 year. BI-RADS Category 2: Benign ASSESSMENT/PLAN: 1. Encounter for follow-up surveillance of breast cancer - ICD9: V67.9, V10.3, ICD10: Z08, Z85.3 (primary diagnosis) pT1b (7 mm; grade 3; no LVI) pN0(sln) MX ER positive, UT negative, HER2 non-amplified invasive ductal carcinoma the left breast. - No concerning findings on exam. - Pt. will be 9 years out from radiation 2024. - Pt. did not tolerate AI's/tamoxifen. Declined further therapy. - Reviewed mammogram with pt. - Follow up with ENT/PCP/BELL RINGER. - Mammogram due in one year. - Follow up after above. - Pt. aware to call office with any questions/concerns. The patient indicates understanding of these issues and agrees with the plan. All documentation from previous visit of 06/08/23-Dr. Quarles/myself was copied and pasted, documentation has been reviewed and edited as necessary for today's visit. Becky White APRN.[facility] 06-15-2024 History of Present illness Narrative Chief Complaint Patient presents with: Established Patient HPI: Carrie Taveras is a 59 year old female who presents here today for follow up breast cancer. Per Dr. Quarles's previous note: H/o (post-menopausal; cervix cancer, s/p radical hysterectomy 2003) who was found to have an abnormality of the left breast on screening mammogram. She underwent an ultrasound-guided core needle biopsy on 05/13/2015. The pathology demonstrated invasive ductal carcinoma, nuclear grade 3. Estrogen receptors were quantified at greater than 95%, strong. Progesterone receptors 0%. HER-2/ngoc 2+. Nonamplified by FISH testing. The patient socially underwent a left breast lumpectomy and sentinel lymph node biopsy on 06/03/2015. The final pathology demonstrated a 7 mm invasive carcinoma single focus. Histologic grade was 3. Margins were negative. Closest margin was anteriorly 1.5 cm. Lymphovascular invasion was not identified. A total of 6 lymph nodes were retrieved. All were negative for disease. Oncotype Dx-Recurrence score 41 (28% risk). Previous therapy:TC/Neulasta First cycle 07/24/15. Last cycle 09/25/15. Radiation: DATES OF TREATMENT: 10/28/15 to 12/10/15. Began arimidex after radiation. Stopped arimidex due to leg pain/aches. Started femara. Pt. stopped femara due to ankle swelling. Once she stopped the femara the ankle swelling resolved. She re-started femara and ankle swelling returned-so she stopped it again. Then started aromasin. Stopped aromasin d/t leg pain and started tamoxifen June 2017. Stopped tamoxifen 2018 d/t leg aches. S/p lap. castillo on 05/02/[address] Mcpherson and S/p L thyroidectomy on 06/06/[address] Mcpherson. Pt. had MRI face done 05/05/22-ordered by PCP. Impression: IMPRESSION: Well-circumscribed mildly enhancing left parotid lesion which is nonspecific but may represent a small lymph node or intraventricular parotid neoplasm such as pleomorphic adenoma or Antrim's tumor. No new concerns today. Pt. having surgery in July for rectocele. Appetite:Good, I've been seeing Trina. Wt. down 20# over past year. 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 Resp:denies cough or sob Cardiac:denies chest pain/palpitations GI:denies abd pain, n/v, moving bowels regularly-while on stool softeners :denies dysuria/hematuria Extrem:denies pain Endo:denies hot flashes Neuro:tingling to feet-resolved Skin:denies rashes/lesions Heme:denies bleeding The ROS is otherwise negative. Past medical history, appointments, medications, allergies reviewed. No changes. EXAM: BP 119/79 Pulse 64 Temp 36.9 C (98.5 F) (Temporal) Wt 103.4 kg (227 lb 15.3 oz) SpO2 98% BMI 40.06 kg/m APPEARANCE Well appearing, alert, in no acute distress, well-hydrated, well nourished. HEART RRR with normal S1 and S2, no murmurs LUNG clear to auscultation BREAST FEMALE no mass/nodule b/l, L scar to inner/radiation changes LYMPH NODES No cervical lymphadenopathy, No supraclavicular lymphadenopathy, and No axillary lymphadenopathy. ABDOMEN bowel sounds normoactive, soft, non-tender EXTREMITIES No edema NEURO Awake, alert and oriented x 3, Normal gait, and No involuntary motions. SKIN Skin color, texture, turgor normal, no suspicious rashes or lesions RADIOLOGY: Mammogram 06/08/24: IMPRESSION: There is no mammographic evidence of malignancy. Routine screening mammogram is recommended. Annual mammogram will be due in 1 year. BI-RADS Category 2: Benign ASSESSMENT/PLAN: 1. Encounter for follow-up surveillance of breast cancer - ICD9: V67.9, V10.3, ICD10: Z08, Z85.3 (primary diagnosis) pT1b (7 mm; grade 3; no LVI) pN0(sln) MX ER positive, UT negative, HER2 non-amplified invasive ductal carcinoma the left breast. - No concerning findings on exam. - Pt. will be 9 years out from radiation 2024. - Pt. did not tolerate AI's/tamoxifen. Declined further therapy. - Reviewed mammogram with pt. - Follow up with ENT/PCP/BELL RINGER. - Mammogram due in one year. - Follow up after above. - Pt. aware to call office with any questions/concerns. The patient indicates understanding of these issues and agrees with the plan. All documentation from previous visit of 06/08/23-Dr. Quarles/myself was copied and pasted, documentation has been reviewed and edited as necessary for today's visit. Becky White APRN.[place] documented in this encounter [facility] 06-13-2024 Telephone encounter Note Received records from Dr. Hammond's office. Please review. Scan on 06/13/2024 8:20 AM by Provider, External, RY: Miscellaneous Clinical Documents [facility] 04-30-2025 Miscellaneous Notes Received records from Dr. Hammond's office. Please review. Scan on 06/13/2024 8:20 AM by Provider, RY [place]: Miscellaneous Clinical Documents documented in this encounter [facility] 06-12-2024 Telephone encounter Note Pt. Notified of results, mamm looks good, keep appt. As scheduled. Pt. Voiced understanding. Leann Cartwright LPN [facility] 06-12-2024 Miscellaneous Notes Pt. Notified of results, mamm looks good, keep appt. As scheduled. Pt. Voiced understanding. Leann Cartwright LPN Please inform pt that her mammogram looks good. Follow up as scheduled. Thank you. Becky White APRN.DUCK BILL OPERATOR documented in this encounter [facility] 06-12-2024 Telephone encounter Note Please inform pt that her mammogram looks good. Follow up as scheduled. Thank you. Becky White APRN.DUCK BILL OPERATOR [facility] 06-08-2024 Note HNO ID: [id number] Author: THAI PACKER Lee Silber Service: ? Author Type: Volunteer Services Coordinator Type: Progress Notes Filed: 06/08/2024 08:38 Note Text: Radiology Service Progress Note PATIENT NAME: Carrie Taveras DATE OF SERVICE: June 08, 2024 TIME: 8:38 AM PATIENT IDENTITY VERIFICATION COMPLETED USING TWO (2) IDENTIFIERS: Name and Date of confirmed by patient verbally. FALL SCREENING: Has the patient had 2 falls in the last year or 1 fall with injury or currently using an Ambulatory Assistive Device (Walker, Cane, Wheelchair, Crutches, etc.)? No PATIENT GENDER DATA: Assigned female at . status: : No status: NO. PATIENT RELEVANT IMPLANT DATA REVIEWED: Not Applicable PATIENT PRESENTS WITH AN IMPLANTABLE OR ATTACHED HOSPITALITY RECRUITER: No RADIOLOGY DEPARTMENT: Mammography PERIPHERAL IV DATA: Not applicable SIGNED BY: Thai Packer Lee Silber June 08, 2024 8:38 AM [facility] 05-14-2024 Note HNO ID: [id number] Author: BETH SALES MD Service: ? Author Type: Physician Type: Progress Notes Filed: 05/14/2024 08:58 Note Text: Carrie Taveras is a 59 year old female who presents for problem visit bulge for quite some time . HPI: Feels a bulge when wiping. Starting to cause pain. No bleeding. Does heavy lifting at work. No urinary symptoms. Does have issues with constipation. Hysterectomy 20 years ago for abnormal pap. Normal paps since. Discussed options for treatment and she would like to have surgical repair. 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 Obesity Tobacco abuse PAST SURGICAL HISTORY Procedure Laterality Date APPENDECTOMY COLONOSCOPY AND POLYPECTOMY 09/04/2013 hyperplastic polyp, repeat due 2023 EGD 09/04/2013 Duodenal reactive gastric foveolar metaplasia, repeat due 2016 EGD 04/22/2020 EGD TRANSORAL BIOPSY SINGLE/MULTIPLE 10/05/2016 gastritis, esophagitis HYSTERECTOMY HX 06/25/2003 EMMY/BSO-carcinoma insitu L'SCOPE CHOLECYSTECTOMY 05/02/2020 MASTECTOMY,PARTIAL, WITH AXILLARY LYMPHADENECTOMY 06/03/2015 Mastectomy, Partial, with Axillary Lymphadenectomy TOTAL THYROID LOBECTOMY UNI W/WO ISTHMUSECTOMY Left 06/06/2020 Dr Mcpherson VAGINAL HYSTERECTOMY FAMILY HISTORY Problem Relation Age of Onset Diabetes Mother Hypertension Mother Heart Failure Mother Obesity Mother Diabetes Father Hypertension Father Heart Father Pig valve, CHF No Known Problems Brother Social History Tobacco Use Smoking status: Every Day Current packs/day: 1.50 Average packs/day: 1.5 packs/day for 40.0 years (60.0 ttl pk-yrs) Types: Cigarettes Smokeless tobacco: Never Vaping Use Vaping status: Never Used Substance Use Topics Alcohol use: Yes Alcohol/week: 2.0 standard drinks of alcohol Types: 2 Glasses of Wine (5oz) per week Comment: Occasional Drug use: No Current Outpatient Medications Medication Sig ergocalciferol 50,000 unit capsule (VITAMIN D2, DRISDOL) Take one capsule po weekly. losartan (COZAAR) 25 mg tablet Take 1 tablet by mouth once daily. Take with 50 mg for total daily dose of 75 mg daily. losartan (COZAAR) 50 mg tablet Take 1 tablet by mouth once daily. Take w/ 25 mg for total daily dose of 75 mg. metFORMIN ER (GLUCOPHAGE XR) 500 mg 24 hr tablet Take 1 tablet by mouth two times a day. topiramate (TOPAMAX) 25 mg tablet Take 1 tablet by mouth two times a day. Patient should start on May 08, 2024. albuterol HFA (PROVENTIL HFA, VENTOLIN HFA) 90 mcg/actuation inhaler Inhale 2 Puffs as instructed every 6 hours as needed for wheezing/shortness of breath. ibuprofen (MOTRIN) 600 mg tablet Take 1 tablet by mouth every 6 hours as needed for pain. acetaminophen 325 mg cap Take 650 mg by mouth as needed. No current facility-administered medications for this visit. Allergies As of Date: 05/14/2024 Allergen Noted Reaction LISINOPRIL 07/15/2021 Cough PENICILLINS 07/05/2012 Rash Fully Assessed 05/14/2024 REVIEW OF SYSTEMS Abdomen: No bloating, early satiety, indigestion, or increased flatulence. No abdominal pain, nausea, vomiting, diarrhea Bladder: No dysuria, gross hematuria, urinary frequency, urinary urgency, or incontinence. Breast: No breast lumps, nipple d/c, overlying skin changes, redness or skin retraction. Expanded ROS: N/A Allergies and current medication updated:Yes SENSITIVE EXAM: The sensitive examination was discussed with the Patient or Patient's Authorized Knot Tier. As applicable, any other physician, advance practice provider, medical student, or other health professional student that will be observing or involved in the sensitive examination for educational or training purposes was discussed with the Patient or Authorized Knot Tier. The Patient or Authorized Knot Tier has agreed to proceed with the sensitive examination. (Sensitive examination includes inspection and/or palpation of the breasts, pelvis, prostate and anorectal regions). EXAM: BP 126/78 Wt 227 lb (103.0kg) GENERAL: pleasant, female in no apparent distress HEENT: Normocephalic, atraumatic, mucus membranes moist, and no lesions NECK: full range of motion DERMATOLOGY: Normal, without lesions, non-icteric, and non-hirsute BREAST: deferred CHEST: Normal inspiratory effort ABDOMEN: Deferred PELVIC: external genitalia normal, normal Bartholin's glands, urethra, Noonday's (more content not included)... [facility] 05-14-2024 History of Present illness Narrative Carrie Taveras is a 59 year old female who presents for problem visit bulge for quite some time . HPI: Feels a bulge when wiping. Starting to cause pain. No bleeding. Does heavy lifting at work. No urinary symptoms. Does have issues with constipation. Hysterectomy 20 years ago for abnormal pap. Normal paps since. Discussed options for treatment and she would like to have surgical repair. 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 Obesity Tobacco abuse PAST SURGICAL HISTORY Procedure Laterality Date APPENDECTOMY COLONOSCOPY & POLYPECTOMY 09/04/2013 hyperplastic polyp, repeat due 2023 EGD 09/04/2013 Duodenal reactive gastric foveolar metaplasia, repeat due 2016 EGD 04/22/2020 EGD TRANSORAL BIOPSY SINGLE/MULTIPLE 10/05/2016 gastritis, esophagitis HYSTERECTOMY HX 06/25/2003 EMMY/BSO-carcinoma insitu L'SCOPE CHOLECYSTECTOMY 05/02/2020 MASTECTOMY,PARTIAL, WITH AXILLARY LYMPHADENECTOMY 06/03/2015 Mastectomy, Partial, with Axillary Lymphadenectomy TOTAL THYROID LOBECTOMY UNI W/WO ISTHMUSECTOMY Left 06/06/2020 Dr Mcpherson VAGINAL HYSTERECTOMY FAMILY HISTORY Problem Relation Age of Onset Diabetes Mother Hypertension Mother Heart Failure Mother Obesity Mother Diabetes Father Hypertension Father Heart Father Pig valve, CHF No Known Problems Brother Social History Tobacco Use Smoking status: Every Day Current packs/day: 1.50 Average packs/day: 1.5 packs/day for 40.0 years (60.0 ttl pk-yrs) Types: Cigarettes Smokeless tobacco: Never Vaping Use Vaping status: Never Used Substance Use Topics Alcohol use: Yes Alcohol/week: 2.0 standard drinks of alcohol Types: 2 Glasses of Wine (5oz) per week Comment: Occasional Drug use: No Current Outpatient Medications Medication Sig ergocalciferol 50,000 unit capsule (VITAMIN D2, DRISDOL) Take one capsule po weekly. losartan (COZAAR) 25 mg tablet Take 1 tablet by mouth once daily. Take with 50 mg for total daily dose of 75 mg daily. losartan (COZAAR) 50 mg tablet Take 1 tablet by mouth once daily. Take w/ 25 mg for total daily dose of 75 mg. metFORMIN ER (GLUCOPHAGE XR) 500 mg 24 hr tablet Take 1 tablet by mouth two times a day. topiramate (TOPAMAX) 25 mg tablet Take 1 tablet by mouth two times a day. Patient should start on May 08, 2024. albuterol HFA (PROVENTIL HFA, VENTOLIN HFA) 90 mcg/actuation inhaler Inhale 2 Puffs as instructed every 6 hours as needed for wheezing/shortness of breath. ibuprofen (MOTRIN) 600 mg tablet Take 1 tablet by mouth every 6 hours as needed for pain. acetaminophen 325 mg cap Take 650 mg by mouth as needed. No current facility-administered medications for this visit. Allergies As of Date: 05/14/2024 Allergen Noted Reaction LISINOPRIL 07/15/2021 Cough PENICILLINS 07/05/2012 Rash Fully Assessed 05/14/2024 REVIEW OF SYSTEMS Abdomen: No bloating, early satiety, indigestion, or increased flatulence. No abdominal pain, nausea, vomiting, diarrhea Bladder: No dysuria, gross hematuria, urinary frequency, urinary urgency, or incontinence. Breast: No breast lumps, nipple d/c, overlying skin changes, redness or skin retraction. Expanded ROS: N/A Allergies and current medication updated:Yes SENSITIVE EXAM: The sensitive examination was discussed with the Patient or Patient's Authorized Knot Tier. As applicable, any other physician, advance practice provider, medical student, or other health professional student that will be observing or involved in the sensitive examination for educational or training purposes was discussed with the Patient or Authorized Knot Tier. The Patient or Authorized Knot Tier has agreed to proceed with the sensitive examination. (Sensitive examination includes inspection and/or palpation of the breasts, pelvis, prostate and anorectal regions). EXAM: BP 126/78 Wt 227 lb (103.0kg) GENERAL: pleasant, female in no apparent distress HEENT: Normocephalic, atraumatic, mucus membranes moist, and no lesions NECK: full range of motion DERMATOLOGY: Normal, without lesions, non-icteric, and non-hirsute BREAST: deferred CHEST: Normal inspiratory effort ABDOMEN: Deferred PELVIC: external genitalia normal, normal Bartholin's glands, urethra, Noonday's glands, no vulvar lesions, normal appearing perineal body and perianal region, cervix surgically absent, rectocele 2nd degree, enterocele 1st degree BIMANUAL: uterus surgically absent NEURO: alert and oriented x3,exam grossly non-focal EXTREMITIES: normal ASSESSMENT AND PLAN: Assessment & Plan Female genital prolapse, unspecified type Orders: CONSULT TO GYNECOLOGY Rectocele Orders: CONSULT TO URO GYNECOLOGY; Future Beth Sales MD documented in this encounter [facility] 2024 Telephone encounter Note Pt notified and voiced understanding. Jazzy Anguiano MA [facility] 2024 Miscellaneous Notes Pt notified and voiced understanding. Jazzy Anguiano MA Can please let patient know that potassium level is improved/normal. Ariela Talbert APRN.CNP documented in this encounter [facility] 04-30-2024 Telephone encounter Note Can please let patient know that potassium level is improved/normal. Ariela Talbert APRN.CNP [facility] 04-30-2024 Instructions Ariela Talbert APRN.CNP - 04/30/2024 9:33 AM EDT Continue current medications Get lab work Follow up in 6 months or sooner as needed documented in this encounter [facility] 04-30-2024 Note HNO ID: [id number] Author: ARIELA TALBERT APRN.CNP Service: ? Author Type: Nurse Practitioner Type: Progress Notes Filed: 04/30/2024 19:40 Note Text: This is a 59 year old female who presents today with: Patient presents with: 6 Month Exam HISTORY OF PRESENT ILLNESS: Carrie Taveras is a 59 year old female. Patient presents with: 6 Month Exam HTN: Patient is compliant with meds Yes Monitors bp at home: Sometimes. Denies side effects: Yes. Chest pain: No. Dyspnea: No. Edema: No. Palpitations: No. Syncope: No. Headache: No. Dizziness: No. Prediabetes: Pt is not taking metformin Never started taking metformin Labs 02/2024 showed minimally low K+ of 3.6 Has been taking K+ vitamins OTC Has concerns for vaginal prolapse Says that she feels that things are dropping Is interested in scheduling an appointment with women's health REVIEW OF SYSTEMS GENERAL: No weight loss, malaise or fevers/chills HEENT: Negative for frequent or significant headaches, No changes in hearing or vision. NECK: Negative for lumps, goiter, pain and significant neck swelling RESPIRATORY: Negative for cough, hemoptysis, wheezing, dyspnea or shortness of breath CARDIOVASCULAR: Negative for chest pain, leg swelling, orthopnea, or palpitations GI: No nausea, vomiting, or diarrhea/constipation. No hematochezia/melena. No heartburn or reflux symptoms. : No history of dysuria, frequency or incontinence. MUSCULOSKELETAL: Negative for joint pain or swelling. 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 Obesity Tobacco abuse PAST SURGICAL HISTORY Procedure Laterality Date APPENDECTOMY COLONOSCOPY AND POLYPECTOMY 09/04/2013 hyperplastic polyp, repeat due 2023 EGD 09/04/2013 Duodenal reactive gastric foveolar metaplasia, repeat due 2016 EGD 04/22/2020 EGD TRANSORAL BIOPSY SINGLE/MULTIPLE 10/05/2016 gastritis, esophagitis HYSTERECTOMY HX 06/25/2003 EMMY/BSO-carcinoma insitu L'SCOPE CHOLECYSTECTOMY 05/02/2020 MASTECTOMY,PARTIAL, WITH AXILLARY LYMPHADENECTOMY 06/03/2015 Mastectomy, Partial, with Axillary Lymphadenectomy TOTAL THYROID LOBECTOMY UNI W/WO ISTHMUSECTOMY Left 06/06/2020 Dr Mcpherson VAGINAL HYSTERECTOMY ALLERGIES Lisinopril and Penicillins MEDICATIONS Current Outpatient Medications Medication Sig metFORMIN ER (GLUCOPHAGE XR) 500 mg 24 hr tablet Take 1 tablet by mouth two times a day. [START ON 05/08/2024] topiramate (TOPAMAX) 25 mg tablet Take 1 tablet by mouth two times a day. Patient should start on May 08, 2024. losartan (COZAAR) 25 mg tablet Take 1 tablet by mouth once daily. Take with 50 mg for total daily dose of 75 mg daily. losartan (COZAAR) 50 mg tablet Take 1 tablet by mouth once daily. Take w/ 25 mg for total daily dose of 75 mg. albuterol HFA (PROVENTIL HFA, VENTOLIN HFA) 90 mcg/actuation inhaler Inhale 2 Puffs as instructed every 6 hours as needed for wheezing/shortness of breath. ergocalciferol 50,000 unit capsule (VITAMIN D2, DRISDOL) Take one capsule po weekly. ibuprofen (MOTRIN) 600 mg tablet Take 1 tablet by mouth every 6 hours as needed for pain. acetaminophen 325 mg cap Take 650 mg by mouth as needed. No current facility-administered medications for this visit. FAMILY HISTORY Problem Relation Age of Onset Diabetes Mother Hypertension Mother Heart Failure Mother Obesity Mother Diabetes Father Hypertension Father Heart Father Pig valve, CHF No Known Problems Brother Social History Tobacco Use Smoking status: Every Day Current packs/day: 1.50 Average packs/day: 1.5 packs/day for 40.0 years (60.0 ttl pk-yrs) Types: Cigarettes Smokeless tobacco: Never Vaping Use Vaping status: Never Used Substance Use Topics Alcohol use: Yes Alcohol/week: 2.0 standard drinks of alcohol Types: 2 Glasses of Wine (5oz) per week Comment: Occasional Drug use: No EXAM: BP 138/82 Pulse 82 Resp 16 Wt 103 kg (227 lb) SpO2 97% BMI 39.89 kg/m? PHYSICAL EXAM: General Appearance: Well appearing, alert, in no acute distress, well-hydrated, well nourished.. Skin: Skin color, texture, turgor normal, no suspicious rashes or lesions. Head: Normocephalic, no masses, lesions, tenderness or abnormalities. Eyes: Anicteric sclera. Pupils are equally round and reactive to light. Extraocular movements are intact. . Ears: External ears normal, canals clear. Nose/Sinuses: Nares normal, septum midline, mucosa normal, no drainage or sinus tenderness. Lungs: Lungs joann (more content not included)... [facility] 04-30-2024 History of Present illness Narrative This is a 59 year old female who presents today with: Patient presents with: 6 Month Exam HISTORY OF PRESENT ILLNESS: Carrie Taveras is a 59 year old female. Patient presents with: 6 Month Exam HTN: Patient is compliant with meds Yes Monitors bp at home: Sometimes. Denies side effects: Yes. Chest pain: No. Dyspnea: No. Edema: No. Palpitations: No. Syncope: No. Headache: No. Dizziness: No. Prediabetes: Pt is not taking metformin Never started taking metformin Labs 02/2024 showed minimally low K+ of 3.6 Has been taking K+ vitamins OTC Has concerns for vaginal prolapse Says that she feels that things are dropping Is interested in scheduling an appointment with women's health REVIEW OF SYSTEMS GENERAL: No weight loss, malaise or fevers/chills HEENT: Negative for frequent or significant headaches, No changes in hearing or vision. NECK: Negative for lumps, goiter, pain and significant neck swelling RESPIRATORY: Negative for cough, hemoptysis, wheezing, dyspnea or shortness of breath CARDIOVASCULAR: Negative for chest pain, leg swelling, orthopnea, or palpitations GI: No nausea, vomiting, or diarrhea/constipation. No hematochezia/melena. No heartburn or reflux symptoms. : No history of dysuria, frequency or incontinence. MUSCULOSKELETAL: Negative for joint pain or swelling. 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 Obesity Tobacco abuse PAST SURGICAL HISTORY Procedure Laterality Date APPENDECTOMY COLONOSCOPY & POLYPECTOMY 09/04/2013 hyperplastic polyp, repeat due 2023 EGD 09/04/2013 Duodenal reactive gastric foveolar metaplasia, repeat due 2016 EGD 04/22/2020 EGD TRANSORAL BIOPSY SINGLE/MULTIPLE 10/05/2016 gastritis, esophagitis HYSTERECTOMY HX 06/25/2003 EMMY/BSO-carcinoma insitu L'SCOPE CHOLECYSTECTOMY 05/02/2020 MASTECTOMY,PARTIAL, WITH AXILLARY LYMPHADENECTOMY 06/03/2015 Mastectomy, Partial, with Axillary Lymphadenectomy TOTAL THYROID LOBECTOMY UNI W/WO ISTHMUSECTOMY Left 06/06/2020 Dr Mcpherson VAGINAL HYSTERECTOMY ALLERGIES Lisinopril and Penicillins MEDICATIONS Current Outpatient Medications Medication Sig metFORMIN ER (GLUCOPHAGE XR) 500 mg 24 hr tablet Take 1 tablet by mouth two times a day. [START ON 05/08/2024] topiramate (TOPAMAX) 25 mg tablet Take 1 tablet by mouth two times a day. Patient should start on May 08, 2024. losartan (COZAAR) 25 mg tablet Take 1 tablet by mouth once daily. Take with 50 mg for total daily dose of 75 mg daily. losartan (COZAAR) 50 mg tablet Take 1 tablet by mouth once daily. Take w/ 25 mg for total daily dose of 75 mg. albuterol HFA (PROVENTIL HFA, VENTOLIN HFA) 90 mcg/actuation inhaler Inhale 2 Puffs as instructed every 6 hours as needed for wheezing/shortness of breath. ergocalciferol 50,000 unit capsule (VITAMIN D2, DRISDOL) Take one capsule po weekly. ibuprofen (MOTRIN) 600 mg tablet Take 1 tablet by mouth every 6 hours as needed for pain. acetaminophen 325 mg cap Take 650 mg by mouth as needed. No current facility-administered medications for this visit. FAMILY HISTORY Problem Relation Age of Onset Diabetes Mother Hypertension Mother Heart Failure Mother Obesity Mother Diabetes Father Hypertension Father Heart Father Pig valve, CHF No Known Problems Brother Social History Tobacco Use Smoking status: Every Day Current packs/day: 1.50 Average packs/day: 1.5 packs/day for 40.0 years (60.0 ttl pk-yrs) Types: Cigarettes Smokeless tobacco: Never Vaping Use Vaping status: Never Used Substance Use Topics Alcohol use: Yes Alcohol/week: 2.0 standard drinks of alcohol Types: 2 Glasses of Wine (5oz) per week Comment: Occasional Drug use: No EXAM: BP 138/82 Pulse 82 Resp 16 Wt 103 kg (227 lb) SpO2 97% BMI 39.89 kg/m PHYSICAL EXAM: General Appearance: Well appearing, alert, in no acute distress, well-hydrated, well nourished.. Skin: Skin color, texture, turgor normal, no suspicious rashes or lesions. Head: Normocephalic, no masses, lesions, tenderness or abnormalities. Eyes: Anicteric sclera. Pupils are equally round and reactive to light. Extraocular movements are intact. . Ears: External ears normal, canals clear. Nose/Sinuses: Nares normal, septum midline, mucosa normal, no drainage or sinus tenderness. Lungs: Lungs clear to auscultation. No wheezing, rhonchi, rales.. Heart: RRR without murmur, gallop, or rubs. No ectopy. Abdomen: Normal abdominal exam, Abdomen soft, non-tender. Bowel sounds normal. No masses, organomegaly. Extremities: No deformities, edema, skin discoloration, clubbing or cyanosis. ASSESSMENT/PLAN: 1. Primary hypertension - ICD9: 401.9, ICD10: I10 (primary diagnosis) - Controlled - Continue current medications - Recommend home blood pressure monitoring, to bring results to next visit - Encouraged sodium restriction, DASH or Mediterranean diet - Recommend regular aerobic exercise - Follow up in 6 months for hypertension visit - LOSARTAN 25 MG TABLET - LOSARTAN 50 MG TABLET 2. Vitamin D deficiency - ICD9: 268.9, ICD10: E55.9 - Stable, currently taking vitamin D supplement - Continue current medication regimen - ERGOCALCIFEROL (VITAMIN D2) 1,250 MCG (50,000 UNIT) CAPSULE 3. Female genital prolapse, unspecified type - ICD9: 618.9, ICD10: N81.9 - Discussed with patient to monitor for changes in urinary symptoms - Discussed red flag/emergent symptoms with patient - Placed consult for women's health - CONSULT TO GYNECOLOGY 4. Prediabetes - ICD9: 790.29, ICD10: R73.03 - Stable - Last A1C 10/2023 was 5.5 - Discussed with patient to avoid excessive intake of carbs and sugars - Discussed with patient that metformin is not indicated or needed to take for prediabetes at this time - Will recheck labs in 6 months Return to the office as scheduled or as needed for worsening/no improvement. Discussed treatment plan and patient voices understanding. Patient's questions answered appropriately. Medications and potential side effects were discussed and patient voices understanding. The patient indicates understanding of these issues and agrees with the plan. Ariela Talbert APRN.GERARDO documented in this encounter [facility] 03-19-2024 Telephone encounter Note Letter mailed to pt home of results. Jazzy Anguiano MA [facility] 03-19-2024 Miscellaneous Notes Letter mailed to pt home of results. Jazzy Anguiano MA Can please let patient know that I received her labs. Everything looks within normal/stable. Her potassium was just minimally low. Please increase potassium-rich foods in the diet (ie. bananas, cantaloupe, beans, sweet potato, potato, spinach, orange juice). Recheck the lab in a 1-2 weeks. The order is in. Ariela Talbert APRN.GERARDO documented in this encounter [facility] 03-16-2024 Telephone encounter Note Can please let patient know that I received her labs. Everything looks within normal/stable. Her potassium was just minimally low. Please increase potassium-rich foods in the diet (ie. bananas, cantaloupe, beans, sweet potato, potato, spinach, orange juice). Recheck the lab in a 1-2 weeks. The order is in. Ariela Talbert APRN.CNP [facility] 03-13-2024 Instructions Trina Mitchell APRN.CNP - 03/13/2024 8:10 AM EST - Whole food balanced protein, controlled carbohydrate nutrition plan - 30 g of protein 3 times a day and up to 30 g of carbs at lunch and dinner only. Breakfast - 30 gm protein with limit of 2 gm carbohydrates. Options include: Premier Protein or generic 30 gm protein 1 gm sugar or 5 eggs or 2-3 eggs and some unbreaded meat and/or cheese. No fruit, vegetables, bread, grain, yogurt, Smoothies, etc. Lunch and dinner - 30 gm protein is the goal with less than 30 gm carbohydrates Snacks - all protein or more protein than carbs Protein - no carbs Egg 1 large - 6g Egg white 1 large 3.6g 3 oz is approximately the size of a deck of cards and equals 21 g protein so 4 oz is 28 gm protein Beef, Chicken, Ferrum, Pork, Hernandez 1 oz 7g Fish, Tuna Fish 1 oz 7g (Starkist tuna packet 2.6 oz 17 gm protein) Seafood (Crabmeat, Shrimp, Lobster) 1 oz 6g Protein shakes (read labels) Premier Protein or generic [employer] Equate, [employer] High Performance- 30g protein & 1g carb - meal replacement Premier Protein powder or generic- 30 gm protein, 1g carb Premier Protein plant protein powder - 25 gm protein, 0 sugar/2 carb Vanilla and chocolate (not a meal replacement) Fairlife 30 gram protein - 30g protein & 3g carb BOOST Glucose Control Max 30g Protein Nutritional Drink - 30g protein & 1 carb - meal replacement Slimfast High Protein - 20g protein & 1g carb Ensure Max Protein Nutrition Shake 30g protein & 2 carb Protein AND carbs Imitation Crab Meat 1 oz - 2g protein & 4g carb Milk, skim 2% or 1% 8 oz - 8g protein & 12g carb Fairlife 2% milk 8 oz -13 g protein & 6g carb Indonesian yogurt Full Fat Indonesian Yogurt 1 cup - 20.4g protein & 9.1g carb 2% Indonesian Yogurt 1 cup - 22.7g protein & 9.1g carb 0% (fat-free) Indonesian Yogurt - 1 cup 24g protein & 9.3g carb Aldi Protein Indonesian yogurt single svg - 15g protein & 7g carb Chobani Zero Sugar single svg: - 12g protein & 5g carb Dannon Indonesian Light + Fit 1 single svg - 12g protein & 9g carb Oikos Pro single svg - 20g protein & 8g carb Oikos Triple Zero Indonesian Nonfat Yogurt 1 single svg - 15g protein & 7g carb :ratio, KETO Friendly Dairy Snack 1 single svg - 15g protein & 2g carb :ratio Protein 1 single svg - 25g protein & 8g carb Two Good Lowfat Indonesian Yogurt, [place], Lower Sugar - 12g protein & 2g carb Yoplait Protein 1 single svg 15gm protein & 5gm carb Dairy Free - [place] unsweetened Indonesian almond/soy 15 gm protein & 3 gm carb Dairy Free - True Goodness by Solo coconut-based yogurt alternative 1 gm protein 1 gm net carb 180 vesna Cheese each oz Brie 5.9g protein & 0.1g carb Cheddar 7g protein & 0.4g carb Misha 6.7g protein & 0.7g carb Cream Cheese 1.7g protein & 1.2g carb Feta 4g protein & 1.2g carb Mozzarella 6.3g protein & 0.6g carb Parmesan 10g protein & 0.9g carb [place] 7.6g protein & 1.5g carb Cottage Cheese 1/2 c [place] 2% 13g protein 7g carb Tamika 2% 13g protein 5 g carb Good Culture 2% 14g protein 3g carb Post s Low Fat 12g protein & 4g carb Legumes Lentils cup 9g protein & 20g carb [place] beans cup 7g protein & 20g carb Kidney, Black, [place], Cannellini beans cup 8g protein & 20g carb Soybeans 1/2 c 14g complete protein & 8.5g carb Cook milk, unsweetened 8 oz 1g protein & 2g carb Soy milk 8 oz 3.5g protein & 1.6g carb Tofu 1/2 cup 10g protein & 2.3g carb Peanut butter, natural 2 Tbsp 7-8g protein & 4g net carbs, 190 calories PB2 powder 2 Tbsp 6g protein & 5g carb Nuts and Seeds per oz Almonds - 5.9g protein & 6.1g carb [place] Nuts - 4.0g protein & 3.4g carb Cashews - 5.1g protein & 9.2g carb Hazelnuts - 4.2g protein & 4.7g carb Hemp seeds/hearts 3 T/30 gms - 9.5 gm complete protein and 2.5 gm carb Peanuts - 7g protein & 4.6g carb Pecans - 2.6g protein & 3.9g carb Pistachios - 5.8g protein & 7.8g carb Pumpkin Seeds - 6.9g protein & 5g carb [place] Seeds - 5.8g protein & 5.6g carb Walnuts - 4.3g protein & 3.8g carb Edamame Beans (soybean) snack 1 pack 11 gm complete protein 2 carb 5 (FIVE) gram carb vegetable options 1 cup raw OR cup cooked: Asparagus Rolon sprouts Beets Broccoli Brussel sprouts Cabbage Carrots Cauliflower Celery [place] Eggplant Green beans Lettuce Peppers Snap peas Spaghetti squash Spinach Tomato Turnips Zucchini 15 gram carb vegetable options cup cooked corn or hominy corn on the cob, large (5 oz) cup cooked green peas 4.3 gm complete protein cup cooked dela cruz beans 1 small potato or sweet potato cup cooked potato, plain cup cooked sweet potato, plain 1 cup winter squash (pumpkin, acorn, butternut) 1 cup marinara or pasta sauce - check label cup tomato juice cup tomato puree Beans, Seeds, Nuts cup cooked beans (kidney, barrios, red, green, etc.) cup cooked lentils cup baked beans 4 tablespoons nut butter <15 gram carb fruit options Berries have the lowest sugar content 1/2 medium apple - 12.5 carbs 1/2 medium avocado - 6.5 gm carbs 1/2 medium banana - 15 carbs 1/2 cup blueberries - 11 carbs - may actually help you lose weight 1/2 cup fresh cherries -11 carbs 1 medium Yvonne -9 carbs 1/2 cup fresh cranberries - 6.5 carbs 1/2 c grapes - 15 carbs 1/2 medium grapefruit - 10.5 carbs 1/2 cup diced honeydew melon - 8 carbs 1 medium kiwi without skin - 11 carbs 1/2 cup sliced brittanie -14 carbs 1 medium nectarine - 15 carbs 1 medium orange -15.5 carbs 1 medium peach -14.5 carbs 1/2 cup fresh pineapple -11 carbs 1 medium plum -7.5 carbs 1 prune - 6 carbs 1/4 c raisins - 31.25 carbs 1/2 cup raspberries -7.5 carbs 1/2 c strawberries - 12.7 carbs 1 medium tangerine -12 carbs 1/2 cup diced watermelon - 6 carbs Grains Brown rice 1/2 c 5.5g protein 24 carb White long-grain rice 1/2 c 2g protein 22.5 carb Quinoa 1/2 c 4 gm complete protein 25 carb Oatmeal, old fashioned 1/2 c 5g protein 27g carb High Protein Snack Ideas 1. 2. [place] mix without dried fruit 3. Ferrum roll-ups 4. Indonesian yogurt 5. Veggies and yogurt dip 6. Tuna 7. Hard-boiled eggs 8. Peanut butter with celery 9. Cheese slices/ Cheese Stick 10. Handful of almonds, peanuts or walnuts 11. Cottage Cheese 12. Beef sticks 13. Protein bars 14. Canned [place] 15. Pumpkin seeds 16. Nut butter 17. Protein shakes 18. Avocado and chicken salad 19. Egg muffins 20. Leftover protein or lunch meat 21. 1/2 c blended cottage cheese or Indonesian yogurt with dry ranch/Mrs. Dash/herb seasoning mix to make protein dip 22. 1/2 c blended cottage cheese with 1 Tbsp sugar-free dry cheesecake pudding mix 12g protein 10 carb 23. Pudding - 1 30 gm protein shake with 1/2 pkg sugar-free pudding 4 svgs - 7.8 gm protein, 5 carb each svg 24. SF Sunkist or Root Beer with 1-2 Tablespoons heavy whipping cream 25. Mini frozen dessert bites - layer protein yogurt, skinny syrup and crushed nuts and freeze METFORMIN Dosing -- Begin Metformin 500 ER mg with dinner daily x 1 week. If you are experiencing any GI side effects, do not increase dose for 1-4 weeks. If tolerating, you can increase to 1 tablet twice a day. Taking the medication with food will help. -- if you experience any GI upset (Nausea, diarrhea, bloating, gas) you can go back to 1 tablet or hold the medication until it resolves. Once you are tolerating the medication you can try increasing it again. -- we can discuss increasing the dose further at your follow up visit. -- Metformin can interfere with the absorption of B12 in your food, please add a B12 1,000-2,400 mcg supplement and I suggest having it checked every 1-2 years Using Metformin for weight loss: Metformin helps to lower blood glucose levels by reducing the amount of glucose produced and released by the liver, and by increasing insulin sensitivity. It has now been proven to prevent or delay diabetes. Metformin and Type 2 Diabetes Prevention Diabetes Spectrum (diabetesjournals.org) Large cohort studies have shown weight loss benefits associated with metformin therapy. Emerging evidence suggests that metformin-associated weight loss is due to modulation of hypothalamic appetite-regulatory centers, alteration in the gut microbiome, and reversal of consequences of aging. Metformin is also being explored in the management of obesity s sequelae such as hepatic steatosis, obstructive sleep apnea and osteoarthritis. Effectiveness of metformin on weight loss in non-diabetic individuals with obesity - PubMed (nih.gov) Is metformin a wonder drug? - [facility] Common side effects of this medication include nausea, changes in bowel habits, abdominal discomfort, and flatulence. Taking the medication with food will help. Side effects also typically get better with time. Rarely, a severe side effect called lactic acidosis can occur. If you experience malaise, muscle aches, difficulty breathing, or severe abdominal pain, please seek immediate medical attention. When to Take Extended-Release Metformin Metformin HCL is metabolized slowly, over 24 hours, which helps reduce GI side effects. Metformin extended-release is often a good option for people who experience adverse GI symptoms with standard metformin. Metformin HCL should be taken at night, with food. Shayy Armenta MD, clinical director of adult diabetes at [facility], explains why timing metformin HCL with the evening meal is so important. In normal physiology, a person's liver often makes glucose overnight, she says. So, it's not uncommon for a person to go to bed with a good blood glucose level and wake up with a higher one because their liver has been releasing sugar [all night]. Metformin turns off or slows down this process, so it can be more effective at night in treating fasting high blood sugar. [email or web address] [email or web address] Metformin: Patient drug information Warning Rarely, metformin may cause too much lactic acid in the blood (lactic acidosis). The risk is higher in people who have kidney problems, liver problems, heart failure, use alcohol, or take other drugs like topiramate. The risk is also higher in people who are 65 or older and in people who are having surgery, an exam or test with contrast, or other procedures. If lactic acidosis happens, it can lead to other health problems and can be deadly. Kidney tests may be done while taking this drug. Do not take this drug if you have a very bad infection, low oxygen, or a lot of fluid loss (dehydration). Call your doctor right away if you have signs of too much lactic acid in the blood (lactic acidosis) like fast breathing, fast or slow heartbeat, a heartbeat that does not feel normal, very bad upset stomach or throwing up, feeling very sleepy, shortness of breath, feeling very tired or weak, very bad dizziness, feeling cold, or muscle pain or cramps. What is this drug used for? It is used to lower blood sugar in patients with high blood sugar (diabetes), treatment for PCOS, What do I need to tell my doctor BEFORE I take this drug? If you are allergic to this drug; any part of this drug; or any other drugs, foods, or substances. Tell your doctor about the allergy and what signs you had. If you have any of these health problems: Acidic blood problem, kidney disease, or liver disease. If you have had a recent heart attack or stroke. If you are not able to eat or drink like normal, including before certain procedures or surgery. If you are having an exam or test with contrast or have had one within the past 48 hours, talk with your doctor. This is not a list of all drugs or health problems that interact with this drug. Tell your doctor and pharmacist about all of your drugs (prescription or OTC, natural products, vitamins) and health problems. You must check to make sure that it is safe for you to take this drug with all of your drugs and health problems. Do not start, stop, or change the dose of any drug without checking with your doctor. What are some things I need to know or do while I take this drug? All products: Tell all of your health care providers that you take this drug. This includes your doctors, nurses, pharmacists, and dentists. Talk with your doctor before you drink alcohol. Do not drive if your blood sugar has been low. There is a greater chance of you having a crash. Check your blood sugar as you have been told by your doctor. Have blood work checked as you have been told by the doctor. Talk with the doctor. It may be harder to control blood sugar during times of stress such as fever, infection, injury, or surgery. A change in physical activity, exercise, or diet may also affect blood sugar. Follow the diet and workout plan that your doctor told you about. If diarrhea happens or you are throwing up, call your doctor. You will need to drink more fluids to keep from losing too much fluid. Be careful in hot weather or while being active. Drink lots of fluids to stop fluid loss. Long-term treatment with metformin may lead to low vitamin B-12 levels. If you have ever had low vitamin B-12 levels, talk with your doctor. If you are 65 or older, use this drug with care. You could have more side effects. There is a chance of in people of childbearing age who have not been ovulating. If you want to avoid , use control while taking this drug. Tell your doctor if you are , plan on getting , or are breast-feeding. You will need to talk about the benefits and risks to you and the baby. Extended-release tablets: You may see something that looks like the tablet in your stool. This is normal and not a cause for concern. If you have questions, talk with your doctor. What are some side effects that I need to call my doctor about right away? WARNING/CAUTION: Even though it may be rare, some people may have very bad and sometimes deadly side effects when taking a drug. Tell your doctor or get medical help right away if you have any of the following signs or symptoms that may be related to a very bad side effect: Signs of an allergic reaction, like rash; hives; itching; red, swollen, blistered, or peeling skin with or without fever; wheezing; tightness in the chest or throat; trouble breathing, swallowing, or talking; unusual hoarseness; or swelling of the mouth, face, lips, tongue, or throat. It is common to have stomach problems like upset stomach, throwing up, or diarrhea when you start taking this drug. If you have stomach problems later during treatment, call your doctor right away. This may be a sign of an acid health problem in the blood (lactic acidosis). Low blood sugar can happen. The chance may be raised when this drug is used with other drugs for diabetes. Signs may be dizziness, headache, feeling sleepy or weak, shaking, fast heartbeat, confusion, hunger, or sweating. Call your doctor right away if you have any of these signs. Follow what you have been told to do for low blood sugar. This may include taking glucose tablets, liquid glucose, or some fruit juices. What are some other side effects of this drug? All drugs may cause side effects. However, many people have no side effects or only have minor side effects. Call your doctor or get medical help if any of these side effects or any other side effects bother you or do not go away: Stomach pain or heartburn. Gas. Diarrhea, upset stomach, or throwing up. Feeling tired or weak. Headache. These are not all of the side effects that may occur. If you have questions about side effects, call your doctor. Call your doctor for medical advice about side effects. You may report side effects to your national health agency. How is this drug best taken? Use this drug as ordered by your doctor. Read all information given to you. Follow all instructions closely. All products: Take with meals. Keep taking this drug as you have been told by your doctor or other health care provider, even if you feel well. Extended-release tablets: Take with the evening meal if taking once daily. Swallow whole. Do not chew, break, or crush. If you have trouble swallowing, talk with your doctor. documented in this encounter [facility] 03-13-2024 History of Present illness Narrative Images from the original note were not included. 7Some documentation from previous visit of 11/10/2023 was copied and pasted, documentation has been reviewed and edited as necessary for today's visit. Patient Summary: Carrie is a 58 year old Female who presents for follow-up evaluation of obesity/weight management to treat and prevent related co-morbidities. In our previous visits we have discussed lifestyle intervention including a nutrition recommendations and physical activity optimization. Her last office visit was 4 months ago. Assessment/plan from last visit: - Topiramate 25 mg tablet twice a day Interval History PT specifies the following items as new or significant updates since the last appointment: Sleeping better Less hungry, eating smaller portions of usual foods Has added some protein shakes, unsure of which one Weight loss since last vist: 12 lb Date: Weight: BMI: Medications: 03/13/2024 233 lb 40.95 Metformin ER 500 mg WC 45 in 11/10/2023 245 lb 43.06 topiramate 25 mg WC: 49.0 in, NC: 15.25 in 5% weight loss = 233 lbs, 10% weight loss = 220 lbs Anti-obesity medications: Topiramate. 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 Does not pack other foods. Grazes at work - PB crackers with Mt Dew/Pepsi, chips, banana 0600 - OJ or chocolate milk Days off from work - Sleeps at night 2200-06. Grazes on apple, chips, PBJ, Yoplait yogurt, watermelon, OJ, chocolate milk, Pepsi Fluids: Pepsi 2 cans in 24 hours and water Alcohol every other WE if camping - wine coolers Bedtime - see below Quality of diet: 24hr recall suggests unhealthy diet. Characterization of diet:Unstructured, excessive cravings, evening snacking, increased consumption of sugar sweetened beverages, and skip meals. 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 Sometimes a PBJ if there is no food available that she likes. Grazes at work - PB crackers with Mt Dew/Pepsi, chips, banana (no change) 0600 - OJ or hot chocolate Days off from work - Sleeps at night 2200-06. Grazes on apple, chips, PBJ, Yoplait yogurt, watermelon, OJ, chocolate milk, Pepsi (no change) Fluids: Pepsi 2 cans in 24 hours and increased water intake Alcohol none due to no camping Current Barriers: grazing/irregular meal patterns and inadequate sleep duration Exercise: none but is active at work Regular exercise: no Strength/resistance exercise:no Barriers to regular exercise? no Work-related activity:Active. Gym Membership: no Activity Tracker: no average steps per day N/A Stress: stable Stress:yes , Cause:Work, Financial, and Personal Sleep: increased Duration: 4-5 hours at a time for total of 6-7 hours. MIGUELINA NO ; CPAP NO Home at 06. Sleeps from 0615-11 and 2/3 pm - 6 pm Works [id number] 5 nights a week. Has worked nights for past 12 years. CrCl cannot be calculated (Patient's most recent lab result is older than the maximum 180 days allowed.). PAST MEDICAL HISTORY Diagnosis Date Abnormal mammogram Back pain Breast cancer (HCC) left breast Cervical cancer (HCC) 2003 GINA III, s/p hysterectomy, no chemo/radiation Cholelithiasis with chronic cholecystitis 05/02/2020 Hyperinsulinemia 11/11/2023 Obesity Tobacco abuse Current Outpatient Medications Medication Sig Dispense Refill topiramate (TOPAMAX) 25 mg tablet Take 1 tablet by mouth two times a day. 180 tablet 1 losartan (COZAAR) 25 mg tablet Take 1 tablet by mouth once daily. Take with 50 mg for total daily dose of 75 mg daily. 90 tablet 2 losartan (COZAAR) 50 mg tablet Take 1 tablet by mouth once daily. Take w/ 25 mg for total daily dose of 75 mg. 90 tablet 2 albuterol HFA (PROVENTIL HFA, VENTOLIN HFA) 90 mcg/actuation inhaler Inhale 2 Puffs as instructed every 6 hours as needed for wheezing/shortness of breath. 1 Each 1 ergocalciferol 50,000 unit capsule (VITAMIN D2, DRISDOL) Take one capsule po weekly. 12 capsule 3 famotidine (PEPCID) 20 mg tablet Take 1 tablet by mouth daily at bedtime. 30 tablet 11 ibuprofen (MOTRIN) 600 mg tablet Take 1 tablet by mouth every 6 hours as needed for pain. 30 tablet 0 acetaminophen 325 mg cap Take 650 mg by mouth as needed. No current facility-administered medications for this visit. 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 No distress. Results: recent labs reviewed with the patient. Latest Ref Rng & Units 04/27/2023 CMP Sodium 136 - 144 mmol/L 139 Potassium 3.7 - 5.1 mmol/L 4.4 Chloride 97 - 105 mmol/L 101 CO2 22 - 30 mmol/L 27 Glucose 74 - 99 mg/dL 99 BUN 7 - 21 mg/dL 11 Creatinine 0.58 - 0.96 mg/dL 0.84 EGFR >=60 mL/min/1.73m 80 Protein, Total 6.3 - 8.0 g/dL 7.6 Albumin 3.9 - 4.9 g/dL 4.0 Calcium 8.5 - 10.2 mg/dL 10.0 Bilirubin, Total 0.2 - 1.3 mg/dL 0.3 AST 13 - 35 U/L 25 ALT 7 - 38 U/L 24 Alkaline Phosphatase 34 - 123 U/L 87 Cholesterol, Total (mg/dL) Date Value 04/27/2023 144 11/20/2019 176 HDL Cholesterol (mg/dL) Date Value 04/27/2023 39 11/20/2019 42 LDL Cholesterol (mg/dL) Date Value 04/27/2023 78 11/20/2019 114 Triglyceride (mg/dL) Date Value 04/27/2023 133 11/20/2019 102 Latest Ref Rng & Units 04/27/2023 CBC WBC 3.70 - 11.00 k/uL 8.21 RBC 3.90 - 5.20 m/uL 5.01 Hemoglobin 11.5 - 15.5 g/dL 15.1 Hematocrit 36.0 - 46.0 % 47.6 MCV 80.0 - 100.0 fL 95.0 MCH 26.0 - 34.0 pg 30.1 MCHC 30.5 - 36.0 g/dL 31.7 RDW-CV 11.5 - 15.0 % 12.7 Platelet Count 150 - 400 k/uL 271 MPV 9.0 - 12.7 fL 12.3 Baso% % 0.5 Abs Neut (ANC) 1.45 - 7.50 k/uL 5.04 Abs Lymph 1.00 - 4.00 k/uL 2.42 Abs Alfalfa <0.87 k/uL 0.55 Abs Eosin <0.46 k/uL 0.14 Abs Baso <0.11 k/uL 0.04 NRBC /100 WBC 0.0 Vitamin D 25 Hydroxy Date Value Ref Range Status 04/27/2023 53.5 31.0 - 80.0 ng/mL Final 07/16/2022 40.9 31.0 - 80.0 ng/mL Final Comment: Classification of 25 OH Vitamin D status: Deficiency/Insufficiency: < or = 30 ng/ml. Sufficiency/Optimal Levels: 31-80 ng/mL Toxicity: > 100 ng/mL. Test performed by chemiluminescent immunoassay. TSH Date Value 04/27/2023 2.770 mIU/L 07/16/2022 3.240 mIU/L 06/28/2013 2.390 uU/mL Hemoglobin A1C (%) Date Value 11/10/2023 5.5 Insulin Date Value Ref Range Status 11/10/2023 25.5 (H) 3.0 - 25.0 mU/L Final Anti-Obesity Medications >Phentermine: No uncontrolled HTN, No CVD Hx or hx of seizure disorder. No MAOI inhibitor use. No drug abuse hx. Crcl > 15. >Topiramate/zonisamide: No seizure, kidney stone or glaucoma hx. No hx of migraines, Yes hx of poor sleep. Not of Child bearing age. >Qsymia: see above >Contrave: No uncontrolled HTN or hx of seizure disorder. No MAOI inhibitor use. No opiate use. >Saxenda/Wegovy/Ozempic: Cost. Ins coverage? >Metformin: eGFR > 30. No contraindications or medication interactions. Abdominal obesity: waist circumference >35cm inches (88cm) Y Serum triglycerides: >= 150 mg/dL or drug treatment for elevated triglycerides N Serum HDL: <50mg/dL or drug treatment for Low HDL cholesterol Y Blood Pressure: >= 130/85 or drug treatment for elevated BP Y Fasting Plasma Glcuose: >= 100 mg/dL or drug treatment for elevated blood glucose N Criteria met 04/18: yes Assessment/Plan: Carrie Taveras is a 58 year old yo with Class III obesity who presented today for follow up for supervised weight loss to treat and prevent related co-morbidities. 1. Primary hypertension - ICD9: 401.9, ICD10: I10 (primary diagnosis) - treated with losartan - benefits of weight loss discussed - Whole food balanced protein low-carb nutrition - TOPIRAMATE 25 MG TABLET 2. Metabolic syndrome - ICD9: 277.7, ICD10: E88.810 - METFORMIN ER 500 MG TABLET,EXTENDED RELEASE 24 HR 3. Low HDL (under 40) - ICD9: 272.5, ICD10: E78.6 - benefits of weight loss discussed - Whole food balanced protein low-carb nutrition - TOPIRAMATE 25 MG TABLET 4. Gastroesophageal reflux disease, unspecified whether esophagitis present - ICD9: 530.81, ICD10: K21.9 - Treated with famotidine - benefits of weight loss discussed - Whole food balanced protein low-carb nutrition - TOPIRAMATE 25 MG TABLET 5. Vitamin D deficiency - ICD9: 268.9, ICD10: E55.9 - weekly supplement 6. Persistent circadian rhythm sleep disorder, shift work type - ICD9: 327.36, ICD10: G47.26 - TOPIRAMATE 25 MG TABLET 7. Class 3 severe obesity with serious comorbidity and body mass index (BMI) of 40.0 to 44.9 in adult, unspecified obesity type (HCC) - ICD9: 278.01, V85.41, ICD10: E66.01, Z68.41 Plan: -- Based on the severity and resistance of the obesity/overweight with co-morbidities, I believe a combination of behavioral and pharmacological intervention is the best and most appropriate meterman therapeutic option. Weight decreasing - weight loss of 12 lbs - congratulated Continue: - TOPIRAMATE 25 MG TABLET twice a day Add: - METFORMIN ER 500 MG TABLET,EXTENDED RELEASE 24 HR due to elevated insulin and metabolic syndrome Agreeable to begin Metformin ER 500 mg with dinner daily x 1 week. If tolerating will increase to 1 tablet twice daily. We discussed common side effects of this medication including nausea, changes in bowel habits, abdominal discomfort, and flatulence. Discussed taking it with food and complication of lactic acidosis and signs/symptoms and medication handout given. Further instructed that if she experiences malaise, muscle aches, difficulty breathing, or severe abdominal pain to seek immediate medical attention. - Recommended whole food balanced protein, controlled carbohydrate nutrition plan. - Given protein, whole food and high protein nutrition lists. -- We discussed several strategies to track food intake and increase mindfulness around eating while will decrease calorie intake. She was counseled on the following: Eating primarily whole foods. Limit carbs, especially processed carbs. Do not drink your calories 30 grams of protein for breakfast decreases your hunger during the day by up to 40 % Premier Protein or generic 30 gm protein 1 gm sugar - Add protein to all other meals and snacks -- Encouraged the patient to improve her physical activity. Although cardiovascular exercise is most beneficial for weight loss initially, we discussed healthy muscle from a combination of resistance training and cardiovascular exercise is the best meterman plan. An overall goal of 150-200 minutes per week of exercise has been effective in weight loss and maintenance. Walk for 15 minutes immediately a meal. -- Reviewed that monitoring weight daily and food intake can have a positive impact on overall weight loss and maintenance of weight loss. Activity tracking can be used to stay on target for exercise however should not be used to reward oneself She understands that there can be limitations of pharmacotherapy due to contraindications, side effects and cost. Patient was told to contact her insurance company to see what AOMs and supervised behavioral medical appointments are currently covered. Patient understands she will have more success when following a healthy lifestyle. We reviewed continued use of online tracking of daily weights, food journal and if desired physical activity. We reviewed that during management she is to report any concerning side effects of any pharmacotherapy she is placed on. She understands that she will need routine follow up in the office. Prior to any virtual visits in the future she will need to check her Blood pressure, weight, and pulse Prescription instructions reviewed with patient as applicable. Potential red flag symptoms discussed with the patient. Reviewed appropriate action plan to take if red flag symptoms occur. Patient agreeable to treatment plan. Follow up in 3 months Trina Mitchell CNP Advanced Education from the [employer] Medical Decision Making: Problems: Moderate: 2+ stable chronic illnesses Risk: Moderate: Drug management and Moderate risk from testing/treatment Medical Decision Making Level: 4 - Moderate documented in this encounter [facility] 03-13-2024 Note HNO ID: [id number] Author: TRINA MITCHELL APRN.CNP Service: ? Author Type: Nurse Practitioner Type: Progress Notes Filed: 03/13/2024 09:22 Note Text: 7Some documentation from previous visit of 11/10/2023 was copied and pasted, documentation has been reviewed and edited as necessary for today's visit. Patient Summary: Carrie is a 58 year old Female who presents for follow-up evaluation of obesity/weight management to treat and prevent related co-morbidities. In our previous visits we have discussed lifestyle intervention including a nutrition recommendations and physical activity optimization. Her last office visit was 4 months ago. Assessment/plan from last visit: - Topiramate 25 mg tablet twice a day Interval History PT specifies the following items as new or significant updates since the last appointment: Sleeping better Less hungry, eating smaller portions of usual foods Has added some protein shakes, unsure of which one Weight loss since last vist: 12 lb Date: Weight: BMI: Medications: 03/13/2024 233 lb 40.95 Metformin ER 500 mg WC 45 in 11/10/2023 245 lb 43.06 topiramate 25 mg WC: 49.0 in, NC: 15.25 in 5% weight loss = 233 lbs, 10% weight loss = 220 lbs Anti-obesity medications: Topiramate. 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 Does not pack other foods. Grazes at work - PB crackers with Mt Dew/Pepsi, chips, banana 0600 - OJ or chocolate milk Days off from work - Sleeps at night 2200-06. Grazes on apple, chips, PBJ, Yoplait yogurt, watermelon, OJ, chocolate milk, Pepsi Fluids: Pepsi 2 cans in 24 hours and water Alcohol every other WE if camping - wine coolers Bedtime - see below Quality of diet: 24hr recall suggests unhealthy diet. Characterization of diet:Unstructured, excessive cravings, evening snacking, increased consumption of sugar sweetened beverages, and skip meals. 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 Sometimes a PBJ if there is no food available that she likes. Grazes at work - PB crackers with Mt Dew/Pepsi, chips, banana (no change) 0600 - OJ or hot chocolate Days off from work - Sleeps at night 2200-06. Grazes on apple, chips, PBJ, Yoplait yogurt, watermelon, OJ, chocolate milk, Pepsi (no change) Fluids: Pepsi 2 cans in 24 hours and increased water intake Alcohol none due to no camping Current Barriers: grazing/irregular meal patterns and inadequate sleep duration Exercise: none but is active at work Regular exercise: no Strength/resistance exercise:no Barriers to regular exercise? no Work-related activity:Active. Gym Membership: no Activity Tracker: no average steps per day N/A Stress: stable Stress:yes , Cause:Work, Financial, and Personal Sleep: increased Duration: 4-5 hours at a time for total of 6-7 hours. MIGUELINA NO ; CPAP NO Home at 06. Sleeps from 0615-11 and 2/3 pm - 6 pm Works [id number] 5 nights a week. Has worked nights for past 12 years. CrCl cannot be calculated (Patient's most recent lab result is older than the maximum 180 days allowed.). PAST MEDICAL HISTORY Diagnosis Date Abnormal mammogram Back pain Breast cancer (HCC) left breast Cervical cancer (HCC) 2003 GINA III, s/p hysterectomy, no chemo/radiation Cholelithiasis with chronic cholecystitis 05/02/2020 Hyperinsulinemia 11/11/2023 Obesity Tobacco abuse Current Outpatient Medications Medication Sig Dispense Refill topiramate (TOPAMAX) 25 mg tablet Take 1 tablet by mouth two times a day. 180 tablet 1 losartan (COZAAR) 25 mg tablet Take 1 tablet by mouth once daily. Take with 50 mg for total daily dose of 75 mg daily. 90 tablet 2 losartan (COZAAR) 50 mg tablet Take 1 tablet by mouth once daily. Take w/ 25 mg for total daily dose of 75 mg. 90 tablet 2 albuterol HFA (PROVENTIL HFA, VENTOLIN HFA) 90 mcg/actuation inhaler Inhale 2 Puffs as instructed every 6 hours as needed for wheezing/shortness of breath. 1 Each 1 ergocalciferol 50,000 unit capsule (VITAMIN D2, DRISDOL) Take one capsule po weekly. 12 capsule 3 famotidine (PEPCID) 20 mg tablet Take 1 tablet by mouth daily at bedtime. 30 tablet 11 ibuprofen (MOTRIN) 600 mg tablet Take 1 tablet by mouth every 6 hours as needed for pain. (more content not included)... [facility] 11-03-2023 Note HNO ID: [id number] Author: TRINA MITCHELL APRN.DUCK BILL OPERATOR Service: ? Author Type: Nurse Practitioner Type: Progress Notes Filed: 11/11/2023 21:36 Note Text: Patient Summary: Carrie Taveras is a 58 year old female with obesity who presents for an initial evaluation of overweight/obesity to treat and prevent co-morbidities and is interested in combination of behavioral and pharmacological. Motivation for seeking treatment for the disease of overweight/obesity :More comfortable Goal weight: 180 lb felt good at this weight Lowest recall weight: 150 lb Highest non- recall weight: 280 lb Patient identified barriers to weight loss: She drinks to much pepsi and she doesn't have the best eating pattern. Weight History: She reports a family history of obesity and early adulthood weight gain. She states her weight gain is related to the following factors, including weight retention , onset of menopause, consumption of unhealthy foods, not enough exercise and inadequate sleep duration, shift work Difficulty losing weight? She weighted 279 lb and is down to 245lb and now she has not been able to lose anymore. Her this past year and she has not been eating. History of weight loss with regain? Yes - Last Wt 11/10/23 : 111.1 kg (245 lb) 5% weight loss = 233 lbs, 10% weight loss = 220 lbs WEIGHT GRAPH: Diet/Nutrition overview: Awake - 11 am - sometimes eats PBJ sandwich/toast if hungry or apple 1 am at work - whatever kitchen has for meal - meat and sides but does not always eat it and there are no other options. Does not pack other foods. Grazes at work - PB crackers with Mt Dew/Pepsi, chips, banana 0600 - OJ or chocolate milk Days off from work - Sleeps at night 2200-06. Grazes on apple, chips, PBJ, Yoplait yogurt, watermelon, OJ, chocolate milk, Pepsi Fluids: Pepsi 2 cans in 24 hours and water Alcohol every other WE if camping - wine coolers Bedtime - see below Quality of diet: 24hr recall suggests unhealthy diet. Characterization of diet:Unstructured, excessive cravings, evening snacking, increased consumption of sugar sweetened beverages, and skip meals. 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 MIGUELINA NO ; CPAP NO Home at 06. Sleeps from 0615-11 and 2/3 pm - 6 pm Works [id number] 5 nights a week and sometimes works 12 hr shift . Has worked nights for past 12 years. Stress Stress:yes , Cause:Work, Financial, and Personal Obesity Related Comorbidities: Prior Weight Loss Surgery:No PAST MEDICAL HISTORY Diagnosis Date Abnormal mammogram Back pain Cervical cancer (HCC) 2003 GINA III, s/p hysterectomy, no chemo/radiation Cholelithiasis with chronic cholecystitis 05/02/2020 Obesity Tobacco abuse PAST SURGICAL HISTORY Procedure Laterality Date APPENDECTOMY COLONOSCOPY AND POLYPECTOMY 09/04/2013 hyperplastic polyp, repeat due 2023 EGD 09/04/2013 Duodenal reactive gastric foveolar metaplasia, repeat due 2016 EGD 04/22/2020 EGD TRANSORAL BIOPSY SINGLE/MULTIPLE 10/05/2016 gastritis, esophagitis HYSTERECTOMY HX 06/25/2003 EMMY/BSO-carcinoma insitu L'SCOPE CHOLECYSTECTOMY 05/02/2020 MASTECTOMY,PARTIAL, WITH AXILLARY LYMPHADENECTOMY 06/03/2015 Mastectomy, Partial, with Axillary Lymphadenectomy TOTAL THYROID LOBECTOMY UNI W/WO ISTHMUSECTOMY Left 06/06/2020 Dr Mcpherson VAGINAL HYSTERECTOMY FAMILY HISTORY Problem Relation Age of Onset Diabetes Mother Hypertension Mother Heart Failure Mother Obesity Mother Diabetes Father Hypertension Father Heart Father Pig valve, CHF No Known Problems Brother Social History Tobacco Use Smoking status: Every Day Current packs/day: 1.50 Average packs/day: 1.5 packs/day for 40.0 years (60.0 ttl pk-yrs) Types: Cigarettes Smokeless tobacco: Never Vaping Use Vaping status: Never Used Substance Use Topics Alcohol use: Yes Alcohol/week: 2.0 standard drinks of alcohol Types: 2 Glasses of Wine (5oz) per week Comment: Occasional Drug use: No AOM Medications: none Weight Promoting Medications: none Diet/weight loss History: Past weight loss attempts? anti-obesity medications Phentermine( lost 50 lbs). - 3 years ago, she doesn't remember the dr who prescribed the medication. Not through the [facility] Exercise: Regular exercise: no Strength/resistance exercise:no Barriers to regular exercise? no Work-related activity:Active. 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 [facility] 11-03-2023 History of Present illness Narrative Images from the original note were not included. Patient Summary: Carrie Taveras is a 58 year old female with obesity who presents for an initial evaluation of overweight/obesity to treat and prevent co-morbidities and is interested in combination of behavioral and pharmacological. Motivation for seeking treatment for the disease of overweight/obesity :More comfortable Goal weight: 180 lb felt good at this weight Lowest recall weight: 150 lb Highest non- recall weight: 280 lb Patient identified barriers to weight loss: She drinks to much pepsi and she doesn't have the best eating pattern. Weight History: She reports a family history of obesity and early adulthood weight gain. She states her weight gain is related to the following factors, including weight retention , onset of menopause, consumption of unhealthy foods, not enough exercise and inadequate sleep duration, shift work Difficulty losing weight? She weighted 279 lb and is down to 245lb and now she has not been able to lose anymore. Her this past year and she has not been eating. History of weight loss with regain? Yes - Last Wt 11/10/23 : 111.1 kg (245 lb) 5% weight loss = 233 lbs, 10% weight loss = 220 lbs WEIGHT GRAPH: Diet/Nutrition overview: Awake - 11 am - sometimes eats PBJ sandwich/toast if hungry or apple 1 am at work - whatever kitchen has for meal - meat and sides but does not always eat it and there are no other options. Does not pack other foods. Grazes at work - PB crackers with Mt Dew/Pepsi, chips, banana 0600 - OJ or chocolate milk Days off from work - Sleeps at night 2200-06. Grazes on apple, chips, PBJ, Yoplait yogurt, watermelon, OJ, chocolate milk, Pepsi Fluids: Pepsi 2 cans in 24 hours and water Alcohol every other WE if camping - wine coolers Bedtime - see below Quality of diet: 24hr recall suggests unhealthy diet. Characterization of diet:Unstructured, excessive cravings, evening snacking, increased consumption of sugar sweetened beverages, and skip meals. 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 MIGUELINA NO ; CPAP NO Home at 06. Sleeps from 0615-11 and 2/3 pm - 6 pm Works [id number] 5 nights a week and sometimes works 12 hr shift . Has worked nights for past 12 years. Stress Stress:yes , Cause:Work, Financial, and Personal Obesity Related Comorbidities: Prior Weight Loss Surgery:No PAST MEDICAL HISTORY Diagnosis Date Abnormal mammogram Back pain Cervical cancer (HCC) 2003 GINA III, s/p hysterectomy, no chemo/radiation Cholelithiasis with chronic cholecystitis 05/02/2020 Obesity Tobacco abuse PAST SURGICAL HISTORY Procedure Laterality Date APPENDECTOMY COLONOSCOPY & POLYPECTOMY 09/04/2013 hyperplastic polyp, repeat due 2023 EGD 09/04/2013 Duodenal reactive gastric foveolar metaplasia, repeat due 2016 EGD 04/22/2020 EGD TRANSORAL BIOPSY SINGLE/MULTIPLE 10/05/2016 gastritis, esophagitis HYSTERECTOMY HX 06/25/2003 EMMY/BSO-carcinoma insitu L'SCOPE CHOLECYSTECTOMY 05/02/2020 MASTECTOMY,PARTIAL, WITH AXILLARY LYMPHADENECTOMY 06/03/2015 Mastectomy, Partial, with Axillary Lymphadenectomy TOTAL THYROID LOBECTOMY UNI W/WO ISTHMUSECTOMY Left 06/06/2020 Dr Mcpherson VAGINAL HYSTERECTOMY FAMILY HISTORY Problem Relation Age of Onset Diabetes Mother Hypertension Mother Heart Failure Mother Obesity Mother Diabetes Father Hypertension Father Heart Father Pig valve, CHF No Known Problems Brother Social History Tobacco Use Smoking status: Every Day Current packs/day: 1.50 Average packs/day: 1.5 packs/day for 40.0 years (60.0 ttl pk-yrs) Types: Cigarettes Smokeless tobacco: Never Vaping Use Vaping status: Never Used Substance Use Topics Alcohol use: Yes Alcohol/week: 2.0 standard drinks of alcohol Types: 2 Glasses of Wine (5oz) per week Comment: Occasional Drug use: No AOM Medications: none Weight Promoting Medications: none Diet/weight loss History: Past weight loss attempts? anti-obesity medications Phentermine( lost 50 lbs). - 3 years ago, she doesn't remember the dr who prescribed the medication. Not through the [facility] Exercise: Regular exercise: no Strength/resistance exercise:no Barriers to regular exercise? no Work-related activity:Active. Gym Membership: no Activity Tracker: no average steps per day N/A OCCUPATION [employer] home- [facility] Current Contraception: hysterectomy Obesity ROS/ FHx GEN: Fatigue:yes CV: h/o palpitations/cardiac arrhythmia, Chest pain: no HTN: yes PULM: Asthma:no GI: GERD:Yes ; Gallstones:no ; Fatty liver disease:no Pancreatitis: no MSK: Joint Pain:no : Nephrolithiasis: no Symptoms of PCOS: no NEURO: Migraines/XIAO: yes ; H/o seizures: no Glaucoma:no; Cataracts no Symptoms of or History of pseudotumor cerebri:no Family or personal History of MEN2 or Medullary thyroid cancer: no PE BP 136/84 Pulse 81 Ht 160.7 cm (5' 3.25) Wt 111.1 kg (245 lb) SpO2 98% BMI 43.06 kg/m Last 14 BP Last 14 Encounter BP Readings: Date: BP: 11/10/2023 136/84 10/31/2023 124/82 06/08/2023 136/86 04/29/2023 126/81[FRED BP[ 03/16/2023 146/83[FRED BP[ 09/15/2022 134/83[FRED BP[ 08/16/2022 164/80 07/16/2022 150/78 06/11/2022 144/81 05/26/2022 144/81 05/12/2022 124/72 04/07/2022 158/96 01/13/2022 138/82 10/08/2021 134/74 Waist Circumference: 49.0 in Neck Circumference: 15.25 in GENERAL: Female in NAD. Gluteo-femoral adiposity. SKIN: acanthosis nigricans no, Skin tags: yes Hirsutism: no HEENT: PERRL, No supraclavicular adiposity. No dorsal adiposity. RESPIRATORY: CBTA CARDIAC: RRR ABDOMEN: pannus; EXTREMITIES: peripheral edema: yes Results: reviewed with the patient No visits with results within 3 Month(s) from this visit. Latest known visit with results is: Appointment on 04/27/2023 Component Date Value Ref Range Status Cholesterol, Total 04/27/2023 144 <200 mg/dL Final Triglyceride 04/27/2023 133 <150 mg/dL Final HDL Cholesterol 04/27/2023 39 (L) >39 mg/dL Final Non HDL Cholesterol 04/27/2023 105 <130 mg/dL Final Fasting Time 04/27/2023 13 hrs Final VLDL Cholesterol 04/27/2023 27 <30 mg/dL Final TC:HDL Ratio 04/27/2023 3.69 <5.10 Final LDL Cholesterol 04/27/2023 78 <100 mg/dL Final LDL:HDL Ratio 04/27/2023 2.00 <2.54 Final Protein, Total 04/27/2023 7.6 6.3 - 8.0 g/dL Final Albumin 04/27/2023 4.0 3.9 - 4.9 g/dL Final Calcium, Total 04/27/2023 10.0 8.5 - 10.2 mg/dL Final Bilirubin, Total 04/27/2023 0.3 0.2 - 1.3 mg/dL Final Alkaline Phosphatase 04/27/2023 87 34 - 123 U/L Final AST 04/27/2023 25 13 - 35 U/L Final ALT 04/27/2023 24 7 - 38 U/L Final Glucose 04/27/2023 99 74 - 99 mg/dL Final BUN 04/27/2023 11 7 - 21 mg/dL Final Creatinine 04/27/2023 0.84 0.58 - 0.96 mg/dL Final Sodium 04/27/2023 139 136 - 144 mmol/L Final Potassium 04/27/2023 4.4 3.7 - 5.1 mmol/L Final Chloride 04/27/2023 101 97 - 105 mmol/L Final CO2 04/27/2023 27 22 - 30 mmol/L Final Anion Gap 04/27/2023 11 9 - 18 mmol/L Final Estimated Glomerular Filtration Ra* 04/27/2023 80 >=60 mL/min/1.73m Final WBC 04/27/2023 8.21 3.70 - 11.00 k/uL Final RBC 04/27/2023 5.01 3.90 - 5.20 m/uL Final Hemoglobin 04/27/2023 15.1 11.5 - 15.5 g/dL Final Hematocrit 04/27/2023 47.6 (H) 36.0 - 46.0 % Final MCV 04/27/2023 95.0 80.0 - 100.0 fL Final MCH 04/27/2023 30.1 26.0 - 34.0 pg Final MCHC 04/27/2023 31.7 30.5 - 36.0 g/dL Final RDW-CV 04/27/2023 12.7 11.5 - 15.0 % Final Platelet Count 04/27/2023 271 150 - 400 k/uL Final MPV 04/27/2023 12.3 9.0 - 12.7 fL Final Neutrophils % 04/27/2023 61.4 % Final Abs Neut 04/27/2023 5.04 1.45 - 7.50 k/uL Final Lymphocytes % 04/27/2023 29.5 % Final Abs Lymph 04/27/2023 2.42 1.00 - 4.00 k/uL Final Monocytes % 04/27/2023 6.7 % Final Abs Alfalfa 04/27/2023 0.55 <0.87 k/uL Final Eosinophils % 04/27/2023 1.7 % Final Abs Eosin 04/27/2023 0.14 <0.46 k/uL Final Basophils % 04/27/2023 0.5 % Final Abs Baso 04/27/2023 0.04 <0.11 k/uL Final Immature Granulocytes % 04/27/2023 0.2 % Final Abs Immature Gran 04/27/2023 <0.03 <0.10 k/uL Final NRBC 04/27/2023 0.0 /100 WBC Final Absolute nRBC 04/27/2023 <0.01 <0.01 k/uL Final Diff Type 04/27/2023 Auto Final Vitamin D 25 Hydroxy 04/27/2023 53.5 31.0 - 80.0 ng/mL Final TSH 04/27/2023 2.770 0.270 - 4.200 mIU/L Final Anti-Obesity Medications >Phentermine: No uncontrolled HTN, No CVD Hx or hx of seizure disorder. No MAOI inhibitor use. No drug abuse hx. Crcl > 15. >Topiramate/zonisamide: No seizure, kidney stone or glaucoma hx. No hx of migraines, Yes hx of poor sleep. Not of Child bearing age. >Qsymia: see above >Contrave: No uncontrolled HTN or hx of seizure disorder. No MAOI inhibitor use. No opiate use. >Saxenda/Wegovy/Ozempic: Cost. Ins coverage? >Metformin: eGFR > 30. No contraindications or medication interactions. Impression: Carrie Taveras is a 58 year old Female with Class III obesity (Body mass index is 43.06 kg/m .) who has early adulthood obesity with several periods of weight loss followed by weight gain . The causes of her obesity are multifactorial, biological, psychological and social and environmental. Specific factors include increased consumption of high calorie/process foods, irregular eating patterns , suboptimal physical activity, onset of menopause, inadequate sleep duration, poor sleep quality, circadian disruption, and post weight retention. She has few weight-related medical comorbidities which increase her cardiovascular mortality risk. There are additional metabolic obesity complications including hypertension, vitamin D deficiency, and low HDL. Other medical conditions as above. Regarding her lifestyle, as above, she has several behavioral contributors; her physical activity is suboptimal. Overall, it is clear that her quality of life is moderately compromised by her weight. It is likely a combination of weight loss therapies will be needed. She appears motivated today. ASSESSMENT/PLAN: 1. Primary hypertension - ICD9: 401.9, ICD10: I10 (primary diagnosis) - treated with losartan - benefits of weight loss discussed - Whole food balanced protein low-carb nutrition - TOPIRAMATE 25 MG TABLET 2. Low HDL (under 40) - ICD9: 272.5, ICD10: E78.6 - - benefits of weight loss discussed - Whole food balanced protein low-carb nutrition - TOPIRAMATE 25 MG TABLET 3. Gastroesophageal reflux disease, unspecified whether esophagitis present - ICD9: 530.81, ICD10: K21.9 - Treated with famotidine - benefits of weight loss discussed - Whole food balanced protein low-carb nutrition - TOPIRAMATE 25 MG TABLET 4. Vitamin D deficiency - ICD9: 268.9, ICD10: E55.9 - weekly supplement 5. Persistent circadian rhythm sleep disorder, shift work type - ICD9: 327.36, ICD10: G47.26 - TOPIRAMATE 25 MG TABLET 6. Encounter for screening for diabetes mellitus - ICD9: V77.1, ICD10: Z13.1 - INSULIN ASSAY BLOOD - HEMOGLOBIN A1C 7. Class 3 severe obesity with serious comorbidity and body mass index (BMI) of 40.0 to 44.9 in adult, unspecified obesity type (HCC) - ICD9: 278.01, V85.41, ICD10: E66.01, Z68.41 Plan: -- Based on the severity and resistance of the obesity/overweight with co-morbidities, I believe a combination of behavioral and pharmacological intervention is the best and most appropriate snf therapeutic option. - INSULIN ASSAY BLOOD - HEMOGLOBIN A1C - TOPIRAMATE 25 MG TABLET Topiramate. Discussed risks/benefits with the patient. Patient aware that this is an off-label use of the medication. Begin with 25 mg at bedtime and will increase to 2 tablets as tolerated. Will notify me if experiencing any adverse effects. Denies history of kidney stones, seizures or glaucoma. No hx of migraines Has history of poor sleep. Advised not to mix with alcohol. Educated on increased risk for drowsiness, dizziness, fatigue, kidney stones, osteoporosis and increased eye pressure. S/p hysterectomy -- We discussed several strategies to track food intake and increase mindfulness around eating while will decrease calorie intake. She was counseled on the following: Eating primarily whole foods. Limit carbs, especially processed carbs. Do not drink your calories 30 grams of protein for breakfast decreases your hunger during the day by up to 40 % Premier Protein or generic 30 gm protein 1 gm sugar - Add protein to all other meals and snacks Frozen meals - look for whole foods, more protein than carbs. You can subtract fiber from total carbs to get accurate carb count. Walk for 15 minutes immediately a meal. -- Encouraged the patient to improve her physical activity. Although cardiovascular exercise is most beneficial for weight loss initially, we discussed healthy muscle from a combination of resistance training and cardiovascular exercise is the best meterman plan. An overall goal of 150-200 minutes per week of exercise has been effective in weight loss and maintenance. -- Reviewed that monitoring weight daily and food intake can have a positive impact on overall weight loss and maintenance of weight loss. Activity tracking can be used to stay on target for exercise however should not be used to reward oneself She understands that there can be limitations of pharmacotherapy due to contraindications, side effects and cost. Patient was told to contact her insurance company to see what AOMs and supervised behavioral medical appointments are currently covered. Patient understands she will have more success when following a healthy lifestyle. We reviewed continued use of online tracking of daily weights, food journal and if desired physical activity. We reviewed that during management she is to report any concerning side effects of any pharmacotherapy she is placed on. She understands that she will need routine follow up in the office. Prior to any virtual visits in the future she will need to check her Blood pressure, weight, and pulse. Prescription instructions reviewed with patient as applicable. Potential red flag symptoms discussed with the patient. Reviewed appropriate action plan to take if red flag symptoms occur. Patient agreeable to treatment plan. -- follow-up visit in 4 months for management of above interventions Trina Mitchell CNP Advanced Education from the Obesity Medicine Association I spent a total of 76 minutes on the date of the service which included preparing to see the patient, [id number] patient care, completing clinical documentation, obtaining and/or reviewing separately obtained history, performing a medically appropriate examination, counseling and educating the patient/family/caregiver, and ordering medications, tests, or procedures. documented in this encounter [facility] 11-03-2023 Instructions Trina Mitchell APRN.DUCK BILL OPERATOR - 11/03/2023 2:10 PM EDT Images from the original note were not included. Weight Management: You have taken the initiative to become a healthier version of yourself and to decrease the risks that come with the diagnosis of obesity or being overweight. We are happy to help you along this journey but know this is a lifetime commitment to yourself. Losing just 3-10 % of your body weight can decrease your risks of many other serious diseases like diabetes, heart disease, osteoarthritis, hypertension, cancer and so many others. During this time you will have triumphs, setbacks and plateaus- your body will fight against you but we are here to give you the tools and the resources to continue to reach your goals. We recommend during this time that you track your weight daily or at least five times per week as well as tracking your nutrition. You may track your activity but do not use hitting your fitness goals as a reward system as this can derail your success. We recommend weekly physical activity of 150-200 min/week-although physical exercise, this will be especially important for weight maintenance. Exercise can have many other benefits including improving insulin resistance, improving balance, bone health, improving mental health and cardiovascular health. Do not feel overwhelmed - we will discuss this more at your visits. Our time will be limited with each visit but we will try to touch on factors that are important to you and to your overall goals. We will try to set a goal at the end of each visit and then decide on what we want to accomplish with your upcoming visits. On your After Visit Summary (AVS), we will provide you with information that may be useful during this journey so please remember to read the information given. Check your AVS a few days after your appointment because we may have added more information specifically for you. Remember that if you are placed on medications, they are tools that can help you succeed but you must put in the work. Your nutrition will be the main factor. There are medications that work well for some and not for others- so it may take time to find the right combination for your body's needs. Please remember that factors such as other health co-morbidities one might have, as well as insurance coverage, will play a factor in determining which medications you can take. Most of the newer medications that are all the craze ,injectables, may not be covered or will only be covered if you fail months of oral medications or have Type 2 diabetes so please be patient with the process. It would be beneficial for you to determine what your insurance covers as far as Anti-Obesity Medications (AOMs), Nutritional Counseling, behavioral intervention and weight loss surgery. Please call your health insurance prior to your first appointment and write down coverage for each of those therapies. Most importantly, remember that ultimately our goal is to help you get to a healthier weight which will decrease your overall health risks. We will work together as a team and try to reach your personalized goals as well. Follow-up appointments Please arrive to follow-up visits a minimum of 15 minutes prior to your appointment. Follow-up weight management visits can be virtual. You will need to report a current blood pressure, heart rate (pulse) and weight at the beginning of each virtual appointment so you will need to have a reliable BP cuff, either wrist or upper arm. If you need to reschedule your appointment time or switch from an in-office visit to a virtual visit or vice versa, you need to call our office as we have designated appointment slots. This should not be done on [facility] as you will not be scheduled appropriately and will need to be rescheduled. It is very important for you to call our office at [phone] if you need to RESCHEDULE your weight management appointment. DO NOT work around the system and reschedule on [employer] [facility] because you are taking a Women's Health appointment. In the future, we will be cancelling those appointments. We appreciate that you have entrusted us with your health and know that we are committed to this process with you. Sincerely, Kely Casey MD, BHANU VERA & Trina Mitchell CNP Advanced Education from the Obesity Medicine Association Obesity Obesity is a disease that affects nearly one-third of the adult [place] population (approximately 60 million). The number of overweight and obese Americans has continued to increase since 1960, a trend that is not slowing down. Today, 64.5 percent of adult Americans (about 127 million) are categorized as being overweight or obese. Each year, obesity causes at least 300,000 excess deaths in the [place] and healthcare costs of [place] adults with obesity amount to approximately $100 billion. (AOA) Obesity is a complex, multi-factorial chronic disease involving: Environmental (social and cultural) The tendency toward obesity is a result of our environment: lack of physical activity along with high-calorie, low-cost foods. Home, work, school, and even the community can inhibit a healthy lifestyle. Genetic (Hereditary plays a large role in determining how susceptible people are to overweight and obesity). Genes also influence how the body cuellar calories for energy and stores fat. Physiologic, metabolic, behavioral (eating too many calories while not getting enough exercise) and psychological components. It is the second leading cause of preventable in the [place] Behavioral changes brought on by economic development, modernization and urbanization have been linked to the rise in global obesity. Calculating BMI Body Mass Index (BMI) is a measurement tool used to determine excess body weight. Overweight is defined as a BMI of 25 or more, obesity is 30 or more, and severe obesity is 40 or more. You can visit www.nhlbi.nih.gov to estimate your BMI. Obesity Related Health Conditions The morbidity and mortality risk from being overweight is proportional to its degree. Individuals with morbid obesity, therefore, have the highest risk for developing numerous illnesses that often reduce mobility and quality of life due to their excess weight. In particular, type 2 diabetes, gallbladder disease and osteoarthritis have been found to increase concurrently with higher BMI. Premature , a 20-year shorter life span, has also been found in individuals with morbid obesity. All of the systems that make the body function are affected by morbid obesity. Type 2 diabetes Gallbladder disease and gallstones Liver disease Osteoarthritis, a disease in which the joints deteriorate. This is possibly the result of excess weight on the joints. Gout, another disease affecting the joints Pulmonary (breathing) problems, including sleep apnea in which a person can stop breathing for a short time during sleep Reproductive problems in women, including menstrual irregularities and infertility Gastroesophageal reflux/heartburn Hypertension Heart Disease Depression Psychological disorders/social impairments Urinary Stress Incontinence Obesity is also linked to higher rates of certain types of cancer. Obese men are more likely than non-obese men to from cancer of the colon, rectum, or prostate. Obese women are more likely than non-obese women to from cancer of the gallbladder, breast, uterus, cervix, or ovaries [email or web address] - Eat primarily whole foods. Limit carbs, especially processed carbs. Eat - Meat, vegetables and fruits with skin on if possible, eggs, cheese. - Do not drink your calories - 30 grams of protein for your first meal of the day decreases your hunger during the day by up to 40 %. Options include: Premier Protein or generic 30 gm protein 1 gm sugar or 5 eggs or 2-3 eggs and some unbreaded meat and/or cheese. No fruit, vegetables, bread, grain, yogurt, Smoothies, etc. Or Slimfast High Protein 20 gm protein and 2 eggs - Add protein to all other meals and snacks Frozen meals - look for whole foods, more protein than carbs. You can subtract fiber from total carbs to get accurate carb count. - Walk for 15 minutes immediately after meal. TOPIRAMATE -- Take 25 mg daily x 1-2 weeks -- Then increase to 25 mg twice a day after the initial 1-2 weeks so long as you are not having any side effects. -- You can take the tablet it at night at first (because of potential sleepiness side effects), but then you can take earlier around dinner after you have started the medication for a few days. You also may be able to take it in the morning if easier. -- We may increase the dose to 75mg a few weeks later if there is no change with 50mg, Typically the maximum medication dose would be 150mg daily but rarely would we need to titrate medication dose that high. -- The exact mechanism of topiramate on energy balance regulation is not clearly understood. Topiramate affects body mass index, fasting ecfglwd-gh-hagtcmn ratio, and serum leptin and cortisol levels. It has shown to improve hypothalamic insulin and leptin signaling and action and reduce obesity in mice. These changes may be murphy factors in weight loss due to topiramate. If at any point you are feeling the effects of the medication you can stay at that dose or if you experience side effects you can decrease it to the previous dose. -- Please see the handout to review the potential side effects and to explain this further -- Please let me know if you experience any changes in your vision, worsening depression or mood problems, or an increase in suicidal thoughts or behaviors. --This medication should NOT be combined with alcohol. Risks of drinking alcohol while taking this medication include mental and psychological side effects, including confusion, dizziness, drowsiness, and depression. -- There is an increased risk for oral clefts when topiramate is used in the first trimester of . -- There is a possible decrease in contraceptive efficacy when using estrogen-containing control with topiramate, please use a back up form of control such as condoms and monitor for throughout treatment. -- If you decide that you would like to get or if you have any of these side effects please let me know and we can safely discontinue the medication. - If you are on loop diuretic or thiazide diuretic we will want to monitor your potassium level, especially if you have a history of low potassium. - It is important to taper off of this medication when we finished with treatment, typically decreasing the dose 25 mg a week. Stopping Topiramate abruptly can cause irritability, anxiety and difficulty concentrating. Topiramate (toe pyre a mate) What are the common names? Topamax Why is this medication prescribed? Topiramate is an anti-epileptic medications which has been approved by the FDA for patients 10 years of age or older for treatment of seizures. However, topiramate also has other uses such as the treatment of migraines. It also causes decrease in appetite and weight loss. The mechanism of weight loss is thought to be through inhibition of mitochondrial enzymes involved in energy expenditure and metabolism. Topiramate may work by helping you feel less hungry, less driven to eat, more satisfied with less food. What special precautions should I follow? Before having topiramate prescribed, tell your doctor and pharmacist: If you have allergies to any component of topiramate If you are , plan to become , are breast-feeding, or if you become while taking topiramate What are the warnings and precautions for this medication? Immediately discontinue the medicine and seek medical help if you have severe cognitive/neuropsychiatric adverse symptoms or eye symptoms. Cognitive/neuropsychiatric adverse events: symptoms may include confusion, psychomotor slowing, difficulty with concentration/attention, difficulty with memory, speech or language problems, particularily word-finding difficulties, somnolence or fatigue Acute myopia and secondary angle closure glaucoma, usually within 1 month of starting treatment: symptoms may include blurred vision, redness and/or pain in the eye Oligohydrosis (decrease sweating) and hyperthermia (elevation in body temperature) Increase in suicidal behavior or ideation Metabolic acidosis, non-gap hyperchloremic (decreased serum bicarbonate below normal levels) resulting in hyperventilation or fatigue Kidney stones Paresthesias (numbness or tingling in hands or feet) Ataxia Dizziness Increase in urination frequency Drug interactions. Use of monamine oxidase inhibitors (MAOI s), valproic acid, Caution use with dehydration or diarrheal illness, hepatic or renal impairment In case of emergency/overdose In case of overdose, call your local poison control center at or call local emergency services at [phone]. What other information should I know? Keep all appointments with your doctor and the laboratory. Do not let anyone else take your medication. Topiramate use needs to be monitored closely. Prescriptions may be refilled only a limited number of times. Keep a written list of all of your prescription and nonprescription (bxjo-knc-vejcpyg) medicines, in addition to vitamins, minerals, or other dietary supplements. How should I monitor while on this medication? Your doctor will check your baseline kidney function and electrolytes prior to starting this medication, then periodically. Continue to improve your dietary and physical activity habits as the combination works best while on this medication. Start out by taking the medication at bedtime as it can cause fatigue and sleepiness. Be sure to eat regular meals. Less hunger does not make it appropriate to skip meals. Make sure to have an eye exam, including the pressure in your eyes (intra-ocular pressure), once a year. What should I do if I forget a dose? Skip the missed dose and continue your regular dosing schedule the next day. Do not take a double dose to make up for a missed one. Sources Pubmed Health: http://www.ncbi.nlm.nih.gov/pubmed health/KFN2959441/ Drugs.com http://www.drugs.com/pro/topiramat e.html How alcohol affects your weight loss 1. Alcohol is often empty calories Alcoholic drinks are often referred to as empty calories. This means that they provide your body with calories but contain very little nutrients. There are almost 155 calories in one 12-ounce can of beer, and 125 calories in a 5-ounce glass of red wine. By comparison, a recommended afternoon snack should have between 150 and 200 calories. A night out with several drinks can lead to consuming a few hundred extra calories. Drinks that have mixers, such as fruit juice or soda, contain even more calories. 2. Alcohol is used as a primary source of fuel There are also other elements that can cause weight gain outside of calorie content. When alcohol is consumed, it s burned first as a fuel source before your body uses anything else. This includes glucose from carbohydrates or lipids from fats. When your body is using alcohol as a primary source of energy, the excess glucose and lipids end up, unfortunately for us, as adipose tissue, or fat. 3. Alcohol can affect your organs The primary role of your liver is to act as the filter for any foreign substances that enter your body, such as drugs and alcohol. The liver also plays a role in the metabolism of fats, carbohydrates, and proteins. Excess alcohol consumption can lead to what is known as alcoholic fatty liver. This condition can damage your liver, affecting the way your body metabolizes and stores carbohydrates and fats. Changes in the way your body stores energy from food can make it very difficult to lose weight. 4. Alcohol can contribute to excess belly fat The beer gut isn t just a myth. Foods high in simple sugars, such as those found in candy, soda, and even beer, are also high in calories. Extra calories end up stored as fat in the body. Consuming foods and drinks high in sugar can quickly lead to weight gain. We can t choose where all that extra weight ends up. But the body tends to accumulate fat in the abdominal area. 5. Alcohol affects judgment calls especially with food Even the most -hard diet fan will have a hard time fighting the urge to dig in when intoxicated. Alcohol lowers inhibitions and can lead to poor decision-making in the heat of the moment -- especially when it comes to food choices. However, the effects of alcohol surpass even social drinking etiquette. A recent animal studyTrusted Source found that mice given ethanol over a period of three days demonstrated a significant increase in food intake. This study suggests that alcohol can actually trigger hunger signals in the brain, leading to an increased urge to eat more food. 6. Alcohol and sex hormones It s long been known that alcohol intake can affect levels of hormones in the body, especially testosteroneTrusted Source. Testosterone is a sex hormone that plays a role in many metabolic processes, including muscle formation and fat burning capabilities. One study found that low testosterone levels may predict the prevalence of metabolic syndrome in men. Metabolic syndrome is characterized by: high cholesterol high blood pressure high blood sugar levels high body mass index Plus, lower testosterone levels may affect quality of sleep, especially in older men. 7. Alcohol can negatively affect your sleep A nightcap before bed may sound like a ticket to a good night s rest but you may want to reconsider. ResearchTrusted Source suggests that alcohol can lead to increased periods of wakefulness during sleep cycles. Sleep deprivation, whether from lack of sleep or impaired sleep, can lead to an imbalance in the hormones related to hunger, satiety, and energy storage. 8. Alcohol affects digestion and nutrient uptake Your social anxiety isn t the only thing that alcohol inhibits. Intake of alcoholic beverages can also inhibit proper digestive function. Alcohol can cause stress on the stomach and the intestines. This leads to decreasedTrusted Source digestive secretions and movement of food through the tract. Digestive secretions are an essential element of healthy digestion. They break down food into the basic macro- and micronutrients that are absorbed and used by the body. Alcohol intake of all levels can lead to impaired digestion and absorption of these nutrients. This can greatly affect the metabolism of organs that play a role in weight management. Best alcoholic drinks for weight loss This may all sound as if alcohol is ruining your chances of that beach body. But fear not -- watching your weight doesn t necessarily mean having to cut alcohol entirely out of your diet. Rather than reaching for drinks high in sugar or calories, enjoy some of these 100-calorie options instead: 1. Vodka Calories: 100 calories in 1.5 ounces of distilled 80-proof vodka Alternative cocktail: Choose low-calories mixers such as club soda and avoid overly sugary juices. 2. Whiskey Calories: 100 calories in 1.5 ounces of 86-proof whiskey Alternative cocktail: Ditch the cola and take your whiskey on the rocks for a low-calorie alternative. 3. Gin Calories: 115 calories in 1.5 ounces of 90-proof gin Alternative cocktail: Aim for something simple, such as a martini -- and don t skip the olives, they contain beneficial antioxidants such as vitamin E. 4. Tequila Calories: 100 calories in 1.5 ounces of tequila Alternative cocktail: The best part about tequila is that the customary tequila shot is just salt, tequila, and lac vieux. 5. Lupe Calories: 100 calories in 1.5 ounces of lupe Alternative cocktail: This drink is best served as an after-dinner digestif and a good lupe should be enjoyed slowly to savor the subtle fruity sweetness. The bottom line While cutting alcohol completely out of your diet isn t necessarily the only way to lose weight, there are many improvements that can be made in your health journey by simply cutting back on the booze. You can enjoy a healthier body, improved sleep, better digestion, and fewer of those excess empty calories. And if you do plan to drink, enjoy a vodka or whiskey on the rocks -- and skip the soda! https://[email or web address]/health/ skxwabp-yxa-gcvogd-loss#alcohol-an w-pzkctl-wdpc documented in this encounter [facility] 10-31-2023 Note Addended by: ARIELA TALBERT on: 10/31/2023 12:54 PM Modules accepted: Orders [facility] 10-31-2023 Miscellaneous Notes Addended by: ARIELA TALBERT on: 10/31/2023 12:54 PM Modules accepted: Orders documented in this encounter [facility] 10-31-2023 Instructions Ariela Talbert APRN.CNP - 10/31/2023 10:17 AM EDT Continue the same medication. Let us know about colonoscopy. Consider the lung cancer screening test and let us know. Schedule w/ women's health. Recheck in 6 months. documented in this encounter [facility] 10-31-2023 Note HNO ID: [id number] Author: ARIELA TALBERT APRN.GERARDO Service: ? Author Type: Nurse Practitioner Type: Progress Notes Filed: 10/31/2023 12:42 Note Text: This is a 58 year old female who presents today with: Patient presents with: Recheck: 6 month follow up HISTORY OF PRESENT ILLNESS: Carrie Taveras is a 58 year old female. Patient presents with: Recheck: 6 month follow up Pt presents today for 6 month follow-up. HTN: Patient is compliant with meds Yes Monitors bp at home: Yes. 142/82 yesterday. Denies side effects: No. Chest pain: No. Dyspnea: No. Edema: No. Palpitations: No. Syncope: No. Headache: No. Dizziness: No. Obesity: She is interested in weight loss medication. Agreeable to referral to women's health. Tobacco abuse. Requests refill of albuterol for occ wheeze. Discussed lung ca screening. Would like pneumonia and flu vaccines. PAST MEDICAL HISTORY: PAST MEDICAL HISTORY Diagnosis Date Abnormal mammogram Back pain Cervical cancer (HCC) 2003 GINA III, s/p hysterectomy, no chemo/radiation Cholelithiasis with chronic cholecystitis 05/02/2020 Obesity Tobacco abuse PAST SURGICAL HISTORY Procedure Laterality Date APPENDECTOMY COLONOSCOPY AND POLYPECTOMY 09/04/2013 hyperplastic polyp, repeat due 2023 EGD 09/04/2013 Duodenal reactive gastric foveolar metaplasia, repeat due 2016 EGD 04/22/2020 EGD TRANSORAL BIOPSY SINGLE/MULTIPLE 10/05/2016 gastritis, esophagitis HYSTERECTOMY HX 06/25/2003 EMMY/BSO-carcinoma insitu L'SCOPE CHOLECYSTECTOMY 05/02/2020 MASTECTOMY,PARTIAL, WITH AXILLARY LYMPHADENECTOMY 06/03/2015 Mastectomy, Partial, with Axillary Lymphadenectomy TOTAL THYROID LOBECTOMY UNI W/WO ISTHMUSECTOMY Left 06/06/2020 Dr Mcpherson VAGINAL HYSTERECTOMY ALLERGIES Lisinopril and Penicillins MEDICATIONS Current Outpatient Medications Medication Sig losartan (COZAAR) 50 mg tablet Take 1 tablet by mouth once daily. Take w/ 25 mg for total daily dose of 75 mg. ergocalciferol 50,000 unit capsule (VITAMIN D2, DRISDOL) Take one capsule po weekly. famotidine (PEPCID) 20 mg tablet Take 1 tablet by mouth daily at bedtime. losartan (COZAAR) 25 mg tablet Take 1 tablet by mouth once daily. Take with 50 mg for total daily dose of 75 mg daily. ibuprofen (MOTRIN) 600 mg tablet Take 1 tablet by mouth every 6 hours as needed for pain. acetaminophen 325 mg cap Take 650 mg by mouth as needed. No current facility-administered medications for this visit. FAMILY HISTORY Problem Relation Age of Onset Diabetes Mother Hypertension Mother Heart Failure Mother Diabetes Father Hypertension Father Heart Father Pig valve, CHF No Known Problems Brother Social History Tobacco Use Smoking status: Every Day Current packs/day: 1.50 Average packs/day: 1.5 packs/day for 40.0 years (60.0 ttl pk-yrs) Types: Cigarettes Smokeless tobacco: Never Vaping Use Vaping status: Never Used Substance Use Topics Alcohol use: Yes Alcohol/week: 2.0 standard drinks of alcohol Types: 2 Glasses of Wine (5oz) per week Comment: Occasional Drug use: No EXAM: BP 124/82 Pulse 80 Resp 16 Wt 110.7 kg (244 lb) SpO2 95% BMI 41.88 kg/m? PHYSICAL EXAM: General Appearance: Well appearing, alert, in no acute distress, well-hydrated, well nourished.. Skin: Skin color, texture, turgor normal, no suspicious rashes or lesions. Head: Normocephalic, no masses, lesions, tenderness or abnormalities. Eyes: Anicteric sclera. Extraocular movements are intact. . Neck: Supple, no adenopathy; thyroid symmetric, normal size, no bruits. Lungs: Lungs clear to auscultation. No wheezing, rhonchi, rales.. Heart: RRR without murmur, gallop, or rubs. No ectopy. Extremities: No deformities, edema, skin discoloration, clubbing or cyanosis. Good capillary refill. . Neurologic: Gait normal. ASSESSMENT/PLAN: 1. Primary hypertension - ICD9: 401.9, ICD10: I10 (primary diagnosis) - Controlled - Continue current medications - Recommend home blood pressure monitoring, to bring results to next visit - Encouraged sodium restriction, DASH or Mediterranean diet - Recommend regular aerobic exercise - LOSARTAN 25 MG TABLET - LOSARTAN 50 MG TABLET 2. Wheeze - ICD9: 786.07, ICD10: R06.2 Refill: - ALBUTEROL SULFATE HFA 90 MCG/ACTUATION AEROSOL INHALER 3. Class 3 severe obesity with body mass index (BMI) of 40.0 to 44.9 in adult, unspecified obesity type, unspecified whether serious comorbidity present (HCC) - ICD9: 278.01, V85.41, ICD10: E66.01, Z68.41 - CONSULT TO [facility] WEIGHT [facility]NAGEMENT PRO[facility] 4. Encounter for immunization - ICD9: V03.89, ICD10: Z23 - PNEUMOCOCCAL VACCINE, 20 VALENT (PREVNAR 20) - INFLUENZA VACCINE, AGE 6MO-64YR, TRIVALENT (AFLURIA, FLULAVAL, FLUVIRIN, FLUZONE) 5. Tobacco abuse - ICD9: 305.1, ICD10: Z72.0 - Cessation encouraged. Discussed lung ca screening. She will let us know if she would like to pursue. Discussed treatm (more content not included)... [facility] 10-31-2023 History of Present illness Narrative This is a 58 year old female who presents today with: Patient presents with: Recheck: 6 month follow up HISTORY OF PRESENT ILLNESS: Carrie Taveras is a 58 year old female. Patient presents with: Recheck: 6 month follow up Pt presents today for 6 month follow-up. HTN: Patient is compliant with meds Yes Monitors bp at home: Yes. 142/82 yesterday. Denies side effects: No. Chest pain: No. Dyspnea: No. Edema: No. Palpitations: No. Syncope: No. Headache: No. Dizziness: No. Obesity: She is interested in weight loss medication. Agreeable to referral to women's health. Tobacco abuse. Requests refill of albuterol for occ wheeze. Discussed lung ca screening. Would like pneumonia and flu vaccines. PAST MEDICAL HISTORY: PAST MEDICAL HISTORY Diagnosis Date Abnormal mammogram Back pain Cervical cancer (HCC) 2003 GINA III, s/p hysterectomy, no chemo/radiation Cholelithiasis with chronic cholecystitis 05/02/2020 Obesity Tobacco abuse PAST SURGICAL HISTORY Procedure Laterality Date APPENDECTOMY COLONOSCOPY & POLYPECTOMY 09/04/2013 hyperplastic polyp, repeat due 2023 EGD 09/04/2013 Duodenal reactive gastric foveolar metaplasia, repeat due 2016 EGD 04/22/2020 EGD TRANSORAL BIOPSY SINGLE/MULTIPLE 10/05/2016 gastritis, esophagitis HYSTERECTOMY HX 06/25/2003 EMMY/BSO-carcinoma insitu L'SCOPE CHOLECYSTECTOMY 05/02/2020 MASTECTOMY,PARTIAL, WITH AXILLARY LYMPHADENECTOMY 06/03/2015 Mastectomy, Partial, with Axillary Lymphadenectomy TOTAL THYROID LOBECTOMY UNI W/WO ISTHMUSECTOMY Left 06/06/2020 Dr Mcpherson VAGINAL HYSTERECTOMY ALLERGIES Lisinopril and Penicillins MEDICATIONS Current Outpatient Medications Medication Sig losartan (COZAAR) 50 mg tablet Take 1 tablet by mouth once daily. Take w/ 25 mg for total daily dose of 75 mg. ergocalciferol 50,000 unit capsule (VITAMIN D2, DRISDOL) Take one capsule po weekly. famotidine (PEPCID) 20 mg tablet Take 1 tablet by mouth daily at bedtime. losartan (COZAAR) 25 mg tablet Take 1 tablet by mouth once daily. Take with 50 mg for total daily dose of 75 mg daily. ibuprofen (MOTRIN) 600 mg tablet Take 1 tablet by mouth every 6 hours as needed for pain. acetaminophen 325 mg cap Take 650 mg by mouth as needed. No current facility-administered medications for this visit. FAMILY HISTORY Problem Relation Age of Onset Diabetes Mother Hypertension Mother Heart Failure Mother Diabetes Father Hypertension Father Heart Father Pig valve, CHF No Known Problems Brother Social History Tobacco Use Smoking status: Every Day Current packs/day: 1.50 Average packs/day: 1.5 packs/day for 40.0 years (60.0 ttl pk-yrs) Types: Cigarettes Smokeless tobacco: Never Vaping Use Vaping status: Never Used Substance Use Topics Alcohol use: Yes Alcohol/week: 2.0 standard drinks of alcohol Types: 2 Glasses of Wine (5oz) per week Comment: Occasional Drug use: No EXAM: BP 124/82 Pulse 80 Resp 16 Wt 110.7 kg (244 lb) SpO2 95% BMI 41.88 kg/m PHYSICAL EXAM: General Appearance: Well appearing, alert, in no acute distress, well-hydrated, well nourished.. Skin: Skin color, texture, turgor normal, no suspicious rashes or lesions. Head: Normocephalic, no masses, lesions, tenderness or abnormalities. Eyes: Anicteric sclera. Extraocular movements are intact. . Neck: Supple, no adenopathy; thyroid symmetric, normal size, no bruits. Lungs: Lungs clear to auscultation. No wheezing, rhonchi, rales.. Heart: RRR without murmur, gallop, or rubs. No ectopy. Extremities: No deformities, edema, skin discoloration, clubbing or cyanosis. Good capillary refill. . Neurologic: Gait normal. ASSESSMENT/PLAN: 1. Primary hypertension - ICD9: 401.9, ICD10: I10 (primary diagnosis) - Controlled - Continue current medications - Recommend home blood pressure monitoring, to bring results to next visit - Encouraged sodium restriction, DASH or Mediterranean diet - Recommend regular aerobic exercise - LOSARTAN 25 MG TABLET - LOSARTAN 50 MG TABLET 2. Wheeze - ICD9: 786.07, ICD10: R06.2 Refill: - ALBUTEROL SULFATE HFA 90 MCG/ACTUATION AEROSOL INHALER 3. Class 3 severe obesity with body mass index (BMI) of 40.0 to 44.9 in adult, unspecified obesity type, unspecified whether serious comorbidity present (HCC) - ICD9: 278.01, V85.41, ICD10: E66.01, Z68.41 - CONSULT TO [facility] WEIGHT [facility]NAG[facility] 4. Encounter for immunization - ICD9: V03.89, ICD10: Z23 - PNEUMOCOCCAL VACCINE, 20 VALENT (PREVNAR 20) - INFLUENZA VACCINE, AGE 6MO-64YR, TRIVALENT (AFLURIA, FLULAVAL, FLUVIRIN, FLUZONE) 5. Tobacco abuse - ICD9: 305.1, ICD10: Z72.0 - Cessation encouraged. Discussed lung ca screening. She will let us know if she would like to pursue. Discussed treatment plan and patient voices understanding. Patient's questions answered appropriately. Medications and potential side effects were discussed and patient voices understanding. Return to the office as scheduled or as needed for worsening/no improvement. Ariela Talbert APRN.DUCK BILL OPERATOR documented in this encounter [facility] 06-08-2023 History of Present illness Narrative Chief Complaint Patient presents with: Established Patient HPI: Carrie Taveras is a 58 year old female who presents here today for follow up breast cancer. Per Dr. Quarles's previous note: H/o (post-menopausal; cervix cancer, s/p radical hysterectomy 2003) who was found to have an abnormality of the left breast on screening mammogram. She underwent an ultrasound-guided core needle biopsy on 05/13/2015. The pathology demonstrated invasive ductal carcinoma, nuclear grade 3. Estrogen receptors were quantified at greater than 95%, strong. Progesterone receptors 0%. HER-2/gnoc 2+. Nonamplified by FISH testing. The patient socially underwent a left breast lumpectomy and sentinel lymph node biopsy on 06/03/2015. The final pathology demonstrated a 7 mm invasive carcinoma single focus. Histologic grade was 3. Margins were negative. Closest margin was anteriorly 1.5 cm. Lymphovascular invasion was not identified. A total of 6 lymph nodes were retrieved. All were negative for disease. Oncotype Dx-Recurrence score 41 (28% risk). Previous therapy:TC/Neulasta First cycle 07/24/15. Last cycle 09/25/15. Radiation: DATES OF TREATMENT: 10/28/15 to 12/10/15. Began arimidex after radiation. Stopped arimidex due to leg pain/aches. Started femara. Pt. stopped femara due to ankle swelling. Once she stopped the femara the ankle swelling resolved. She re-started femara and ankle swelling returned-so she stopped it again. Then started aromasin. Stopped aromasin d/t leg pain and started tamoxifen June 2017. Stopped tamoxifen 2018 d/t leg aches. S/p lap. castillo on 05/02/[address] Mcpherson and S/p L thyroidectomy on 06/06/[address] Mcpherson. Pt. had MRI face done 05/05/22-ordered by PCP. Impression: IMPRESSION: Well-circumscribed mildly enhancing left parotid lesion which is nonspecific but may represent a small lymph node or intraventricular parotid neoplasm such as pleomorphic adenoma or Jone's tumor. Pts. in October. Pt. did not follow up with ENT. Appetite:I'm not eating much. 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 Resp:denies cough or sob Cardiac:denies chest pain/palpitations GI:denies abd pain, n/v, moving bowels regularly :denies dysuria/hematuria Extrem:denies pain Endo:+hot flashes Once in awhile not very often. Neuro:tingling to feet-resolved Skin:denies rashes/lesions Heme:denies bleeding The ROS is otherwise negative. Past medical history, appointments, medications, allergies reviewed. No changes. EXAM: BP 136/86 Pulse 81 Temp 36.8 C (98.2 F) (Temporal) Wt 112 kg (247 lb) SpO2 98% BMI 42.40 kg/m APPEARANCE Well appearing, alert, in no acute distress, well-hydrated, well nourished. HEART RRR with normal S1 and S2, no murmurs LUNG clear to auscultation BREAST FEMALE no mass/nodule b/l, L scar to inner/radiation changes LYMPH NODES No cervical lymphadenopathy, No supraclavicular lymphadenopathy, and No axillary lymphadenopathy. ABDOMEN bowel sounds normoactive, soft, non-tender EXTREMITIES No edema NEURO Awake, alert and oriented x 3, Normal gait, and No involuntary motions. SKIN Skin color, texture, turgor normal, no suspicious rashes or lesions RADIOLOGY: Mammogram 06/01/23: IMPRESSION: BENIGN FINDING There is no mammographic evidence of malignancy. A 1 year screening mammogram is recommended. ASSESSMENT/PLAN: 1. Personal history of malignant neoplasm of breast - ICD9: V10.3, ICD10: Z85.3 pT1b (7 mm; grade 3; no LVI) pN0(sln) MX ER positive, UT negative, HER2 non-amplified invasive ductal carcinoma the left breast. - No concerning findings on exam. - Pt. now 7 1/2 years out from radiation. - Pt. did not tolerate AI's/tamoxifen. Declined further therapy. - Reviewed mammogram with pt. - Follow up with ENT/PCP. - Mammogram due in one year. - Follow up after above. - Pt. aware to call office with any questions/concerns. The patient indicates understanding of these issues and agrees with the plan. All documentation from previous visit of 05/26/22-Dr. Quarles/myself was copied and pasted, documentation has been reviewed and edited as necessary for today's visit. Becky White APRN.DUCK BILL OPERATOR documented in this encounter [facility] 06-02-2023 Miscellaneous Notes Message relayed to patient left message for pt. To contact office. Leann Cartwright LPN Please inform pt. that her mammogram looks good. Follow up as scheduled. Thank you. Becky White APRN.DUCK BILL OPERATOR documented in this encounter [facility] 06-02-2023 Miscellaneous Notes June 02, 2023 PID: [id number] Carrie Toro Calebherminio [address] [place] [address] Dear Ms. Taveras, We are pleased to inform you that the results of your recent breast imaging exam on 06/01/2023 are normal. Early detection of cancer is very important. We also understand recommendations regarding breast cancer screening are controversial. Please discuss with your primary care provider which strategy is best for you and whether a mammogram is right for you. Your imaging studies and report will be kept on file at [facility] as part of your permanent medical record and are available for your continuing care. Thank you for allowing us to help in meeting your health care needs. Sincerely, Dr. Germain Interpreting Radiologist [facility] (Normal over 40) documented in this encounter [facility] 06-01-2023 History of Present illness Narrative Radiology Service Progress Note PATIENT NAME: Carrie Taveras DATE OF SERVICE: June 01, 2023 TIME: 9:01 AM PATIENT IDENTITY VERIFICATION COMPLETED USING TWO (2) IDENTIFIERS: Name and Date of confirmed by patient verbally. FALL SCREENING: Has the patient had 2 falls in the last year or 1 fall with injury or currently using an Ambulatory Assistive Device (Walker, Cane, Wheelchair, Crutches, etc.)? No PATIENT GENDER DATA: Female. status: : No status: NO. PATIENT RELEVANT IMPLANT DATA REVIEWED: Not Applicable PATIENT PRESENTS WITH AN IMPLANTABLE OR ATTACHED HOSPITALITY RECRUITER: No RADIOLOGY DEPARTMENT: Mammography PERIPHERAL IV DATA: Not applicable SIGNED BY: Hawa Dai [employer] June 01, 2023 9:01 AM documented in this encounter [facility] 04-29-2023 Instructions Ariela Talbert APRN.GERARDO - 04/29/2023 9:11 AM EDT Same medications. Recheck in 6 months. documented in this encounter [facility] 04-29-2023 History of Present illness Narrative This is a 57 year old female who presents today with: Patient presents with: Recheck: 1 month follow up HISTORY OF PRESENT ILLNESS: Carrie Taveras is a 57 year old female. Patient presents with: Recheck: 1 month follow up Patient presents today to follow-up on elevated blood pressure. At last visit, losartan dose increased to 75 mg. Refers doing okay with dosage change. No problems/side effects. No chest pain, sob, palpitations. No dizziness/headaches. PAST MEDICAL HISTORY: PAST MEDICAL HISTORY Diagnosis Date Abnormal mammogram Back pain Cervical cancer (HCC) 2003 GINA III, s/p hysterectomy, no chemo/radiation Cholelithiasis with chronic cholecystitis 05/02/2020 Obesity Tobacco abuse PAST SURGICAL HISTORY Procedure Laterality Date APPENDECTOMY COLONOSCOPY & POLYPECTOMY 09/04/2013 hyperplastic polyp, repeat due 2023 EGD 09/04/2013 Duodenal reactive gastric foveolar metaplasia, repeat due 2016 EGD 04/22/2020 EGD TRANSORAL BIOPSY SINGLE/MULTIPLE 10/05/2016 gastritis, esophagitis HYSTERECTOMY HX 06/25/2003 EMMY/BSO-carcinoma insitu L'SCOPE CHOLECYSTECTOMY 05/02/2020 MASTECTOMY,PARTIAL, WITH AXILLARY LYMPHADENECTOMY 06/03/2015 Mastectomy, Partial, with Axillary Lymphadenectomy TOTAL THYROID LOBECTOMY UNI W/WO ISTHMUSECTOMY Left 06/06/2020 Dr Mcpherson VAGINAL HYSTERECTOMY ALLERGIES Lisinopril and Penicillins MEDICATIONS Current Outpatient Medications Medication Sig losartan (COZAAR) 50 mg tablet Take 1 tablet by mouth once daily. Take w/ 25 mg for total daily dose of 75 mg. ergocalciferol 50,000 unit capsule (VITAMIN D2, DRISDOL) Take one capsule po weekly. famotidine (PEPCID) 20 mg tablet Take 1 tablet by mouth daily at bedtime. losartan (COZAAR) 25 mg tablet Take 1 tablet by mouth once daily. Take with 50 mg for total daily dose of 75 mg daily. albuterol HFA (PROVENTIL HFA, VENTOLIN HFA) 90 mcg/actuation inhaler Inhale 2 Puffs as instructed every 6 hours as needed for wheezing/shortness of breath. ibuprofen (MOTRIN) 600 mg tablet Take 1 tablet by mouth every 6 hours as needed for pain. acetaminophen 325 mg cap Take 650 mg by mouth as needed. No current facility-administered medications for this visit. FAMILY HISTORY Problem Relation Age of Onset Diabetes Mother Hypertension Mother Heart Failure Mother Diabetes Father Hypertension Father Heart Father Pig valve, CHF No Known Problems Brother Social History Tobacco Use Smoking status: Every Day Packs/day: 1.50 Years: 40.00 Additional pack years: 0.00 Total pack years: 60.00 Types: Cigarettes Smokeless tobacco: Never Vaping Use Vaping Use: Never used Substance Use Topics Alcohol use: Yes Alcohol/week: 2.0 standard drinks of alcohol Types: 2 Glasses of Wine (5oz) per week Comment: Occasional Drug use: No EXAM: BP 126/81 Pulse 82 Resp 16 Wt 112.9 kg (249 lb) SpO2 94% BMI 42.74 kg/m PHYSICAL EXAM: General Appearance: Well appearing, alert, in no acute distress, well-hydrated, well nourished.. Skin: Skin color, texture, turgor normal, no suspicious rashes or lesions. Head: Normocephalic, no masses, lesions, tenderness or abnormalities. Eyes: Anicteric sclera. Extraocular movements are intact. . Lungs: few scattered expiratory wheezes. Heart: RRR without murmur, gallop, or rubs. No ectopy. Extremities: No deformities, edema, skin discoloration, clubbing or cyanosis. Good capillary refill. Neurologic: Gait normal. ASSESSMENT/PLAN: 1. Primary hypertension - ICD9: 401.9, ICD10: I10 - Controlled - Improving control - Continue current medications - Recommend home blood pressure monitoring, to bring results to next visit - Encouraged sodium restriction, DASH or Mediterranean diet - Recommend regular aerobic exercise Discussed treatment plan and patient voices understanding. Patient's questions answered appropriately. Medications and potential side effects were discussed and patient voices understanding. Return to the office as scheduled or as needed for worsening/no improvement. Ariela Talbert APRN.GERARDO documented in this encounter [facility] 08-16-2022 Instructions Ariela Talbetr APRN.CNP - 08/16/2022 3:54 PM EDT Start the prednisone daily X 5 days. Increase the losartan to 50 mg daily. Recheck in a month. documented in this encounter [facility] 08-16-2022 History of Present illness Narrative This is a 57 year old female who presents today with: Patient presents with: Swelling: Facial swelling x couple days; painful HISTORY OF PRESENT ILLNESS: Carrie Taveras is a 57 year old female. Patient presents with: Swelling: Facial swelling x couple days; painful Pt presents today with complaint of facial swelling on the left side. Refers that it keeps waxing and waning with swelling. Gets larger and more painful and then improves. Refers that it flares up at least once a month. Will take tylenol for pain. Refers will have pain in the ear and jaw areas. Will hurt to touch/lay on that side. She previously was found to have a tumor in her left parotid. 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 She follows with Dr. Manrique. She reports that she did try to contact Dr. Manrique's office, but did not hear back from them. PAST MEDICAL HISTORY: PAST MEDICAL HISTORY Diagnosis Date Abnormal mammogram Back pain Cervical cancer (HCC) 2003 GINA III, s/p hysterectomy, no chemo/radiation Cholelithiasis with chronic cholecystitis 05/02/2020 Obesity Tobacco abuse PAST SURGICAL HISTORY Procedure Laterality Date APPENDECTOMY COLONOSCOPY & POLYPECTOMY 09/04/2013 hyperplastic polyp, repeat due 2023 EGD 09/04/2013 Duodenal reactive gastric foveolar metaplasia, repeat due 2016 EGD 04/22/2020 EGD TRANSORAL BIOPSY SINGLE/MULTIPLE 10/05/2016 gastritis, esophagitis HYSTERECTOMY HX 06/25/2003 EMMY/BSO-carcinoma insitu L'SCOPE CHOLECYSTECTOMY 05/02/2020 MASTECTOMY,PARTIAL, WITH AXILLARY LYMPHADENECTOMY 06/03/2015 Mastectomy, Partial, with Axillary Lymphadenectomy TOTAL THYROID LOBECTOMY UNI W/WO ISTHMUSECTOMY Left 06/06/2020 Dr Mcpherson VAGINAL HYSTERECTOMY ALLERGIES Lisinopril and Penicillins MEDICATIONS Current Outpatient Medications Medication Sig losartan (COZAAR) 25 mg tablet Take 1 tablet by mouth once daily. albuterol HFA (PROVENTIL HFA, VENTOLIN HFA) 90 mcg/actuation inhaler Inhale 2 Puffs as instructed every 6 hours as needed for wheezing/shortness of breath. ergocalciferol 50,000 unit capsule (VITAMIN D2, DRISDOL) Take one capsule po weekly. famotidine (PEPCID) 20 mg tablet Take 1 tablet by mouth daily at bedtime. ibuprofen (MOTRIN) 600 mg tablet Take 1 tablet by mouth every 6 hours as needed for pain. acetaminophen 325 mg cap Take 650 mg by mouth as needed. No current facility-administered medications for this visit. FAMILY HISTORY Problem Relation Age of Onset Diabetes Mother Hypertension Mother Heart Failure Mother Diabetes Father Hypertension Father Heart Father Pig valve, CHF No Known Problems Brother Social History Tobacco Use Smoking status: Every Day Packs/day: 1.50 Years: 40.00 Pack years: 60.00 Types: Cigarettes Smokeless tobacco: Never Vaping Use Vaping Use: Never used Substance Use Topics Alcohol use: Yes Alcohol/week: 5.0 standard drinks Types: 2 Glasses of Wine (5oz) per week Comment: Occasional Drug use: No EXAM: BP 164/80 Pulse 67 Resp 16 SpO2 95% PHYSICAL EXAM: General Appearance: Well appearing, alert, in no acute distress, well-hydrated, well nourished.. Skin: Skin color, texture, turgor normal, no suspicious rashes or lesions. Head: Normocephalic, no masses, lesions, tenderness or abnormalities. Eyes: Anicteric sclera. Pupils are equally round and reactive to light. Extraocular movements are intact. . Ears: External ears normal, canals clear, Normal L TMs. Right ear with moderate cerumen. Oropharynx: Lips, mucosa, and tongue normal, teeth and gums normal, oropharynx normal. + lump noted in front of the left ear. Neck: Supple, no adenopathy Lungs: Lungs clear to auscultation. No wheezing, rhonchi, rales.. Heart: RRR without murmur, gallop, or rubs. No ectopy. Neurologic: Gait normal. Reflexes normal and symmetric. Sensation grossly intact.. ASSESSMENT/PLAN: 1. 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 Will start a burst of prednisone to hopefully help with any acute inflammation and get relief. No acute s/s of infection. - PREDNISONE 20 MG TABLET 2. Primary hypertension - ICD9: 401.9, ICD10: I10 - Uncontrolled - Increase losartan - Recommend home blood pressure monitoring, to bring results to next visit - Encouraged sodium restriction, DASH or Mediterranean diet - Recommend regular aerobic exercise - LOSARTAN 50 MG TABLET Discussed treatment plan and patient voices understanding. Patient's questions answered appropriately. Medications and potential side effects were discussed and patient voices understanding. Return to the office as scheduled or as needed for worsening/no improvement. Ariela Talbert APRN.GERARDO documented in this encounter [facility] 07-19-2022 Miscellaneous Notes Patient informed and verbalized understanding. Leona Mccartney Message left for patient to return call for results. Leona Mccartney Labs are ok. documented in this encounter [facility] 07-16-2022 History of Present illness Narrative Patient presents with: Hypertension HPI: Patient presents today for office visit for followup. HTN: Patient is compliant with meds Yes Monitors bp at home: No. Denies side effects: Yes. Chest pain: No. Dyspnea: No. Edema: No. Palpitations: No. Syncope: No. Headache: No. Dizziness: No. Still with some pain in area on FNA done of left parotid mass. Rates at a constant 4-5 states that has a earache/pressure. Can also have aching in left side jaw. Dr Manrique called patient with result and stated that may only need surgery if continued to have issues with pain. She states pain started after the biopsy. No fever or chills. No redness or warmth. No new swelling. No numbness. No cough or congestion. Discussed that pain continues, she needs to let ENT know. See notes from Dr MANRIQUE: called the patient on the phone. There is no answer on both numbers listed. I left a voicemail at [phone]. 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 I informed her that I would only recommend surgery if she does have any pain or discomfort or if there is any concern with cosmesis. I have asked her to call me back if she has any questions or would like to discuss the results further. Had labs completed today but results will not be back till after today's visit. Still following with oncology. Breast cancer has been doing well. Still taking vitamin d. Still with gerd. Depends on the food. Does get benefit from pepcid. Red flags for re-assessment reviewed with patient in detail. No black or bloody stools. Got labs done today MEDICATIONS: Current Outpatient Medications Medication Sig albuterol HFA (PROVENTIL HFA, VENTOLIN HFA) 90 mcg/actuation inhaler Inhale 2 Puffs as instructed every 6 hours as needed for wheezing/shortness of breath. losartan (COZAAR) 25 mg tablet Take 1 tablet by mouth once daily. ergocalciferol 50,000 unit capsule (VITAMIN D2, DRISDOL) Take one capsule po weekly. famotidine (PEPCID) 20 mg tablet Take 1 tablet by mouth daily at bedtime. ibuprofen (MOTRIN) 600 mg tablet Take 1 tablet by mouth every 6 hours as needed for pain. acetaminophen 325 mg cap Take 650 mg by mouth as needed. No current facility-administered medications for this visit. ALLERGIES: ALLERGIES Allergen Reactions Lisinopril Cough Penicillins Rash PAST MEDICAL HISTORY Diagnosis Date Abnormal mammogram Back pain Cervical cancer (HCC) 2003 GINA III, s/p hysterectomy, no chemo/radiation Cholelithiasis with chronic cholecystitis 05/02/2020 Obesity Tobacco abuse PAST SURGICAL HISTORY Procedure Laterality Date APPENDECTOMY COLONOSCOPY & POLYPECTOMY 09/04/2013 hyperplastic polyp, repeat due 2023 EGD 09/04/2013 Duodenal reactive gastric foveolar metaplasia, repeat due 2016 EGD 04/22/2020 EGD TRANSORAL BIOPSY SINGLE/MULTIPLE 10/05/2016 gastritis, esophagitis HYSTERECTOMY HX 06/25/2003 EMMY/BSO-carcinoma insitu L'SCOPE CHOLECYSTECTOMY 05/02/2020 MASTECTOMY,PARTIAL, WITH AXILLARY LYMPHADENECTOMY 06/03/2015 Mastectomy, Partial, with Axillary Lymphadenectomy TOTAL THYROID LOBECTOMY UNI W/WO ISTHMUSECTOMY Left 06/06/2020 Dr Mcpherson VAGINAL HYSTERECTOMY FAMILY HISTORY Problem Relation Age of Onset Diabetes Mother Hypertension Mother Heart Failure Mother Diabetes Father Hypertension Father Heart Father Pig valve, CHF No Known Problems Brother Social History Tobacco Use Smoking status: Every Day Packs/day: 1.50 Years: 40.00 Pack years: 60.00 Types: Cigarettes Smokeless tobacco: Never Vaping Use Vaping Use: Never used Substance Use Topics Alcohol use: Yes Alcohol/week: 5.0 standard drinks Types: 2 Glasses of Wine (5oz) per week Comment: Occasional Drug use: No Reviewed current medications, allergies, past medical history, surgical history, family history and social history today. REVIEW OF SYSTEMS All other reviewed and negative other than HPI. HEALTH MAINTENANCE: Reviewed health maintenance issues today and recommended the following in detail. DTAP,TDAP,TD(1 - Tdap) Never done SHINGRIX VACCINE(1 of 2) Never done PNEUMOCOCCAL(2 - PCV) due on 12/02/2019 COVID-19 VACCINE(4 - Booster for Pfizer series) due on 04/02/2021 DEPRESSION ASSESSMENT due on 02/14/2022 LUNG CANCER SCREENING -declines. VITALS: BP 150/78 Pulse 68 Wt 123.4 kg (272 lb) SpO2 95% BMI 46.69 kg/m Last 4 Encounter Wt Readings: Date: Wt: 06/11/2022 124.7 kg (275 lb) 05/26/2022 124.7 kg (275 lb) 05/12/2022 121.6 kg (268 lb) 04/07/2022 126 kg (277 lb 12.8 oz) PHYSICAL EXAMINATION: General appearance: Well appearing, alert, in no acute distress, well-hydrated, well nourished. Skin: Skin color, texture, turgor normal, no suspicious rashes or lesions Head: Normocephalic, no masses, lesions, tenderness or abnormalities Eyes: Anicteric sclera. Pupils are equally round and reactive to light. Extraocular movements are intact. Ears: External ears normal, canals clear Nose/Sinuses: Nares normal, septum midline, mucosa normal, no drainage or sinus tenderness Oropharynx: Lips, mucosa, and tongue normal, teeth and gums normal, oropharynx normal. No increased swelling, redness or warmth over the parotid. Is slightly tender with crepitus on opening and closing the jaw. ? TMJ related. Neck: Supple, no adenopathy; thyroid symmetric, normal size, no bruits Lungs: Lungs clear to auscultation. No wheezing, rhonchi, rales Heart: RRR without murmur, gallop, or rubs. No ectopy Abdomen: Normal abdominal exam, Abdomen soft, non-tender. Bowel sounds normal. No masses, organomegaly Extremities: No deformities, edema, skin discoloration, clubbing or cyanosis. Good capillary refill. Musculoskeletal: No joint swelling, deformity, or tenderness ASSESSMENT/PLAN: 1. Left ear pain - ICD9: 388.70, ICD10: H92.02 (primary diagnosis) - ? TMJ although she relates it has been uncomfortable since her FNA. She has not contacted her surgeon. Suggested she do so and will let him know. Red flags for re-assessment reviewed with patient in detail. 2. Primary hypertension - ICD9: 401.9, ICD10: I10 - Worsening control - Recommend home blood pressure monitoring, to bring results to next visit - Recommend regular aerobic exercise - Follow up in 4 weeks for hypertension visit - LOSARTAN 25 MG TABLET Discussed weight loss. May be consider bariatrics. Will check with her insurance. 3. Malignant neoplasm of upper-outer quadrant of left breast in female, estrogen receptor positive (HCC) - ICD9: 174.4, V86.0, ICD10: C50.412, Z17.0 - stable. Sees oncology 4. Vitamin D deficiency - ICD9: 268.9, ICD10: E55.9 - wait on labs. 5. Obesity, Class III, BMI 40-49.9 (morbid obesity) (HCC) - ICD9: 278.01, ICD10: E66.01 - as above. 6. 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 See ENT 7. Gastritis and duodenitis - ICD9: 535.50, ICD10: K29.90 - continue meds. 8. 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) - ICD9: 174.9, ICD10: C50.912 - stable. Palmer Mckinnon RTO in six monthsh and prn. documented in this encounter [facility] 06-25-2022 Miscellaneous Notes I called the patient on the phone. There is no answer on both numbers listed. I left a voicemail at [phone]. 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 I informed her that I would only recommend surgery if she does have any pain or discomfort or if there is any concern with cosmesis. I have asked her to call me back if she has any questions or would like to discuss the results further. Elvira Manrique MD documented in this encounter [facility] 06-16-2022 Miscellaneous Notes Called pt to schedule and left a message. I noticed she is scheduled for this biopsy at [facility] on 06/24. If patient calls back I inform her our first available and reschedule if she chooses. RADIOLOGIST REQUEST / APPROVAL FORM STAFF RADIOLOGIST:Hattie Lino PROCEDURE TO BE DONE UNDER: Ultrasound PROCEDURE REQUESTED: FNA or Core PROCEDURE: Approved TIME SLOT NEEDED: 1 Hour NOTES: None SPECIAL LABS/ PROCESSING: none Pre-procedure labs: CBC: ordered INR: not needed COVID: not needed SIR Bleeding risk category for this procedure: intermediate-high risk. Reference from [facility] Logistician: [email or web address] STAFF SIGNATURE: Romario Lee MD DATE: June 15, 2022 TIME: 9:44 AM BX. COORDINATOR INFORMATION LAB RESULTS: No results found for: INR No results found for: APTT Platelet Count (k/uL) Date Value 11/20/2019 250 Current Outpatient Medications Medication Sig albuterol HFA (PROVENTIL HFA, VENTOLIN HFA) 90 mcg/actuation inhaler Inhale 2 Puffs as instructed every 6 hours as needed for wheezing/shortness of breath. losartan (COZAAR) 25 mg tablet Take 1 tablet by mouth once daily. ergocalciferol 50,000 unit capsule (VITAMIN D2, DRISDOL) Take one capsule po weekly. famotidine (PEPCID) 20 mg tablet Take 1 tablet by mouth daily at bedtime. ibuprofen (MOTRIN) 600 mg tablet Take 1 tablet by mouth every 6 hours as needed for pain. acetaminophen 325 mg cap Take 650 mg by mouth as needed. No current facility-administered medications for this visit. ALLERGIES Allergen Reactions Lisinopril Cough Penicillins Rash FILMS SENT TO WORKSTATION: GUIDELINES FOR HOLDING ANTI-PLATELET AND ANTI- COAGULATION THERAPY: none on file NURSE SIGNATURE: Patricia Marcial LPN DATE: June 10, 2022 TIME: 8:07 AM STAFF-INITIATED RADIOLOGY BIOPSY / ASPIRATION / DRAIN REQUEST FORM Date: June 09, 2022 Time: 4:09 PM PATIENT CONTACT INFORMATION: Best way to reach patient Epic contact SCHEDULING: HARRISON (Specific requests must be greater than 10 business days from the date of request) RADIOLOGY SERVICE GROUP (Abdominal / Thoracic / MSK / Neuro): Neuro- Biopsy Site: Parotid Gland SPECIFICS OF THE REQUEST (Please be as detailed as possible): BIOPSY of MASS - LYMPH NODE / Biopsy Type: Unsure SPECIAL REQUESTS: TISSUE SAMPLE, LABWORK: Routine Evaluation MEDICAL DIAGNOSIS: Parotid mass [K11.8] (i.e. Known primary cancer or suspected diagnosis) IMAGING STUDY AND DATE THAT IS THE BASIS OF THE REQUEST: None (Note: Requests for random organ biopsies, specifically liver and kidney random biopsies do not need imaging.) IMAGING: N/A (If the imaging was obtained outside the [facility] system, PLEASE upload for review prior to approval.) Note to all persons requesting biopsies: All biopsy requests will be scheduled as quickly as possible, based on the clinical urgency, availability of appointment times, the need to hold anti-thrombolytic therapy (aspirin and other blood thinners) and the patient s schedule, including the need for an available armored car driver. If a percutaneous biopsy or drainage is not felt to be safe or an alternative method for establishing a diagnosis is possible, this will be discussed directly with the requesting physician. documented in this encounter [facility] 06-09-2022 History of Present illness Narrative This consult is seen at the kind request of Dr. Palmer Mckinnon of family medicine, and my final recommendations will be communicated to the requesting health care provider by way of shared electronic medical record. This note is formatted with the impression and plan first and the history and physical to follow. IMPRESSION 57-year-old female with left parotid mass. RECOMMENDATION/PLAN I was not able to appreciate the mass on exam today. I discussed with patient regarding the differential diagnosis of the lesion including benign lymph node, benign or malignant parotid neoplasm. At this time, I recommend imaging guided biopsy with interventional radiology. I will call the patient once I get the result of the biopsy to discuss the next step in treatment. Chief Complaint Left parotid mass History of Present Illness Carrie Taveras is a 57 year old female presents for evaluation of left parotid mass. Patient stated that she had a CT scan of her brain on March 23, 2022 for headaches. Incidentally, it was noted that she had a left parotid mass. Patient then obtained a MRI scan of her face on May 05, 2022. The imaging was reviewed and interpreted by me. He appears to show a left-sided well-circumscribed lesion in the deep lobe of the left parotid gland approximately 1.8 cm in size. Patient denies knowing the mass being there. She denies any facial pain or facial weakness. He does have a history of invasive ductal carcinoma diagnosed in 2015 that was treated. PAST MEDICAL HISTORY Diagnosis Date Abnormal mammogram Back pain Cervical cancer (HCC) 2003 GINA III, s/p hysterectomy, no chemo/radiation Cholelithiasis with chronic cholecystitis 05/02/2020 Obesity Tobacco abuse PAST SURGICAL HISTORY Procedure Laterality Date APPENDECTOMY COLONOSCOPY & POLYPECTOMY 09/04/2013 hyperplastic polyp, repeat due 2023 EGD 09/04/2013 Duodenal reactive gastric foveolar metaplasia, repeat due 2016 EGD 04/22/2020 EGD TRANSORAL BIOPSY SINGLE/MULTIPLE 10/05/2016 gastritis, esophagitis HYSTERECTOMY HX 06/25/2003 EMMY/BSO-carcinoma insitu L'SCOPE CHOLECYSTECTOMY 05/02/2020 MASTECTOMY,PARTIAL, WITH AXILLARY LYMPHADENECTOMY 06/03/2015 Mastectomy, Partial, with Axillary Lymphadenectomy TOTAL THYROID LOBECTOMY UNI W/WO ISTHMUSECTOMY Left 06/06/2020 Dr Mcpherson VAGINAL HYSTERECTOMY FAMILY HISTORY Problem Relation Age of Onset Diabetes Mother Hypertension Mother Heart Failure Mother Diabetes Father Hypertension Father Heart Father Pig valve, CHF No Known Problems Brother CURRENT OUTPATIENT MEDICATIONS Current Outpatient Medications on File Prior to Visit Medication Sig albuterol HFA (PROVENTIL HFA, VENTOLIN HFA) 90 mcg/actuation inhaler Inhale 2 Puffs as instructed every 6 hours as needed for wheezing/shortness of breath. losartan (COZAAR) 25 mg tablet Take 1 tablet by mouth once daily. ergocalciferol 50,000 unit capsule (VITAMIN D2, DRISDOL) Take one capsule po weekly. famotidine (PEPCID) 20 mg tablet Take 1 tablet by mouth daily at bedtime. ibuprofen (MOTRIN) 600 mg tablet Take 1 tablet by mouth every 6 hours as needed for pain. acetaminophen 325 mg cap Take 650 mg by mouth as needed. No current facility-administered medications on file prior to visit. ALLERGIES ALLERGIES Allergen Reactions Lisinopril Cough Penicillins Rash The remainder of the patient's history and review of systems is on the outpatient questionaire which was reviewed by me and placed in the outpatient chart. PHYSICAL EXAMINATION Appearance: General examination of the patient's external face, head and neck reveals no abnormalities. The patient is not retrognathic The patient's voice is strong and clear and they communicate easily. Ears: Exam of the ears revealed normal appearing external auditory canals, tympanic membranes, and middle ears. No signs of infection or fluid were seen. Nose: External nasal exam was normal. Throat: There were no lesions to visualization or palpation of the lips, cheeks, gums, floor of mouth, tongue, hard and soft palate, tonsillar pillars or posterior pharyngeal wall. Neck: Palpation of the neck revealed no adenopathy, salivary gland masses or asymmetry, or thyroid masses or enlargement. Cranial nerve VII: House-Brackman 1 out of 6. Elvira Manrique MD Medical Decision Making: Problems: Moderate: New problem with uncertain prognosis Data: Independent interpretation of test from other physician/QHCP Risk: Moderate: Moderate risk from testing/treatment Medical Decision Making Level: 4 - Moderate documented in this encounter [facility] 05-26-2022 History of Present illness Narrative Chief Complaint Patient presents with: Established Patient HPI: Carrie Taveras is a 57 year old female who presents here today for follow up breast cancer. Per Dr. Quarles's previous note: H/o (post-menopausal; cervix cancer, s/p radical hysterectomy 2003) who was found to have an abnormality of the left breast on screening mammogram. She underwent an ultrasound-guided core needle biopsy on 05/13/2015. The pathology demonstrated invasive ductal carcinoma, nuclear grade 3. Estrogen receptors were quantified at greater than 95%, strong. Progesterone receptors 0%. HER-2/ngoc 2+. Nonamplified by FISH testing. The patient socially underwent a left breast lumpectomy and sentinel lymph node biopsy on 06/03/2015. The final pathology demonstrated a 7 mm invasive carcinoma single focus. Histologic grade was 3. Margins were negative. Closest margin was anteriorly 1.5 cm. Lymphovascular invasion was not identified. A total of 6 lymph nodes were retrieved. All were negative for disease. Oncotype Dx-Recurrence score 41 (28% risk). Previous therapy:TC/Neulasta First cycle 07/24/15. Last cycle 09/25/15. Radiation: DATES OF TREATMENT: 10/28/15 to 12/10/15. Began arimidex after radiation. Stopped arimidex due to leg pain/aches. Started femara. Pt. stopped femara due to ankle swelling. Once she stopped the femara the ankle swelling resolved. She re-started femara and ankle swelling returned-so she stopped it again. Then started aromasin. Stopped aromasin d/t leg pain and started tamoxifen June 2017. Stopped tamoxifen 2018 d/t leg aches. S/p lap. castillo on 05/02/[address] Mcpherson and S/p L thyroidectomy on 06/06/[address] Mcpherson. Pt. had MRI face done 05/05/22-ordered by PCP. Impression: IMPRESSION: Well-circumscribed mildly enhancing left parotid lesion which is nonspecific but may represent a small lymph node or intraventricular parotid neoplasm such as pleomorphic adenoma or Jone's tumor. Has appt. with ENT this month. Appetite:Ok. 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 Resp:denies cough or sob Cardiac:denies chest pain/palpitations GI:denies abd pain, n/v, moving bowels regularly :denies dysuria/hematuria Extrem:denies pain Endo:+hot flashes All the time. Just at night when I'm at work. She does not have them at night when she is not at work. Neuro:tingling to feet-resolved Skin:denies rashes/lesions Heme:denies bleeding The ROS is otherwise negative. Past medical history, appointments, medications, allergies reviewed. No changes. EXAM: BP 144/81 Pulse 67 Temp 36.7 C (98 F) (Temporal) Ht 162.6 cm (5' 4) Wt 124.7 kg (275 lb) BMI 47.20 kg/m APPEARANCE Well appearing, alert, in no acute distress, well-hydrated, well nourished. HEART RRR with normal S1 and S2, no murmurs LUNG clear to auscultation BREAST FEMALE no mass/nodule b/l, scar to L upper/inner/radiation changes LYMPH NODES No cervical lymphadenopathy, No supraclavicular lymphadenopathy, and No axillary lymphadenopathy. ABDOMEN bowel sounds normoactive, soft, non-tender EXTREMITIES No edema NEURO Awake, alert and oriented x 3, Normal gait, and No involuntary motions. SKIN Skin color, texture, turgor normal, no suspicious rashes or lesions RADIOLOGY: Mammogram 05/20/22: IMPRESSION: BENIGN FINDING There is no mammographic evidence of malignancy. A 1 year screening mammogram is recommended. ASSESSMENT/PLAN: 1. Personal history of malignant neoplasm of breast - ICD9: V10.3, ICD10: Z85.3 (primary diagnosis) pT1b (7 mm; grade 3; no LVI) pN0(sln) MX ER positive, UT negative, HER2 non-amplified invasive ductal carcinoma the left breast. - No concerning findings on exam. - Pt. now 6 1/2 years out from surgery. - Pt. did not tolerate AI's/tamoxifen. Declined further therapy. - Reviewed mammogram with pt. - Follow up with ENT as scheduled. - Mammogram due in one year. - Follow up as above. - Pt. aware to call office with any questions/concerns. The patient indicates understanding of these issues and agrees with the plan. All documentation from previous visit of 05/26/21-Dr. Quarles/myself was copied and pasted, documentation has been reviewed and edited as necessary for today's visit. Becky White APRN.GERARDO documented in this encounter [facility] 05-24-2022 Miscellaneous Notes Attempted to contact pt., left message on voicemail ,Will discuss results of recent mamm @ [facility] on 05/26.. Laenn Hatfield LPN Please inform pt. that her mammogram looks good. Follow up as scheduled. Thank you. Becky White APRN.CNP documented in this encounter [facility] 05-20-2022 History of Present illness Narrative Radiology Service Progress Note PATIENT NAME: Carrie Taveras DATE OF SERVICE: May 20, 2022 TIME: 2:23 PM PATIENT IDENTITY VERIFICATION COMPLETED USING TWO (2) IDENTIFIERS: Name and Date of confirmed by patient verbally. FALL SCREENING: Has the patient had 2 falls in the last year or 1 fall with injury or currently using an Ambulatory Assistive Device (Walker, Cane, Wheelchair, Crutches, etc.)? No PATIENT GENDER DATA: Female. status: : No status: NO. PATIENT RELEVANT IMPLANT DATA REVIEWED: Not Applicable RADIOLOGY DEPARTMENT: Mammography PERIPHERAL IV DATA: Not applicable SIGNED BY: Kirsten Horn May 20, 2022 2:23 PM documented in this encounter [facility] 05-13-2022 Miscellaneous Notes Spoke with patient. Given message from provider's office. Patient verbalizes understanding. Vanessa Ruff RN Left message for pt to call back. Jesenia Saul MA Please notify of negative covid and influenza test. Continue comfort measures for symptoms as you would for a cold. Any worsening symptoms follow up with PCP or ER. Danielle Simon APRN.GERARDO documented in this encounter [facility] 05-12-2022 History of Present illness Narrative This note was created using NoteWriter. Subjective Carrie Taveras is a 57 year old female. HPI fever of 101 last night, dry cough, running nose with pressure that started yesterday. Review of Systems Constitutional: Positive for fever. HENT: Positive for congestion, rhinorrhea and sinus pressure. Respiratory: Positive for cough and shortness of breath. Objective BP 124/72 Pulse 102 Temp 37.2 C (98.9 F) Resp 16 Wt 121.6 kg (268 lb) SpO2 94% BMI 46.00 kg/m Physical Exam HENT: Head: Normocephalic. Nose: Congestion and rhinorrhea present. Mouth/Throat: Mouth: Mucous membranes are moist. Cardiovascular: Rate and Rhythm: Normal rate. Pulmonary: Breath sounds: Wheezing (b/l through out) present. Neurological: Mental Status: She is alert. ASSESSMENT/PLAN: 1. Pneumonia of both lungs due to infectious organism, unspecified part of lung - ICD9: 483.8, ICD10: J18.9 (primary diagnosis) - Albuterol inhaler and Azithromycin ordered - return if symptoms get worst or seek care at the ED 2. Acute cough - ICD9: 786.2, ICD10: R05.1 - COVID WITH FLUA+B, ROUTINE Will notify of results Lizette Berrios APRN.GERARDO Medical Decision Making: Problems: Low: Acute, uncomplicated illness or injury Data: Unique test(s) ordered: 2 Risk: Low: Low risk from testing/treatment Moderate: Drug management Medical Decision Making Level: 3 - Low documented in this encounter [facility] 05-06-2022 Miscellaneous Notes Pt scheduled in [place] Patient notified. Please set up patient soon. Attempted to call. Does show small lump in the area of the parotid gland. Is nonspecific in appearance. May be ok however we need to have an ent look at it. Called x 2. Will reattempt in am documented in this encounter [facility] 05-05-2022 History of Present illness Narrative Radiology Service Progress Note DATE OF SERVICE: May 05, 2022 TIME: 2:12 PM PATIENT IDENTITY VERIFICATION COMPLETED USING TWO (2) STANDARD IDENTIFIERS: Name and Date of confirmed by patient verbally. FALL SCREENING: Has the patient had 2 falls in the last year or 1 fall with injury or currently using an Ambulatory Assistive Device (Walker, Cane, Wheelchair, Crutches, etc.)? No PATIENT GENDER DATA: Female. status: : No status: NO. PATIENT RELEVANT IMPLANT DATA REVIEWED: Yes ALLERGIES: Reviewed and unchanged CONTRAST ALLERGY: NO. EXAM: MRI - CONTRAST TYPE: GROUP II PERIPHERAL IV DATA: Ambulatory: A peripheral IV was started in the Right antecubital site with a Angio cath: 22 gauge. RADIOLOGY DEPARTMENT: MR; Exam(s) Completed: Neck: Soft Tissue Neck SIGNATURE: RT Afsaneh(Evette) PATIENT NAME: Carrie Taveras DATE: May 05, 2022 TIME: 2:12 PM documented in this encounter [facility] 04-07-2022 History of Present illness Narrative Patient presents with: ER F/U: Headache and HTN HPI: Patient presents today for office visit for ER follow up with multiple concerns. Complaints of burning sensation in her left wrist. X 2 months. Burning is constant. No rash visible on skin. Some swelling maybe. No itching. She states when she pushes in on where the burning is it causes fingers on left hand to go numb a little bit. No trauma. No redness or warmth. Uses it frequently. Seen in [facility] ER on 03/23/22. Went in because she woke up with a sudden onset headache. Throbbing in nature. Gradually got worse. Claims her BP was increasing. BP in ER was 173/93. Ct was negative except below. Was given toradol and was better. Home bp has been better. Did not take her bp med this am. CT scan showed left parotid mass. MRI recommended for further characterization. No appreciable acute intracranial abnormality seen.no swelling or pain in the jaw. Taking OTC Excedrin migraine with relief. No headaches currently. No chest pain or shortness of breath MEDICATIONS: Current Outpatient Medications Medication Sig losartan (COZAAR) 25 mg tablet Take 1 tablet by mouth once daily. ergocalciferol 50,000 unit capsule (VITAMIN D2, DRISDOL) Take one capsule po weekly. famotidine (PEPCID) 20 mg tablet Take 1 tablet by mouth daily at bedtime. albuterol HFA (PROVENTIL HFA, VENTOLIN HFA) 90 mcg/actuation inhaler Inhale 2 Puffs as instructed every 6 hours as needed for wheezing/shortness of breath. ibuprofen (MOTRIN) 600 mg tablet Take 1 tablet by mouth every 6 hours as needed for pain. acetaminophen 325 mg cap Take 650 mg by mouth as needed. No current facility-administered medications for this visit. ALLERGIES: ALLERGIES Allergen Reactions Lisinopril Cough Penicillins Rash PAST MEDICAL HISTORY Diagnosis Date Abnormal mammogram Back pain Cervical cancer (HCC) 2003 GINA III, s/p hysterectomy, no chemo/radiation Cholelithiasis with chronic cholecystitis 05/02/2020 Obesity Tobacco abuse PAST SURGICAL HISTORY Procedure Laterality Date APPENDECTOMY COLONOSCOPY & POLYPECTOMY 09/04/2013 hyperplastic polyp, repeat due 2023 EGD 09/04/2013 Duodenal reactive gastric foveolar metaplasia, repeat due 2016 EGD 04/22/2020 EGD TRANSORAL BIOPSY SINGLE/MULTIPLE 10/05/2016 gastritis, esophagitis HYSTERECTOMY HX 06/25/2003 EMMY/BSO-carcinoma insitu L'SCOPE CHOLECYSTECTOMY 05/02/2020 MASTECTOMY,PARTIAL, WITH AXILLARY LYMPHADENECTOMY 06/03/2015 Mastectomy, Partial, with Axillary Lymphadenectomy TOTAL THYROID LOBECTOMY UNI W/WO ISTHMUSECTOMY Left 06/06/2020 Dr Mcpherson VAGINAL HYSTERECTOMY FAMILY HISTORY Problem Relation Age of Onset Diabetes Mother Hypertension Mother Heart Failure Mother Diabetes Father Hypertension Father Heart Father Pig valve, CHF No Known Problems Brother Social History Tobacco Use Smoking status: Every Day Packs/day: 1.50 Years: 35.00 Pack years: 52.50 Types: Cigarettes Smokeless tobacco: Never Vaping Use Vaping Use: Never used Substance Use Topics Alcohol use: Yes Alcohol/week: 5.0 standard drinks Types: 2 Glasses of Wine (5oz) per week Comment: Occasional Drug use: No Reviewed current medications, allergies, past medical history, surgical history, family history and social history today. REVIEW OF SYSTEMS All other reviewed and negative other than HPI. VITALS: BP 158/96 Pulse 86 Ht 162.6 cm (5' 4) Wt 126 kg (277 lb 12.8 oz) SpO2 98% BMI 47.68 kg/m Last 4 Encounter Wt Readings: Date: Wt: 01/13/2022 127 kg (280 lb) 10/08/2021 123.4 kg (272 lb) 07/15/2021 123.4 kg (272 lb) 05/26/2021 122 kg (269 lb) PHYSICAL EXAMINATION: General appearance: Well appearing, alert, in no acute distress, well-hydrated, well nourished. Skin: Skin color, texture, turgor normal, no suspicious rashes or lesions Head: Normocephalic, no masses, lesions, tenderness or abnormalities, no palpable parotid mass Eyes: Anicteric sclera. Pupils are equally round and reactive to light. Extraocular movements are intact. Ears: External ears normal, canals clear Neck: Supple, no adenopathy; thyroid symmetric, normal size, no bruits Lungs: CTA Heart: RRR without murmur, gallop, or rubs. No ectopy ASSESSMENT/PLAN: 1. Parotid mass - ICD9: 527.8, ICD10: K11.8 (primary diagnosis) - hospital radiology recommend mri to rule out neoplasm. - MRI FACE WO/W IVCON - IV CONTRAST (RADIOLOGY PROCEDURE) 2. Primary hypertension - ICD9: 401.9, ICD10: I10 - suboptimal control - take med and just recheck bp in one month. - Goal of BP <130/80 3. Headache, unspecified headache type - ICD9: 784.0, ICD10: R51.9 - call if recurs. Palmer Mckinnon MD documented in this encounter [facility] 03-23-2022 Miscellaneous Notes Protocol recommends go to the ER now. Pt told to have someone drive her to ER if possible, states she has someone at home. Care plan reviewed with patient. Patient voices understanding. Advised patient that if symptoms get worse to call 911 and have ambulance come. Reason for Disposition Symptom is main concern (e.g., headache, chest pain) [1] SEVERE headache (e.g., excruciating) AND [2] worst headache of life Answer Assessment - Initial Assessment Questions 1. LOCATION: Pt states her whole head hurts. 2. ONSET: 2-3 days ago. 3. PATTERN: She reports the pain is worse in the mornings and gets better through the day. 4. SEVERITY: - MILD (1-3): doesn't interfere with normal activities - MODERATE (4-7): interferes with normal activities or awakens from sleep - SEVERE (8-10): excruciating pain, unable to do any normal activities She reports it's a 10/10 constant ache. She states it is worse in the morning and eases as the day goes on. 5. RECURRENT SYMPTOM: Pt denies ever having headaches like this before. 6. CAUSE: Pt does not know, possibly a migraine. 7. MIGRAINE: Pt denies being diagnosed with migraine headaches before. 8. HEAD INJURY: Pt denies any recent injury to her head. 9. OTHER SYMPTOMS: Pt denies fever, stiff neck, eye pain, sore throat, cold symptoms. Pt reports dizziness and a BP of 166/99. States it's the worst headache she has ever had. 10. : Denies Protocols used: Blood Pressure - [id number], [id number] documented in this encounter [facility] 03-12-2022 Miscellaneous Notes Patient returned office call and was relay message voicing understanding with no further questoins. 1st attempt: LM When pt returns call please inform them of new apt time with Becky and/or assist with rescheduling if needed. Once completed please document in this encounter. Thank you! documented in this encounter [facility] 01-13-2022 History of Present illness Narrative Patient presents with: Follow Up HPI: Patient presents today for office visit for follow up. Overall feeling good. Here for BP med refill. Has been out of her vitamin D for a month. HTN: No chest pain No shortness of breath No dizziness No palpitations No edema No headaches Up to date on mammogram. Still has chronic gerd. Suggested we use pepcid. Discussed avoding risk factors. No black or bloody stools. Discussed tobacco cessation, including risks of continued use. Offered assistance to help quit if patient desires. MEDICATIONS: Current Outpatient Medications Medication Sig albuterol HFA (PROVENTIL HFA, VENTOLIN HFA) 90 mcg/actuation inhaler Inhale 2 Puffs as instructed every 6 hours as needed for wheezing/shortness of breath. losartan (COZAAR) 25 mg tablet Take 1 tablet by mouth once daily. ergocalciferol 50,000 unit capsule (VITAMIN D2, DRISDOL) Take one capsule po weekly. ibuprofen (MOTRIN) 600 mg tablet Take 1 tablet by mouth every 6 hours as needed for pain. acetaminophen 325 mg cap Take 650 mg by mouth as needed. No current facility-administered medications for this visit. ALLERGIES: ALLERGIES Allergen Reactions Lisinopril Cough Penicillins Rash PAST MEDICAL HISTORY Diagnosis Date Abnormal mammogram Back pain Cervical cancer (HCC) 2003 GINA III, s/p hysterectomy, no chemo/radiation Cholelithiasis with chronic cholecystitis 05/02/2020 Obesity Tobacco abuse PAST SURGICAL HISTORY Procedure Laterality Date APPENDECTOMY COLONOSCOPY & POLYPECTOMY 09/04/2013 hyperplastic polyp, repeat due 2023 EGD 09/04/2013 Duodenal reactive gastric foveolar metaplasia, repeat due 2016 EGD 04/22/2020 EGD TRANSORAL BIOPSY SINGLE/MULTIPLE 10/05/2016 gastritis, esophagitis HYSTERECTOMY HX 06/25/2003 EMMY/BSO-carcinoma insitu L'SCOPE CHOLECYSTECTOMY 05/02/2020 MASTECTOMY,PARTIAL, WITH AXILLARY LYMPHADENECTOMY 06/03/2015 Mastectomy, Partial, with Axillary Lymphadenectomy TOTAL THYROID LOBECTOMY UNI W/WO ISTHMUSECTOMY Left 06/06/2020 Dr Mcpherson VAGINAL HYSTERECTOMY FAMILY HISTORY Problem Relation Age of Onset Diabetes Mother Hypertension Mother Heart Failure Mother Diabetes Father Hypertension Father Heart Father Pig valve, CHF No Known Problems Brother Social History Tobacco Use Smoking status: Every Day Packs/day: 1.50 Years: 35.00 Pack years: 52.50 Types: Cigarettes Smokeless tobacco: Never Vaping Use Vaping Use: Never used Substance Use Topics Alcohol use: Yes Alcohol/week: 5.0 standard drinks Types: 2 Glasses of Wine (5oz) per week Comment: Occasional Drug use: No Reviewed current medications, allergies, past medical history, surgical history, family history and social history today. REVIEW OF SYSTEMS She is interested in considering bariatric surgery. All other reviewed and negative other than HPI. HEALTH MAINTENANCE: Reviewed health maintenance issues today and recommended the following in detail. ne DTAP,TDAP,TD(1 - Tdap) Never done SHINGRIX VACCINE(1 of 2) Never done PNEUMOCOCCAL(2 - PCV) due on 12/02/2019 COVID-19 VACCINE(3 - Booster for Pfizer series) due on 12/10/2020 DEPRESSION ASSESSMENT Never done VITALS: BP 138/82 Pulse 87 Ht 162.6 cm (5' 4) Wt 127 kg (280 lb) SpO2 96% BMI 48.06 kg/m Last 4 Encounter Wt Readings: Date: Wt: 01/13/2022 127 kg (280 lb) 10/08/2021 123.4 kg (272 lb) 07/15/2021 123.4 kg (272 lb) 05/26/2021 122 kg (269 lb) PHYSICAL EXAMINATION: General appearance: Well appearing, alert, in no acute distress, well-hydrated, well nourished. Skin: Skin color, texture, turgor normal, no suspicious rashes or lesions Head: Normocephalic, no masses, lesions, tenderness or abnormalities Lungs: Lungs clear to auscultation. No wheezing, rhonchi, rales Heart: RRR without murmur, gallop, or rubs. No ectopy Abdomen: Normal abdominal exam, Abdomen soft, non-tender. Bowel sounds normal. No masses, organomegaly Extremities: No deformities, edema, skin discoloration, clubbing or cyanosis. Good capillary refill. Musculoskeletal: No joint swelling, deformity, or tenderness ASSESSMENT/PLAN: 1. Primary hypertension - ICD9: 401.9, ICD10: I10 (primary diagnosis) - good control - Continue current medication(s) - Goal of BP <130/80 - LOSARTAN 25 MG TABLET - CBC + DIFF - COMP METABOLIC PANEL - LIPID PANEL BASIC 2. Vitamin D deficiency - ICD9: 268.9, ICD10: E55.9 - check lab.s - ERGOCALCIFEROL (VITAMIN D2) 1,250 MCG (50,000 UNIT) CAPSULE - VITAMIN D 25 HYDROXY 3. Malignant neoplasm of upper-outer quadrant of left breast in female, estrogen receptor positive (HCC) - ICD9: 174.4, V86.0, ICD10: C50.412, Z17.0 - get annual mammogram. 4. Gastritis and duodenitis - ICD9: 535.50, ICD10: K29.90 - add pepcid at hx. Red flags for re-assessment reviewed with patient in detail. 5. History of thyroidectomy - ICD9: 246.8, ICD10: E89.0 - TSH BLD Palmer Mckinnon RTO in six months and prn. documented in this encounter [facility] 10-08-2021 History of Present illness Narrative Radiology Service Progress Note PATIENT NAME: Carrie Taveras DATE OF SERVICE: October 08, 2021 TIME: 11:17 AM PATIENT IDENTITY VERIFICATION COMPLETED USING TWO (2) IDENTIFIERS: Name and Date of confirmed by patient verbally. FALL SCREENING: Has the patient had 2 falls in the last year or 1 fall with injury or currently using an Ambulatory Assistive Device (Walker, Cane, Wheelchair, Crutches, etc.)? No PATIENT GENDER DATA: Female. status: : No status: NO. PATIENT RELEVANT IMPLANT DATA REVIEWED: Not Applicable RADIOLOGY DEPARTMENT: General X-ray: Exam(s) Completed: Chest X-Ray PERIPHERAL IV DATA: Not applicable SIGNED BY: RT Christiano(R) October 08, 2021 11:17 AM documented in this encounter [facility] 10-08-2021 History of Present illness Narrative CC: Patient presents with: Cough: SOB, chest congestion, Xiao , 2 days. HPI: Carrie Taveras is a 56 year old female who presents to the office with complaint of chest congestion, head congestion, cough, nonproductive, wheezing, sinus symptoms, and ear symptoms since last night. Symptoms are worsening Associated symptoms includes headache, body aches, and wheezing. Denies nausea, vomiting , and diarrhea. Treatments tried include nothing so far. with no relief of symptoms. Sick contacts: unknown. History of asthma, frequent episodes of bronchitis, chronic bronchitis, bronchiectasis or COPD: No Smoker: No Seasonal/environmental allergies: No The ROS is otherwise negative. The patient's pmh, medications, allergies, and past visits are reviewed. PHYSICAL EXAM: BP 134/74 Pulse 89 Temp 37.1 C (98.8 F) Resp 18 Wt 123.4 kg (272 lb) SpO2 96% BMI 46.44 kg/m General appearance: alert, cooperative, pleasant, in no acute distress Head: Normocephalic Eyes: EOM's intact, conjunctiva pink and moist, no icterus, sclera white, non-injected Ears: Right ear: External ear/canal- Normal, TM - clear with good landmarks. Left ear: External ear/canal- Normal, TM - erythematous Oropharynx:moist without lesions, No erythema, exudates or tonsillar hypertrophy. Heart: Negative. RRR without obvious murmur, gallop, or rubs. No ectopy. Lungs: clear to auscultation, without rales or wheeze, good air exchange PAST MEDICAL HISTORY Diagnosis Date Abnormal mammogram Back pain Cervical cancer (HCC) 2003 GINA III, s/p hysterectomy, no chemo/radiation Cholelithiasis with chronic cholecystitis 05/02/2020 Obesity Tobacco abuse PAST SURGICAL HISTORY Procedure Laterality Date APPENDECTOMY COLONOSCOPY & POLYPECTOMY 09/04/2013 hyperplastic polyp, repeat due 2023 EGD 09/04/2013 Duodenal reactive gastric foveolar metaplasia, repeat due 2016 EGD 04/22/2020 EGD TRANSORAL BIOPSY SINGLE/MULTIPLE 10/05/2016 gastritis, esophagitis HYSTERECTOMY HX 06/25/2003 EMMY/BSO-carcinoma insitu L'SCOPE CHOLECYSTECTOMY 05/02/2020 MASTECTOMY,PARTIAL, WITH AXILLARY LYMPHADENECTOMY 06/03/2015 Mastectomy, Partial, with Axillary Lymphadenectomy TOTAL THYROID LOBECTOMY UNI W/WO ISTHMUSECTOMY Left 06/06/2020 Dr Mcpherson VAGINAL HYSTERECTOMY ALLERGIES Lisinopril and Penicillins MEDICATIONS losartan (COZAAR) 25 mg tablet Take 1 tablet by mouth once daily. ergocalciferol 50,000 unit capsule (VITAMIN D2, DRISDOL) Take one capsule po weekly. cyclobenzaprine (FLEXERIL) 10 mg tablet Take 1 tablet by mouth at bedtime as needed for muscle spasm. ibuprofen (MOTRIN) 600 mg tablet Take 1 tablet by mouth every 6 hours as needed for pain. albuterol HFA (PROVENTIL HFA, VENTOLIN HFA) 90 mcg/actuation inhaler Inhale 2 Puffs as instructed every 4 hours as needed. benzonatate (TESSALON PERLES) 100 mg capsule Take 1 capsule by mouth three times daily as needed for cough. fluticasone (FLONASE) 50 mcg/actuation nasal spray Use 2 Sprays in each nostril once daily. Rinse mouth after use. acetaminophen 325 mg cap Take 650 mg by mouth as needed. albuterol HFA (PROAIR HFA) 90 mcg/actuation inhaler Inhale 2 Puffs as instructed every 4 hours as needed. albuterol (PROVENTIL) 5 mg/mL nebu Inhale 0.5 mL as instructed one time only for 1 dose. 1 DOSE NOW - BACK OFFICE. PLACE 0.5 ML PER DROPPER AND 2.5 ML OF NORMAL SALINE INTO RESERVOIR. FAMILY HISTORY Problem Relation Age of Onset Diabetes Mother Hypertension Mother Heart Failure Mother Diabetes Father Hypertension Father Heart Father Pig valve, CHF No Known Problems Brother Social History Tobacco Use Smoking status: Every Day Packs/day: 1.50 Years: 35.00 Pack years: 52.50 Types: Cigarettes Smokeless tobacco: Never Vaping Use Vaping Use: Never used Substance Use Topics Alcohol use: Yes Alcohol/week: 5.0 standard drinks Types: 2 Glasses of Wine (5oz) per week Comment: Occasional Drug use: No ASSESSMENT/PLAN: 1. Acute cough - ICD9: 786.2, ICD10: R05.1 (primary diagnosis) - XR CHEST 2V FRONTAL/LAT - COVID WITH FLUA+B, ROUTINE 2. At increased risk of exposure to COVID-19 virus - ICD9: V15.89, ICD10: Z91.89 - COVID WITH FLUA+B, ROUTINE RESULT: Lines, tubes, and devices: None. Lungs and pleura: There is no focal consolidation or acute pleural process/fluid. There is no vascular redistribution to suggest pulmonary edema. Cardiomediastinal silhouette: The cardiac, mediastinal and hilar shadows are unchanged and remain within normal limits. Bones/soft tissues: The bony structures are intact with mild degenerative change. No bony destructive process noted. IMPRESSION IMPRESSION: Stable chest. No acute cardiopulmonary process. Bed And Breakfast Cook: PSCB Transcribe Date/Time: Oct 08 2021 11:32A Dictated by : PHOENIX UGARTE MD Prednisone 5 days and albuterol inhaler PRN. Prescription instructions reviewed with patient as applicable. Potential red flag symptoms discussed with the patient. Reviewed appropriate action plan to take if red flag symptoms occur. Patient agreeable to treatment plan. Joann Hu APRN.DUCK BILL OPERATOR documented in this encounter [facility] 08-14-2021 Miscellaneous Notes Patient notified of provider message bp is ok. Manual Readin/88 Pulse: 83 BP Fred average: 134/79 P: 85 Repeat BP Check: 132/70 P85 #1 137/76 P81 #2 125/84 P87 #3 133/75 P79 #4 131/83 P77 #5 143/88 P99 #6 Reason for blood pressure check - Last BP elevated and Medication adjustment Patient is: Taking medication as prescribed Yes Took medication today Yes If no, date medication last taken N/A Experiencing side effects No BP was elevated at last appt 07/15/21. Lisinopril was d/c at that time and she was started on HCTZ 12.5mg. However, per TE on 07/22/21, HCTZ was d/c and she was changed to Losartan 25mg daily. Tolerating medication change well. Denies any chest pain, shortness of breath, dizziness, or headaches. Daily caffeine use; none today. Current everyday tobacco use. Alert and oriented. Pt has been identified by name and birthdate: Yes Allergies reviewed: Yes Latex allergy: no. Medication - prescribed and OTC reviewed and updated: Yes Do you need any prescription refills prior to your next visit: No Health Maintenance: Reviewed and not up to date and provider notified Patient advised that she would be contacted after review by PCP. Tiara Jimenez LPN documented in this encounter [facility] 08-14-2021 History of Present illness Narrative Manual Readin/88 Pulse: 83 BP Fred average: 134/79 P: 85 Repeat BP Check: 132/70 P85 #1 137/76 P81 #2 125/84 P87 #3 133/75 P79 #4 131/83 P77 #5 143/88 P99 #6 Reason for blood pressure check - Last BP elevated and Medication adjustment Patient is: Taking medication as prescribed Yes Took medication today Yes If no, date medication last taken N/A Experiencing side effects No BP was elevated at last appt 07/15/21. Lisinopril was d/c at that time and she was started on HCTZ 12.5mg. However, per TE on 07/22/21, HCTZ was d/c and she was changed to Losartan 25mg daily. Tolerating medication change well. Denies any chest pain, shortness of breath, dizziness, or headaches. Daily caffeine use; none today. Current everyday tobacco use. Alert and oriented. Pt has been identified by name and birthdate: Yes Allergies reviewed: Yes Latex allergy: no. Medication - prescribed and OTC reviewed and updated: Yes Do you need any prescription refills prior to your next visit: No Health Maintenance: Reviewed and not up to date and provider notified Patient advised that she would be contacted after review by PCP. Tiara Jimenez LPN documented in this encounter [facility] 07-22-2021 Miscellaneous Notes Script sent. Please return for BP check, as scheduled. Ariela Talbert APRN.CNP TC to pt, notified of provider response. She states she would like to try something else. Please send new rx to [facility]. Jean Marie Dietz LPN It looks like she developed a cough with the lisinopril. If she would like, I could send another medication that is very similar to the lisinopril which is less likely to have a cough associated with it. Please let me know. Patient calls and states that she was started on hydrochlorothiazide at last appointment with PCP on 07/15/2021. Patient states that medication makes her whole body feel funny. Patient states that she feels dizzy and lightheaded after taking medication. Patient states that she would rather be put back on her Lisinopril then the hydrochlorothiazide. Patient states that she would need a new prescription for Lisinopril. Please review and advise, Brigette Donovan RN documented in this encounter [facility] 07-15-2021 History of Present illness Narrative Patient presents with: Follow Up HPI: Patient presents today for office visit for follow up. Did not do labs. Will get labs soon. Had stress test done at [facility]. No ischemia but heart was only 84% of max. Red flags for re-assessment reviewed with patient in detail. No further chest pain. No edema. Has some dependent edema. Worse at end of day. Particularly if hot or humid. Discussed water, limiting salt and elevating and weight loss. No chest pain or shortness of breath. She feels ok on bp med but cough has developed with the thao. Nursing Notes: Vanessa Meltonlori COREY 07/15/2021 1:33 PM Signed HTN: Patient is compliant with meds Yes Monitors bp at home: Yes. Denies side effects: c/o cough with lisinopril. Chest pain: No. Dyspnea: No. Edema: Ankles, feet, fingers. When it was hot out. Knows also that she isn't drinking enough water. Palpitations: No. Syncope: No. Headache: No. Dizziness: No. See previous ov: have not seen her since 2019. Looking at old records, it appears bp has been at least borderline elevated some of the time when seen at other offices since then. Began not feeling well on Tuesday. Was having discomfort and numbness across her left chest into the arm and shoulder blades. Was having headaches as well. Worse with exertion. Was constant. Seen in the ER. They were wondering if was related to her bp in part. They gave her meds to reduce the pressure and she felt better. Did not keep overnight. Has felt better since on lisinopril 10 mg. No further discomfort or headache. Has a home wrist cuff but is reading high. No dizziness or lightheadedness. No focal numbness or weakness. No chest pain or dypnea with exertion. Parents both had heart disease. MEDICATIONS: Current Outpatient Medications Medication Sig ergocalciferol 50,000 unit capsule (VITAMIN D2, DRISDOL) Take one capsule po weekly. lisinopril (ZESTRIL, PRINIVIL) 20 mg tablet Take 1 tablet by mouth once daily. albuterol HFA (PROVENTIL HFA, VENTOLIN HFA) 90 mcg/actuation inhaler Inhale 2 Puffs as instructed every 4 hours as needed. fluticasone (FLONASE) 50 mcg/actuation nasal spray Use 2 Sprays in each nostril once daily. Rinse mouth after use. cyclobenzaprine (FLEXERIL) 10 mg tablet Take 1 tablet by mouth at bedtime as needed for muscle spasm. ibuprofen (MOTRIN) 600 mg tablet Take 1 tablet by mouth every 6 hours as needed for pain. benzonatate (TESSALON PERLES) 100 mg capsule Take 1 capsule by mouth three times daily as needed for cough. acetaminophen (TYLENOL) 325 mg cap Take 650 mg by mouth as needed. albuterol HFA (PROAIR HFA) 90 mcg/actuation inhaler Inhale 2 Puffs as instructed every 4 hours as needed. albuterol (PROVENTIL) 5 mg/mL nebu Inhale 0.5 mL as instructed one time only for 1 dose. 1 DOSE NOW - BACK OFFICE. PLACE 0.5 ML PER DROPPER AND 2.5 ML OF NORMAL SALINE INTO RESERVOIR. No current facility-administered medications for this visit. ALLERGIES: ALLERGIES Allergen Reactions Penicillins Rash PAST MEDICAL HISTORY Diagnosis Date Abnormal mammogram Back pain Cervical cancer (HCC) 2003 GINA III, s/p hysterectomy, no chemo/radiation Cholelithiasis with chronic cholecystitis 05/02/2020 Obesity Tobacco abuse PAST SURGICAL HISTORY Procedure Laterality Date APPENDECTOMY COLONOSCOPY & POLYPECTOMY 09/04/2013 hyperplastic polyp, repeat due 2023 EGD 09/04/2013 Duodenal reactive gastric foveolar metaplasia, repeat due 2016 EGD 04/22/2020 EGD TRANSORAL BIOPSY SINGLE/MULTIPLE 10/05/2016 gastritis, esophagitis HYSTERECTOMY HX 06/25/2003 EMMY/BSO-carcinoma insitu L'SCOPE CHOLECYSTECTOMY 05/02/2020 MASTECTOMY,PARTIAL, WITH AXILLARY LYMPHADENECTOMY 06/03/2015 Mastectomy, Partial, with Axillary Lymphadenectomy TOTAL THYROID LOBECTOMY UNI W/WO ISTHMUSECTOMY Left 06/06/2020 Dr Mcpherson VAGINAL HYSTERECTOMY FAMILY HISTORY Problem Relation Age of Onset Diabetes Mother Hypertension Mother Heart Failure Mother Diabetes Father Hypertension Father Heart Father Pig valve, CHF No Known Problems Brother Social History Tobacco Use Smoking status: Current Every Day Smoker Packs/day: 1.50 Years: 35.00 Pack years: 52.50 Types: Cigarettes Smokeless tobacco: Never Used Vaping Use Vaping Use: Never used Substance Use Topics Alcohol use: Yes Alcohol/week: 5.0 standard drinks Types: 2 Glasses of Wine (5oz) per week Comment: Occasional Drug use: No Reviewed current medications, allergies, past medical history, surgical history, family history and social history today. REVIEW OF SYSTEMS All other reviewed and negative other than HPI. HEALTH MAINTENANCE: Reviewed health maintenance issues VITALS: BP 162/82 Pulse 68 Wt 123.4 kg (272 lb) BMI 46.44 kg/m Last 4 Encounter Wt Readings: Date: Wt: 07/15/2021 123.4 kg (272 lb) 05/26/2021 122 kg (269 lb) 05/18/2021 122 kg (269 lb) 01/12/2021 119.7 kg (264 lb) PHYSICAL EXAMINATION: General appearance: Well appearing, alert, in no acute distress, well-hydrated, well nourished. Skin: Skin color, texture, turgor normal, no suspicious rashes or lesions Head: Normocephalic, no masses, lesions, tenderness or abnormalities Lungs: Lungs clear to auscultation. No wheezing, rhonchi, rales Heart: RRR without murmur, gallop, or rubs. No ectopy Abdomen: Normal abdominal exam, Abdomen soft, non-tender. Bowel sounds normal. No masses, organomegaly Extremities: No deformities, edema, skin discoloration, clubbing or cyanosis. Good capillary refill. Musculoskeletal: No joint swelling, deformity, or tenderness Peripheral pulses: Normal Neuro: Negative. ASSESSMENT/PLAN: 1. Primary hypertension - ICD9: 401.9, ICD10: I10 (primary diagnosis) - change to hctz. Discussed risks and benefits of new medication with the patient. Advised them to call if any side effects or questions. - check bp and labs in one month - BASIC METABOLIC PNL - LIPID PANEL BASIC - TSH BLD - HYDROCHLOROTHIAZIDE 12.5 MG CAPSULE 2. Chest pain, unspecified type - ICD9: 786.50, ICD10: R07.9 - call if pain recurs since hr slightly low on stress test. 3. Cough. - call if does not improve changing meds in next few weeks Palmer Mckinnon RTO in three months and prn. Medical Decision Making documented in this encounter [facility] 07-15-2021 Nurse Note HTN: Patient is compliant with meds Yes Monitors bp at home: Yes. Denies side effects: c/o cough with lisinopril. Chest pain: No. Dyspnea: No. Edema: Ankles, feet, fingers. When it was hot out. Knows also that she isn't drinking enough water. Palpitations: No. Syncope: No. Headache: No. Dizziness: No. documented in this encounter [facility] 06-09-2021 Miscellaneous Notes Stress test order faxed to [facility] Patients stress test in [place] was cancelled due to providers out of office. Next opening was Oct 12. Patient did not want to travel to [place] and requesting order be faxed to [facility] Referral has already been placed. documented in this encounter [facility] 05-26-2021 History of Present illness Narrative Chief Complaint Patient presents with: Established Patient HPI: Carrie Taveras is a 56 year old female who presents here today for follow up breast cancer. Per Dr. Quarles's previous note: H/o (post-menopausal; cervix cancer, s/p radical hysterectomy 2003) who was found to have an abnormality of the left breast on screening mammogram. She underwent an ultrasound-guided core needle biopsy on 05/13/2015. The pathology demonstrated invasive ductal carcinoma, nuclear grade 3. Estrogen receptors were quantified at greater than 95%, strong. Progesterone receptors 0%. HER-2/ngoc 2+. Nonamplified by FISH testing. The patient socially underwent a left breast lumpectomy and sentinel lymph node biopsy on 06/03/2015. The final pathology demonstrated a 7 mm invasive carcinoma single focus. Histologic grade was 3. Margins were negative. Closest margin was anteriorly 1.5 cm. Lymphovascular invasion was not identified. A total of 6 lymph nodes were retrieved. All were negative for disease. Oncotype Dx-Recurrence score 41 (28% risk). Previous therapy:TC/Neulasta First cycle 07/24/15. Last cycle 09/25/15. Radiation: DATES OF TREATMENT: 10/28/15 to 12/10/15. Began arimidex after radiation. Stopped arimidex due to leg pain/aches. Started femara. Pt. stopped femara due to ankle swelling. Once she stopped the femara the ankle swelling resolved. She re-started femara and ankle swelling returned-so she stopped it again. Then started aromasin. Stopped aromasin d/t leg pain and started tamoxifen June 2017. Stopped tamoxifen 2018 d/t leg aches. S/p lap. castillo on 05/02/[address] Mcpherson and S/p L thyroidectomy on 06/06/[address] Mcpherson. No new concerns today. Appetite:Ok. 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 Resp:denies cough or sob Cardiac:denies chest pain/palpitations GI:denies abd pain, n/v, moving bowels regularly :denies dysuria/hematuria Extrem:denies pain Endo:+hot flashes All the time. Just at night when I'm at work. She does not have them at night when she is not at work. Neuro:tingling to feet-resolved Skin:denies rashes/lesions Heme:denies bleeding The ROS is otherwise negative. Past medical history, appointments, medications, allergies reviewed. No changes. EXAM: BP 120/75 Pulse 72 Temp 37.1 C (98.8 F) Ht 163 cm (5' 4.17) Wt 122 kg (269 lb) SpO2 96% BMI 45.93 kg/m APPEARANCE Well appearing, alert, in no acute distress, well-hydrated, well nourished. HEART RRR with normal S1 and S2, no murmurs LUNG clear to auscultation BREAST FEMALE no mass/nodule b/l, scar to L upper/inner/radiation changes LYMPH NODES No cervical lymphadenopathy, No supraclavicular lymphadenopathy and No axillary lymphadenopathy. ABDOMEN bowel sounds normoactive, soft, non-tender, non-distended, without organomegaly or palpable masses EXTREMITIES No edema NEURO Awake, alert and oriented x 3, Normal gait and No involuntary motions. SKIN Skin color, texture, turgor normal, no suspicious rashes or lesions RADIOLOGY: Mammogram 05/18/21: IMPRESSION: NEGATIVE There is no mammographic evidence of malignancy. Return to annual mammogram screening schedule is recommended. ASSESSMENT/PLAN: 1. 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) - ICD9: 174.9, ICD10: C50.912 (primary diagnosis) pT1b (7 mm; grade 3; no LVI) pN0(sln) MX ER positive, UT negative, HER2 non-amplified invasive ductal carcinoma the left breast. - No concerning findings on exam. - Pt. did not tolerate AI's/tamoxifen. Declined further therapy. - Reviewed mammogram with pt. - Mammogram due May 2022. - Follow up after mammogram. - Pt. aware to call office with any questions/concerns. The patient indicates understanding of these issues and agrees with the plan. All documentation from previous visit of 06/09/20-Dr. Quarles/myself was copied and pasted, documentation has been reviewed and edited as necessary for today's visit. Becky White APRN.CNP documented in this encounter [facility] 05-15-2021 Miscellaneous Notes May 15, 2021 PID: [id number] Carrie Taveras [address] [place] [address] Dear Ms. Taveras, Your recent breast imaging exam on 05/15/2021 showed a possible finding that requires additional imaging studies for a complete evaluation. Most such findings are probably benign (not cancer). If you have a healthcare provider who ordered/prescribed your screening mammogram: Please call [phone] or [phone]: [phone] to schedule an appointment for your additional imaging (if you have not already done so). If you DO NOT have a healthcare provider (ie you did not have an order/prescription for your screening mammogram): Please call to schedule an appointment for your additional imaging (if you have not already done so). You must have an order/prescription from your physician when calling to schedule your appointment. If your order/prescription is not electronic, you must bring the hard copy with you on the day of your exam to avoid delays. Your imaging studies and reports are kept on file at [facility] as part of your permanent medical record, and are available for your continuing care. Thank you for allowing us to help in meeting your health care needs. Sincerely, Dr. Pinto Interpreting Radiologist [facility] (Additional imaging) documented in this encounter [facility] 05-15-2021 History of Present illness Narrative Radiology Service Progress Note PATIENT NAME: Carrie Taveras DATE OF SERVICE: May 15, 2021 TIME: 9:38 AM PATIENT IDENTITY VERIFICATION COMPLETED USING TWO (2) IDENTIFIERS: Name and Date of confirmed by patient verbally. FALL SCREENING: Has the patient had 2 falls in the last year or 1 fall with injury or currently using an Ambulatory Assistive Device (Walker, Cane, Wheelchair, Crutches, etc.)? No PATIENT GENDER DATA: Female. status: : No status: NO. PATIENT RELEVANT IMPLANT DATA REVIEWED: Not Applicable RADIOLOGY DEPARTMENT: Mammography PERIPHERAL IV DATA: Not applicable SIGNED BY: RT Reddy(R) May 15, 2021 9:38 AM documented in this encounter [facility] 05-13-2021 Miscellaneous Notes Patient call in for high blood pressure with headache, numbness to left side, and pain in the shoulder blades. Nurse Triage assessment completed with protocol recommending for disposition of Call EMS now. Care advice reviewed with patient, patient stated understanding. Reason for Disposition [1] Numbness (i.e., loss of sensation) of the face, arm or leg on one side of the body AND [2] new-onset Answer Assessment - Initial Assessment Questions 1. BLOOD PRESSURE: 152/105 2. ONSET: This morning 3. HOW: Home BP monitor 4. HISTORY: Yes 5. MEDICATIONS: Denies 6. OTHER SYMPTOMS: Headache, numbness on left side, pain in shoulder blade. Protocols used: BLOOD PRESSURE - [id number] documented in this encounter [facility] 05-13-2021 Hospital Discharge instructions Additional Instructions Your test today were unremarkable. Your blood pressure responded well to the blood pressure medication we gave you. You will be started on a blood pressure medication called lisinopril. You will take it once a day. 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 Log your blood pressures twice daily. Follow-up with your doctor in a week and see how your blood pressures are running when she been started on the medication. Hold the medication if your blood pressure is 120 or below. [facility] Work Phone: 11-11-2020 History of Present illness Narrative Radiology Service Progress Note PATIENT NAME: Carrie Taveras DATE OF SERVICE: November 11, 2020 TIME: 1:06 PM PATIENT IDENTITY VERIFICATION COMPLETED USING TWO (2) IDENTIFIERS: Name and Date of confirmed by patient verbally. FALL SCREENING: Has the patient had 2 falls in the last year or 1 fall with injury or currently using an Ambulatory Assistive Device (Walker, Cane, Wheelchair, Crutches, etc.)? No PATIENT GENDER DATA: Female. status: : No status: NO. PATIENT RELEVANT IMPLANT DATA REVIEWED: Not Applicable RADIOLOGY DEPARTMENT: General X-ray: Exam(s) Completed: Chest X-Ray PERIPHERAL IV DATA: Not applicable SIGNED BY: RT Christiano(R) November 11, 2020 1:06 PM documented in this encounter [facility] 04-22-2020 History of Past i llness Narrative Problem Noted Date Resolved Date Abdominal pain, epigastric 04/22/202004/22 documented as of this encounter (statuses as of 05/16/2021) [facility] History of Past illness Narrative* Problem Noted Date Resolved Date Abdominal pain, epigastric 04/22/202004/22 documented as of this encounter (statuses as of 05/18/2021) [facility] History of Past illness Narrative* Problem Noted Date Resolved Date Abdominal pain, epigastric 04/22/202004/22 documented as of this encounter (statuses as of 05/19/2021) [facility] History of Past illness Narrative* Problem Noted Date Resolved Date Abdominal pain, epigastric 04/22/202004/22 documented as of this encounter (statuses as of 05/19/2021) [facility] History of Past illness Narrative* Problem Noted Date Resolved Date Abdominal pain, epigastric 04/22/202004/22 documented as of this encounter (statuses as of 05/26/2021) [address]09-2021 History of Past illness Narrative* Problem Noted Date Resolved Date Abdominal pain, epigastric 04/22/202004/22 documented as of this encounter (statuses as of 06/09/2021) [address]-2021 History of Past illness Narrative* Problem Noted Date Resolved Date Abdominal pain, epigastric 04/22/202004/22 documented as of this encounter (statuses as of 07/15/2021) [address]-2021 History of Past illness Narrative* Problem Noted Date Resolved Date Abdominal pain, epigastric 04/22/202004/22 documented as of this encounter (statuses as of 07/22/2021) [address]-2021 History of Past illness Narrative* Problem Noted Date Resolved Date Abdominal pain, epigastric 04/22/202004/22 documented as of this encounter (statuses as of 08/14/2021) [facility] History of Past illness Narrative* Problem Noted Date Resolved Date Abdominal pain, epigastric 04/22/202004/22 documented as of this encounter (statuses as of 08/14/2021) [address]-2021 History of Past illness Narrative* Problem Noted Date Resolved Date Abdominal pain, epigastric 04/22/202004/22 documented as of this encounter (statuses as of 10/08/2021) [facility] History of Past illness Narrative* Problem Noted Date Resolved Date Abdominal pain, epigastric 04/22/202004/22 documented as of this encounter (statuses as of 11/05/2021) [facility] History of Past illness Narrative* Problem Noted Date Resolved Date Abdominal pain, epigastric 04/22/202004/22 documented as of this encounter (statuses as of 01/13/2022) [address]-2021 History of Past illness Narrative* Problem Noted Date Resolved Date Abdominal pain, epigastric 04/22/202004/22 documented as of this encounter (statuses as of 03/25/2022) [address]-2021 History of Past illness Narrative* Problem Noted Date Resolved Date Abdominal pain, epigastric 04/22/202004/22 documented as of this encounter (statuses as of 03/29/2022) [address]-2021 History of Past illness Narrative* Problem Noted Date Resolved Date Abdominal pain, epigastric 04/22/202004/22 documented as of this encounter (statuses as of 04/07/2022) [address]-2021 History of Past illness Narrative* Problem Noted Date Resolved Date Abdominal pain, epigastric 04/22/202004/22 documented as of this encounter (statuses as of 05/06/2022) [address]09-2021 History of Past illness Narrative* Problem Noted Date Resolved Date Abdominal pain, epigastric 04/22/202004/22 documented as of this encounter (statuses as of 05/12/2022) [address]-2021 History of Past illness Narrative* Problem Noted Date Resolved Date Abdominal pain, epigastric 04/22/202004/22 documented as of this encounter (statuses as of 05/13/2022) [address]-2021 History of Past illness Narrative* Problem Noted Date Resolved Date Abdominal pain, epigastric 04/22/202004/22 documented as of this encounter (statuses as of 05/24/2022) [address]-2021 History of Past illness Narrative* Problem Noted Date Resolved Date Abdominal pain, epigastric 04/22/202004/22 documented as of this encounter (statuses as of 05/27/2022) [address]-2021 History of Past illness Narrative* Problem Noted Date Resolved Date Abdominal pain, epigastric 04/22/202004/22 documented as of this encounter (statuses as of 06/09/2022) [address]-2021 History of Past illness Narrative* Problem Noted Date Resolved Date Abdominal pain, epigastric 04/22/202004/22 documented as of this encounter (statuses as of 06/17/2022) [address]-2021 History of Past illness Narrative* Problem Noted Date Resolved Date Abdominal pain, epigastric 04/22/202004/22 documented as of this encounter (statuses as of 06/25/2022) [address]-2021 History of Past illness Narrative* Problem Noted Date Resolved Date Abdominal pain, epigastric 04/22/202004/221 documented as of this encounter (statuses as of 07/16/2022) [address]-2021 History of Past illness Narrative* Problem Noted Date Resolved Date Abdominal pain, epigastric 04/22/202004/22 documented as of this encounter (statuses as of 07/20/2022) [address]-2021 History of Past illness Narrative* Problem Noted Date Resolved Date Abdominal pain, epigastric 04/22/202004/22 documented as of this encounter (statuses as of 08/17/2022) [address]-2021 History of Past illness Narrative* Problem Noted Date Diagnosed Date Resolved Date Abdominal pain, epigastric 04/22/2020 0 04/22/2020 documented as of this encounter (statuses as of 12/19/2022) [address]-2021 History of Past illness Narrative* Problem Noted Date Diagnosed Date Resolved Date Abdominal pain, epigastric 04/22/2020 0 04/22/2020 documented as of this encounter (statuses as of 12/19/2022) [address]-2021 History of Past illness Narrative* Problem Noted Date Diagnosed Date Resolved Date Abdominal pain, epigastric 04/22/2020 0 04/22/2020 documented as of this encounter (statuses as of 04/29/2023) [address]-2021 History of Past illness Narrative* Problem Noted Date Diagnosed Date Resolved Date Abdominal pain, epigastric 04/22/2020 0 04/22/2020 documented as of this encounter (statuses as of 06/02/2023) [address]-2021 History of Past illness Narrative* Problem Noted Date Diagnosed Date Resolved Date Abdominal pain, epigastric 04/22/2020 0 04/22/2020 documented as of this encounter (statuses as of 06/03/2023) [address]-2021 History of Past illness Narrative* Problem Noted Date Diagnosed Date Resolved Date Abdominal pain, epigastric 04/22/2020 0 04/22/2020 documented as of this encounter (statuses as of 06/04/2023) [facility] information [facility]: Evaluation note* Diagnosis 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) Encounter for screening mammogram for high-risk patient documented in this encounter [facility] note* Diagnosis 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)- Primary Vitamin D deficiency Unspecified vitamin D deficiency Encounter for screening mammogram for high-risk patient documented in this encounter [facility] note* Diagnosis Primary hypertension- Primary Unspecified essential hypertension Chest pain, unspecified type Cough documented in this encounter [facility] note* Diagnosis Primary hypertension- Primary Unspecified essential hypertension documented in this encounter [facility] note* Diagnosis Primary hypertension- Primary Unspecified essential hypertension documented in this encounter [facility] note* Diagnosis Acute cough- Primary At increased risk of exposure to COVID-19 virus documented in this encounter [facility] note* Diagnosis Primary hypertension- Primary Unspecified essential hypertension Vitamin D deficiency Unspecified vitamin D deficiency Malignant neoplasm of upper-outer quadrant of left breast in female, estrogen receptor positive (HCC) Gastritis and duodenitis Unspecified gastritis and gastroduodenitis without mention of hemorrhage History of thyroidectomy Other postprocedural status documented in this encounter [facility] note* Diagnosis Parotid mass- Primary Swelling, mass, or lump in head and neck Primary hypertension Unspecified essential hypertension Headache, unspecified headache type documented in this encounter [facility] note* Diagnosis Parotid mass- Primary Swelling, mass, or lump in head and neck documented in this encounter [facility] note* Diagnosis Pneumonia of both lungs due to infectious organism, unspecified part of lung- Primary Acute cough documented in this encounter [facility] note* Diagnosis Personal history of malignant neoplasm of breast- Primary Encounter for screening mammogram for high-risk patient documented in this encounter [facility] note* Diagnosis Parotid mass Swelling, mass, or lump in head and neck documented in this encounter [facility] note* Diagnosis Left ear pain- Primary Otalgia, unspecified Primary hypertension Unspecified essential hypertension Malignant neoplasm of upper-outer quadrant of left breast in female, estrogen receptor positive (HCC) Vitamin D deficiency Unspecified vitamin D deficiency Obesity, Class III, BMI 40-49.9 (morbid obesity) (HCC) Morbid obesity 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 Gastritis and duodenitis Unspecified gastritis and gastroduodenitis without mention of hemorrhage 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) [facility] Diagnosis Warthin's tumor- Primary Benign neoplasm of major salivary glands Primary hypertension Unspecified essential hypertension [facility] Diagnosis Parotid mass Swelling, mass, or lump in head and neck [facility] Diagnosis 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) Encounter for screening mammogram for high-risk patient [facility] Diagnosis Primary hypertension- Primary Unspecified essential hypertension [facility] Diagnosis Personal history of malignant neoplasm of breast Encounter for screening mammogram for high-risk patient [facility] Diagnosis Personal history of malignant neoplasm of breast- Primary Encounter for screening mammogram for high-risk patient [facility] Diagnosis Primary hypertension- Primary Unspecified essential hypertension Wheeze Wheezing Class 3 severe obesity with body mass index (BMI) of 40.0 to 44.9 in adult, unspecified obesity type, unspecified whether serious comorbidity present (HCC) Encounter for immunization Need for other specified prophylactic vaccination against single bacterial disease Tobacco abuse Tobacco use disorder Vitamin D deficiency Unspecified vitamin D deficiency [facility] Diagnosis Acute cough [facility] Diagnosis Primary hypertension- Primary Unspecified essential hypertension Low HDL (under 40) Lipoprotein deficiencies Gastroesophageal reflux disease, unspecified whether esophagitis present Vitamin D deficiency Unspecified vitamin D deficiency Persistent circadian rhythm sleep disorder, shift work type Encounter for screening for diabetes mellitus Screening for diabetes mellitus Class 3 severe obesity with serious comorbidity and body mass index (BMI) of 40.0 to 44.9 in adult, unspecified obesity type (HCC) [facility] Diagnosis Cough [facility] Diagnosis Primary hypertension- Primary Unspecified essential hypertension Metabolic syndrome Dysmetabolic Syndrome X Low HDL (under 40) Lipoprotein deficiencies Gastroesophageal reflux disease, unspecified whether esophagitis present Vitamin D deficiency Unspecified vitamin D deficiency Persistent circadian rhythm sleep disorder, shift work type Class 3 severe obesity with serious comorbidity and body mass index (BMI) of 40.0 to 44.9 in adult, unspecified obesity type (HCC) documented in this encounter [facility] note* Diagnosis Hypokalemia- Primary Hypopotassemia documented in this encounter [facility] note* Diagnosis Primary hypertension- Primary Unspecified essential hypertension Vitamin D deficiency Unspecified vitamin D deficiency Female genital prolapse, unspecified type Prediabetes Other abnormal glucose documented in this encounter [facility] note* Diagnosis Rectocele- Primary Female genital prolapse, unspecified type * Assessment & Plan Note - Beth Sales MD - 05/14/2024 8:58 AM EDT Associated Problem(s): Rectocele Orders: CONSULT TO [facility]; Future documented in this encounter [facility] note* Diagnosis Rectocele- Primary Female genital prolapse, unspecified type Encounter for follow-up surveillance of breast cancer- Primary Unspecified follow-up examination Encounter for screening mammogram for high-risk patient documented [facility] Phone: Reason for referral (narrative)* Diagnostic Procedure Only (Routine) - Closed Specialty Diagnoses / Procedures Referred By Reyes kirkpatrick Referred To Contact [facility] Diagnoses 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) Encounter for screening mammogram for high-risk patient Procedures JULISA SCREENING SCREENING MAMMOGRAPHY BI 2-VIEW BREAST INC Becky Whiteside APRN.CNP [address] [place] [address] [facility] [address] [place] [id number] Referral ID Status Reason Start Date Expiration Date V isits Requested Visits Authorized [id number] Closed Auto-Generate d Referral 12/08/2020 01/07/2022 1 1 [facility] for referral (narrative)* Diagnostic Procedure Only (Routine) - Pending Review Specialty Diagnoses / Procedures Referred By Reyes kirkpatrick Referred To Contact [facility] Diagnoses 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) Encounter for screening mammogram for high-risk patient Procedures JULISA SCREENING SCREENING MAMMOGRAPHY BI 2-VIEW BREAST INC Becky Whiteside APRN.DUCK BILL OPERATOR [address] [place] [address] [facility] [address] [place] [address] Referral ID Status Reason Start Date Expiration Date Visits Requested Visits Authorized [id number] Pending Review Auto-Generat ed Referral 05/26/2021 06/25/2022 1 1 [facility] for referral (narrative)* Diagnostic Procedure Only (Routine) - Pending Review Specialty Diagnoses / Procedures Referred By Contac t Referred To Contact [facility] Diagnoses Personal history of malignant neoplasm of breast Encounter for screening mammogram for high-risk patient Procedures JULISA SCREENING SCREENING MAMMOGRAPHY BI 2-VIEW BREAST INC [facility] WhiteJacobbyDAKSHA.DUCK BILL OPERATOR [address] [place] [address] [facility] [address] [place] [address] Referral ID Status Reason Start Date Expiration Date Visits Requested Visits Authorized [id number] Pending Review Auto-Generat ed Referral 05/26/2022 06/25/2023 1 1 T [facility] for referral (narrative)* Diagnostic Procedure Only (Routine) - Closed Specialty Diagnoses / Procedures Referred By Contac t Referred To Contact [facility] Diagnoses Parotid mass Procedures MRI FACE WO/W IVCON MRI ORBIT FACE & NECK W/O & W/CONTRAST Palmer Campos MD [address] [place] [address] Mr Imaging [facility] Referral ID Status Reason Start Date Expiration Date V isits Requested Visits Authorized [id number] Closed Auto-Generate d Referral 05/05/2022 02/13/2023 1 1 [facility] for referral (narrative)* Diagnostic Procedure Only (Routine) - Authorized Specialty Diagnoses / Procedures Referred By Contac t Referred To Contact [facility] Diagnoses Personal history of malignant neoplasm of breast Encounter for screening mammogram for high-risk patient Procedures JULISA SCREENING W PATIENCE SCREENING DIGITAL BREAST TOMOSYNTHESIS BI SCREENING MAMMOGRAPHY BI 2-VIEW BREAST INC Becky Whiteside APRN.CNP [address] [place] [address] [facility] [address] [place] [address] Referral ID Status Reason Start Date Expiration Date Visits Requested Visits Authorized [id number] Authorized Auto-Generat ed Referral 06/08/2023 07/07/2024 1 1 [facility] Diagnostic Procedure Only (Routine) - Closed Specialty Diagnoses / Procedures Referred By Reyes kirkpatrick Referred To Contact [facility] IMAGING Diagnoses Parotid mass Procedures MRI FACE WO/W IVCON MRI ORBIT FACE & NECK W/O & W/CONTRAST Palmer Campos MD [address] [place] [address] [place] [address] Referral ID Status Reason Start Date Expiration Date V isits Requested Visits Authorized [id number] Closed Auto-Generate d Referral 05/05/2022 02/13/2023 1 1 [facility] Chief Complaint and Reason for Visit Chief Complaint CP Chief Complaint CP CHEST DISCOMFORT CHEST DISCOMFORT Advance Directives No Advanced Directives Records Found Advance Directive Response Recorded Date/ Time Advance Directives No June 02 4:25pm Living Will No May 13, 2021 11:18am Power of Hardware Installation Coordinator No May 13 11:18am Documents on File Type Date Recorded Patient Knot Tier Expl anation Advance Directive(s) 04/22/2020 9:31 AM Advance Directive(s) 04/16/2020 2:31 PM Advance Directive(s) 10/05/2016 7:13 AM Documents on File Type Date Recorded Patient Knot Tier Expl anation Advance Directive(s) 04/22/2020 9:31 AM Advance Directive(s) 04/16/2020 2:31 PM Advance Directive(s) 10/05/2016 7:13 AM Health Concerns Infection Onset Date Last Indicated Resolved Time COVID-19 Rule-Out 10/08/2021 10/08/2021 Infection Onset Date Last Indicated Resolved Time COVID-19 Rule-Out 10/08/2021 10/08/2021 10/08/2021 11:40 PM EDT Reason for Referral Specialty Diagnoses / Procedures Referred By Reyes kirkpatrick Referred To Contact [facility] IM[facility] Diagnoses Parotid mass Procedures MRI FACE WO/W IVCON MRI ORBIT FACE & NECK W/O & W/CONTRAST MATRL Palmer Mckinnon MD [address] [place] [address] [facility] Imaging Referral ID Status Reason Start Date Expiration Date Visits Requested Visits Authorized [id number] Pending Review Auto-Generat ed Referral 04/07/2022 05/07/2023 1 1 Specialty Diagnoses / Procedures Referred By Reyes kirkpatrick Referred To Contact Ent - Otolaryngology Diagnoses Parotid mass Procedures CONSULT TO ENT OFFICE/OUTPATIENT NEW HIGH MDM 60-74 MINUTES Palmer Mckinnon MD [address] [place] [address] Referral ID Status Reason Start Date Expiration Date Visits Requested Visits Authorized [id number] Pending Review PCP Requested Referral 05/05/2022 05/05/2023 1 1 Specialty Diagnoses / Procedures Referred By Reyes kirkpatrick Referred To Contact [facility] Diagnoses 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) Encounter for screening mammogram for high-risk patient Procedures JULISA SCREENING SCREENING MAMMOGRAPHY BI 2-VIEW BREAST INC CAD Becky White, MANUFACTURING PLANT CONTROLLER.DUCK BILL OPERATOR [address] [place] [address] [facility] [address] [place] [address] Referral ID Status Reason Start Date Expiration Date V isits Requested Visits Authorized [id number] Closed Auto-Generate d Referral 05/20/2022 02/13/2023 1 1 Specialty Diagnoses / Procedures Referred By Reyes kirkpatrick Referred To Contact Diagnoses Class 3 severe obesity with body mass index (BMI) of 40.0 to 44.9 in adult, unspecified obesity type, unspecified whether serious comorbidity present (HCC) Procedures CONSULT TO [facility] WEIGHT [facility]NAG[facility] PROGRAM OFFICE/OUTPATIENT NEW HIGH MDM 60 MINUTES Ariela Talbert, MANUFACTURING PLANT CONTROLLER.DUCK BILL OPERATOR [address] [place] [address] Referral ID Status Reason Start Date Expiration Date Visits Requested Visits Authorized [id number] Authorized PCP Requested Referral Auto-Generate d Referral 10/31/2023 10/30/2024 1 1 Summary Purpose Family History No Family History Records FoundNo Family History Records FoundNo Family History Records FoundNo Family History Records Found Additional Source Comments Goals (unrecognized section and content) Goals may be documented in a n alternate sectionGoals may be documented in an alternate section Source Comments (unrecognize d section and content) In the event this informatio n is protected by the Federal Confidentiality of Alcohol and Drug Abuse Patient Records regulations: The Federal rules restrict any use of the information to criminally investigate or prosecute any alcohol or drug abuse patient.[facility] event this information is protected by the Federal Confidentiality of Alcohol and Drug Abuse Patient Records regulations: The Federal rules restrict any use of the information to criminally investigate or prosecute any alcohol or drug abuse patient.[facility] ColumbusIn the event this information is protected by the Federal Confidentiality of Alcohol and Drug Abuse Patient Records regulations: The Federal rules restrict any use of the information to criminally investigate or prosecute any alcohol or drug abuse patient.[facility] ColumbusIn the event this information is protected by the Federal Confidentiality of Alcohol and Drug Abuse Patient Records regulations: The Federal rules restrict any use of the information to criminally investigate or prosecute any alcohol or drug abuse patient.[facility] ColumbusIn the event this information is protected by the Federal Confidentiality of Alcohol and Drug Abuse Patient Records regulations: The Federal rules restrict any use of the information to criminally investigate or prosecute any alcohol or drug abuse patient.[facility] ColumbusIn the event this information is protected by the Federal Confidentiality of Alcohol and Drug Abuse Patient Records regulations: The Federal rules restrict any use of the information to criminally investigate or prosecute any alcohol or drug abuse patient.[facility] ColumbusIn the event this information is protected by the Federal Confidentiality of Alcohol and Drug Abuse Patient Records regulations: The Federal rules restrict any use of the information to criminally investigate or prosecute any alcohol or drug abuse patient.[facility] ColumbusIn the event this information is protected by the Federal Confidentiality of Alcohol and Drug Abuse Patient Records regulations: The Federal rules restrict any use of the information to criminally investigate or prosecute any alcohol or drug abuse patient.[facility] ColumbusIn the event this information is protected by the Federal Confidentiality of Alcohol and Drug Abuse Patient Records regulations: The Federal rules restrict any use of the information to criminally investigate or prosecute any alcohol or drug abuse patient.[facility] ColumbusIn the event this information is protected by the Federal Confidentiality of Alcohol and Drug Abuse Patient Records regulations: The Federal rules restrict any use of the information to criminally investigate or prosecute any alcohol or drug abuse patient.[facility] ColumbusIn the event this information is protected by the Federal Confidentiality of Alcohol and Drug Abuse Patient Records regulations: The Federal rules restrict any use of the information to criminally investigate or prosecute any alcohol or drug abuse patient.[facility] ColumbusIn the event this information is protected by the Federal Confidentiality of Alcohol and Drug Abuse Patient Records regulations: The Federal rules restrict any use of the information to criminally investigate or prosecute any alcohol or drug abuse patient.[facility] ColumbusIn the event this information is protected by the Federal Confidentiality of Alcohol and Drug Abuse Patient Records regulations: The Federal rules restrict any use of the information to criminally investigate or prosecute any alcohol or drug abuse patient.[facility] ColumbusIn the event this information is protected by the Federal Confidentiality of Alcohol and Drug Abuse Patient Records regulations: The Federal rules restrict any use of the information to criminally investigate or prosecute any alcohol or drug abuse patient.[facility] ColumbusIn the event this information is protected by the Federal Confidentiality of Alcohol and Drug Abuse Patient Records regulations: The Federal rules restrict any use of the information to criminally investigate or prosecute any alcohol or drug abuse patient.[facility] ColumbusIn the event this information is protected by the Federal Confidentiality of Alcohol and Drug Abuse Patient Records regulations: The Federal rules restrict any use of the information to criminally investigate or prosecute any alcohol or drug abuse patient.[facility] ColumbusIn the event this information is protected by the Federal Confidentiality of Alcohol and Drug Abuse Patient Records regulations: The Federal rules restrict any use of the information to criminally investigate or prosecute any alcohol or drug abuse patient.[facility] ColumbusIn the event this information is protected by the Federal Confidentiality of Alcohol and Drug Abuse Patient Records regulations: The Federal rules restrict any use of the information to criminally investigate or prosecute any alcohol or drug abuse patient.[facility] ColumbusIn the event this information is protected by the Federal Confidentiality of Alcohol and Drug Abuse Patient Records regulations: The Federal rules restrict any use of the information to criminally investigate or prosecute any alcohol or drug abuse patient.[facility] ColumbusIn the event this information is protected by the Federal Confidentiality of Alcohol and Drug Abuse Patient Records regulations: The Federal rules restrict any use of the information to criminally investigate or prosecute any alcohol or drug abuse patient.[facility] ColumbusIn the event this information is protected by the Federal Confidentiality of Alcohol and Drug Abuse Patient Records regulations: The Federal rules restrict any use of the information to criminally investigate or prosecute any alcohol or drug abuse patient.[facility] ColumbusIn the event this information is protected by the Federal Confidentiality of Alcohol and Drug Abuse Patient Records regulations: The Federal rules restrict any use of the information to criminally investigate or prosecute any alcohol or drug abuse patient.[facility] ColumbusIn the event this information is protected by the Federal Confidentiality of Alcohol and Drug Abuse Patient Records regulations: The Federal rules restrict any use of the information to criminally investigate or prosecute any alcohol or drug abuse patient.[facility] ColumbusIn the event this information is protected by the Federal Confidentiality of Alcohol and Drug Abuse Patient Records regulations: The Federal rules restrict any use of the information to criminally investigate or prosecute any alcohol or drug abuse patient.[facility] ColumbusIn the event this information is protected by the Federal Confidentiality of Alcohol and Drug Abuse Patient Records regulations: The Federal rules restrict any use of the information to criminally investigate or prosecute any alcohol or drug abuse patient.[facility] ColumbusIn the event this information is protected by the Federal Confidentiality of Alcohol and Drug Abuse Patient Records regulations: The Federal rules restrict any use of the information to criminally investigate or prosecute any alcohol or drug abuse patient.[facility] ColumbusIn the event this information is protected by the Federal Confidentiality of Alcohol and Drug Abuse Patient Records regulations: The Federal rules restrict any use of the information to criminally investigate or prosecute any alcohol or drug abuse patient.[facility] ColumbusIn the event this information is protected by the Federal Confidentiality of Alcohol and Drug Abuse Patient Records regulations: The Federal rules restrict any use of the information to criminally investigate or prosecute any alcohol or drug abuse patient.[facility] ColumbusIn the event this information is protected by the Federal Confidentiality of Alcohol and Drug Abuse Patient Records regulations: The Federal rules restrict any use of the information to criminally investigate or prosecute any alcohol or drug abuse patient.[facility] ColumbusIn the event this information is protected by the Federal Confidentiality of Alcohol and Drug Abuse Patient Records regulations: The Federal rules restrict any use of the information to criminally investigate or prosecute any alcohol or drug abuse patient.[facility] ColumbusIn the event this information is protected by the Federal Confidentiality of Alcohol and Drug Abuse Patient Records regulations: The Federal rules restrict any use of the information to criminally investigate or prosecute any alcohol or drug abuse patient.[facility] ColumbusIn the event this information is protected by the Federal Confidentiality of Alcohol and Drug Abuse Patient Records regulations: The Federal rules restrict any use of the information to criminally investigate or prosecute any alcohol or drug abuse patient.[facility] ColumbusIn the event this information is protected by the Federal Confidentiality of Alcohol and Drug Abuse Patient Records regulations: The Federal rules restrict any use of the information to criminally investigate or prosecute any alcohol or drug abuse patient.[facility] ColumbusIn the event this information is protected by the Federal Confidentiality of Alcohol and Drug Abuse Patient Records regulations: The Federal rules restrict any use of the information to criminally investigate or prosecute any alcohol or drug abuse patient.[facility] ColumbusIn the event this information is protected by the Federal Confidentiality of Alcohol and Drug Abuse Patient Records regulations: The Federal rules restrict any use of the information to criminally investigate or prosecute any alcohol or drug abuse patient.[facility] ColumbusIn the event this information is protected by the Federal Confidentiality of Alcohol and Drug Abuse Patient Records regulations: The Federal rules restrict any use of the information to criminally investigate or prosecute any alcohol or drug abuse patient.[facility] ColumbusIn the event this information is protected by the Federal Confidentiality of Alcohol and Drug Abuse Patient Records regulations: The Federal rules restrict any use of the information to criminally investigate or prosecute any alcohol or drug abuse patient.[facility] ColumbusIn the event this information is protected by the Federal Confidentiality of Alcohol and Drug Abuse Patient Records regulations: The Federal rules restrict any use of the information to criminally investigate or prosecute any alcohol or drug abuse patient.[facility] ColumbusIn the event this information is protected by the Federal Confidentiality of Alcohol and Drug Abuse Patient Records regulations: The Federal rules restrict any use of the information to criminally investigate or prosecute any alcohol or drug abuse patient.[facility] ColumbusIn the event this information is protected by the Federal Confidentiality of Alcohol and Drug Abuse Patient Records regulations: The Federal rules restrict any use of the information to criminally investigate or prosecute any alcohol or drug abuse patient.[facility] ColumbusIn the event this information is protected by the Federal Confidentiality of Alcohol and Drug Abuse Patient Records regulations: The Federal rules restrict any use of the information to criminally investigate or prosecute any alcohol or drug abuse patient.[facility] ColumbusIn the event this information is protected by the Federal Confidentiality of Alcohol and Drug Abuse Patient Records regulations: The Federal rules restrict any use of the information to criminally investigate or prosecute any alcohol or drug abuse patient.[facility] ColumbusIn the event this information is protected by the Federal Confidentiality of Alcohol and Drug Abuse Patient Records regulations: The Federal rules restrict any use of the information to criminally investigate or prosecute any alcohol or drug abuse patient.[facility] ColumbusIn the event this information is protected by the Federal Confidentiality of Alcohol and Drug Abuse Patient Records regulations: The Federal rules restrict any use of the information to criminally investigate or prosecute any alcohol or drug abuse patient.[facility] ColumbusIn the event this information is protected by the Federal Confidentiality of Alcohol and Drug Abuse Patient Records regulations: The Federal rules restrict any use of the information to criminally investigate or prosecute any alcohol or drug abuse patient.[facility] ColumbusIn the event this information is protected by the Federal Confidentiality of Alcohol and Drug Abuse Patient Records regulations: The Federal rules restrict any use of the information to criminally investigate or prosecute any alcohol or drug abuse patient.[facility] ColumbusIn the event this information is protected by the Federal Confidentiality of Alcohol and Drug Abuse Patient Records regulations: The Federal rules restrict any use of the information to criminally investigate or prosecute any alcohol or drug abuse patient.[facility] Reason for Visit (unrecogniz ed section and content) Reason Comments Follow Up Specialty Diagnoses / Procedures Referred By Reyes t Referred To Contact Family Medicine / FAMILY MEDICINE Diagnoses follow up Procedures 4C EST Palmer Mckinnon MD [address] [place] [address] Palmer Mckinnon MD [address] [place] [address] Referral ID Status Reason Start Date Expiration Date Visits Re quested Visits Authorized [id number] Closed 01/08/2022 02/13/2022 1 1 Specialty Diagnoses / Procedures Referred By Contcain t Referred To Contact Radiology / [facility] Diagnoses Malignant neoplasm of upper-outer quadrant of left breast in female, estrogen receptor 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 Encounter for screening mammogram for high-risk patient [Z12.31] Procedures SCREENING MAMMOGRAPHY BI 2-VIEW BREAST INC CAD MAMMOGRAM SCREENING Becky White, MANUFACTURING PLANT CONTROLLER.DUCK BILL OPERATOR [address] [place] [address] Radio Mammo [facility] [address] [place] [address] Referral ID Status Reason Start Date Expiration Date V isits Requested Visits Authorized [id number] Authorized 06/05/2020 06/05/2021 99 99 Reason Comments Blood Pressure Reason Comments Established Patient Specialty Diagnoses / Procedures Referred By Contac t Referred To Contact Hematology/Oncology / HEMATOLOGY/ONCOLOGY Diagnoses 4MO OV* Procedures EST SIMPLE Becky White, MANUFACTURING PLANT CONTROLLER.DUCK BILL OPERATOR [address] [place] [address] Becky White, MANUFACTURING PLANT CONTROLLER.DUCK BILL OPERATOR [address] [place] [address] Referral ID Status Reason Start Date Expiration Date Visits Re quested Visits Authorized [id number] Closed 10/03/2019 12/21/2019 99 99 Reason Comments Orders Specialty Diagnoses / Procedures Referred By Contac t Referred To Contact Family Practice / FAMILY MEDICINE Diagnoses Follow-up examination 8 Week Follow-up Procedures OFFICE/OUTPATIENT ESTABLISHED MOD MDM 30-39 MIN 4C EST Palmer Mckinnon MD [address] [place] [address] Palmer Mckinnon MD [address] [place] [address] Referral ID Status Reason Start Date Expiration Date Visits Re quested Visits Authorized [id number] Closed 06/17/2021 02/13/2022 1 1 Reason Comments Patient Update Reason Comments Blood Pressure Check Specialty Diagnoses / Procedures Referred By Contac t Referred To Contact Internal Medicine / FAMILY MEDICINE Diagnoses Encounter for examination of blood pressure without abnormal findings BP check Procedures OFFICE/OUTPATIENT ESTABLISHED MOD MDM 30-39 MIN Palmer Elam MD [address] [place] [id number] [address] Referral ID Status Reason Start Date Expiration Date Visits Re quested Visits Authorized [id number] Closed 08/14/2021 02/13/2022 1 1 Reason Comments Cough SOB, chest congestio n, Xiao , 2 days. Specialty Diagnoses / Procedures Referred By Contac t Referred To Contact Family Practice / [facility] Diagnoses Cough Chest congestion Body aches SOB (shortness of breath) Headache cough, chest congestion, bodyaches, sob, headache Procedures OFFICE/OUTPATIENT ESTABLISHED MOD MDM 30-39 MIN EST SAME DAY Self, Joann Crowley, MANUFACTURING PLANT CONTROLLER.DUCK BILL OPERATOR [address] [place] [address] Referral ID Status Reason Start Date Expiration Date Visits Re quested Visits Authorized [id number] Closed 10/08/2021 02/13/2022 1 1 Reason Comments Results Reason Comments Hypertension Headache Reason Comments Appointment Reason Comments ER F/U Headache and HTN Specialty Diagnoses / Procedures Referred By Contac t Referred To Contact Internal Medicine / FAMILY MEDICINE Diagnoses Follow-up exam ER Follow up Procedures OFFICE/OUTPATIENT ESTABLISHED MOD MDM 30-39 MIN 4C EST HOSP/ER FU Self Palmer Mckinnon MD [address] [place] [address] Referral ID Status Reason Start Date Expiration Date Visits Re quested Visits Authorized [id number] Closed 04/07/2022 02/13/2023 1 1 Reason Comments Results MRI Reason Comments Cough head congestion, sob , wheezing and fever x 1 day Specialty Diagnoses / Procedures Referred By Contac t Referred To Contact Gynecology / [facility] Diagnoses cough, sob, congestion, fever Procedures OFFICE/OUTPATIENT ESTABLISHED MOD MDM 30-39 MIN EST SAME DAY Self Lizette Berrios, MANUFACTURING [employer]ANT CONTROLLER.DUCK BILL OPERATOR [address] [place] [address] Referral ID Status Reason Start Date Expiration Date Visits Re quested Visits Authorized [id number] Closed 05/12/2022 02/13/2023 1 1 Specialty Diagnoses / Procedures Referred By Contac t Referred To Contact Hematology/Oncology / HEMATOLOGY/ONCOLOGY Diagnoses Follow-up exam 1 YR OV/MAMM EARLIER THIS MONTH* Procedures OFFICE/OUTPATIENT ESTABLISHED HIGH MDM 40-54 MIN EST SIMPLE Becky White, MANUFACTURING PLANT CONTROLLER.DUCK BILL OPERATOR [address] [place] [address] Becky White, MANUFACTURING PLANT CONTROLLER.DUCK BILL OPERATOR [address] [place] [address] Referral ID Status Reason Start Date Expiration Date Visits Re quested Visits Authorized [id number] Closed 05/26/2022 02/13/2023 1 1 Reason Comments New Patient Specialty Diagnoses / Procedures Referred By Contac t Referred To Contact Ent - Otolaryngology Diagnoses Parotid mass Procedures CONSULT TO ENT OFFICE/OUTPATIENT NEW HIGH MDM 60-74 MINUTES Palmer Mckinnon MD [address] [place] [address] [place] [address] Referral ID Status Reason Start Date Expiration Date V isits Requested Visits Authorized [id number] Closed PCP Requested Referral 06/09/2022 02/13/2023 1 1 Reason Comments Biopsy Request Reason Comments Hypertension Specialty Diagnoses / Procedures Referred By Contac t Referred To Contact Family Medicine / FAMILY MEDICINE Diagnoses Follow-up examination 6 month follow up HTN Procedures OFFICE/OUTPATIENT ESTABLISHED MOD MDM 30-39 MIN 4C Palmer Macedo MD [address] [place] [address] Palmer Mckinnon MD [address] [place] [address] Referral ID Status Reason Start Date Expiration Date Visits Re quested Visits Authorized [id number] Closed 07/16/2022 02/13/2023 1 1 Reason Comments Swelling Facial swelling x co uple days; painful Specialty Diagnoses / Procedures Referred By Contac t Referred To Contact Family Medicine / FAMILY MEDICINE Diagnoses Swelling of face check swelling to face Procedures OFFICE/OUTPATIENT ESTABLISHED MOD MDM 30-39 MIN 4C Palmer Macedo MD [address] [place] [address] Ariela Talbert, MANUFACTURING PLANT CONTROLLER.DUCK BILL OPERATOR [address] [place] [address] Referral ID Status Reason Start Date Expiration Date Visits Re quested Visits Authorized [id number] Closed 08/16/2022 02/13/2023 1 1 Specialty Diagnoses / Procedures Referred By Contac t Referred To Contact [facility] Diagnoses 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) Encounter for screening mammogram for high-risk patient Procedures JULISA SCREENING SCREENING MAMMOGRAPHY BI 2-VIEW BREAST INC CAD Becky White, MANUFACTURING PLANT CONTROLLER.DUCK BILL OPERATOR [address] [place] [address] [facility] [address] [place] [address] Referral ID Status Reason Start Date Expiration Date V isits Requested Visits Authorized [id number] Closed Auto-Generate d Referral 05/20/2022 02/13/2023 1 1 Reason Comments Recheck 1 month follow up Specialty Diagnoses / Procedures Referred By Contac t Referred To Contact Family Medicine / FAMILY MEDICINE Diagnoses follow up Procedures 4C EST Palmer Mckinnon MD [address] [place] [address] Ariela Talbert MANUFACTURING PLANT CONTROLLER.DUCK BILL OPERATOR [address] [place] [address] Referral ID Status Reason Start Date Expiration Date V isits Requested Visits Authorized [id number] Pending Review 03/16/2023 06/14/2023 1 1 Specialty Diagnoses / Procedures Referred By Contac t Referred To Contact [facility] Diagnoses Personal history of malignant neoplasm of breast Encounter for screening mammogram for high-risk patient Procedures JULISA SCREENING SCREENING MAMMOGRAPHY BI 2-VIEW BREAST INC [facility] Becky White, MANUFACTURING PLANT CONTROLLER.DUCK BILL OPERATOR [address] [place] [address] [facility] [address] [place] [address] Referral ID Status Reason Start Date Expiration Date V isits Requested Visits Authorized [id number] Closed Auto-Generate d Referral 06/01/2023 02/14/2024 1 1 Specialty Diagnoses / Procedures Referred By Contac t Referred To Contact Hematology/Oncology / HEMATOLOGY/ONCOLOGY Diagnoses 1 YR OV/JULISA 05/31* Procedures EST SIMPLE Becky White, MANUFACTURING PLANT CONTROLLER.DUCK BILL OPERATOR [address] [place] [address] Becky White, MANUFACTURING PLANT CONTROLLER.DUCK BILL OPERATOR [address] [place] [address] Referral ID Status Reason Start Date Expiration Date V isits Requested Visits Authorized [id number] Pending Review 06/08/2023 09/06/2023 1 1 Reason Comments Recheck 6 month follow up Specialty Diagnoses / Procedures Referred By Contac t Referred To Contact Radiology / [facility] Diagnoses Acute cough xr chest rm 1 Procedures RADIOLOGIC EXAM CHEST 2 VIEWS XR CHEST Joann Hu MANUFACTURING PLANT CONTROLLER.DUCK BILL OPERATOR [address] [place] [address] [facility] [address] [place] [address] Referral ID Status Reason Start Date Expiration Date Visits Re quested Visits Authorized [id number] Closed 10/08/2021 02/13/2022 1 1 Reason Onset Date Comments Weight Management 11/03/2023 Weight Management 11/10/2023 Specialty Diagnoses / Procedures Referred By Contac t Referred To Contact Diagnoses Class 3 severe obesity with body mass index (BMI) of 40.0 to 44.9 in adult, unspecified obesity type, unspecified whether serious comorbidity present (HCC) Procedures CONSULT TO [facility] WEIGHT MANAGEMENT PROGRAM OFFICE/OUTPATIENT [facility] 60 MINUTES Ariela Talbert, MANUFACTURING PLANT CONTROLLER.DUCK BILL OPERATOR [address] [place] [address] Referral ID Status Reason Start Date Expiration Date V isits Requested Visits Authorized [id number] Closed PCP Requested Referral Auto-Generated Referral 10/31/2023 10/30/2024 1 1 Specialty Diagnoses / Procedures Referred By Contac t Referred To Contact Radiology / [facility] Diagnoses xr chest rm 3 Procedures X-RAY EXAM CHEST 2 VIEWS TC XR CHEST Sandro Martinez, MANUFACTURING PLANT CONTROLLER.DUCK BILL OPERATOR [address] [place] [address] Radio General [facility] [address] [place] [address] Referral ID Status Reason Start Date Expiration Date Visits Re quested Visits Authorized [id number] Closed 11/11/2020 01/10/2021 1 1 Reason Comments Weight Management Specialty Diagnoses / Procedures Referred By Contac t Referred To Contact Gynecology / HEAD RESIDENT Diagnoses Encounter for weight management wt mgmt f/up Procedures OFFICE/OUTPATIENT EST PT MAY NOT REQ PHYS/QHP OFFICE/OUTPATIENT ESTABLISHED HIGH MDM 40 MIN EST WHI PATIENT Self Trina Mitchell, MANUFACTURING PLANT CONTROLLER.DUCK BILL OPERATOR [address] [place] [address] Referral ID Status Reason Start Date Expiration Date V isits Requested Visits Authorized [id number] Authorized 03/13/2024 02/13/2025 99 99 Reason Comments 6 Month Exam Reason Onset Date Comments Results 04/30/2024 Reason Comments Vaginal Problem Possible prolapse Specialty Diagnoses / Procedures Referred By Contac t Referred To Contact Gynecology Diagnoses Female genital prolapse, unspecified type Procedures CONSULT TO GYNECOLOGY OFFICE/OUTPATIENT NEW HIGH MDM 60 MINUTES Ariela Talbert, MANUFACTURING PLANT CONTROLLER.DUCK BILL OPERATOR [address] [place] [address] Phone: tel: fax: Referral ID Status Reason Start Date Expiration Date V isits Requested Visits Authorized [id number] Closed PCP Requested Referral Auto-Generated Referral 04/30/2024 04/30/2025 1 1 Reason Onset Date Comments Received Outside Medical Records 06/13/2024 Care Teams (unrecognized sec tion and content) Psychopaedic Nurse Relationship Specialty Start Date End Date Palmer Mckinnon MD [address] [place], [place] [address] PCP - General Family Practice 02/02/15 Lissa Saul MD, [address] [place] [address] Physician Radiation Oncology 09/25/15 Psychopaedic Nurse Relationship Specialty Start Date End Date Palmer Mckinnon MD [address] [facility] [place] [address] PCP - General Family Practice 02/02/15 Lissa Saul MD, [address] [place] [address] Physician Radiation Oncology 09/25/15 Psychopaedic Nurse Relationship Specialty Start Date End Date Palmer Mckinnon MD [address] [facility] [place] [address] PCP - General Family Practice 02/02/15 Lissa Saul MD, [address] [place] [address] Physician Radiation Oncology 09/25/15 Psychopaedic Nurse Relationship Specialty Start Date End Date Palmer Mckinnon MD [address] [facility] [place] [address] PCP - General Family Practice 02/02/15 Lissa Saul MD, [address] [place] [address] Physician Radiation Oncology 09/25/15 Psychopaedic Nurse Relationship Specialty Start Date End Date Palmer Mckinnon MD [address] [facility] [place] [address] PCP - General Family Practice 02/02/15 Lissa Saul MD, [address] [place] [address] Physician Radiation Oncology 09/25/15 Psychopaedic Nurse Relationship Specialty Start Date End Date Palmer Mckinnon MD [address] [facility] [place] [address] PCP - General Family Practice 02/02/15 Lissa Saul MD, [address] [place] [address] Physician Radiation Oncology 09/25/15 Psychopaedic Nurse Relationship Specialty Start Date End Date Palmer Mckinnon MD [address] [place] [address] PCP - General Family Practice 02/02/15 Lissa Saul MD, [address] [place] [address] Physician Radiation Oncology 09/25/15 Psychopaedic Nurse Relationship Specialty Start Date End Date Palmer Mckinnon MD [address] [place] [address] PCP - General Family Practice 02/02/15 Lissa Saul MD, [address] [place] [address] Physician Radiation Oncology 09/25/15 Psychopaedic Nurse Relationship Specialty Start Date End Date Palmer Mckinnon MD [address] [facility] [place] [address] PCP - General Family Practice 02/02/15 Lissa Saul MD, [address] [place] [address] Physician Radiation Oncology 09/25/15 Psychopaedic Nurse Relationship Specialty Start Date End Date Palmer Mckinnon MD [address] [place] [address] PCP - General Family Practice 02/02/15 Lissa Saul MD, [address] [place] [address] Physician Radiation Oncology 09/25/15 Psychopaedic Nurse Relationship Specialty Start Date End Date Palmer Mckinnon MD [address] [place] [address] PCP - General Family Practice 02/02/15 Lissa Saul MD, [address] [place] [address] Physician Radiation Oncology 09/25/15 Psychopaedic Nurse Relationship Specialty Start Date End Date Palmer Mckinnon MD [address] [place] [address] PCP - General Family Medicine 02/02/15 Lissa Saul MD, [address] [place] [address] Physician Radiation Oncology 09/25/15 Psychopaedic Nurse Relationship Specialty Start Date End Date Palmer Mckinnon MD [address] [place] [address] PCP - General Family Medicine 02/02/15 Lissa Saul MD, [address] [place] [address] Physician Radiation Oncology 09/25/15 Psychopaedic Nurse Relationship Specialty Start Date End Date Palmer Mckinnon MD [address] [place] [address] PCP - General Family Medicine 02/02/15 Lissa Saul MD, [address] [place] [address] Physician Radiation Oncology 09/25/15 Becky White, DAKSHA.DUCK BILL OPERATOR [address] [place] [address] Hematology/Oncology 03/11/22 Psychopaedic Nurse Relationship Specialty Start Date End Date Palmer Mckinnon MD [address] [place] [address] PCP - General Family Medicine 02/02/15 Lissa Saul MD, [address] [place] [address] Physician Radiation Oncology 09/25/15 Becky White, MANUFACTURING PLANT CONTROLLER.DUCK BILL OPERATOR [address] [place] [address] Hematology/Oncology 03/11/22 Psychopaedic Nurse Relationship Specialty Start Date End Date Palmer Mckinnon MD [address] [place] [address] PCP - General Family Medicine 02/02/15 Lissa Saul MD, [address] [place] [address] Physician Radiation Oncology 09/25/15 Becky White, MANUFACTURING PLANT CONTROLLER.DUCK BILL OPERATOR [address] [place] [address] Hematology/Oncology 03/11/22 Psychopaedic Nurse Relationship Specialty Start Date End Date Palmer Mckinnon MD [address] [place] [address] PCP - General Family Medicine 02/02/15 Lissa Saul MD, [address] [place] [address] Physician Radiation Oncology 09/25/15 Becky White, MANUFACTURING PLANT CONTROLLER.DUCK BILL OPERATOR [address] [place] [address] Hematology/Oncology 03/11/22 Psychopaedic Nurse Relationship Specialty Start Date End Date Palmer Mckinnon MD [address] [place] [address] PCP - General Family Medicine 02/02/15 Lissa Saul MD, [address] [place] [address] Physician Radiation Oncology 09/25/15 Becky White, MANUFACTURING PLANT CONTROLLER.DUCK BILL OPERATOR [address] [place] [address] Hematology/Oncology 03/11/22 Psychopaedic Nurse Relationship Specialty Start Date End Date Palmer Mckinnon MD [address] [place] [address] PCP - General Family Medicine 02/02/15 Lissa Saul MD, [address] [place] [address] Physician Radiation Oncology 09/25/15 Becky White, MANUFACTURING PLANT CONTROLLER.DUCK BILL OPERATOR [address] [place] [address] Hematology/Oncology 03/11/22 Psychopaedic Nurse Relationship Specialty Start Date End Date Palmer Mckinnon MD [address] [place] [address] PCP - General Family Medicine 02/02/15 Lissa Saul MD, [address] [place] [address] Physician Radiation Oncology 09/25/15 Becky White, MANUFACTURING PLANT CONTROLLER.DUCK BILL OPERATOR [address] [place] [address] Hematology/Oncology 03/11/22 Psychopaedic Nurse Relationship Specialty Start Date End Date Palmer Mckinnon MD [address] [place] [address] PCP - General Family Medicine 02/02/15 Lissa Saul MD, [address] [place] [address] Physician Radiation Oncology 09/25/15 Becky White, MANUFACTURING PLANT CONTROLLER.DUCK BILL OPERATOR [address] [place] [address] Hematology/Oncology 03/11/22 Psychopaedic Nurse Relationship Specialty Start Date End Date Palmer Mckinnon MD [address] [place] [address] PCP - General Family Medicine 02/02/15 Lissa Saul MD, [address] [place] [address] Physician Radiation Oncology 09/25/15 Becky White, MANUFACTURING PLANT CONTROLLER.DUCK BILL OPERATOR [address] [place] [address] Hematology/Oncology 03/11/22 Psychopaedic Nurse Relationship Specialty Start Date End Date Palmer Mckinnon MD [address] [place] [address] PCP - General Family Medicine 02/02/15 Lissa Saul MD, [address] [place] [address] Physician Radiation Oncology 09/25/15 Becky White, MANUFACTURING PLANT CONTROLLER.DUCK BILL OPERATOR [address] [place] [address] Hematology/Oncology 03/11/22 Psychopaedic Nurse Relationship Specialty Start Date End Date Palmer Mckinnon MD [address] [place] [address] PCP - General Family Medicine 02/02/15 Lissa Saul MD, [address] [place] [address] Physician Radiation Oncology 09/25/15 Becky White, MANUFACTURING PLANT CONTROLLER.DUCK BILL OPERATOR [address] [place] [address] Hematology/Oncology 03/11/22 Psychopaedic Nurse Relationship Specialty Start Date End Date Palmer Mckinnon MD [address] [place] [address] PCP - General Family Medicine 02/02/15 Lissa Saul MD, [address] [place] [address] Physician Radiation Oncology 09/25/15 Becky White, MANUFACTURING PLANT CONTROLLER.DUCK BILL OPERATOR [address] [place] [address] Hematology/Oncology 03/11/22 Psychopaedic Nurse Relationship Specialty Start Date End Date Palmer Mckinnon MD [address] [place] [address] PCP - General Family Medicine 02/02/15 Lissa Saul MD, [address] [place] [address] Physician Radiation Oncology 09/25/15 Becky White, MANUFACTURING PLANT CONTROLLER.DUCK BILL OPERATOR [address] [place] [address] Hematology/Oncology 03/11/22 Psychopaedic Nurse Relationship Specialty Start Date End Date Palmer Mckinnon MD [address] [place] [address] PCP - General Family Medicine 02/02/15 Lissa Saul MD, [address] [place] [address] Physician Radiation Oncology 09/25/15 Becky White, MANUFACTURING PLANT CONTROLLER.DUCK BILL OPERATOR [address] [place] [address] Hematology/Oncology 03/11/22 Psychopaedic Nurse Relationship Specialty Start Date End Date Palmer Mckinnon MD [address] [place] [address] PCP - General Family Medicine 02/02/15 Lissa Saul MD [address] [place] [address] Physician Radiation Oncology 09/25/15 Becky White, MANUFACTURING PLANT CONTROLLER.DUCK BILL OPERATOR [address] [place] [address] Hematology/Oncology 03/11/22 Psychopaedic Nurse Relationship Specialty Start Date End Date Palmer Mckinnon MD [address] [place] [address] PCP - General Family Medicine 02/02/15 Lissa Saul MD [address] [place] [address] Physician Radiation Oncology 09/25/15 Becky White, MANUFACTURING PLANT CONTROLLER.DUCK BILL OPERATOR [address] [place] [address] Hematology/Oncology 03/11/22 Psychopaedic Nurse Relationship Specialty Start Date End Date Palmer Mckinnon MD [address] [place] [address] PCP - General Family Medicine 02/02/15 Lissa Saul MD [address] [place] [address] Physician Radiation Oncology 09/25/15 Becky White APRN.DUCK BILL OPERATOR [address] [place] [address] Hematology/Oncology 03/11/22 Psychopaedic Nurse Relationship Specialty Start Date End Date Palmer Mckinnon MD [address] [place] [address] PCP - General Family Medicine 02/02/15 Lissa Saul MD [address] [place] [address] Physician Radiation Oncology 09/25/15 Becky White APRN.DUCK BILL OPERATOR [address] [place] [address] Hematology/Oncology 03/11/22 Psychopaedic Nurse Relationship Specialty Start Date End Date Palmer Mckinnon MD [address] [place] [address] PCP - General Family Medicine 02/02/15 Lissa Saul MD [address] [place] [address] Physician Radiation Oncology 09/25/15 Becky White APRN.DUCK BILL OPERATOR [address] [place] [address] Hematology/Oncology 03/11/22 Psychopaedic Nurse Relationship Specialty Start Date End Date Palmer Mckinnon MD [address] [place] [address] PCP - General Family Medicine 02/02/15 Lissa Saul MD [address] [place] [address] Physician Radiation Oncology 09/25/15 Becky White APRN.DUCK BILL OPERATOR [address] [place] [address] Hematology/Oncology 03/11/22 Psychopaedic Nurse Relationship Specialty Start Date End Date Palmer Mckinnon MD [address] [place] [address] PCP - General Family Medicine 02/02/15 Lissa Saul MD [address] [place] [address] Physician Radiation Oncology 09/25/15 Becky White APRN.DUCK BILL OPERATOR [address] [place] [address] Hematology/Oncology 03/11/22 Psychopaedic Nurse Relationship Specialty Start Date End Date Palmer Mckinnon MD [address] [place] [address] PCP - General Family Medicine 02/02/15 Lissa Saul MD [address] [place] [address] Physician Radiation Oncology 09/25/15 Psychopaedic Nurse Relationship Specialty Start Date End Date Palmer Mckinnon MD [address] [place] [address] PCP - General Family Medicine 02/02/15 Lissa Saul MD [address] [place] [address] Physician Radiation Oncology 09/25/15 Becky White APRN.DUCK BILL OPERATOR [address] [place] [address] Hematology/Oncology 03/11/22 Psychopaedic Nurse Relationship Specialty Start Date End Date Palmer Mckinnon MD [address] [place] [address] PCP - General Family Medicine 02/02/15 Lissa Saul MD [address] [place] [address] Physician Radiation Oncology 09/25/15 Psychopaedic Nurse Relationship Specialty Start Date End Date Palmer Mckinnon MD [address] [place] [address] PCP - General Family Medicine 02/02/15 Lissa Saul MD [address] [place] [address] Physician Radiation Oncology 09/25/15 Becky White APRN.DUCK BILL OPERATOR [address] [place] [address] Hematology/Oncology 03/11/22 Ariela Talbert APRN.DUCK BILL OPERATOR [address] [place] [address] Video Recorder Mechanic Family [facility] 01/23/24 Juanita Gusman APRN.DUCK BILL OPERATOR [address] [place] [address] [facility] 01/23/24 Psychopaedic Nurse Relationship Specialty Start Date End Date Palmer Mckinnon MD [address] [place] [address] PCP - General Family Medicine 02/02/15 Lissa Saul MD [address] [place] [address] Physician Radiation Oncology 09/25/15 Becky White, MANUFACTURING PLANT CONTROLLER.DUCK BILL OPERATOR [address] [place] [address] Hematology/Oncology 03/11/22 Ariela Talbert, MANUFACTURING PLANT CONTROLLER.DUCK BILL OPERATOR [address] [place] [address] [facility] 01/23/24 Juanita Gusman MANUFACTURING PLANT CONTROLLER.DUCK BILL OPERATOR [address] [place] [address] [facility] 01/23/24 Psychopaedic Nurse Relationship Specialty Start Date End Date Palmer Mckinnon MD [address] [place] [address] PCP - General Family Medicine 02/02/15 Lissa Saul MD [address] [place] [address] Physician Radiation Oncology 09/25/15 Becky White, MANUFACTURING PLANT CONTROLLER.DUCK BILL OPERATOR [address] [place] [address] Hematology/Oncology 03/11/22 Ariela Talbert APRN.DUCK BILL OPERATOR [address] [place] [address] Video Recorder Mechanic Family [facility] 01/23/24 uJanita Gusman MANUFACTURING PLANT CONTROLLER.DUCK BILL OPERATOR [address] [place] [address] [facility] 01/23/24 Psychopaedic Nurse Relationship Specialty Start Date End Date Palmer Mckinnon MD [address] [place] [address] PCP - General Family Medicine 02/02/15 Lissa Saul MD [address] [place] [address] Physician Radiation Oncology 09/25/15 Becky White MANUFACTURING PLANT CONTROLLER.DUCK BILL OPERATOR [address] [place] [address] Hematology/Oncology 03/11/22 Ariela Talbert MANUFACTURING PLANT CONTROLLER.DUCK BILL OPERATOR [address] [place] [address] [facility] 01/23/24 Juanita Gusman MANUFACTURING PLANT CONTROLLER.DUCK BILL OPERATOR [address] [place] [address] [facility] 01/23/24 Psychopaedic Nurse Relationship Specialty Start Date End Date Palmer Mckinnon MD [address] [place] [address] PCP - General Family Medicine 02/02/15 Lissa Saul MD [address] [place] [address] Physician Radiation Oncology 09/25/15 Becky White APRN.DUCK BILL OPERATOR [address] [place] [address] Hematology/Oncology 03/11/22 Ariela Talbert APRN.DUCK BILL OPERATOR [address] [place] [address] [facility]24 Juanita Gusman APRN.DUCK BILL OPERATOR [address] [place] [address] [facility] 01/23/24 Psychopaedic Nurse Relationship Specialty Start Date End Date Palmer Mckinnon MD [address] [place] [address] PCP - General Family Medicine 02/02/15 Lisas Saul MD [address] [place] [address] Physician Radiation Oncology 09/25/15 Becky White APRN.DUCK BILL OPERATOR [address] [place] [address] Hematology/Oncology 03/11/22 Ariela Talbert APRN.DUCK BILL OPERATOR [address] [place] [address] [facility] 01/23/24 Juanita Gusman APRN.DUCK BILL OPERATOR [address] [place], [place] [address] [facility] 01/23/24 Psychopaedic Nurse Relationship Specialty Start Date End Date Palmer Mckinnon MD [address] [place], [place] [address] PCP - General Family Medicine 02/02/15 Lissa Saul MD [address] [place], [place] [address] Physician Radiation Oncology 09/25/15 Becky White, MANUFACTURING PLANT CONTROLLER.DUCK BILL OPERATOR [address] [place], [place] [address] Hematology/Oncology 03/11/22 Ariela Talbert, MANUFACTURING PLANT CONTROLLER.DUCK BILL OPERATOR [address] [place] [address] [facility] 01/23/24 Juanita Gusman, MANUFACTURING PLANT CONTROLLER.DUCK BILL OPERATOR [address] [place], [place] [address] [facility] 01/23/24 INFORMATION SOURCE (unrecogn ized section and content) DATE CREATED AUTHOR 01/02/2023 [facility] DATE CREATED AUTHOR AUTHOR'S ORGANIZ ATION 06/20/2024 [facility] DATE CREATED AUTHOR AUTHOR'S ORGANIZ ATION 07/12/2024 [facility] DATE CREATED AUTHOR AUTHOR'S ORGANIZ ATION 07/18/2024 [facility] FOR RECORDS PERTAINING TO PATIENTS WHO ARE OR HAVE BEEN ENROLLED IN A CHEMICAL DEPENDENCY/SUBSTANCEABUSE PROGRAM, SOME INFORMATION MAY BE OMITTED. This clinical summary was aggregated from multiple sources. Caution should be exercised in using it in the provision of clinical care. This summary normalizes information from multiple sources, and as a consequence, information in this document may materially change the coding, format and clinical context of patient data. In addition, data may be omitted in some cases. CLINICAL DECISIONS SHOULD BE BASED ON THE PRIMARY CLINICAL RECORDS. [facility] provides no warranty or guarantee of the accuracy or completeness of information in this document.
[2024-07-19] MEDS: Lactated Ringers 1,000 ML 15 ML IV (06:30)
--- NOTE | 2024-07-19 06:55 | PCM.PRE.AN2 ---
ASA Classification* ASA Classification ASA Classification: 3 Assessment & Plan Anesthesia* Anesthesia Assessment Anesthesia Assessment: Discussed sedation and/or anesthesia options, risks, benefits, and alternatives with patient/parents/legal guardian/POA. Questions invited. The patient/parents/legal guardian/POA seems to understand and agrees to proceed with anesthesia plan. Reviewed the physical assessment, medical history, allergy history and patient home medications list prior to surgery/procedure/anesthetic and documented any changes. Performed airway and anesthesia risk assessments. Anesthesia Type Anesthesia Type: General History Source History Obtained from:: Patient Anesthesia Focused Assessment* Temperature: 97.6 F Pulse Rate: 68 Blood Pressure: 107/69 Respiratory Rate: 18 Pulse Ox: 98 Oxygen Delivery Method: Room Air Airway Assessment Mouth opens: >3 cm Mallampati Score: II Teeth Condition: Dentures and Upper Neck Range of motion (ROM): Full ROM Focused Labs Anesthesia Preop lab: CBC WBC 7.2 K/mm3 (4.4-11.0) 05/13/21 11:25 05/13/21 RBC 4.86 M/mm3 (4.2-5.4) 05/13/21 11:25 05/13/21 Hgb 14.9 g/dL (12.0-15.0) 05/13/21 11:25 05/13/21 Hct 45.8 % (37-47) 05/13/21 11:25 05/13/21 Plt Count 272 K/mm3 (150-450) 05/13/21 11:25 05/13/21 CHEMISTRY Potassium 3.9 mmol/L (3.5-5.1) 05/13/21 11:25 05/13/21 Sodium 138 mmol/L (136-145) 05/13/21 11:25 05/13/21 BUN 18 mg/dL (7-18) 05/13/21 11:25 05/13/21 Creatinine 0.96 mg/dL (0.55-1.02) 05/13/21 11:25 05/13/21 Glucose 97 mg/dL (74-106) 05/13/21 11:25 05/13/21 COAG Pre-Assessment Diagnosis/Proposed Procedure Planned Operative Procedure(s): POSTERIOR REPAIR BILAT SSLF WITH DERMIS CYSTO BILAT URETERAL CATHETERIZATION Anesthesia History 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 When Was Last Pacemaker Check QUESTION #4 FULL TEXT: You/Your Family Experience fever (hyperthermia) with Anesthesia Last Oral Intake Last Oral intake: Last Oral Intake NPO since 05:00 07/19/24 06:43 Meds taken in AM with sips of Yes 07/19/24 06:43 water? Meds patient instructed to lisinopril 07/19/24 06:43 take am of surgery PONV PONV - mincemeat maker: PONV - mincemeat maker Female Yes 07/05/24 10:24 HX of Motion Sickness No 07/05/24 10:24 HX of N/V After Surgery No 07/05/24 10:24 Non-Smoker No 07/05/24 10:24 Duration of Surgery greater Yes 07/05/24 10:24 than 60 minutes Number of Risk Factors 2 07/05/24 10:24 PONV Score Moderate Risk 07/05/24 10:24 Height & Weight Height & Weight: Anesthesia: Height & Weight Height 5 ft 6 in 07/19/24 06:43 Weight: 102.4 kg 07/19/24 06:43 Body Mass Index (BMI) 36.4 07/19/24 06:43 Respiratory Assessment Respiratory Assessment - mincemeat maker: Respiratory Tract Infection Hx - mincemeat maker Hx Respiratory Tract Infection No 07/05/24 10:24 STOP Sleep Apnea STOP Sleep Apnea - mincemeat maker: STOP Sleep Apnea - mincemeat maker Hx Hypertension Yes: CONTROLLED WITH MEDS 07/05/24 10:24 Hx Sleep Apnea No 07/05/24 10:24 CPAP No 06/06/20 14:45 BIPAP Do you snore loudly (louder No 07/05/24 10:24 than talking or can be heard Do you often feel tired/ No 07/05/24 10:24 fatigued/ sleepy during daytime? Has anyone observed you stop No 07/05/24 10:24 breathing during sleep? STOP Results Negative 07/05/24 10:24 QUESTION #5 FULL TEXT : Do you snore loudly (louder than talking or can be heard through closed doors)? 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 Specify any problems Hx of Preganancy in last 3 No 07/05/24 10:24 Months Nurse Filling Out Transfusion DSCHRIBER 07/05/24 10:24 & Questions: Date: 07/05/24 07/05/24 10:24 Time: 10:25 07/05/24 10:24 Patient unable to answer at this time (ie. confused, unrespo /Reproduction History /Reproductive History - mincemeat maker: /Reproductive Hx- mincemeat maker Hx Now No 07/05/24 10:24 Gestational Age (in weeks): EDC: Hx Hx Para Hx Section SAB Active Medications Active Medications: Current Medications Generic Name Dose Route Start Last Admin Trade Name Freq PRN Reason Stop Dose Admin Ciprofloxacin 400 mg in 200 mls @ 200 mls/hr 07/19/24 07:30 Cipro IV 07/19/24 08:29 PREOP ONE Lactated Ringer's 1,000 mls @ 15 mls/hr 07/19/24 06:15 IV .Q48H HARDIK PFSH Medical History (Updated 07/05/24 @ 10:31 by Leanne Claire) Wears glasses Wears dentures Post-menopausal Cancer Arthritis Restless legs Gastric reflux Bronchitis Smoker History of stress test Hypertension Home Medications ?Medication ?Instructions ?Recorded ?Last Taken ?Type lisinopril 10 mg tablet 10 mg PO DAILY 30 days #30 tabs 05/13/21 07/19/24 05:00 Rx albuterol sulfate 90 mcg/actuation 2 puff inhalation Q6H PRN PRN 07/05/24 07/12/24 History aerosol inhaler wheezing ergocalciferol (vitamin D2) 1,250 1,250 mcg PO QWEEK 07/05/24 07/11/24 History mcg (50,000 unit) capsule famotidine 20 mg tablet 20 mg PO QHS 07/05/24 Unknown History losartan 25 mg tablet 25 mg PO DAILY 07/05/24 07/19/24 05:00 History losartan 50 mg tablet 50 mg PO DAILY 07/05/24 07/19/24 05:00 History topiramate 25 mg tablet 25 mg PO BID 07/05/24 07/18/24 18:00 History Allergy/AdvReac Type Severity Reaction Status Date / Time Penicillins (PCN) Allergy Other Verified 07/19/24 06:38 Surgical History (Updated 07/05/24 @ 10:31 by Leanne Claire) Hx laparoscopic cholecystectomy History of partial mastectomy Hx of thyroidectomy Social History Smoking Status: Current every day smoker tobacco type: cigarettes Review of Systems (Anesthesia) ROS Narrative System reviewed and no additional complaints, except as documented. Review of Systems ROS Unobtainable: Denies due to encephalopathy, due to endotracheal tube, due to mental condition, due to mental status or other Constitutional Constitutional: Denies change in weight, fever(s), snoring or stops breathing during sleep Eyes Eyes: Denies irritation, itchy eyes or requires corrective lenses ENT HEENT: Denies loss taste/smell, otalgia or sore throat Cardiovascular Cardiovascular: Reports hypertension Respiratory/Chest Respiratory/Chest: Denies chest congestion, cough or wheezing Gastrointestinal Gastrointestinal: Denies heartburn, nausea or vomiting Musculoskeletal Musculoskeletal: Denies muscle weakness or neck pain Integumentary Integumentary: Denies rash, sores, unusual bruising or wounds Neurologic Neurologic: Denies abnormal movements, abnormal speech, behavior changes, confusion, restless legs or seizures Psychiatric Psychiatric: Denies abnormal sleep pattern, anxiety or confusion Hematologic/Lymphatic Hematologic/Lymphatic: Denies easy bleeding or easy bruising Allergic/Immunologic Allergic/Immunologic: Denies asthma Physical Exam Const alert, oriented x3 and average body habitus Orientation / Consciousness: awake HEENT dentition normal Teeth and Gingiva: dentures Neck full ROM General: normal visual inspection Resp normal respiratory effort Cardio regular rate Back/Spine normal ROM
[2024-07-19] MEDS: Lubricating Jelly 60 GM Tube 30 GM (07:05)
[2024-07-19] MEDS: Estrogens,Conj. 1 Tube 1 DOSE (07:09)
[2024-07-19 07:36] LABS: Anion Gap 11 (5-15); BUN 21 mg/dL (4-19); BUN/Creat Ratio 26.6 RATIO (10-20); Calcium,Total 8.7 mg/dL (7.6-11.0); Carbon Dioxide 21.2 mmol/L (21.0-32.0); Chloride 108 mmol/L (98-108); Creatinine, Serum 0.79 mg/dL (0.70-1.20); EST Glomerular Filtration Rate 85 (>60); Estimated Creatinine Clearance 90.36 ml/min (50-250); Glucose 103 mg/dL (70-99); Potassium 3.7 mmol/L (3.3-5.1); Sodium Level 140 mmol/L (133-145)
[2024-07-19] MEDS: Ciprofloxacin 400 MG/200 ML BAG 200 MG IV (07:39)
--- NOTE | 2024-07-19 07:46 | PCM.OPRPT ---
Operative Report (Standard) Operative Information Date of Procedure: 07/19/24 Pre-Operative Diagnosis: rectocele, vaginal vault prolapse Post-Operative Diagnosis: same Surgery/Procedure Performed: Posterior repair, bilateral sacrospinous ligament fixation with dermis, cystoscopy with bilateral ureteral catheterization forestry aide: Yes Sack Maker: Lily Harper Tasks completed by registered nurse first assistant: Retracting Type of Anesthesia: General RN Documented Start/Stop Times: Operation Date: 07/19/24 07:30 Case Time Into Pre-Op 07/19/24 06:12 Out of Pre-Op 07/19/24 07:36 Anesthesia Start 07/19/24 07:39 Into Room 07/19/24 07:39 Procedure Start 07/19/24 07:57 Procedure End 07/19/24 08:47 Anesthesia End 07/19/24 08:55 Out of Room 07/19/24 08:55 Into Recovery 07/19/24 08:58 Out of Recovery 07/19/24 09:57 Procedure Start Time: 07:57 Procedure Stop Time: 08:47 Select all DRAINS/GRAFTS/IMPLANTS that apply: Graft Graft details: Dermis Estimated Blood Loss: 50cc Specimen collected: No Description of surgery: The patient is a 59-year-old female with a significant rectocele who presents for surgical intervention. Informed consent was obtained. She was taken to the operating room and placed on the operating room table. Anesthesia monitored the head, neck, airway, IV access and vital signs throughout the case. Once anesthesia was appropriately ministered she was placed into exaggerated dorsolithotomy and Trendelenburg position and was prepped and draped in usual sterile fashion. A Davidson catheter was inserted to straight drain and the bladder was emptied. The posterior wall was injected with lidocaine with epinephrine for hydrostatic dissection and hemostatic control. A midline vertical incision was made. Sharp and blunt dissection was performed on either side and continued all the way to the ischial spines which were freed from surrounding tissues and the sacrospinous ligaments were identified bilaterally. Both of these ligaments were very tenuous in nature. Using the saffron device, the Ethibond sutures were passed with the tines into the sacrospinous ligaments bilaterally. On the left side the zeynep pulled out twice and on the third time, stayed. At this time the dermis was attached to the sacrospinous ligaments using the free needle to pull the Ethibond through. It was also tacked in the midline at the apex using 2-0 Vicryl interrupted suture. At this time the dermis was trimmed to length and sutured circumferentially with interrupted 2-0 Vicryl. The perineal body was reconstructed using 2-0 Vicryl and 3-0 PDS. At this time the vaginal mucosa was trimmed minimally and closed using running interlocking 2-0 Vicryl. She her Davidson catheter was then removed and she was placed in a flat position. The cystoscope was inserted through the urethra under direct visualization into the urinary bladder. There was no evidence of hemorrhage, injury, foreign body or abnormality identified. The 5 Persian whistle-tip catheter was used to cannulate each ureteral orifice and gently advanced to 20 cm bilaterally without evidence of obstruction or injury. Hemostasis was once again observed. The cystoscope and catheter were then removed and the Davidson catheter was reinserted. The counts were correct. The vagina was packed with vaginal packing and estrogen cream. She was awakened and taken to the recovery room in good condition. Surgical Findings: Repair performed as above, no abnormal findings Complications Complications: No Admit VTE Documentation VTE Present on Admission: Yes VTE Mechan Device Prophylaxis: SCD's VTE Pharm Prophylaxis ordered?: Yes
--- NOTE | 2024-07-19 07:47 | DCINST_ITS ---
Discharge Instructions Diet Discharge Diet: No restrictions Activity Discharge Activity: May Shower May resume sexual activity in: 8 weeks Lifting Restrictions: 5 pounds for 8 weeks Additional Activity Instructions:: No exercise, strenuous activity, walking dog, swimming, hot tubs or tub bathing Dressing / Incision Call your doctor if your incision/area has: Continuous Slow Oozing, Sudden Increased Bleeding, Increased Pain/ Swelling and Foul Smelling Discharge Call your doctor if you observe: Fever of 101 or Higher, Inability to urinate and Inability to have a bowel movement Follow Up Care Please Follow Up With: Bhargavi Hammond MD When: The office will call to make follow-up arrangements. Test Results: Test results from this visit will be discussed in further detail at your follow- up appointment, if applicable. Discharge Plan Admission Admit Date/Time: 07/19/24 10:57 Primary Reason for Your Visit: RECTOCELE Attending Provider: Bhargavi Hammond Primary Care Provider: Palmer Wells Discharge Orders/Prescriptions Prescriptions: New ondansetron 8 mg tablet,disintegrating 8 mg PO Q8H PRN (Reason: nausea and vomiting) Qty: 10 0RF oxycodone-acetaminophen 5-325 mg tablet 1 tab PO Q8H PRN (Reason: pain) 3 Days Qty: 10 0RF Continued losartan 50 mg tablet 50 mg PO DAILY topiramate 25 mg tablet 25 mg PO BID famotidine 20 mg tablet 20 mg PO QHS losartan 25 mg tablet 25 mg PO DAILY ergocalciferol (vitamin D2) 1,250 mcg (50,000 unit) capsule 1,250 mcg PO QWEEK albuterol sulfate 90 mcg/actuation HFA aerosol inhaler 2 puff INHALATION Q6H PRN PRN (Reason: wheezing) Referrals / Follow Up: Palmer Wells MD [Primary Care Provider] - Disposition Disposition (needs filled in before D/C Order can be placed): Home, Self Care
[2024-07-19] MEDS: Lidocaine 1% /Epi 1:100 (20ml) 20 ML Vial (08:21)
--- NOTE | 2024-07-19 09:03 | PCM.POST.ANE ---
Anesthesia: Postop Eval I Current Vital Signs Temperature: 97.5 F Pulse Rate: 74 Blood Pressure: 108/58 Respiratory Rate: 20 Pulse Ox: 93 Oxygen Delivery Method: Room Air Assessment Airway patent: Yes Spontaneous unlabored respirations: Yes Mental status: Awake nausea: No Vomiting: No Anesthesia Complication: No Fluid Hydration Crystalloid volume administer (ml): 1,000 Total IV fluid infused: 1,000 Progress Note Anesthesia document: Postop Eval 1 completed: Yes
--- NOTE | 2024-07-19 09:32 | POSTOPAN2_ITS ---
Anesthesia Postop Eval I Sum Postop Eval Completion status Anesthesia document: Postop Eval 1 completed: Yes Anesthesia Postop Eval I Summary Anesthesia Postop Eval I Summary: Anesthesia Postop Eval I: Assessment Summary Airway patent Yes 07/19/24 09:04 SOFTWARE SALES EXECUTIVE.JDEF Spontaneous unlabored Yes 07/19/24 09:04 SOFTWARE SALES EXECUTIVE.JDEF respirations Mental status Awake 07/19/24 09:04 SOFTWARE SALES EXECUTIVE.JDEF nausea No 07/19/24 09:04 SOFTWARE SALES EXECUTIVE.JDEF Vomiting No 07/19/24 09:04 SOFTWARE SALES EXECUTIVE.JDEF Anesthesia Postop Eval I: Fluid Summary Crystalloid volume administer 1,000 07/19/24 09:04 SOFTWARE SALES EXECUTIVE.JDEF (ml) Colloids volume administered ( ml) Blood Product volume administered (ml) Total IV fluid infused 1,000 07/19/24 09:04 SOFTWARE SALES EXECUTIVE.JDEF Anesthesia Postop Eval I: Summary Notes Anesthesia Complication No 07/19/24 09:04 SOFTWARE SALES EXECUTIVE.JDEF Anesthesia Complication Comment: Post-operative progress note Anesthesia: Postop Eval II Evaluation Mental status: Awake and Calm Pain Level: 0 nausea: No Vomiting: No Complications Anesthesia Complication: No
--- NOTE | 2024-07-19 09:32 | PCM.POSTANE2 ---
Anesthesia Postop Eval I Sum Postop Eval Completion status Anesthesia document: Postop Eval 1 completed: Yes Anesthesia Postop Eval I Summary Anesthesia Postop Eval I Summary: Anesthesia Postop Eval I: Assessment Summary Airway patent Yes 07/19/24 09:04 MACHINE QUILT STUFFER.JDEF Spontaneous unlabored Yes 07/19/24 09:04 MACHINE QUILT STUFFER.JDEF respirations Mental status Awake 07/19/24 09:04 MACHINE QUILT STUFFER.JDEF nausea No 07/19/24 09:04 MACHINE QUILT STUFFER.JDEF Vomiting No 07/19/24 09:04 MACHINE QUILT STUFFER.JDEF Anesthesia Postop Eval I: Fluid Summary Crystalloid volume administer 1,000 07/19/24 09:04 MACHINE QUILT STUFFER.JDEF (ml) Colloids volume administered ( ml) Blood Product volume administered (ml) Total IV fluid infused 1,000 07/19/24 09:04 MACHINE QUILT STUFFER.JDEF Anesthesia Postop Eval I: Summary Notes Anesthesia Complication No 07/19/24 09:04 MACHINE QUILT STUFFER.JDEF Anesthesia Complication Comment: Post-operative progress note Anesthesia: Postop Eval II Evaluation Mental status: Awake and Calm Pain Level: 0 nausea: No Vomiting: No Complications Anesthesia Complication: No
[2024-07-19] MEDS: Docusate Sodium 100 MG Capsule 200 MG PO ×2 (11:44→22:14)
[2024-07-19] MEDS: Topiramate 25 MG Tablet PO ×2 (11:44→22:15)
[2024-07-19 12:44] LABS: Absolute Lymphocyte Count 1.18 X10^3/uL (0.83-4.51); Absolute Neutrophil Count 9.8 X10^3/uL (2.0-7.7); Basophil# 0.04 X10^3/uL; Basophil% 0.4 % (0-1); Eosinophil# 0.02 X10^3/uL; Eosinophils% 0.2 % (0-5); Hematocrit 42.2 % (37-47); Hemoglobin 13.6 g/dL (12.0-15.0); Lymphocyte # 1.18 X10^3/ul (0.83-4.51); Lymphocyte % 10.4 % (19-41); Mean Corp Hgb Conc 32.2 g/dL (32-36); Mean Corpuscular Hgb 30.4 pg (27.0-32.0); Mean Corpuscular Volume 94.2 fL (81-99); Mean Platelet Vol. 12.2 fl (6.2-12.0); Monocyte# 0.24 X10^3/uL; Monocyte% 2.1 % (0-10); NRBC Flagged by Analyzer 0 % (0-5); Neutrophil # 9.82 X10^3/uL (2.7-7.7); Neutrophil % 86.5 % (47-70); Platelet Count 221 K/mm3 (150-450); RBC Distribution Width CV 12.3 % (11.6-14.6); RBC Distribution Width SD 42.6 fl (35.1-43.9); Red Blood Count 4.48 M/mm3 (4.2-5.4); White Blood Count 11.4 K/mm3 (4.4-11.0)
[2024-07-19 13:20] LABS: Anion Gap 10 (5-15); BUN 18 mg/dL (4-19); BUN/Creat Ratio 23.4 RATIO (10-20); Carbon Dioxide 21.9 mmol/L (21.0-32.0); Chloride 107 mmol/L (98-108); Creatinine, Serum 0.79 mg/dL (0.70-1.20); EST Glomerular Filtration Rate 86 (>60); Estimated Creatinine Clearance 90.36 ml/min (50-250); Glucose 135 mg/dL (70-99); Sodium Level 139 mmol/L (133-145)
[2024-07-19] MEDS: Acetaminophen 325 MG Tablet 650 MG PO (16:18)
[2024-07-19] MEDS: Ciprofloxacin 500 MG Tablet PO (22:14)
[2024-07-19] MEDS: oxyCODONE 5 MG Tablet PO (22:14)
[2024-07-19] MEDS: 0.9% Saline Lock 10 ML Syringe IV (22:15)
[2024-07-19] MEDS: Famotidine 20 MG Tablet PO (22:15)
[2024-07-20] MEDS: Acetaminophen 325 MG Tablet 650 MG PO (00:22)
[2024-07-20 02:26] VITALS: BP 107/55; PULSE 65; RESP 18; TEMP 37.1; O2SAT 97
[2024-07-20] MEDS: 0.9% Saline Lock 10 ML Syringe IV (02:33)
[2024-07-20] MEDS: Morphine 2 MG/ML Syringe IV (02:33)
[2024-07-20 06:00] VITALS: BP 119/58; PULSE 64; RESP 17; TEMP 36.4; O2SAT 96
[2024-07-20 07:15] VITALS: O2SAT 95
[2024-07-20 09:05] VITALS: BP 103/58; PULSE 61; RESP 18; TEMP 36.5; O2SAT 97
[2024-07-20] MEDS: Docusate Sodium 100 MG Capsule 200 MG PO (09:12)
[2024-07-20] MEDS: Ciprofloxacin 500 MG Tablet PO (09:13)
[2024-07-20] MEDS: Topiramate 25 MG Tablet PO (09:13)
[2024-07-20] MEDS: Enoxaparin 40 MG/0.4 ML Syringe SC (09:14)
[2024-07-20] MEDS: oxyCODONE 5 MG Tablet PO (09:24)
[2024-07-20 11:40] VITALS: BP 106/56; PULSE 72; RESP 16; TEMP 36.9; O2SAT 96
[2024-07-20 12:31] VITALS: BP 106/56; PULSE 72; RESP 16; TEMP 36.9; O2SAT 96
--- NOTE | 2024-07-20 12:45 | CASEMGMT ---
RN WILSON NOTE: Discharge order is in. RN CM to room. Pt resting in bed. Introduced self and role. Pt denies having any discharge needs or concerns. She is aware Rx's have been sent to [facility]/[place]. Valdo NOLASCON RN CM
== END 2024-07-20 13:38 | disposition home or self-care (01) ==
LOC: SDC 11:06 → MS3 11:06
PROVIDERS: Admitting Provider Urology; PCP Family Medicine; Referring Provider Urology; Visit Provider Urology
PROC: (CPT 57260; principal; 2024-07-19 07:15)
DX: N81.4 Uterovaginal prolapse, unspecified (principal); K59.00 Constipation, unspecified; R35.1 Nocturia; I10 Essential (primary) hypertension; Z90.710 Acquired absence of both cervix and uterus; Z79.899 Other long term (current) drug therapy
CPT/HCPCS: 57250; 00942; 36415; 80048; 85025; 94668; 96372; 96374; 99221; C1762; A4216; C1758; G0378; J0744; J2405